=== PATIENT | male | born 1950 | race Caucasian/White ===

== ENCOUNTER 2020-05-22 01:55 | Observation (INO) ==
[2020-05-22] MEDS ORDERED: ASPIRIN 81 MG CHEW PO STA (02:07)
--- NOTE | 2020-05-22 02:11 | Emergency Department Note ---
Impression & Plan Substernal chest pain ED Provider Note Name: ZORA QUEVEDO Age: 69 Sex: M Arrives Via: Family Vehicle Informant: Patient ED Provider: Elfego Hilliard MD Chief Complaint: Chest Pain Impression: Substernal Chest Pain Medical Decision Makin yr old male with history HTN, DLP and family CAD history arrives for evaluation of substernal chest pressure. Notes started while exercising this evening and has been on and off over the last few hours but no symptoms in the last hour. EKG OK, trop negative and CXR OK. No evidence pe, dissection. He is feeling well. Was given full asa dose. Discussed with cards who advises hospitalization with cardiac rule out and then they will get stress testing done. Patient comfortable with this plan. Triage/Nursing Notes reviewed by Me Differentials:Cardiac ischemia, aortic dissection, pulmonary embolism, pneumothorax, pneumonia, pericarditis, myocarditis, esophageal rupture, GERD, cholecystitis, pancreatitis, musculoskeletal, as well as other pathologies. Vital Signs: reviewed and remarkable for no significant abnormalities Interventions: ASA 243mg PO Labs:Reviewed and remarkable for no significant abnormalities Imaging:X ray results are stated below per my interpretation: Chest: 1 view: No infiltrate, no effusion, normal cardiac border. EKG:Per My Interpretation: Indication Chest Pain: NSR 67 bpm, qtc 429. No Ectopy. No Ischemia. No previous for comparison Cardiac/Tele Monitoring: Cardiac Monitoring: An Order was placed for continuous cardiac monitoring. The monitor shows a rate of 60 with a normal sinus rhythm. Consults:Dr Prashant Jacob and Dr Laura Melendez Hospitalist Plan: Disposition:Hospitalization. Condition: Good History of Present Illness:69 yr old male arrives for evaluation of chest pain. Patient notes he was feeling well the last few days. Around 7pm he was doing some exercise walking in his basement when he noted left chest discomfort. Pressure like symptoms. No radiation. Worse with exertion, better with rest though continued when he went to bed. Took asa 81mg without relief. No radiation of pain, no nausea, no palpitations, no syncope, no vomiting. Denies recent leg swelling, abdominal pain, back pain, weakness, fevers, chills, cough, sob, nor other symptoms. No previous CAD history. Non-smoker. Patient currently without pain as symptoms resolved while driving here. ROS: See above HPI for pertinent positives & negatives. A total of 10 systems reviewed and were otherwise negative. Past Medical History:HTN, DLP, Prostate enlargement Past Surgical History:Prostate surgeries, hernia surgery x 2 Family History:Mother: CAD with CABG Social History:Lives with , non smoker Home Medications:See Below Allergies:nkda Vitals:Blood Pressure: 145/79, Pulse 71, RR 18, T 36.7C, O2 97% on RA Physical Exam: GENERAL: Patient is mildly anxious appearing and in no acute distress. EYES: No scleral icterus, unremarkable pupils. ENT: Mucous membranes moist, no nasal congestion. NECK: No masses appreciated, nomeningismus, trachea is midline. RESPIRATORY: No dyspnea. Clear to auscultation and equal bilaterally. No wheeze, no rhonchi. CARDIOVASCULAR: Regular rate and rhythm.No murmurs, rubs, gallops appreciated. GASTROINTESTINAL: Abdomen soft, non-tender, no peritonitis.Bowel sounds p ositive.No masses appreciated. BACK: No midline tenderness, no CVA tenderness EXTREMITIES: Normal motion all extremities, no cyanosis, no edema. NEUROLOGIC: Alert and oriented, no acute motor or sensory deficits, no focal weakness, cranial nerves grossly intact. SKIN: No rash, no jaundice, no diaphoresis. PSYCH: Appropriate GCS: 15 ED Course: Times/Reassessments: Stable, no further discomfort Elfego Hilliard MD Past Med/Surg History Social History Smoking Status: Never smoker Preferred Language: Australian Feels Safe at Home: Yes Allergies Allergies Allergy/AdvReac Type Severity Reaction Status Date / Time erythromycin base AdvReac Gastrointestinal Verified 05/22/20 03:21 Upset Home Meds Home Medications Medication Instructions Recorded Confirmed amlodipine 10 mg PO DAILY 05/22/20 05/22/20 lisinopril-hydrochlorothiazide 1 tab PO DAILY 05/22/20 05/22/20 pravastatin 20 mg PO HS 05/22/20 05/22/20 Results & Data (ED) Vital Signs Vital Signs - 24 hr 05/22/20 02:01 05/22/20 02:04 05/22/20 02:07 Temperature 36.7 C Temperature Source Oral Pulse Rate 71 79 Pulse Rate from SpO2 Sensor 68 Respiratory Rate 18 20 Respiratory Depth Normal Blood Pressure 145/79 H 145/79 H Blood Pressure Mean 101 101 Pulse Oximetry 97 98 98 Oxygen Delivery Method Room Air Room Air Sepsis Recent Fever Within 48 Hours No Sepsis New/Unexplained Change in Mental Status N/A Sepsis Action Taken by Nursing No Action Required 05/22/20 02:30 05/22/20 03:00 05/22/20 03:30 Temperature Temperature Source Pulse Rate 64 59 L 62 Pulse Rate from SpO2 Sensor 64 61 62 Respiratory Rate 12 14 12 Respiratory Depth Blood Pressure 125/88 131/76 141/87 H Blood Pressure Mean 100 94 105 Pulse Oximetry 97 96 96 Oxygen Delivery Method Sepsis Recent Fever Within 48 Hours Sepsis New/Unexplained Change in Mental Status Sepsis Action Taken by Nursing 05/22/20 04:00 Temperature Temperature Source Pulse Rate 54 L Pulse Rate from SpO2 Sensor 52 L Respiratory Rate Respiratory Depth Blood Pressure 126/72 Blood Pressure Mean 90 Pulse Oximetry 96 Oxygen Delivery Method Sepsis Recent Fever Within 48 Hours Sepsis New/Unexplained Change in Mental Status Sepsis Action Taken by Nursing Laboratory Data Result diagrams: 05/22/20 02:13 05/22/20 02:13 Lab Results 05/22/20 05/22/20 05/22/20 Range/Units 02:13 02:13 03:15 WBC 8.43 (4.8-10.8) K/uL RBC 5.05 (4.7-6.1) M/uL Hgb 15.6 (14.0-18.0) g/dL Hct 46.2 (42-52) % MCV 91.5 (80-100) fL MCH 30.9 (25-34) pg MCHC 33.8 (32-36) g/dL RDW Std Deviation 43.3 (36.4-46.3) fL RDW Coeff of [place] 13.0 (11.5-14.5) % Plt Count 259 (130-400) K/uL MPV 9.4 (7.4-10.4) fL Immature Gran % (Auto) 0.2 % Neut % (Auto) 73.0 % Lymph % (Auto) 15.3 % [place] % (Auto) 7.4 % Eos % (Auto) 3.7 % Baso % (Auto) 0.4 % Neut # (Auto) 6.16 (1.4-6.5) K/uL Lymph # (Auto) 1.29 (1.2-3.4) K/uL [place] # (Auto) 0.62 H (0.11-0.59) K/uL Eos # (Auto) 0.31 (0-0.5) K/uL Baso # (Auto) 0.03 (0-0.2) K/uL Immature Gran # (Auto) 0.02 (0.00-0.02) K/uL Sodium 141 (136-145) mmol/L Potassium 4.0 (3.5-5.1) mmol/L Chloride 109 H (98-107) mmol/L Carbon Dioxide 25 (21-32) mmol/L Anion Gap 7.0 (3-11) BUN 24 H (7-18) mg/dl Creatinine 1.58 H (0.6-1.4) mg/dl Est Cr Clr Drug Dosing 59.3 ml/min Est GFR ( Amer) 51.0 Est GFR (Non-Af Amer) 44.0 BUN/Creatinine Ratio 15.1 (10-20) Glucose 122 H (70-99) mg/dl Calcium 9.3 (8.5-10.1) mg/dl Total Bilirubin 0.4 (0.2-1) mg/dl Direct Bilirubin 0.1 (0-0.2) mg/dl AST 17 (15-37) U/L ALT 30 (12-78) U/L Alkaline Phosphatase 64 (45-117) U/L Troponin I < 0.015 (0-0.045) ng/ml Total Protein 8.2 (6.4-8.2) gm/dl Albumin 4.0 (3.4-5.0) gm/dl Lipase 447 H (73-393) U/L COVID-19 Eval Order Covid19 IDNow [facility] Administered Medications Discontinued Medications Aspirin (Aspirin 81 Mg Chew) 243 mg PO NOW STA Stop: 05/22/20 02:08 Last Admin: 05/22/20 02:20 Dose: 243 mg Documented by: [id number] Discharge Plan Visit Data Chief Complaint: Chest Pain Stated Complaint: CHEST PAIN, HEAVINESS IN CHEST ED Provider: Elfego Hilliard Discharge Problem: Substernal chest pain Forms Stand Alone Forms: My [employer] ([employer]) Prescriptions Prescriptions: No Action amlodipine 10 mg Tablet 10 mg PO DAILY RF: 0 pravastatin 20 mg Tablet 20 mg PO HS RF: 0 lisinopril-hydrochlorothiazide 10-12.5 mg Tablet 1 tab PO DAILY RF: 0
[2020-05-22 02:23] LABS: Basophils # (auto) 0.03 K/uL (0-0.2); Basophils % (auto) 0.4 %; Eosinophils # (auto) 0.31 K/uL (0-0.5); Eosinophils % (auto) 3.7 %; Hematocrit (blood only) 46.2 % (42-52); Hemoglobin 15.6 g/dL (14.0-18.0); Immature Granulocytes # (auto) 0.02 K/uL (0.00-0.02); Immature Granulocytes % (auto) 0.2 %; Lymphocytes # (auto) 1.29 K/uL (1.2-3.4); Lymphocytes % (auto) 15.3 %; Mean Corpuscular Hemoglobin 30.9 pg (25-34); Mean Corpuscular Hgb Conc 33.8 g/dL (32-36); Mean Corpuscular Volume 91.5 fL (80-100); Mean Platelet Volume 9.4 fL (7.4-10.4); Monocytes # (auto) 0.62 K/uL (0.11-0.59); Monocytes % (auto) 7.4 %; Neutrophils # (auto) 6.16 K/uL (1.4-6.5); Platelet Count 259 K/uL (130-400); RDW Standard Deviation 43.3 fL (36.4-46.3); Red Blood Count 5.05 M/uL (4.7-6.1); White Blood Count 8.43 K/uL (4.8-10.8)
[2020-05-22 02:41] LABS: Alanine Aminotransferase 30 U/L (12-78); Aspartate Aminotransferase 17 U/L (15-37); BUN Creatinine Ratio 15.1 (10-20); Bilirubin Direct 0.1 mg/dl (0-0.2); Blood Urea Nitrogen 24 mg/dl (7-18); Calcium 9.3 mg/dl (8.5-10.1); Carbon Dioxide 25 mmol/L (21-32); Chloride 109 mmol/L (98-107); Creatinine Clr Calc Pharmacy 59.3 ml/min; Glucose 122 mg/dl (70-99); Lipase 447 U/L (73-393); Sodium 141 mmol/L (136-145)
[2020-05-22 02:46] LABS: Alkaline Phosphatase 64 U/L (45-117); Bilirubin,Total 0.4 mg/dl (0.2-1); Total Protein 8.2 gm/dl (6.4-8.2); Troponin I < 0.015 ng/ml (0-0.045)
[2020-05-22] MEDS ORDERED: ACETAMINOPHEN 325 MG TAB PO PRN (04:52)
[2020-05-22] MEDS ORDERED: POLYETHYLENE (MIRALAX) 17 GM PACK PO PRN (04:52)
[2020-05-22] MEDS ORDERED: NITROGLYCERIN SL 0.4 MG/TAB TAB SL PRN (04:52)
[2020-05-22] MEDS ORDERED: ONDANSETRON INJ 2 MG/ML 2 ML VIAL IV PRN (04:52)
--- NOTE | 2020-05-22 05:12 | History and Physical Report ---
DATE OF ADMISSION: 05/22/2020 CHIEF COMPLAINT: Chest pain. HISTORY OF PRESENT ILLNESS: A 69-year-old male with past medical history significant for hyperlipidemia, hypertension, chronic kidney disease stage III, history of basal cell carcinoma, family history of abdominal aortic aneurysm, presents with chest pain. The patient yesterday evening at 7:00 p.m., was walking in his basement and watching football match when he noticed left sided chest discomfort, mild, pressure like feeling, it stayed on and off until 1:00 a.m. when he decided to come to the ER. Currently, since 1:00 a.m. the pain is resolved. No associating factors. No shortness of breath, no nausea, no sweating, no dizziness, no headache, no blurred vision, no earache, no runny nose, no sore throat, no cough, no loss of sense of smell or taste. No dysphagia. Appetite is okay. No abdominal pain. Normal bowel movements. Bladder stream is not great, he thinks it is from his prostate. No swelling in the legs, no rash. ALLERGIES: TO ERYTHROMYCIN. PAST MEDICAL HISTORY: As mentioned above. PAST SURGICAL HISTORY: Repair of inguinal hernia, left side, umbilical hernia repair. MEDICATIONS: The patient is on amlodipine 10 mg p.o. daily, lisinopril/hydrochlorothiazide 10/12.5 mg p.o. daily, pravastatin 20 mg p.o. at bedtime. FAMILY HISTORY: Significant for father had abdominal aortic aneurysm, heart disorder, lung disorder. Mother had heart disease, CABG in her 60s and hypertension. SOCIAL HISTORY: . No smoking. 1 or 2 beers a week. No drug use. REVIEW OF SYMPTOMS: As per HPI. Rest of review of systems negative. PHYSICAL EXAMINATION: GENERAL: The patient is of moderate build, not in acute distress. VITAL SIGNS: Temperature 36.7, pulse 59, respiratory rate 14, blood pressure 131/76, oxygen 96% on room air. HEENT: Pupils equal, round, reactive to light. Oral mucosa moist. NECK: No JVD, no neck masses. CARDIOVASCULAR: S1, S2 heard, regular rate and rhythm, no murmur, no gallop. RESPIRATORY SYSTEM: Normal AP diameter. No accessory muscle use. No wheezing, no crackles. ABDOMEN: Soft, bowel sounds present, nontender. No distention. CENTRAL NERVOUS SYSTEM: Cranial nerves II-XII grossly intact. Nonfocal. EXTREMITIES: No edema, no erythema. LABORATORY DATA: WBC 8.4, hemoglobin 15.6, hematocrit 46.2, platelets 259. Sodium 141, potassium 4, chloride 109, bicarbonate 25, BUN 24, creatinine 1.58, serum glucose 132, calcium 9.3, total bilirubin 0.4, direct bilirubin 0.1, AST 17, ALT 30, alkaline phosphatase 64. Troponin I less than 0.15. Lipase 447. SARS-CoV-2 RNA pending. IMAGING: Chest x-ray, no acute findings seen. EKG: Normal sinus rhythm with sinus arrhythmia, rate of 67, no acute ST changes seen. ASSESSMENT AND PLAN: This is a 69-year-old male who presents due to chest pain. 1. Chest pain. Rule out acute coronary syndrome. Initial EKG and troponins negative, follow serial enzymes, echocardiogram, repeat EKG, n.p.o. and consult cardiology for further recommendations, possible stress test in a.m. 2. Hypertension. Continue his lisinopril/ hydrochlorothiazide and amlodipine. Monitor the blood pressure. 3. Hyperlipidemia. Continue pravastatin. Follow fasting lipid profile. 4. Chronic kidney disease stage III, baseline creatinine 1.5-1.6, presently creatinine 1.58. We will follow the labs. 5. Deep venous thrombosis prophylaxis, sequential compression devices. 6. Disposition: Observation in [facility]. Expect to discharge home and follow with family doctor. Level 1 full code. MTDD
[2020-05-22 07:42] LABS: Basophils # (auto) 0.02 K/uL (0-0.2); Basophils % (auto) 0.3 %; Eosinophils # (auto) 0.11 K/uL (0-0.5); Eosinophils % (auto) 1.4 %; Hematocrit (blood only) 46.9 % (42-52); Hemoglobin 15.9 g/dL (14.0-18.0); Immature Granulocytes # (auto) 0.01 K/uL (0.00-0.02); Immature Granulocytes % (auto) 0.1 %; Lymphocytes # (auto) 0.81 K/uL (1.2-3.4); Lymphocytes % (auto) 10.3 %; Mean Corpuscular Hgb Conc 33.9 g/dL (32-36); Mean Corpuscular Volume 91.4 fL (80-100); Mean Platelet Volume 9.6 fL (7.4-10.4); Monocytes # (auto) 0.53 K/uL (0.11-0.59); Monocytes % (auto) 6.7 %; Neutrophils % (auto) 81.2 %; Platelet Count 288 K/uL (130-400); RDW Coefficient of Variation 13.1 % (11.5-14.5); RDW Standard Deviation 43.9 fL (36.4-46.3); Red Blood Count 5.13 M/uL (4.7-6.1); White Blood Count 7.88 K/uL (4.8-10.8)
--- NOTE | 2020-05-22 08:12 | XRay Report ---
SINGLE VIEW CHEST CLINICAL HISTORY: Atypical chest pain. FINDINGS: An AP, portable, upright chest radiograph is obtained. No prior studies are available for c omparison at the time of dictation. The heart is top normal for projection noting mild atherosclerot ic calcification of the thoracic aorta. The lungs and pleural spaces are clear. No pneumothorax is se en. The bony thorax is grossly intact. IMPRESSION: No active disease in the chest. ACT 112: Negative or not required by law. Electronically signed by: Edgar Hilton M.D. 05/22/2020 8:11 AM
[2020-05-22 08:41] LABS: BUN Creatinine Ratio 14.4 (10-20); Blood Urea Nitrogen 21 mg/dl (7-18); Calcium 10.1 mg/dl (8.5-10.1); Carbon Dioxide 25 mmol/L (21-32); Chloride 107 mmol/L (98-107); Chol HDL Ratio 4; Cholesterol 182 mg/dl (0-200); Est GFR (African American) 55.2; Est GFR (Non-African American) 47.6; Glucose 119 mg/dl (70-99); HDL Cholesterol 47 mg/dl; LDL Cholesterol Calculated 102 mg/dl; Sodium 138 mmol/L (136-145); Triglycerides 167 mg/dl (0-150); Troponin I < 0.015 ng/ml (0-0.045); VLDL Cholesterol 33 mg/dl
[2020-05-22] MEDS ORDERED: LISINOPRIL/HCTZ 10/12.5MG TAB PO SCH (09:00)
[2020-05-22] MEDS ORDERED: amLODIPine BESYLATE 5 MG TAB PO SCH (09:00)
[2020-05-22] MEDS ORDERED: ASPIRIN 81 MG ECTAB PO SCH (09:00)
[2020-05-22 09:28] LABS: Potassium 3.9 mmol/L (3.5-5.1)
[2020-05-22 09:30] LABS: Magnesium 2.5 mg/dl (1.8-2.4)
--- NOTE | 2020-05-22 09:31 | Hospitalist Progress Note ---
Date of Service May 22, 2020 Assessment & Plan (1) Substernal chest pain: This is a 69-year-old male who presents due to chest pain. 1. Chest pain. Rule out acute coronary syndrome. Initial EKG and troponins negative, follow serial enzymes, echocardiogram, repeat EKG, n.p.o. and consult cardiology for further recommendations, possible stress test in a.m. Echocardiogram - Mild concentric LVH. LV wall motion is normal. LV syst. function is normal. EF 60-65%. Mild mitral regurg. No pericardial effusion. Pt underwent stress test - Normal EKG and echocardiographic response to pharmacologic stress. After metoprolol 5 mg IV administered to reverse tachycardia, pt was observed to have an intense heart rate lowering response with associated transient heavy perspiration, no chest pain. Pt was reassessed after he had lunch and performed some walking. Pt felt well. LDL cholesterol of 102. Transition pt from pravastatin 20 mg to rosuvastatin 20 mg 2. Hypertension. Continue his lisinopril/ hydrochlorothiazide and amlodipine. Monitor the blood pressure. 3. Hyperlipidemia. LDL cholesterol of 102. Transition pt from pravastatin 20 mg to rosuvastatin 20 mg 4. Chronic kidney disease stage III, baseline creatinine 1.5-1.6, presently creatinine 1.58. We will follow the labs. DVT prophylaxis, sequential compression devices. Disposition: Observation in [facility]. Plan to dc home. Follow up with PCP scheduled for 05/30/2020. Follow up w/ cardiology as needed. Admission and Anticipated Discharge Date Admission Date: May 22, 2020 Subjective Pt seen in follow up of chest pain. Cardiology was consulted and pt underwent stress test today. Currently pt is resting in bd, reports to feel well. Denies any chest pain or shortness of breath. Reports that chest pain has resolved on the way to the hospital. Review of Systems Review of Systems: All systems reviewed & are unremarkable except as noted in HPI & below Constitutional: no fever, no chills and no fatigue Respiratory: no cough and no dyspnea Cardiovascular: no chest pain, no palpitations and no lightheadedness Gastrointestinal: no abdominal pain, no nausea and no vomiting Genitourinary: no dysuria Physical Exam Physical Exam: GENERAL: The patient is of moderate build, not in acute distress. HEENT: NC/AT, PERRL, EOMI. Oral mucosa moist. NECK: No JVD, no neck masses. CARDIOVASCULAR: S1, S2 heard, regular rate and rhythm, no murmur, no gallop. RESPIRATORY SYSTEM: Normal AP diameter. No accessory muscle use. No wheezing, no crackles. ABDOMEN: Soft, bowel sounds present, nontender. No distention. NEURO: alert and oriented x3, answering questions appropriately, speech fluent, moves extremities EXTREMITIES: No edema, no erythema. Results & Data Results & Data ([facility]) Vital Signs (Past 12 Hours) Vital Signs Temp Pulse Pulse Resp BP BP Pulse Ox 05/22/20 07:29 62 05/22/20 07:27 36.5 C 58 L 18 138/81 98 05/22/20 04:53 36.4 C L 71 16 150/85 H 99 05/22/20 04:00 54 L 126/72 96 05/22/20 03:30 62 12 141/87 H 96 05/22/20 03:00 59 L 14 131/76 96 05/22/20 02:30 64 12 125/88 97 05/22/20 02:07 98 05/22/20 02:04 79 20 145/79 H 98 05/22/20 02:01 36.7 C 71 18 145/79 H 97 Laboratory Results 05/22/20 05/22/20 05/22/20 Range/Units 08:38 06:59 06:59 WBC 7.88 (4.8-10.8) K/uL RBC 5.13 (4.7-6.1) M/uL Hgb 15.9 (14.0-18.0) g/dL Hct 46.9 (42-52) % MCV 91.4 (80-100) fL MCH 31.0 (25-34) pg MCHC 33.9 (32-36) g/dL RDW Std Deviation 43.9 (36.4-46.3) fL RDW Coeff of [place] 13.1 (11.5-14.5) % Plt Count 288 (130-400) K/uL MPV 9.6 (7.4-10.4) fL Immature Gran % (Auto) 0.1 % Neut % (Auto) 81.2 % Lymph % (Auto) 10.3 % [place] % (Auto) 6.7 % Eos % (Auto) 1.4 % Baso % (Auto) 0.3 % Neut # (Auto) 6.40 (1.4-6.5) K/uL Lymph # (Auto) 0.81 L (1.2-3.4) K/uL [place] # (Auto) 0.53 (0.11-0.59) K/uL Eos # (Auto) 0.11 (0-0.5) K/uL Baso # (Auto) 0.02 (0-0.2) K/uL Immature Gran # (Auto) 0.01 (0.00-0.02) K/uL Sodium 138 (136-145) mmol/L Potassium 3.9 (3.5-5.1) mmol/L Chloride 107 (98-107) mmol/L Carbon Dioxide 25 (21-32) mmol/L Anion Gap 6.0 (3-11) BUN 21 H (7-18) mg/dl Creatinine 1.48 H (0.6-1.4) mg/dl Est Cr Clr Drug Dosing 63.0 ml/min Est GFR ( Amer) 55.2 Est GFR (Non-Af Amer) 47.6 BUN/Creatinine Ratio 14.4 (10-20) Glucose 119 H (70-99) mg/dl Calcium 10.1 (8.5-10.1) mg/dl Magnesium 2.5 H (1.8-2.4) mg/dl Total Bilirubin (0.2-1) mg/dl Direct Bilirubin (0-0.2) mg/dl AST (15-37) U/L ALT (12-78) U/L Alkaline Phosphatase (45-117) U/L Troponin I < 0.015 (0-0.045) ng/ml Total Protein (6.4-8.2) gm/dl Albumin (3.4-5.0) gm/dl Triglycerides 167 H (0-150) mg/dl Cholesterol 182 (0-200) mg/dl LDL Cholesterol, Calc 102 mg/dl VLDL Cholesterol, Calc 33 mg/dl HDL Cholesterol 47 mg/dl Cholesterol/HDL Ratio 4 Lipase (73-393) U/L COVID-19 Eval Order SARS-CoV-2, RNA, NAAT (NEGATIVE) 05/22/20 05/22/20 05/22/20 Range/Units 03:15 03:15 02:13 WBC (4.8-10.8) K/uL RBC (4.7-6.1) M/uL Hgb (14.0-18.0) g/dL Hct (42-52) % MCV (80-100) fL MCH (25-34) pg MCHC (32-36) g/dL RDW Std Deviation (36.4-46.3) fL RDW Coeff of [place] (11.5-14.5) % Plt Count (130-400) K/uL MPV (7.4-10.4) fL Immature Gran % (Auto) % Neut % (Auto) % Lymph % (Auto) % [place] % (Auto) % Eos % (Auto) % Baso % (Auto) % Neut # (Auto) (1.4-6.5) K/uL Lymph # (Auto) (1.2-3.4) K/uL [place] # (Auto) (0.11-0.59) K/uL Eos # (Auto) (0-0.5) K/uL Baso # (Auto) (0-0.2) K/uL Immature Gran # (Auto) (0.00-0.02) K/uL Sodium 141 (136-145) mmol/L Potassium 4.0 (3.5-5.1) mmol/L Chloride 109 H (98-107) mmol/L Carbon Dioxide 25 (21-32) mmol/L Anion Gap 7.0 (3-11) BUN 24 H (7-18) mg/dl Creatinine 1.58 H (0.6-1.4) mg/dl Est Cr Clr Drug Dosing 59.3 ml/min Est GFR ( Amer) 51.0 Est GFR (Non-Af Amer) 44.0 BUN/Creatinine Ratio 15.1 (10-20) Glucose 122 H (70-99) mg/dl Calcium 9.3 (8.5-10.1) mg/dl Magnesium (1.8-2.4) mg/dl Total Bilirubin 0.4 (0.2-1) mg/dl Direct Bilirubin 0.1 (0-0.2) mg/dl AST 17 (15-37) U/L ALT 30 (12-78) U/L Alkaline Phosphatase 64 (45-117) U/L Troponin I < 0.015 (0-0.045) ng/ml Total Protein 8.2 (6.4-8.2) gm/dl Albumin 4.0 (3.4-5.0) gm/dl Triglycerides (0-150) mg/dl Cholesterol (0-200) mg/dl LDL Cholesterol, Calc mg/dl VLDL Cholesterol, Calc mg/dl HDL Cholesterol mg/dl Cholesterol/HDL Ratio Lipase 447 H (73-393) U/L COVID-19 [facility] SARS-CoV-2, RNA, NAAT NEGATIVE (NEGATIVE) 05/22/20 Range/Units 02:13 WBC 8.43 (4.8-10.8) K/uL RBC 5.05 (4.7-6.1) M/uL Hgb 15.6 (14.0-18.0) g/dL Hct 46.2 (42-52) % MCV 91.5 (80-100) fL MCH 30.9 (25-34) pg MCHC 33.8 (32-36) g/dL RDW Std Deviation 43.3 (36.4-46.3) fL RDW Coeff of [place] 13.0 (11.5-14.5) % Plt Count 259 (130-400) K/uL MPV 9.4 (7.4-10.4) fL Immature Gran % (Auto) 0.2 % Neut % (Auto) 73.0 % Lymph % (Auto) 15.3 % [place] % (Auto) 7.4 % Eos % (Auto) 3.7 % Baso % (Auto) 0.4 % Neut # (Auto) 6.16 (1.4-6.5) K/uL Lymph # (Auto) 1.29 (1.2-3.4) K/uL [place] # (Auto) 0.62 H (0.11-0.59) K/uL Eos # (Auto) 0.31 (0-0.5) K/uL Baso # (Auto) 0.03 (0-0.2) K/uL Immature Gran # (Auto) 0.02 (0.00-0.02) K/uL Sodium (136-145) mmol/L Potassium (3.5-5.1) mmol/L Chloride (98-107) mmol/L Carbon Dioxide (21-32) mmol/L Anion Gap (3-11) BUN (7-18) mg/dl Creatinine (0.6-1.4) mg/dl Est Cr Clr Drug Dosing ml/min Est GFR ( Amer) Est GFR (Non-Af Amer) BUN/Creatinine Ratio (10-20) Glucose (70-99) mg/dl Calcium (8.5-10.1) mg/dl Magnesium (1.8-2.4) mg/dl Total Bilirubin (0.2-1) mg/dl Direct Bilirubin (0-0.2) mg/dl AST (15-37) U/L ALT (12-78) U/L Alkaline Phosphatase (45-117) U/L Troponin I (0-0.045) ng/ml Total Protein (6.4-8.2) gm/dl Albumin (3.4-5.0) gm/dl Triglycerides (0-150) mg/dl Cholesterol (0-200) mg/dl LDL Cholesterol, Calc mg/dl VLDL Cholesterol, Calc mg/dl HDL Cholesterol mg/dl Cholesterol/HDL Ratio Lipase (73-393) U/L COVID-19 Eval Order SARS-CoV-2, RNA, NAAT (NEGATIVE) Medications Administered Current Inpatient Medications Acetaminophen (Acetaminophen 325 Mg Tab) 650 mg PO Q4H PRN PRN Reason: Pain or Fever Stop: 06/21/20 04:51 Amlodipine Besylate (Amlodipine Besylate 5 Mg Tab) 10 mg PO DAILY [facility] Stop: 06/21/20 08:59 Last Admin: 05/22/20 08:59 Dose: 10 mg Documented by: Aspirin (Aspirin 81 Mg Ectab) 81 mg PO QAM [facility] Stop: 06/21/20 08:59 Last Admin: 05/22/20 08:59 Dose: 81 mg Documented by: Lisinopril/HCTZ (Lisinopril/Hctz 10/12.5mg Tab) 1 tab PO DAILY [facility] Stop: 06/21/20 08:59 Last Admin: 05/22/20 08:59 Dose: 1 tab Documented by: Nitroglycerin (Nitroglycerin Sl 0.4 Mg/Tab Tab) 0.4 mg SL UD PRN PRN Reason: Chest Pain Stop: 06/21/20 04:51 Ondansetron HCl (Ondansetron Inj 2 Mg/Ml 2 Ml Vial) 4 mg IV Q6H PRN PRN Reason: Nausea Stop: 06/21/20 04:51 Polyethylene Glycol (Polyethylene (Miralax) 17 Gm Pack) 17 gm PO DAILY PRN PRN Reason: Constipation Stop: 06/21/20 04:51 Pravastatin Sodium (Pravastatin Sod 20 Mg Tab) 20 mg PO HS JAYSHREE Stop: 06/21/20 20:59
--- NOTE | 2020-05-22 10:13 | Cardiology Consultation ---
Date of Consultation May 22, 2020 Assessment & Plan (1) Substernal chest pain: EKG on arrival and again this am reveal SR without ischemic changes per my interpretation. Troponin I negative x 2. Resting echo this am reviewed independently, with normal LV wall motion and normal LVEF. Has risk factors of male sex, age, h/o HTN, dyslipidemia, and family history of CAD. Possible Stage III CKD, need to review historical labs from outpatient chart to determine his baseline creatinine. He states he has chronic R knee pain and is unable to exercise on the treadmill. Will proceed with dobutamine stress echo. Further recommendations to follow. History of Present Illness Attending Physician: William Harrison MD History of Present Illness Mr Ochoa is a 69 year old male seen in cardiology consultation per the request of Dr Sanchez for the evaluation of chest pain. Patient has a history of hypertension, and dyslipidemia. Notes left sided chest pain that felt like a pulled muscle while walking laps in his basement during half time of last night's [employer] football game. Symptoms persisted and resolved while his spouse was driving him to the ED. He has remained asymptomatic. Family History: Mother had CAG, CABG at age 68, after a fall with head trauma in her 80s. He is an only child Allergies Allergy/AdvReac Type Severity Reaction Status Date / Time erythromycin base AdvReac Gastrointestinal Verified 05/22/20 03:21 Upset Home Medications Medication Instructions Recorded Confirmed Type amlodipine 10 mg PO DAILY 05/22/20 05/22/20 History lisinopril-hydrochlorothiazide 1 tab PO DAILY 05/22/20 05/22/20 History pravastatin 20 mg PO HS 05/22/20 05/22/20 History Patient History Social History Smoking Status: Never smoker Hx Alcohol Use: Yes Alcohol type: beer and wine Hx Substance Use: No Preferred Language: Ivorian Communication Ability: Effective Bulb Weeder Required: No Beliefs That Will Affect Care: None Current Living Situation: Spouse Current Living Situation Comment: Feels Safe at Home: Yes Safety Concerns: Feels Safe At This Time Assistive Devices: Glasses Review of Systems Review of Systems: All systems reviewed & are unremarkable except as noted in HPI & below Physical Exam Physical Exam: Temp Pulse Resp BP Pulse Ox 36.5 C 62 18 138/81 98 05/22/20 07:27 05/22/20 07:29 05/22/20 07:27 05/22/20 07:27 05/22/20 07:27 Constitutional: WD/WN, vitals as above Respiratory: normal respiratory effort, lungs clear to auscultation Cardiovascular: RRR, no murmur, no edema Gastrointestinal (Abdomen): normal bowel sounds, soft, nontender, no hepatosplenomegaly Neurologic: PERRL, EOMI, accommodation nl, no face palsy, no dysarthria Results & Data ([facility]) Vital Signs (Past 12 Hours) Vital Signs Temp Pulse Pulse Resp BP BP Pulse Ox 05/22/20 07:29 62 05/22/20 07:27 36.5 C 58 L 18 138/81 98 05/22/20 04:53 36.4 C L 71 16 150/85 H 99 05/22/20 04:00 54 L 126/72 96 05/22/20 03:30 62 12 141/87 H 96 05/22/20 03:00 59 L 14 131/76 96 05/22/20 02:30 64 12 125/88 97 05/22/20 02:07 98 05/22/20 02:04 79 20 145/79 H 98 05/22/20 02:01 36.7 C 71 18 145/79 H 97 Laboratory Results Cardiac Enzymes 05/22/20 05/22/20 Range/Units 02:13 06:59 AST 17 (15-37) U/L Troponin I < 0.015 < 0.015 (0-0.045) ng/ml Lipids 05/22/20 Range/Units 06:59 Triglycerides 167 H (0-150) mg/dl Cholesterol 182 (0-200) mg/dl HDL Cholesterol 47 mg/dl Cholesterol/HDL Ratio 4 CBC 05/22/20 05/22/20 Range/Units 02:13 06:59 WBC 8.43 7.88 (4.8-10.8) K/uL RBC 5.05 5.13 (4.7-6.1) M/uL Hgb 15.6 15.9 (14.0-18.0) g/dL Hct 46.2 46.9 (42-52) % Plt Count 259 288 (130-400) K/uL Neut # (Auto) 6.16 6.40 (1.4-6.5) K/uL Lymph # (Auto) 1.29 0.81 L (1.2-3.4) K/uL Collier # (Auto) 0.62 H 0.53 (0.11-0.59) K/uL Eos # (Auto) 0.31 0.11 (0-0.5) K/uL Baso # (Auto) 0.03 0.02 (0-0.2) K/uL Comprehensive Metabolic Panel 05/22/20 05/22/20 05/22/20 Range/Units 02:13 06:59 08:38 Sodium 141 138 (136-145) mmol/L Potassium 4.0 3.9 (3.5-5.1) mmol/L Chloride 109 H 107 (98-107) mmol/L Carbon Dioxide 25 25 (21-32) mmol/L BUN 24 H 21 H (7-18) mg/dl Creatinine 1.58 H 1.48 H (0.6-1.4) mg/dl Glucose 122 H 119 H (70-99) mg/dl Calcium 9.3 10.1 (8.5-10.1) mg/dl Direct Bilirubin 0.1 (0-0.2) mg/dl AST 17 (15-37) U/L ALT 30 (12-78) U/L Alkaline Phosphatase 64 (45-117) U/L Total Protein 8.2 (6.4-8.2) gm/dl Albumin 4.0 (3.4-5.0) gm/dl Intake and Output 05/21/20 05/22/20 05/22/20 22:59 06:59 14:59 Other: Weight 113 kg Weight Measurement Method Standing Scale
[2020-05-22] MEDS ORDERED: ATROPINE SULFATE 0.1 MG/ML 10ML SYR IV ONE (11:23)
[2020-05-22] MEDS ORDERED: DOBUTamine HCL 12.5 MG/ML 20 ML VIAL IV ONE (11:23)
[2020-05-22] MEDS ORDERED: METOPROLOL TARTRATE 1 MG/ML VIAL IV ONE (11:23)
--- NOTE | 2020-05-22 11:28 | Electrocardiogram Report ---
Test Reason : Blood Pressure : / mmHG Vent. Rate : 067 BPM Atrial Rate : 067 BPM P-R Int : 180 ms QRS Dur : 090 ms QT Int : 406 ms P-R-T Axes : 078 027 035 degrees QTc Int : 429 ms Normal sinus rhythm with sinus arrhythmia Normal ECG No previous ECGs available Confirmed by Jaydon Pace ([id number]) on 05/22/2020 11:28:15 AM Referred By: REFERRED SELF Confirmed By:Lino Pace
--- NOTE | 2020-05-22 11:37 | Electrocardiogram Report ---
Test Reason : Blood Pressure : / mmHG Vent. Rate : 076 BPM Atrial Rate : 076 BPM P-R Int : 170 ms QRS Dur : 102 ms QT Int : 394 ms P-R-T Axes : 084 085 067 degrees QTc Int : 443 ms Normal sinus rhythm with sinus arrhythmia Nonspecific ST abnormality Confirmed by Jaydon Pace ([id number]) on 05/22/2020 11:37:20 AM Referred By: REFERRED SELF Confirmed By:Lino Pace
--- NOTE | 2020-05-22 12:30 | Communication Note ---
Date of Service: May 22, 2020 Normal EKG and echocardiographic response to pharmacologic stress. After metoprolol 5 mg IV administered to reverse tachycardia, pt was observed to have an intense heart rate lowering response with associated transient heavy perspiration, no chest pain. Plan: Transfer back to [facility]. Advance diet. Will reassess after he has lunch and has performed some walking. LDL cholesterol of 102. Given his risk factors would recommend more intensive lipid lowering therapy. Transition pt from pravastatin 20 mg to rosuvastatin 20 mg . Per review of his [facility] chart , he has not been on this in the past. Per review of records, pt has known stage III CKD, follows with nephrology.
--- NOTE | 2020-05-22 14:44 | Communication Note ---
Date of Service: May 22, 2020 Pt feeling well after lunch . He went for walk in [place] and feels well. Stable for discharge with plan to transition to Rosuvastatin 20 mg as outpatient. Can follow up with PCP and with cardiology should future concerns arise. I called and reviewed his cardiac assessment with his spouse, Beatriz by phone.
--- NOTE | 2020-05-22 15:26 | Discharge Summary ---
Date of Service May 22, 2020 Admission HPI Per Admitting Provider A 69-year-old male with past medical history significant for hyperlipidemia, hypertension, chronic kidney disease stage III, history of basal cell carcinoma, family history of abdominal aortic aneurysm, presents with chest pain. The patient yesterday evening at 7:00 p.m., was walking in his basement and watching football match when he noticed left sided chest discomfort, mild, pressure like feeling, it stayed on and off until 1:00 a.m. when he decided to come to the ER. Currently, since 1:00 a.m. the pain is resolved. No associating factors. No shortness of breath, no nausea, no sweating, no dizziness, no headache, no blurred vision, no earache, no runny nose, no sore throat, no cough, no loss of sense of smell or taste. No dysphagia. Appetite is okay. No abdominal pain. Normal bowel movements. Bladder stream is not great, he thinks it is from his prostate. No swelling in the legs, no rash. Admission Exam Per Admitting Provider GENERAL: The patient is of moderate build, not in acute distress. VITAL SIGNS: Temperature 36.7, pulse 59, respiratory rate 14, blood pressure 131/76, oxygen 96% on room air. HEENT: Pupils equal, round, reactive to light. Oral mucosa moist. NECK: No JVD, no neck masses. CARDIOVASCULAR: S1, S2 heard, regular rate and rhythm, no murmur, no gallop. RESPIRATORY SYSTEM: Normal AP diameter. No accessory muscle use. No wheezing, no crackles. ABDOMEN: Soft, bowel sounds present, nontender. No distention. CENTRAL NERVOUS SYSTEM: Cranial nerves II-XII grossly intact. Nonfocal. EXTREMITIES: No edema, no erythema. Principal Diagnosis Substernal chest pain Discharge Exam GENERAL: The patient is of moderate build, not in acute distress. HEENT: NC/AT, PERRL, EOMI. Oral mucosa moist. NECK: No JVD, no neck masses. CARDIOVASCULAR: S1, S2 heard, regular rate and rhythm, no murmur, no gallop. RESPIRATORY SYSTEM: Normal AP diameter. No accessory muscle use. No wheezing, no crackles. ABDOMEN: Soft, bowel sounds present, nontender. No distention. NEURO: alert and oriented x3, answering questions appropriately, speech fluent, moves extremities EXTREMITIES: No edema, no erythema. Discharge Data Allergies Allergy/AdvReac Type Severity Reaction Status Date / Time erythromycin base AdvReac Gastrointestinal Verified 05/22/20 03:21 Upset Consultations 05/22/20 03:09 ED Decision to Admit Stat 05/22/20 04:52 Consult Case Management - Discharge Planning Routine 05/22/20 08:00 Consult Cardiology Routine Hospital Course (1) Substernal chest pain: This is a 69-year-old male who presents due to chest pain. 1. Chest pain. Rule out acute coronary syndrome. Initial EKG and troponins negative, follow serial enzymes, echocardiogram, repeat EKG, n.p.o. and consult cardiology for further recommendations, possible stress test in a.m. Echocardiogram - Mild concentric LVH. LV wall motion is normal. LV syst. function is normal. EF 60-65%. Mild mitral regurg. No pericardial effusion. Pt underwent stress test - Normal EKG and echocardiographic response to pharmacologic stress. After metoprolol 5 mg IV administered to reverse tachycardia, pt was observed to have an intense heart rate lowering response with associated transient heavy perspiration, no chest pain. Pt was reassessed after he had lunch and performed some walking. Pt felt well. LDL cholesterol of 102. Transition pt from pravastatin 20 mg to rosuvastatin 20 mg 2. Hypertension. Continue his lisinopril/ hydrochlorothiazide and amlodipine. Monitor the blood pressure. 3. Hyperlipidemia. LDL cholesterol of 102. Transition pt from pravastatin 20 mg to rosuvastatin 20 mg 4. Chronic kidney disease stage III, baseline creatinine 1.5-1.6, presently creatinine 1.58. We will follow the labs. DVT prophylaxis, sequential compression devices. Disposition: Observation in med [facility]. Plan to ma home. Follow up with PCP scheduled for 05/30/2020. Follow up w/ cardiology as needed. Total Time Total Time Spent Total Time Spent (In Minutes): 37 Total Time Includes: Examination of the Patient, Discharge Planning, Medication Reconciliation and Communication With Other Providers Discharge Plan Discharge Items Patient Disposition: Home - Self-Care Reason For Visit: CHEST PAIN Discharge Diagnosis: Substernal chest pain Activity: Per Instructions section Non-emergency contact: Primary Care Provider Call non-emergency contact if: you have any medication questions and your symptoms worsen Follow-up/Referrals: Shakira Segovia MD [Primary Care Provider] - (Date & Time 05/30/2020 2:20 PM Provider Shkaira Segovia MD Department Internal Medicine [facility] ) Diet: Heart Healthy Addtl Attending Provider Instructions: Follow up with your primary care doctor, your appointment was scheduled for 05/30/2020. Start taking rosuvastatin (Crestor) 20 mg daily instead of pravastatin. The prescription was sent to your pharmacy. Pending Studies at Discharge: No Stand-Alone Forms: My [facility], Smoking Cessation Medications and DC Order Prescriptions: New rosuvastatin [Crestor] 20 mg Tablet 20 mg PO QAM 30 Days Qty: 30 RF: 0 aspirin 81 mg Tablet,Delayed Release (Dr/Ec) 81 mg PO QAM 30 Days Qty: 30 RF: 0 Continued amlodipine 10 mg Tablet 10 mg PO DAILY RF: 0 lisinopril-hydrochlorothiazide 10-12.5 mg Tablet 1 tab PO DAILY RF: 0 Discontinued pravastatin 20 mg Tablet 20 mg PO HS RF: 0 Discharge Orders: Discharge Order (Routine); Ordered 05/22/20 Ordered By: William Harrison Admission Data Admit Date/Time: 05/22/20 03:44 Attending Provider: William Harrison Admit Provider: Surinder Sanchez Primary Care Provider: Shakira Segovia Other Providers: Surinder Sanchez ; Tan Cerda
[2020-05-22] MEDS ORDERED: PRAVASTATIN SOD 20 MG TAB PO SCH (21:00)
[2020-05-23] MEDS ORDERED: ROSUVASTATIN CALCIUM 20 MG TAB PO SCH (09:00)
== END 2020-05-22 16:15 | disposition home or self-care (01) ==
LOC: 2N 01:55 → ED 01:55 → 2N 04:37

== ENCOUNTER 2021-06-13 19:29 | Inpatient (IN) ==
[2021-06-13] MEDS ORDERED: SODIUM CHLORIDE 0.9% 1000ML 1,000 ML IV STA (19:53)
[2021-06-13] MEDS ORDERED: MoRPHine SULFATE 4 MG/ML 1 ML CARP\\VIAL IV STA (19:53)
[2021-06-13] MEDS ORDERED: ONDANSETRON INJ 2 MG/ML 2 ML VIAL IV STA ×2 (19:53→22:28)
--- NOTE | 2021-06-13 20:19 | Emergency Department Note ---
Impression & Plan Pseudo-obstruction of intestine, Pancreatic mass, Liver metastases, Abdominal pain ED Provider Note NAME: ZORA QUEVEDO AGE: 70 SEX: M : 1950 ARRIVES VIA: Ambulance INFORMANT: Patient, ED PROVIDER(S): Manjit Walker MD Chief Complaint: Abdominal pain HPI: Patient does present due to concern for abdominal pain. The patient presents with approximately 4 days of left lower quadrant pain. The patient did have a recent admission at [facility] where the patient was noted to have likely C. difficile and had been on a liquid diet. The patient was also noted to have pancreatic mass with likely liver metastases. The patient states that he did have a liver biopsy completed this still pending. The patient denies any recent falls or trauma. Patient states he has not had a bowel movement in 4 days and has been obstipated not passing gas. No prior abdominal surgeries with exception of the recent liver biopsy. The patient denies any issues with urination. Patient has any chest pains or shortness of breath. Patient vaccinated for COVID-19. Patient states that the pain has been fairly constant worse with palpation and gnawing in nature 3 out of 10 in severity currently. ROS: See HPI for pertinent positives and negatives. A total of 10 systems were reviewed and otherwise negative. Past medical history: See below Surgical history: See below Social history: See below Physical Exam: GENERAL: NAD, wearing glasses, wearing a mask, non-toxic. EYE EXAM: Normal conjunctiva. PERRL, no anisocoria and EOM's grossly intact w/o pain. NECK: Supple, no nuchal rigidity, no adenopathy, non-tender. No signs of meningismus. LUNGS: Clear to auscultation. Normal chest wall mechanics. HEART: NSR, no MRG. ABDOMEN: Abdomen soft, left-sided abdominal pain, normo-active bowel sounds, no masses, no rebound or guarding. BACK: No CVA TTP. SKIN: No rashes and no bruising. UPPER EXTREMITIES: Upper extremities are grossly normal. LOWER EXTREMITIES: Grossly normal, 2+ symmetric lower extremity edema without calf pain NEURO EXAM: A&O x3, cranial nerves II-XII grossly intact, normal speech, moves all 4 extremities on command w/o issue. Differential diagnoses: Appendicitis, testicular torsion, infections, diverticulitis, UTI, obstruction, mesenteric ischemia, aortic pathology, inflammatory bowel disease, renal colic, PUD, pancreatitis, biliary pathology, hernia, volvulus, constipation, as well as other pathologies. Course: Patient was seen and evaluated the bedside. Full history physical exam was performed. EKG interpreted by me Sinus rhythm with PACs, rate of 87, normal intervals, normal axis, Q-wave in lead III no obvious changes. Imaging Studies: See Below Cardiac monitoring: An order was placed for continuous cardiac monitoring. The monitor shows a rate of 82 with sinus rhythm. MDM: Patient was seen due to concern for abdominal pain and associated nausea. The patient has had a recent C. difficile infection and states that his not had a bowel movement or passed gas in approximate 4 days. Patient blood work shows a white count of 16 with a hemoglobin of 12. The patient's platelet count is unremarkable. Patient does have mild hyponatremia. The patient's liver function enzymes are slightly elevated with AST ALT and alk phos at 73, 137 was 68 but bilirubin 0.6. Lipase is undetectable. Patient CT abdomen pelvis did show concern for the pancreatic body mass as well as concern for metastases to the liver which the patient is already characterized. The patient is a prominent gas distended loops of colon. Did review the patient's CAT scan was concerned given the gaseous distention. I did speak with the on-call general surgeon Dr. Naranjo stated that it would not be contraindicated to place an NG tube. This was ordered. I did speak the on-call hospitalist Dr. Sanchez and the patient was admitted to the medicine service. Of note while completing the patient's chart I did review the EKG that was in the system which was not the same EKG which I reviewed at the time of the patient's presentation. The patient does have some slight elevations noted adn thus I did call the [facility] hospitalist suggest adding a troponin. Patient never complained of any chest pains or shortness of breath at the time of the patient's history and physical exam. Past Med/Surg History Medical History BPH (benign prostatic hyperplasia) CKD (chronic kidney disease) Baseline creatinine 1.4-1.5 per chart review Hyperlipidemia Hypertension Nausea and vomiting after administration of anesthetic agent Osteoarthritis Umbilical hernia + present (no pain or current issues) Surgical History History of colonoscopy History of tooth extraction History of total right knee replacement (TKR) Hx of inguinal hernia repair Hx of prostate biopsy x2 (benign) Hx of umbilical hernia repair Hx of vasectomy Family History Other No family history of adverse response to anesthesia Social History Smoking Status: Never smoker Second Hand Exposure: No; Do You Dip or Chew Tobacco: No; Tobacco Cessation Education Requested by Patient: No Hx Alcohol Use: No Hx Substance Use: No Preferred Language: Indonesian Communication Ability: Effective Tubing Oiler Required: No Beliefs That Will Affect Care: None Current Living Situation: Spouse Current Living Situation Comment: Other Information That Helps Us Care for You: No Feels Safe at Home: Yes Safety Concerns: Feels Safe At This Time Assistive Devices: Glasses Allergies Allergies Allergy/AdvReac Type Severity Reaction Status Date / Time erythromycin base AdvReac Mild Gastrointestinal Verified 06/13/21 20:17 Upset Home Meds Home Medications Medication Instructions Recorded Confirmed amlodipine 10 mg tablet 10 mg PO QPM 05/22/20 06/13/21 lisinopril 10 1 tab PO QAM 05/22/20 06/13/21 mg-hydrochlorothiazide 12.5 mg tablet ascorbic acid (vitamin C) 1,000 mg 1 g PO QAM 01/10/21 06/13/21 tablet (Vitamin C) cyanocobalamin (vitamin B-12) 500 500 mcg PO QAM 01/10/21 06/13/21 mcg tablet multivitamin 1 tab PO QAM 01/10/21 06/13/21 rosuvastatin 20 mg tablet (Crestor) 20 mg PO QAM 01/10/21 06/13/21 cholecalciferol (vitamin D3) 25 25 mcg PO QAM 05/16/21 06/13/21 mcg (1,000 unit) tablet (Vitamin D3) coenzyme Q10 100 mg capsule 100 mg PO QAM 05/16/21 06/13/21 (CoQ-10) echinacea 125 mg capsule 125 mg PO QAM 05/16/21 06/13/21 flaxseed 1,000 mg capsule 1,000 mg PO QAM 05/16/21 06/13/21 turmeric 400 mg capsule 400 mg PO QAM 05/16/21 06/13/21 amoxicillin 500 mg capsule 2,000 mg PO ONCE PRN 06/13/21 06/13/21 omeprazole 40 mg capsule,delayed 40 mg PO DAILYBB 06/13/21 06/13/21 release trazodone 50 mg tablet 50 mg PO HS 06/13/21 06/13/21 vancomycin 250 mg capsule 250 mg PO Q6 06/13/21 06/13/21 Results & Data (ED) Vital Signs Vital Signs - 24 hr 06/13/21 19:32 06/13/21 19:53 06/13/21 20:06 Temperature 36.6 C Temperature Source Axillary Pulse Rate 96 H 100 H Pulse Rate from SpO2 Sensor 96 H Respiratory Rate 21 20 Blood Pressure 135/75 Blood Pressure Mean 95 Pulse Oximetry 97 96 Oxygen Delivery Method Room Air Room Air Sepsis Recent Fever Within 48 Hours No Sepsis New/Unexplained Change in Mental Status N/A Sepsis Action Taken by Nursing No Action Required 06/13/21 20:30 06/13/21 21:00 06/13/21 21:19 Temperature Temperature Source Pulse Rate 89 92 H 99 H Pulse Rate from SpO2 Sensor 94 H 89 97 H Respiratory Rate 24 16 20 Blood Pressure 132/72 131/79 Blood Pressure Mean 92 96 Pulse Oximetry 99 96 97 Oxygen Delivery Method Sepsis Recent Fever Within 48 Hours Sepsis New/Unexplained Change in Mental Status Sepsis Action Taken by Nursing 06/13/21 22:00 06/13/21 23:00 Temperature Temperature Source Pulse Rate 89 88 Pulse Rate from SpO2 Sensor 89 89 Respiratory Rate 18 18 Blood Pressure Blood Pressure Mean Pulse Oximetry 96 94 Oxygen Delivery Method Sepsis Recent Fever Within 48 Hours Sepsis New/Unexplained Change in Mental Status Sepsis Action Taken by Usp Medications Current Medication List: was personally reviewed by me Laboratory Data Attestation: I reviewed the patient's lab results. Result diagrams: 06/13/21 20:13 06/13/21 20:13 Lab Results 06/13/21 06/13/21 06/13/21 Range/Units 20:13 20:13 23:15 WBC 16.30 H (4.8-10.8) K/uL RBC 4.12 L (4.7-6.1) M/uL Hgb 12.3 L (14.0-18.0) g/dL Hct 35.9 L (42-52) % MCV 87.1 (80-100) fL MCH 29.9 (25-34) pg MCHC 34.3 (32-36) g/dL RDW Std Deviation 45.5 (36.4-46.3) fL RDW Coeff of [place] 14.3 (11.5-14.5) % Plt Count 293 (130-400) K/uL MPV 8.9 (7.4-10.4) fL Immature Gran % (Auto) 0.6 % Neut % (Auto) 89.2 % Lymph % (Auto) 9.4 % [place] % (Auto) 0.6 % Eos % (Auto) 0.1 % Baso % (Auto) 0.1 % Neut # (Auto) 14.56 H (1.4-6.5) K/uL Lymph # (Auto) 1.53 (1.2-3.4) K/uL [place] # (Auto) 0.09 L (0.11-0.59) K/uL Eos # (Auto) 0.01 (0-0.5) K/uL Baso # (Auto) 0.02 (0-0.2) K/uL Immature Gran # (Auto) 0.09 H (0.00-0.02) K/uL Sodium 130 L (136-145) mmol/L Potassium 3.7 (3.5-5.1) mmol/L Chloride 94 L (98-107) mmol/L Carbon Dioxide 26 (21-32) mmol/L Anion Gap 10 (3-11) BUN 16 (6-23) mg/dl Creatinine 1.04 (0.6-1.4) mg/dl Est Cr Clr Drug Dosing 83.8 ml/min Est GFR ( Amer) 83.9 ml/min Est GFR (Non-Af Amer) 72.4 ml/min BUN/Creatinine Ratio 15.4 (10-20) Glucose 132 H (70-99(Fasting)) mg/dl Calcium 9.2 (8.5-10.1) mg/dl Total Bilirubin 0.6 (0.2-1.0) mg/dl AST 73 H (13-39) U/L ALT 137 H (7-52) U/L Alkaline Phosphatase 168 H (34-104) U/L Total Protein 6.3 (6.0-8.3) gm/dl Albumin 3.5 (3.4-5.0) gm/dl Globulin 2.8 (2.5-4.0) gm/dl Albumin/Globulin Ratio 1.3 (0.9-2) Lipase 52 (11-82) U/L Urine Color Urine Appearance (Clear) Urine pH (4.5-7.5) Ur Specific [place] (1.000-1.030) Urine Protein (Negative) Urine Glucose (UA) (Negative) Urine Ketones (Negative) Urine Blood (Negative) Urine Nitrite (Negative) Urine Bilirubin (Negative) Urine Urobilinogen (Negative) Ur Leukocyte Esterase (Negative) Urine WBC (Auto) (0-5) /hpf Urine RBC (Auto) (0-4) /hpf U Hyaline Cast (Auto) (0-5) /lpf U Epithel Cells (Auto) (0-5) /lpf Urine Bacteria (Auto) (Negative) SARS-CoV-2, RNA, NAAT NEGATIVE (NEGATIVE) 06/13/21 Range/Units 23:40 WBC (4.8-10.8) K/uL RBC (4.7-6.1) M/uL Hgb (14.0-18.0) g/dL Hct (42-52) % MCV (80-100) fL MCH (25-34) pg MCHC (32-36) g/dL RDW Std Deviation (36.4-46.3) fL RDW Coeff of [place] (11.5-14.5) % Plt Count (130-400) K/uL MPV (7.4-10.4) fL Immature Gran % (Auto) % Neut % (Auto) % Lymph % (Auto) % [place] % (Auto) % Eos % (Auto) % Baso % (Auto) % Neut # (Auto) (1.4-6.5) K/uL Lymph # (Auto) (1.2-3.4) K/uL [place] # (Auto) (0.11-0.59) K/uL Eos # (Auto) (0-0.5) K/uL Baso # (Auto) (0-0.2) K/uL Immature Gran # (Auto) (0.00-0.02) K/uL Sodium (136-145) mmol/L Potassium (3.5-5.1) mmol/L Chloride (98-107) mmol/L Carbon Dioxide (21-32) mmol/L Anion Gap (3-11) BUN (6-23) mg/dl Creatinine (0.6-1.4) mg/dl Est Cr Clr Drug Dosing ml/min Est GFR ( Amer) ml/min Est GFR (Non-Af Amer) ml/min BUN/Creatinine Ratio (10-20) Glucose (70-99(Fasting)) mg/dl Calcium (8.5-10.1) mg/dl Total Bilirubin (0.2-1.0) mg/dl AST (13-39) U/L ALT (7-52) U/L Alkaline Phosphatase (34-104) U/L Total Protein (6.0-8.3) gm/dl Albumin (3.4-5.0) gm/dl Globulin (2.5-4.0) gm/dl Albumin/Globulin Ratio (0.9-2) Lipase (11-82) U/L Urine Color Yellow Urine Appearance Clear (Clear) Urine pH 5.0 (4.5-7.5) Ur Specific [place] > 1.045 H (1.000-1.030) Urine Protein Trace H (Negative) Urine Glucose (UA) Negative (Negative) Urine Ketones Trace H (Negative) Urine Blood Negative (Negative) Urine Nitrite Negative (Negative) Urine Bilirubin Negative (Negative) Urine Urobilinogen Negative (Negative) Ur Leukocyte Esterase Negative (Negative) Urine WBC (Auto) 1-5 (0-5) /hpf Urine RBC (Auto) 0-4 (0-4) /hpf U Hyaline Cast (Auto) 1-5 (0-5) /lpf U Epithel Cells (Auto) 10-20 H (0-5) /lpf Urine Bacteria (Auto) Negative (Negative) SARS-CoV-2, RNA, NAAT (NEGATIVE) Administered Medications Heparin Sodium (Porcine) (Heparin Sod 5,000 Unit/0.5 Ml Vial) 5,000 units SQ Q8 [facility] Stop: 07/14/21 05:59 Last Admin: 06/14/21 13:34 Dose: 5,000 units Documented by: [id number] Admin: 06/14/21 06:44 Dose: 5,000 units Documented by: [id number] Hydromorphone HCl (Hydromorphone Inj 0.5 Mg/0.5 Ml Syr) 0.5 mg IV Q3H PRN PRN Reason: Pain Stop: 06/28/21 00:44 Last Admin: 06/14/21 06:45 Dose: 0.5 mg Documented by: [id number] Admin: 06/14/21 03:38 Dose: 0.5 mg Documented by: [id number] Admin: 06/14/21 00:58 Dose: 0.5 mg Documented by: [id number] Pantoprazole Sodium 40 mg/ (Syringe) 10 mls @ 5 mls/min IV DAILY@1100 [facility] Stop: 07/14/21 10:59 Last Admin: 06/14/21 12:30 Dose: 5 mls/min Documented by: [id number] Sodium Chloride (Nss 1000ml) 1,000 mls @ 125 mls/hr IV .Q8H JAYSHREE Stop: 07/14/21 03:59 Last Admin: 06/14/21 13:49 Dose: 125 mls/hr Documented by: [id number] Infusion: 06/14/21 13:49 Dose: 125 mls/hr Documented by: [id number] Admin: 06/14/21 06:31 Dose: 125 mls/hr Documented by: [id number] Metronidazole (Flagyl) 500 mg in 100 mls @ 100 mls/hr IV Q8H JAYSHREE Stop: 06/24/21 13:59 Last Admin: 06/14/21 13:49 Dose: 100 mls/hr Documented by: [id number] Raspberry (Raspberry Syrup 5 Ml Udp) 5 ml PO Q6 JAYSHREE Stop: 06/21/21 23:59 Last Admin: 06/14/21 12:30 Dose: 5 ml Documented by: [id number] Admin: 06/14/21 06:44 Dose: 5 ml Documented by: [id number] Vancomycin HCl (Vancomycin Hcl 250 Mg/5 Ml Soln) 250 mg PO Q6 JAYSHREE Stop: 06/21/21 23:59 Last Admin: 06/14/21 12:30 Dose: 250 mg Documented by: [id number] Admin: 06/14/21 06:44 Dose: 250 mg Documented by: [id number] Vancomycin HCl (Vancomycin Hcl 500 Mg/100 Ml Enema) 500 mg MA QID JAYSHREE Stop: 06/24/21 12:59 Last Admin: 02/17/22 13:33 Dose: 500 mg Documented by: [id number] Discontinued Medications Sodium Chloride (Nss 1000ml) 1,000 mls @ 999 mls/hr IV .Q1H1M STA Stop: 06/13/21 20:53 Last Infusion: 06/14/21 00:14 Dose: 0 mls/hr Documented by: [id number] Admin: 06/13/21 20:14 Dose: 999 mls/hr Documented by: [id number] Sodium Chloride (Nss) 500 mls @ 125 mls/hr IV .Q4H JAYSHREE Stop: 07/13/21 22:29 Last Admin: 06/14/21 07:19 Dose: Not Given Documented by: [id number] Infusion: 06/14/21 07:19 Dose: 0 mls/hr Documented by: [id number] Admin: 06/13/21 23:15 Dose: 125 mls/hr Documented by: [id number] Ioversol (Optiray 320 100ml) 86 ml IV ONCE ONE Stop: 06/13/21 21:19 Last Admin: 06/13/21 21:18 Dose: 1 ml Documented by: [id number] Morphine Sulfate (Morphine Sulfate 4 Mg/Ml 1 Ml Carp\Vial) 4 mg IV NOW STA Stop: 06/13/21 19:54 Last Admin: 06/13/21 20:14 Dose: 4 mg Documented by: [id number] Ondansetron HCl (Ondansetron Inj 2 Mg/Ml 2 Ml Vial) 4 mg IV NOW STA Stop: 06/13/21 19:54 Last Admin: 06/13/21 20:05 Dose: 4 mg Documented by: [id number] Ondansetron HCl (Ondansetron Inj 2 Mg/Ml 2 Ml Vial) 4 mg IV NOW STA Stop: 06/13/21 22:29 Last Admin: 06/13/21 23:15 Dose: 4 mg Documented by: [id number] Discharge Plan Visit Data Chief Complaint: Abdominal Pain Discharge Problem: Pseudo-obstruction of intestine, Pancreatic mass, Liver metastases, Abdominal pain Patient Disposition: Admitted As Inpatient Discharge Instructions Interventions: ED Discharge Assessment Last Done: 06/14/21 03:25 Discharge Problem: Abdominal pain Qualifiers: Abdominal location: left lower quadrant Qualified Code(s): R10.32 - Left lower quadrant pain
[2021-06-13 20:22] LABS: Basophils # (auto) 0.02 K/uL (0-0.2); Basophils % (auto) 0.1 %; Eosinophils # (auto) 0.01 K/uL (0-0.5); Eosinophils % (auto) 0.1 %; Hematocrit (blood only) 35.9 % (42-52); Hemoglobin 12.3 g/dL (14.0-18.0); Immature Granulocytes # (auto) 0.09 K/uL (0.00-0.02); Immature Granulocytes % (auto) 0.6 %; Lymphocytes # (auto) 1.53 K/uL (1.2-3.4); Lymphocytes % (auto) 9.4 %; Mean Corpuscular Hemoglobin 29.9 pg (25-34); Mean Corpuscular Hgb Conc 34.3 g/dL (32-36); Mean Corpuscular Volume 87.1 fL (80-100); Mean Platelet Volume 8.9 fL (7.4-10.4); Monocytes # (auto) 0.09 K/uL (0.11-0.59); Monocytes % (auto) 0.6 %; Neutrophils # (auto) 14.56 K/uL (1.4-6.5); Neutrophils % (auto) 89.2 %; Platelet Count 293 K/uL (130-400); RDW Coefficient of Variation 14.3 % (11.5-14.5); RDW Standard Deviation 45.5 fL (36.4-46.3); Red Blood Count 4.12 M/uL (4.7-6.1)
[2021-06-13 20:59] LABS: Albumin Globulin Ratio 1.3 (0.9-2); Albumin Level 3.5 gm/dl (3.4-5.0); BUN Creatinine Ratio 15.4 (10-20); Bilirubin,Total 0.6 mg/dl (0.2-1.0); Calcium 9.2 mg/dl (8.5-10.1); Creatinine Clr Calc Pharmacy 83.8 ml/min; Est GFR (African American) 83.9 ml/min; Est GFR (Non-African American) 72.4 ml/min; Globulin 2.8 gm/dl (2.5-4.0); Potassium 3.7 mmol/L (3.5-5.1); Total Protein 6.3 gm/dl (6.0-8.3)
[2021-06-13] MEDS ORDERED: OPTIRAY 320 100ml IV ONE (21:18)
--- NOTE | 2021-06-13 21:40 | CT Scan Report ---
CT abd pelvis IV con only CLINICAL HISTORY: L sided pain; no BM; TECHNIQUE: Helical axial images of the abdomen and pelvis were obtained and displayed. Automated dose lowering techniques and/or adjustment according to patient size were utilized for this exam. This e xam was performed with intravenous contrast. COMPARISON: None available at the time of this dictation. FINDINGS: Lower chest: Bibasilar atelectasis versus scarring is seen. Liver: Numerous hypodensities are seen, most which measure greater than simple fluid density. The lar gest is 46 mm in diameter. Gallbladder and biliary tree: No calcified gallstones. Normal caliber wall. No intra- or extrahepatic biliary ductal dilation. Pancreas: There is a 36 mm ill-defined soft tissue mass in the body of the pancreas. The distal pancr eatic tail is dilated measuring 5 mm. Spleen: Unremarkable. Adrenals: Minimal thickening of the left adrenal gland is seen. Kidneys and ureters: Hypodensities are seen in the bilateral kidneys favored to represent cysts. Ther e is a hypodensity in the right kidney superior pole measuring 2 cm which measures greater than simpl e fluid. Bladder: Unremarkable. Reproductive organs: Prostatomegaly is seen. Bowel: There is mild diffuse wall thickening of the distal transverse colon. Multiple gas-distended l oops of colon are seen. The appendix is prominent in size measuring up to 9 mm at the tip. However, n o discernible wall thickening is seen. There is a small hiatal hernia. Lymph nodes Retroperitoneal: Numerous subcentimeter nodes are seen in the retroperitoneum and amrita hepatis. Mesenteric: Unremarkable. Pelvic: Subcentimeter lymph nodes are noted. Peritoneum: Normal. Vessels: Atherosclerotic calcifications are seen. Abdominal wall: Fat-containing supraumbilical hernia is seen. There is bilateral fat containing ingui nal hernias. Bones: Degenerative changes in the visualized spine. IMPRESSION: 1. There is a pancreatic body mass measuring approximately 36 mm with distal pancreatic ductal dilat ion. Findings are concerning for malignancy. Hypodense liver lesions are favored to represent metasta sis. 2. Hypodensity in the right kidney superior pole is nonspecific, nonemergent renal mass protocol can be performed if not previously characterized. 3. Prominent gas distended loops of colon. Prominence of the appendix and transverse colon is nonspe cific. ACT 112: Positive. There are findings on this exam that require communication between the performing entity and the patient following Patient Test Result Information Act ([place] Act 112) guidelines. Electronically signed by: Cornelio Salomon M.D. 06/13/2021 9:39 PM
[2021-06-13] MEDS: SODIUM CHLORIDE 0.9% 500 ML IV SCH (23:15)
[2021-06-14 00:12] LABS: Appearance Urine Clear (Clear); Bacteria Urine Automated Negative (Negative); Bilirubin Urine Negative (Negative); Blood Urine Negative (Negative); Color Urine Yellow; Glucose Urine UA Negative (Negative); Ketones Urine Trace (Negative); Leukocyte Esterase Urine Negative (Negative); Nitrite Urine Negative (Negative); Protein Urine Trace (Negative); RBC Urine Automated 0-4 /hpf (0-4); Specific Gravity Urine > 1.045 (1.000-1.030); Urobilinogen Urine Negative (Negative)
[2021-06-14] MEDS: HYDROmorphone INJ 0.5 MG/0.5 ML SYR IV PRN ×5 (00:58→22:16)
[2021-06-14] MEDS ORDERED: ONDANSETRON INJ 2 MG/ML 2 ML VIAL IV PRN (03:28)
[2021-06-14] MEDS ORDERED: hydrALAZINE HCL 20 MG/ML VIAL IV PRN (03:28)
[2021-06-14] MEDS: SODIUM CHLORIDE 0.9% 1000ML 1,000 ML IV SCH ×3 (06:31→22:20)
[2021-06-14] MEDS: HEPARIN SOD 5,000 UNIT/0.5 ML VIAL SQ SCH ×3 (06:44→23:51)
[2021-06-14] MEDS: VANCOMYCIN HCL 250 MG/5 ML SOLN PO SCH ×4 (06:44→23:52)
[2021-06-14] MEDS: RASPBERRY SYRUP 5 ML UDP PO SCH ×4 (06:44→23:51)
[2021-06-14] MEDS: SODIUM CHLORIDE 0.9% 500 ML IV SCH (07:19)
--- NOTE | 2021-06-14 07:55 | History and Physical Report ---
DATE OF ADMISSION: 06/14/2021. CHIEF COMPLAINT: Abdominal pain. HISTORY OF PRESENT ILLNESS: A 70-year-old male with past medical history significant for hyperlipidemia, hypertension, chronic kidney disease stage III, history of basal cell carcinoma, history of osteoarthritis, presents with abdominal pain. The patient was in [facility] recently. He is having abdominal pain since last Friday. He got admitted to [facility] and found to have pancreatic mass and liver mets, status post biopsy on last Friday. Results were pending at discharge. He is only eating liquid diet at home, but abdominal pain is not getting better. He is having nausea, but not vomiting. Last bowel movement was last Friday and severe abdominal pain, more in the left lower quadrant. Denies any fever or chills. No chest pain, no shortness of breath, no cough, no headache, no blurred vision, no earache, no runny nose, no sore throat. Currently, resting comfortably and hemodynamically stable. Currently requesting for pain medication. The patient is status post NG tube in the ER, draining slight yellowish fluid. ALLERGIES: ERYTHROMYCIN BASE. PAST MEDICAL HISTORY: As mentioned above. PAST SURGICAL HISTORY: Right knee arthroplasty, repair of inguinal hernia, umbilical hernia repair. MEDICATIONS: The patient is on amlodipine 10 mg p.o. p.m., amoxicillin p.r.n., ascorbic acid 1 g p.o. a.m., vitamin D 25 mcg p.o. a.m., vitamin B12 500 mcg p.o. a.m., lisinopril/hydrochlorothiazide 10/12.5 mg p.o. daily, multivitamin 1 tablet p.o. a.m., omeprazole 40 mg p.o. daily, Crestor 20 mg p.o. a.m., trazodone 50 mg p.o. at bedtime, vancomycin 250 mg p.o. q. 6 hours. FAMILY HISTORY: Significant for father has abdominal aortic aneurysm, heart disorder, black lung; mother has CABG, hypertension. SOCIAL HISTORY: , no smoking. One to two beers a week. No drug use. REVIEW OF SYSTEMS: As per HPI. Rest of review of systems is negative. PHYSICAL EXAMINATION: GENERAL: The patient is of moderate build, not in acute distress. VITAL SIGNS: Temperature 36.6, pulse 88, respiratory rate 18, blood pressure 131/79, oxygen 94% on room air. HEENT: Pupils equal, round and reactive to light. Oral mucosa moist. NECK: No JVD, no neck masses. CARDIOVASCULAR: S1 and S2 heard. Regular rate and rhythm. No murmur, no gallop. RESPIRATORY SYSTEM: Normal AP diameter. No accessory muscle use. No wheezing, no crackles. ABDOMEN: Soft. Absent bowel sounds. Mild distention. No guarding. Mild tenderness. CENTRAL NERVOUS SYSTEM: Cranial nerves II-XII grossly intact, nonfocal. EXTREMITIES: Bilateral lower extremity pedal edema present, no erythema seen. LABORATORY DATA: WBC 16.3, hemoglobin 12.3, hematocrit 35.9, platelets 293. Sodium 130, potassium 3.7, chloride 94, bicarbonate 26, BUN 16, creatinine 1, serum glucose 132, calcium 9.2, total bilirubin 0.6, AST 73, ALT 137, alkaline phosphatase 168. Lipase 52. Urinalysis, trace ketones. SARS-CoV-2 RNA negative. IMAGING DATA: CT of abdomen and pelvis shows pancreatic body mass measuring 36 mm, distal pancreatic ductal dilatation. Findings are concerning for malignancy. Hypodense liver lesions are favored to represent metastases. Hypodensity in the right kidney superior pole, nonspecific, nonemergent renal mass protocol can be performed. Prominent gas in distended loops of colon. Prominence of the appendix and transverse colon, is nonspecific. EKG: Sinus rhythm with PAC at the rate of 87, no significant change was found. ASSESSMENT AND PLAN: This 70-year-old male presents with abdominal pain. 1. Abdominal pain: Also found to have pancreatic mass and liver mets. Labs done at [facility] on Friday, results are pending. Currently questionable bowel obstruction. NG tube placed in the ER, which will be continued. Surgery consult in a.m. Keep him n.p.o., IV fluids, pain medications p.r.n. Closely monitor in the medical floor. 2. Pancreatic mass and liver metastases: Elevated LFTs. Follow up with hem/onc as outpatient with the pathology results.Also may need imaging kidneys with renal protocol. 3. Gastroesophageal reflux disease: Currently, placed on IV Protonix. 4. History of hypertension: Holding home medication. Placed on IV hydralazine p.r.n. Monitor the blood pressure. 5. History of clostridium difficile: continue p.o. vancomycin which were recently started. Contact precautions. 6. Hyperlipidemia: Hold statin for now. 7. Hypertension: Holding amlodipine and lisinopril/hydrochlorothiazide. IV hydralazine p.r.n. 8. Deep venous thrombosis prophylaxis: Heparin subcutaneous. DISPOSITION: Closely monitor in the medical floor. PT, OT prior to discharge. Social service to help with discharge planning. Job ID: [id number] [facility]
--- NOTE | 2021-06-14 09:30 | Surgery Consultation ---
Date of Consultation June 14, 2021 Assessment & Plan (1) Pancreatic mass: see below (2) Liver metastases: see below (3) Pseudo-obstruction of intestine: pt is a 70 year-old male who presents with one day history abdominal pain, CT scan-IMPRESSION: 1. There is a pancreatic body mass measuring approximately 36 mm with distal pancreatic ductal dilation. Findings are concerning for malignancy. Hypodense liver lesions are favored to represent metastasis. 2. Hypodensity in the right kidney superior pole is nonspecific, nonemergent renal mass protocol can be performed if not previously characterized. 3. Prominent gas distended loops of colon. Prominence of the appendix and transverse colon is nonspecific. IMP: possible pseudo-obstruction of intestine- no emergent surgery indication no w, continue conservative treatment,NPO, IV fluid, IV antibiotic, base WBC high, control pain, NG tube, will F/U pancreatic mass and liver metastasis- pending liver biopsy, follow up oncology and oncology surgeon out patient , pt agrees with the plan, I answered all questions, History of Present Illness Reason for Consultation: abdominal pain Requesting Physician: Lois Yancey MD Attending Physician: Lois Yancey MD History of Present Illness CHIEF COMPLAINT: Abdominal pain. HISTORY OF PRESENT ILLNESS: A 70-year-old male with past medical history s ignificant for hyperlipidemia, hypertension, chronic kidney disease stage III, history of basal cell carcinoma, history of osteoarthritis, presents with abdominal pain. The patient was in [facility] recently. He is having abdominal pain since last Friday. He got admitted to [facility] and found to have pancreatic mass and liver mets, status post biopsy on last Friday. Results were pending at discharge. He is only eating liquid diet at home, but abdominal pain is not getting better. He is having nausea, but not vomiting. Last bowel movement was last Friday and severe abdominal pain, more in the left lower quadrant. Denies any fever or chills. No chest pain, no shortness of breath, no cough, no headache, no blurred vision, no earache, no runny nose, no sore throat. Currently, resting comfortably and hemodynamically stable. Currently requesting for pain medication. The patient is status post NG tube in the ER, draining slight yellowish fluid. I ( Phill Vargas MD ) got a call for consult abdominal pain, I reviewed pt's H/P, labs, CT scan with pt, pt feels much better today after insertion NG tube, out-put about 1 L, not bloody, ALLERGIES: ERYTHROMYCIN BASE. PAST MEDICAL HISTORY: As mentioned above. PAST SURGICAL HISTORY: Right knee arthroplasty, repair of inguinal hernia, umbilical hernia repair. MEDICATIONS: The patient is on amlodipine 10 mg p.o. p.m., amoxicillin p.r.n., ascorbic acid 1 g p.o. a.m., vitamin D 25 mcg p.o. a.m., vitamin B12 500 mcg p.o. a.m., lisinopril/hydrochlorothiazide 10/12.5 mg p.o. daily, multivitamin 1 tablet p.o. a.m., omeprazole 40 mg p.o. daily, Crestor 20 mg p.o. a.m., trazodone 50 mg p.o. at bedtime, vancomycin 250 mg p.o. q. 6 hours. FAMILY HISTORY: Significant for father has abdominal aortic aneurysm, heart disorder, black lung; mother has CABG, hypertension. SOCIAL HISTORY: , no smoking. One to two beers a week. No drug use. REVIEW OF SYSTEMS: As per HPI. Rest of review of systems is negative. Allergies Allergy/AdvReac Type Severity Reaction Status Date / Time erythromycin base AdvReac Mild Gastrointestinal Verified 06/13/21 20:17 Upset Home Medications Medication Instructions Recorded Confirmed Type amlodipine 10 mg tablet 10 mg PO QPM 05/22/20 06/13/21 History lisinopril 10 1 tab PO QAM 05/22/20 06/13/21 History mg-hydrochlorothiazide 12.5 mg tablet ascorbic acid (vitamin C) 1,000 mg 1 g PO QAM 01/10/21 06/13/21 History tablet (Vitamin C) cyanocobalamin (vitamin B-12) 500 500 mcg PO QAM 01/10/21 06/13/21 History mcg tablet multivitamin 1 tab PO QAM 01/10/21 06/13/21 History rosuvastatin 20 mg tablet (Crestor) 20 mg PO QAM 01/10/21 06/13/21 History cholecalciferol (vitamin D3) 25 25 mcg PO QAM 05/16/21 06/13/21 History mcg (1,000 unit) tablet (Vitamin D3) coenzyme Q10 100 mg capsule 100 mg PO QAM 05/16/21 06/13/21 History (CoQ-10) echinacea 125 mg capsule 125 mg PO QAM 05/16/21 06/13/21 History flaxseed 1,000 mg capsule 1,000 mg PO QAM 05/16/21 06/13/21 History turmeric 400 mg capsule 400 mg PO QAM 05/16/21 06/13/21 History amoxicillin 500 mg capsule 2,000 mg PO ONCE PRN 06/13/21 06/13/21 History omeprazole 40 mg capsule,delayed 40 mg PO DAILYBB 06/13/21 06/13/21 History release trazodone 50 mg tablet 50 mg PO HS 06/13/21 06/13/21 History vancomycin 250 mg capsule 250 mg PO Q6 06/13/21 06/13/21 History Patient History Medical History BPH (benign prostatic hyperplasia) CKD (chronic kidney disease) Baseline creatinine 1.4-1.5 per chart review Hyperlipidemia Hypertension Nausea and vomiting after administration of anesthetic agent Osteoarthritis Umbilical hernia + present (no pain or current issues) Surgical History History of colonoscopy History of tooth extraction History of total right knee replacement (TKR) Hx of inguinal hernia repair Hx of prostate biopsy x2 (benign) Hx of umbilical hernia repair Hx of vasectomy Family History Other No family history of adverse response to anesthesia Social History Smoking Status: Never smoker Second Hand Exposure: No; Do You Dip or Chew Tobacco: No; Tobacco Cessation Education Requested by Patient: No Hx Alcohol Use: No Hx Substance Use: No Preferred Language: Tuval[place] Communication Ability: Effective Pet [employer] Deboner Required: No Beliefs That Will Affect Care: None Current Living Situation: Spouse Current Living Situation Comment: Other Information That Helps Us Care for You: No Feels Safe at Home: Yes Safety Concerns: Feels Safe At This Time Assistive Devices: Glasses Physical Exam Constitutional: WD/WN, vitals as above no distress Eyes: PERRL, conjunctivae normal, anicteric sclerae Neck: trachea midline, no thyromegaly Respiratory: normal respiratory effort, lungs clear to auscultation Cardiovascular: RRR, no murmur, no edema Gastrointestinal (Abdomen): soft, mild tenderness at lower abdomen, no rebound pain, no distend, BS + Musculoskeletal: no cyanosis or clubbing, extremities motor strength 5/5 Neurologic: patellar DTR's 2+ bilat, sensation intact Psychiatric: A+Ox3, euthymic affect Results & Data ([facility]) Vital Signs (Past 12 Hours) Vital Signs Temp Pulse Pulse Pulse Resp BP BP 06/14/21 07:27 36.7 C 63 16 128/70 06/14/21 04:42 36.7 C 90 90 18 130/75 06/14/21 04:39 36.7 C 90 90 18 130/75 06/14/21 03:28 36.7 C 90 18 130/75 06/14/21 02:18 87 17 121/70 06/13/21 23:00 88 18 06/13/21 22:00 89 18 Pulse Ox 06/14/21 07:27 96 06/14/21 04:42 98 06/14/21 04:39 98 06/14/21 03:28 97 06/14/21 02:18 96 06/13/21 23:00 94 06/13/21 22:00 96 Laboratory Results Abnormal lab results 06/13/21 06/13/21 06/13/21 Range/Units 20:13 20:13 23:40 WBC 16.30 H (4.8-10.8) K/uL RBC 4.12 L (4.7-6.1) M/uL Hgb 12.3 L (14.0-18.0) g/dL Hct 35.9 L (42-52) % Neut # (Auto) 14.56 H (1.4-6.5) K/uL [place] # (Auto) 0.09 L (0.11-0.59) K/uL Immature Gran # (Auto) 0.09 H (0.00-0.02) K/uL Sodium 130 L (136-145) mmol/L Chloride 94 L (98-107) mmol/L Glucose 132 H (70-99(Fasting)) mg/dl AST 73 H (13-39) U/L ALT 137 H (7-52) U/L Alkaline Phosphatase 168 H (34-104) U/L Ur Specific [place] > 1.045 H (1.000-1.030) Urine Protein Trace H (Negative) Urine Ketones Trace H (Negative) U Epithel Cells (Auto) 10-20 H (0-5) /lpf Diagnostic Findings CT abd pelvis IV con only CLINICAL HISTORY: L sided pain; no BM; TECHNIQUE: Helical axial images of the abdomen and pelvis were obtained and displayed. Automated dose lowering techniques and/or adjustment according to patient size were utilized for this exam. This exam was performed with intravenous contrast. COMPARISON: None available at the time of this dictation. FINDINGS: Lower chest: Bibasilar atelectasis versus scarring is seen. Liver: Numerous hypodensities are seen, most which measure greater than simple fluid density. The largest is 46 mm in diameter. Gallbladder and biliary tree: No calcified gallstones. Normal caliber wall. No intra- or extrahepatic biliary ductal dilation. Pancreas: There is a 36 mm ill-defined soft tissue mass in the body of the pancreas. The distal pancreatic tail is dilated measuring 5 mm. Spleen: Unremarkable. Adrenals: Minimal thickening of the left adrenal gland is seen. Kidneys and ureters: Hypodensities are seen in the bilateral kidneys favored to represent cysts. There is a hypodensity in the right kidney superior pole measuring 2 cm which measures greater than simple fluid. Bladder: Unremarkable. Reproductive organs: Prostatomegaly is seen. Bowel: There is mild diffuse wall thickening of the distal transverse colon. Multiple gas-distended loops of colon are seen. The appendix is prominent in size measuring up to 9 mm at the tip. However, no discernible wall thickening is seen. There is a small hiatal hernia. Lymph nodes Retroperitoneal: Numerous subcentimeter nodes are seen in the retroperitoneum and amrita hepatis. Mesenteric: Unremarkable. Pelvic: Subcentimeter lymph nodes are noted. Peritoneum: Normal. Vessels: Atherosclerotic calcifications are seen. Abdominal wall: Fat-containing supraumbilical hernia is seen. There is bilateral fat containing inguinal hernias. Bones: Degenerative changes in the visualized spine.
--- NOTE | 2021-06-14 10:06 | Gastrointestinal Consultation ---
Date of Consultation June 14, 2021 Assessment & Plan (1) Pancreatic mass: 70 year old male admitted w/ abdominal pain, nausea, diarrhea. He was recently evaluated at [facility] and was found to have liver lesions, pancreatic mass and c.diff on therapy with vancomycin. He already had biopsy of liver lesion. Will await results before arranging any further testing or biopsies. If definitive will need surg onc/heme onc evaluation. Continue treatment for c.diff with PO vancomycin 125 mg daily for 14 days. Recommend general surgery consultation given concern for pseudo- obstruction. Can consider IV flagyl or MO vancomycin. Thank you for allowing us to participate in the care of this patient. Please call with any acute changes, questions or concerns. Please see addendum below with additional recommendation from my supervising physician. Supervising Physician Co-Signing Physician Notes I have personally seen and examined the patient with OSBALDO Stanton. Her note reflects my exam and findings. I agree with her impression and plan. Plan for colonoscopy tomorrow after prep. Cont to treat C. diff. F/u biopsies from [place] when available. Hernan Jim M.D. History of Present Illness Reason for Consultation: SBO, c.diff, pancreatic mass Requesting Physician: Naye Attending Physician: Lois Yancey MD History of Present Illness 70 year old male who presents with c.diff, abdominal pain, nausea/dry heaving. GI asked to evaluate. PT was seen, chart reviewed. He suggests since February he has had generalized upper abdominal pain, nausea, decreased appetite and a 45 lb weight loss. He underwent EGD with Dr. Cuadra in April for evaluation. This was largely unremarkable. Pain persistent and worsened and last week he was admitted at [facility]. At this time he was diagnosed with c.diff and started on vancomycin. CT imaging showed pancreatic mass and liver mass and he underwent liver biopsy on Friday. Biopsy results are still pending. CTAP 2021: There is a pancreatic body mass measuring approximately 36 mm with distal pancreatic ductal dilation. Findings are concerning for malignancy. Hypodense liver lesions are favored to represent metastasis. Hypodensity in the right kidney superior pole is nonspecific, nonemergent renal mass protocol can be performed if not previously characterized.Prominent gas distended loops of colon. Prominence of the appendix and transverse colon is nonspecific. Allergies Allergy/AdvReac Type Severity Reaction Status Date / Time erythromycin base AdvReac Mild Gastrointestinal Verified 06/13/21 20:17 Upset Home Medications Medication Instructions Recorded Confirmed Type amlodipine 10 mg tablet 10 mg PO QPM 05/22/20 06/13/21 History lisinopril 10 1 tab PO QAM 05/22/20 06/13/21 History mg-hydrochlorothiazide 12.5 mg tablet ascorbic acid (vitamin C) 1,000 mg 1 g PO QAM 01/10/21 06/13/21 History tablet (Vitamin C) cyanocobalamin (vitamin B-12) 500 500 mcg PO QAM 01/10/21 06/13/21 History mcg tablet multivitamin 1 tab PO QAM 01/10/21 06/13/21 History rosuvastatin 20 mg tablet (Crestor) 20 mg PO QAM 01/10/21 06/13/21 History cholecalciferol (vitamin D3) 25 25 mcg PO QAM 05/16/21 06/13/21 History mcg (1,000 unit) tablet (Vitamin D3) coenzyme Q10 100 mg capsule 100 mg PO QAM 05/16/21 06/13/21 History (CoQ-10) echinacea 125 mg capsule 125 mg PO QAM 05/16/21 06/13/21 History flaxseed 1,000 mg capsule 1,000 mg PO QAM 05/16/21 06/13/21 History turmeric 400 mg capsule 400 mg PO QAM 05/16/21 06/13/21 History amoxicillin 500 mg capsule 2,000 mg PO ONCE PRN 06/13/21 06/13/21 History omeprazole 40 mg capsule,delayed 40 mg PO DAILYBB 06/13/21 06/13/21 History release trazodone 50 mg tablet 50 mg PO HS 06/13/21 06/13/21 History vancomycin 250 mg capsule 250 mg PO Q6 06/13/21 06/13/21 History Patient History Medical History BPH (benign prostatic hyperplasia) CKD (chronic kidney disease) Baseline creatinine 1.4-1.5 per chart review Hyperlipidemia Hypertension Nausea and vomiting after administration of anesthetic agent Osteoarthritis Umbilical hernia + present (no pain or current issues) Surgical History History of colonoscopy History of tooth extraction History of total right knee replacement (TKR) Hx of inguinal hernia repair Hx of prostate biopsy x2 (benign) Hx of umbilical hernia repair Hx of vasectomy Family History Other No family history of adverse response to anesthesia Social History Smoking Status: Never smoker Second Hand Exposure: No; Do You Dip or Chew Tobacco: No; Tobacco Cessation Education Requested by Patient: No Hx Alcohol Use: No Hx Substance Use: No Preferred Language: Kyrgyz Communication Ability: Effective Pipe Organ Builder Required: No Beliefs That Will Affect Care: None Current Living Situation: Spouse Current Living Situation Comment: Other Information That Helps Us Care for You: No Feels Safe at Home: Yes Safety Concerns: Feels Safe At This Time Assistive Devices: Glasses Review of Systems Review of Systems: All systems reviewed & are unremarkable except as noted in HPI & below Physical Exam Constitutional: WD/WN, vitals as above Neck: trachea midline, no thyromegaly Respiratory: normal respiratory effort, lungs clear to auscultation Cardiovascular: Rate/Rhythm: regular rate Gastrointestinal (Abdomen): normal bowel sounds, soft, nontender, no hepatospl enomegaly Skin: no rashes, warm and dry Results & Data ([facility]) Vital Signs (Past 12 Hours) Vital Signs Temp Pulse Pulse Pulse Resp BP BP 06/14/21 07:27 36.7 C 63 16 128/70 06/14/21 04:42 36.7 C 90 90 18 130/75 06/14/21 04:39 36.7 C 90 90 18 130/75 06/14/21 03:28 36.7 C 90 18 130/75 06/14/21 02:18 87 17 121/70 06/13/21 23:00 88 18 06/13/21 22:00 89 18 Pulse Ox 06/14/21 07:27 96 06/14/21 04:42 98 06/14/21 04:39 98 06/14/21 03:28 97 06/14/21 02:18 96 06/13/21 23:00 94 06/13/21 22:00 96 Laboratory Results 06/13/21 06/13/21 06/13/21 Range/Units 23:40 23:15 20:13 WBC (4.8-10.8) K/uL RBC (4.7-6.1) M/uL Hgb (14.0-18.0) g/dL Hct (42-52) % MCV (80-100) fL MCH (25-34) pg MCHC (32-36) g/dL RDW Std Deviation (36.4-46.3) fL RDW Coeff of [place] (11.5-14.5) % Plt Count (130-400) K/uL MPV (7.4-10.4) fL Immature Gran % (Auto) % Neut % (Auto) % Lymph % (Auto) % [place] % (Auto) % Eos % (Auto) % Baso % (Auto) % Neut # (Auto) (1.4-6.5) K/uL Lymph # (Auto) (1.2-3.4) K/uL [place] # (Auto) (0.11-0.59) K/uL Eos # (Auto) (0-0.5) K/uL Baso # (Auto) (0-0.2) K/uL Immature Gran # (Auto) (0.00-0.02) K/uL Sodium 130 L (136-145) mmol/L Potassium 3.7 (3.5-5.1) mmol/L Chloride 94 L (98-107) mmol/L Carbon Dioxide 26 (21-32) mmol/L Anion Gap 10 (3-11) BUN 16 (6-23) mg/dl Creatinine 1.04 (0.6-1.4) mg/dl Est Cr Clr Drug Dosing 83.8 ml/min Est GFR ( Amer) 83.9 ml/min Est GFR (Non-Af Amer) 72.4 ml/min BUN/Creatinine Ratio 15.4 (10-20) Glucose 132 H (70-99(Fasting)) mg/dl Calcium 9.2 (8.5-10.1) mg/dl Total Bilirubin 0.6 (0.2-1.0) mg/dl AST 73 H (13-39) U/L ALT 137 H (7-52) U/L Alkaline Phosphatase 168 H (34-104) U/L Total Protein 6.3 (6.0-8.3) gm/dl Albumin 3.5 (3.4-5.0) gm/dl Globulin 2.8 (2.5-4.0) gm/dl Albumin/Globulin Ratio 1.3 (0.9-2) Lipase 52 (11-82) U/L Urine Color Yellow Urine Appearance Clear (Clear) Urine pH 5.0 (4.5-7.5) Ur Specific [place] > 1.045 H (1.000-1.030) Urine Protein Trace H (Negative) Urine Glucose (UA) Negative (Negative) Urine Ketones Trace H (Negative) Urine Blood Negative (Negative) Urine Nitrite Negative (Negative) Urine Bilirubin Negative (Negative) Urine Urobilinogen Negative (Negative) Ur Leukocyte Esterase Negative (Negative) Urine WBC (Auto) 1-5 (0-5) /hpf Urine RBC (Auto) 0-4 (0-4) /hpf U Hyaline Cast (Auto) 1-5 (0-5) /lpf U Epithel Cells (Auto) 10-20 H (0-5) /lpf Urine Bacteria (Auto) Negative (Negative) SARS-CoV-2, RNA, NAAT NEGATIVE (NEGATIVE) 06/13/21 Range/Units 20:13 WBC 16.30 H (4.8-10.8) K/uL RBC 4.12 L (4.7-6.1) M/uL Hgb 12.3 L (14.0-18.0) g/dL Hct 35.9 L (42-52) % MCV 87.1 (80-100) fL MCH 29.9 (25-34) pg MCHC 34.3 (32-36) g/dL RDW Std Deviation 45.5 (36.4-46.3) fL RDW Coeff of [place] 14.3 (11.5-14.5) % Plt Count 293 (130-400) K/uL MPV 8.9 (7.4-10.4) fL Immature Gran % (Auto) 0.6 % Neut % (Auto) 89.2 % Lymph % (Auto) 9.4 % [place] % (Auto) 0.6 % Eos % (Auto) 0.1 % Baso % (Auto) 0.1 % Neut # (Auto) 14.56 H (1.4-6.5) K/uL Lymph # (Auto) 1.53 (1.2-3.4) K/uL [place] # (Auto) 0.09 L (0.11-0.59) K/uL Eos # (Auto) 0.01 (0-0.5) K/uL Baso # (Auto) 0.02 (0-0.2) K/uL Immature Gran # (Auto) 0.09 H (0.00-0.02) K/uL Sodium (136-145) mmol/L Potassium (3.5-5.1) mmol/L Chloride (98-107) mmol/L Carbon Dioxide (21-32) mmol/L Anion Gap (3-11) BUN (6-23) mg/dl Creatinine (0.6-1.4) mg/dl Est Cr Clr Drug Dosing ml/min Est GFR ( Amer) ml/min Est GFR (Non-Af Amer) ml/min BUN/Creatinine Ratio (10-20) Glucose (70-99(Fasting)) mg/dl Calcium (8.5-10.1) mg/dl Total Bilirubin (0.2-1.0) mg/dl AST (13-39) U/L ALT (7-52) U/L Alkaline Phosphatase (34-104) U/L Total Protein (6.0-8.3) gm/dl Albumin (3.4-5.0) gm/dl Globulin (2.5-4.0) gm/dl Albumin/Globulin Ratio (0.9-2) Lipase (11-82) U/L Urine Color Urine Appearance (Clear) Urine pH (4.5-7.5) Ur Specific [place] (1.000-1.030) Urine Protein (Negative) Urine Glucose (UA) (Negative) Urine Ketones (Negative) Urine Blood (Negative) Urine Nitrite (Negative) Urine Bilirubin (Negative) Urine Urobilinogen (Negative) Ur Leukocyte Esterase (Negative) Urine WBC (Auto) (0-5) /hpf Urine RBC (Auto) (0-4) /hpf U Hyaline Cast (Auto) (0-5) /lpf U Epithel Cells (Auto) (0-5) /lpf Urine Bacteria (Auto) (Negative) SARS-CoV-2, RNA, NAAT (NEGATIVE)
--- NOTE | 2021-06-14 12:28 | Hospitalist Progress Note ---
Date of Service June 14, 2021 Assessment & Plan (1) Abdominal pain: (2) Liver metastases: (3) Pancreatic mass: Plan: This is a 70-year-old male with PMH of recent pancreatic mass finding with liver metastasis, C. diff colitis, HTN, CKD III, HLD and other medical problems listed below who presents with worsening abdominal pain. Recently admitted to [facility] from 06/08- and was found to have a pancreatic mass and liver mets, s/p biopsy on FridayJune 11 Outside records reviewed- liver path results pending If pathology definitive, will need surg onc/heme onc evaluation (4) Pseudo-obstruction of intestine: Plan: Continued abdominal pain since discharge from OSH despite clear liquid diet CT abd/pelvis with pancreatic body mass measuring approximately 36 mm with distal pancreatic ductal dilation and prominent gas distended loops of colon Per gen surg - possible pseudo-obstruction of intestine. No emergent surgery indication now. Continue conservative treatment - NPO, IV fluids, monitor WBCs (downtrending), control pain, NG tube Symptoms significantly improved with NG tube in place- decreased nausea and distention (5) C. difficile colitis: Plan: C diff toxin positive 5 days ago during previous admission at [facility]. Transitioned to vancomycin CO while NG tube in place. Added IV Flagyl for severe c. diff colitis infection Appreciate GI input WBC downtrending from 23k on 06/08 to 16.3k today (6) Abnormal ECG: Plan: ECG with non-specific ST and T wave changes noted last evening that appeared new from previous - no chest discomfort or SOB Repeat ECG and troponin ordered this afternoon - troponin wnl Discussed with Dr. Cerda - resting echo ordered Transferring to tele floor for continued cardiac monitoring (7) Hypertension: Plan: Holding amlodipine and hctz while NG in place. BP normotensive. PRN IV hydralazine as needed (8) CKD (chronic kidney disease), stage III: Plan: Renal function at baseline, Cr 1.04. Continue to monitor with daily BMP (9) Hyperlipidemia: Plan: Holding statin for now DVT Ppx: SQ heparin Code status: FULL PCP: Luca Dispo: Transferring to telemetry for cardiac monitoring in setting of abnormal ECG Patient seen in collaboration with Dr. Yancey. Please see addendum. Admission and Anticipated Discharge Date Admission Date: June 14, 2021 Supervising Physician Co-Signing Physician Notes 70-year-old male with PMH of recent pancreatic mass finding with liver metastasis, C. diff colitis, HTN, CKD III, HLD and other medical problems listed below who presents with worsening abdominal pain. Recent hospitalization at [facility] to [facility] from 03-11 and found to have a pancreatic mass with liver mets status post biopsy 3 days ago and diagnosis of C. difficile colitis at the time. Patient seen and examined today. Reports abdominal pain is currently controlled. Has not moved his bowels for the past 4 days. Exam notable for NG tube draining bilious drain. Abdomen is soft, nontender hypoactive bowel sounds. Review of EKG on admission last night showed concerning ST-T changes Repeat EKG. Get troponin and monitor Get cardiology evaluation Transfer to telemetry. Reviewed records from [facility] was obtained today. GI on board. Patient does admits criteria for severe CDI considering leukocytosis of 16,000,Pseudoobstruction. P.o. Vanco changed to CO by GI. We will start Flagyl IV for now Monitor Continue IV fluids Agree with other plans as detailed by Ira Shepherd's PA-C Subjective Patient presented with abdominal pain last evening. Recently admitted to [facility] from and was found to have a pancreatic mass and liver mets, s/p biopsy on FridayJune 11 (results pending). Since discharge, patient has had persistent abdominal pain despite clear liquid diet. Also found to have positive C diff toxin 5 days ago and was started on PO vancomycin. NG tube placed in ED last evening for pseudo-obstruction of intestine and patient has felt significant relief to both nausea and abdominal distention. No bowel movement since Friday. Denies F/C, chest pain, SOB or dysuria. Review of Systems Review of Systems: At least ten systems reviewed and negative except as noted in the HPI. Physical Exam Physical Exam: Gen: WD/WN, NAD, sitting in bed, A&Ox3, + NG tube in place with light brown output HEENT: Normocephalic, atraumatic, conjunctivae moist, sclerae anicteric, mucous membranes moist Lung: Clear to Auscultation bilaterally, no wheezes/rales/rhonchi Heart: Regular rate, regular rhythm, no murmurs, rubs, or gallops Abdomen: Soft, NT, ND, hypoactive bowel sounds Extremities: no edema Skin: Warm, no rash Results & Data Results & Data ([facility]) Vital Signs (Past 12 Hours) Vital Signs Temp Pulse Pulse Resp BP BP Pulse Ox 06/14/21 07:27 36.7 C 63 16 128/70 96 06/14/21 04:42 36.7 C 90 90 18 130/75 98 06/14/21 04:39 36.7 C 90 90 18 130/75 98 06/14/21 03:28 36.7 C 90 18 130/75 97 06/14/21 02:18 87 17 121/70 96 Laboratory Results Short CBC 06/13/21 Range/Units 20:13 WBC 16.30 H (4.8-10.8) K/uL Hgb 12.3 L (14.0-18.0) g/dL Hct 35.9 L (42-52) % Plt Count 293 (130-400) K/uL BMP 06/13/21 20:13 Sodium 130 L Potassium 3.7 Chloride 94 L Carbon Dioxide 26 BUN 16 Creatinine 1.04 Glucose 132 H Calcium 9.2 Cardiac Enzymes 06/14/21 Range/Units 13:16 Troponin I < 0.03 (0-0.04) ng/ml Liver Function 06/13/21 Range/Units 20:13 Total Bilirubin 0.6 (0.2-1.0) mg/dl AST 73 H (13-39) U/L ALT 137 H (7-52) U/L Alkaline Phosphatase 168 H (34-104) U/L Albumin 3.5 (3.4-5.0) gm/dl Urine 06/13/21 Range/Units 23:40 Urine Color Yellow Urine Appearance Clear (Clear) Urine pH 5.0 (4.5-7.5) Ur Specific [place] > 1.045 H (1.000-1.030) Urine Protein Trace H (Negative) Urine Glucose (UA) Negative (Negative) Diagnostic Findings Abdomen/Pelvis CT 06/13/21 19:53 CT abd pelvis IV con only CLINICAL HISTORY: L sided pain; no BM; TECHNIQUE: Helical axial images of the abdomen and pelvis were obtained and displayed. Automated dose lowering techniques and/or adjustment according to patient size were utilized for this exam. This exam was performed with intravenous contrast. COMPARISON: None available at the time of this dictation. FINDINGS: Lower chest: Bibasilar atelectasis versus scarring is seen. Liver: Numerous hypodensities are seen, most which measure greater than simple fluid density. The largest is 46 mm in diameter. Gallbladder and biliary tree: No calcified gallstones. Normal caliber wall. No intra- or extrahepatic biliary ductal dilation. Pancreas: There is a 36 mm ill-defined soft tissue mass in the body of the pancreas. The distal pancreatic tail is dilated measuring 5 mm. Spleen: Unremarkable. Adrenals: Minimal thickening of the left adrenal gland is seen. Kidneys and ureters: Hypodensities are seen in the bilateral kidneys favored to represent cysts. There is a hypodensity in the right kidney superior pole measuring 2 cm which measures greater than simple fluid. Bladder: Unremarkable. Reproductive organs: Prostatomegaly is seen. Bowel: There is mild diffuse wall thickening of the distal transverse colon. Multiple gas-distended loops of colon are seen. The appendix is prominent in size measuring up to 9 mm at the tip. However, no discernible wall thickening is seen. There is a small hiatal hernia. Lymph nodes Retroperitoneal: Numerous subcentimeter nodes are seen in the retroperitoneum and amrita hepatis. Mesenteric: Unremarkable. Pelvic: Subcentimeter lymph nodes are noted. Peritoneum: Normal. Vessels: Atherosclerotic calcifications are seen. Abdominal wall: Fat-containing supraumbilical hernia is seen. There is bilateral fat containing inguinal hernias. Bones: Degenerative changes in the visualized spine. IMPRESSION: 1. There is a pancreatic body mass measuring approximately 36 mm with distal pancreatic ductal dilation. Findings are concerning for malignancy. Hypodense liver lesions are favored to represent metastasis. 2. Hypodensity in the right kidney superior pole is nonspecific, nonemergent renal mass protocol can be performed if not previously characterized. 3. Prominent gas distended loops of colon. Prominence of the appendix and transverse colon is nonspecific. ACT 112: Positive. There are findings on this exam that require communication between the performing entity and the patient following Patient Test Result Information Act ([place] Act 112) guidelines. Electronically signed by: Cornelio Salomon M.D. 06/13/2021 9:39 PM (1) Abdominal pain Abdominal location: left lower quadrant Qualified Code(s): R10.32 - Left lower quadrant pain
[2021-06-14] MEDS: PANTOprazole 40 MG in SYRINGE 0 ML IV SCH (12:30)
[2021-06-14] MEDS ORDERED: CONSULT PHARMACY STA (12:56)
[2021-06-14] MEDS: VANCOMYCIN HCL 500 MG/100 ML ENEMA PR SCH ×3 (13:33→22:23)
[2021-06-14] MEDS: metroNIDAZOLE 500 MG/100 ML BAG IV SCH ×2 (13:49→22:21)
--- NOTE | 2021-06-14 13:55 | Electrocardiogram Report ---
Test Reason : Blood Pressure : / mmHG Vent. 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 lead placement vs. LVH Abnormal ECG When compared with ECG of 13-JUN-2021 19:59, Premature atrial complexes are no longer Present Otherwise no significant change Confirmed by Darrell Mosley ([id number]) on 06/14/2021 1:54:54 PM Referred By: REFERRED SELF Confirmed By:Darrell Mosley
--- NOTE | 2021-06-14 14:18 | Electrocardiogram Report ---
Test Reason : Blood Pressure : / mmHG Vent. Rate : 086 BPM Atrial Rate : 086 BPM P-R Int : 166 ms QRS Dur : 092 ms QT Int : 374 ms P-R-T Axes : 040 035 056 degrees QTc Int : 447 ms Sinus rhythm with Premature atrial complexes Inferior infarct , age undetermined Anterior infarct , age undetermined Abnormal ECG When compared with ECG of 22-MAY-2020 09:54, Premature atrial complexes are now Present ST elevation now present Confirmed by Darrell Mosley ([id number]) on 06/14/2021 2:17:50 PM Referred By: REFERRED SELF Confirmed By:Darrell Mosley
--- NOTE | 2021-06-14 17:39 | Cardiology Consultation ---
Date of Consultation June 14, 2021 Assessment & Plan (1) Abnormal ECG: EKG performed 06/13/2021 and reviewed independently reveals sinus rhythm at 86 bpm with PACs. An age-indeterminate inferior infarction pattern is noted with Q waves in the inferior leads. Subtle ST elevation noted in the inferior and lateral precordial leads. Compared to the previous outpatient tracing performed at the time of the patient's admission at this institution in April,, significant changes were observed. Compared to the EKG available in the patient's outpatient medical record performed at [place] 06/08/2021, the inferior age-indeterminate infarct pattern was noted at that time, but the ST elevation in inferior lateral leads is new. A stat repeat EKG was therefore performed at 1311 today, revealing sinus rhythm at 92 bpm, the age-indeterminate inferior infarct pattern (Q waves in leads III,aVF) persist, but the ST segment elevation in the inferior lateral leads have resolved. Noted poor R wave progression. Current tracing is back to the previous baseline noted 06/08/2021. As discussed, patient does not have any symptoms suggestive angina. Troponin I is undetectable x1 is obtained this afternoon. Echocardiogram is reassuring with normal to hyperdynamic left ventricular wall m otion, no regional wall motion abnormalities, and the right ventricular chamber size and systolic function are normal. At present, patient's prior to hospital treatment with aspirin, amlodipine, elena nopril, hydrochlorothiazide and rosuvastatin are on hold pending further work-up with general surgery consultation performed earlier today describing possible pseudoobstruction of the intestine for which bowel rest and nasogastric tube placement recommended. Patient remains n.p.o. We will continue to follow, but I question if the EKG performed overnight may have just been a poor quality tracing as there does not seem to be any pathology on follow-up testing. History of Present Illness Attending Physician: Lois Yancey MD History of Present Illness Babar Ohcoa is a 70-year-old male seen in cardiology consultation per the request of Dr Yancey for evaluation of abnormal EKG. Patient seen and examined in room 376, pending transfer to the PCU. He is accompanied by his spouse, Beatriz. The patient has been seen in consultation by the undersigned in April, for chest discomfort, with noted family history of coronary heart disease, mother with history of CABG at the age of 68. He went on to have a normal resting and normal dobutamine stress echocardiogram. Recently the patient had progressive left lower quadrant abdominal discomfort. This prompted presentation to the [facility] ED and subsequent transfer to [facility]. He has been found to have a 36 mm pancreatic body mass suggestive of malignancy with hypodense hepatic lesions possibly consistent with metastatic disease. He underwent percutaneous hepatic biopsy performed by interventional radiology at [facility] 3 days ago on 06/11/2021. The results of the pathology are currently pending. He was also noted to have multiple episodes of diarrhea and was found to have C. difficile colitis. The patient was subsequently discharged on oral vancomycin, and presented overnight last night with recurrent abdominal discomfort. Due to concerns of abnormal EKG cardiology was consulted. At the time of my evaluation the patient denied any recent cardiac complaints. Denied chest discomfort, shortness of breath, denied lower extremity pain or edema. Allergies Allergy/AdvReac Type Severity Reaction Status Date / Time erythromycin base AdvReac Mild Gastrointestinal Verified 06/13/21 20:17 Upset Home Medications Medication Instructions Recorded Confirmed Type amlodipine 10 mg tablet 10 mg PO QPM 05/22/20 06/13/21 History lisinopril 10 1 tab PO QAM 05/22/20 06/13/21 History mg-hydrochlorothiazide 12.5 mg tablet ascorbic acid (vitamin C) 1,000 mg 1 g PO QAM 01/10/21 06/13/21 History tablet (Vitamin C) cyanocobalamin (vitamin B-12) 500 500 mcg PO QAM 01/10/21 06/13/21 History mcg tablet multivitamin 1 tab PO QAM 01/10/21 06/13/21 History rosuvastatin 20 mg tablet (Crestor) 20 mg PO QAM 01/10/21 06/13/21 History cholecalciferol (vitamin D3) 25 25 mcg PO QAM 05/16/21 06/13/21 History mcg (1,000 unit) tablet (Vitamin D3) coenzyme Q10 100 mg capsule 100 mg PO QAM 05/16/21 06/13/21 History (CoQ-10) echinacea 125 mg capsule 125 mg PO QAM 05/16/21 06/13/21 History flaxseed 1,000 mg capsule 1,000 mg PO QAM 05/16/21 06/13/21 History turmeric 400 mg capsule 400 mg PO QAM 05/16/21 06/13/21 History amoxicillin 500 mg capsule 2,000 mg PO ONCE PRN 06/13/21 06/13/21 History omeprazole 40 mg capsule,delayed 40 mg PO DAILYBB 06/13/21 06/13/21 History release trazodone 50 mg tablet 50 mg PO HS 06/13/21 06/13/21 History vancomycin 250 mg capsule 250 mg PO Q6 06/13/21 06/13/21 History Patient History Medical History Arthritis of right knee BPH (benign prostatic hyperplasia) CKD (chronic kidney disease), stage III Hyperlipidemia Hypertension Nausea and vomiting after administration of anesthetic agent Osteoarthritis Umbilical hernia + present (no pain or current issues) Surgical History History of colonoscopy History of tooth extraction History of total right knee replacement (TKR) Hx of inguinal hernia repair Hx of prostate biopsy x2 (benign) Hx of umbilical hernia repair Hx of vasectomy Family History Other No family history of adverse response to anesthesia Social History Smoking Status: Never smoker Second Hand Exposure: No; Do You Dip or Chew Tobacco: No; Tobacco Cessation Education Requested by Patient: No Hx Alcohol Use: No Hx Substance Use: No Preferred Language: Greenlandic Communication Ability: Effective 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: No Beliefs That Will Affect Care: None marital status: Current Living Situation: Spouse Current Living Situation Comment: How many Children do You have: 3 Other Information That Helps Us Care for You: No Feels Safe at Home: Yes Safety Concerns: Feels Safe At This Time Assistive Devices: Glasses Review of Systems Review of Systems: All systems reviewed & are unremarkable except as noted in HPI & below Physical Exam Constitutional: WD/WN, vitals as above Respiratory: normal respiratory effort, lungs clear to auscultation Cardiovascular: RRR, no murmur, no edema Gastrointestinal (Abdomen): Mild nonspecific tenderness on palpation Neurologic: PERRL, EOMI, accommodation nl, no face palsy, no dysarthria Results & Data ([facility]) Vital Signs (Past 12 Hours) Vital Signs Temp Pulse Pulse Resp BP BP Pulse Ox 06/14/21 16:26 36.9 C 91 H 20 101/64 95 06/14/21 16:00 89 06/14/21 15:07 37.0 C 89 16 120/72 96 06/14/21 07:27 36.7 C 63 16 128/70 96 Laboratory Results Cardiac Enzymes 06/13/21 06/14/21 Range/Units 20:13 13:16 AST 73 H (13-39) U/L Troponin I < 0.03 (0-0.04) ng/ml CBC 06/13/21 Range/Units 20:13 WBC 16.30 H (4.8-10.8) K/uL RBC 4.12 L (4.7-6.1) M/uL Hgb 12.3 L (14.0-18.0) g/dL Hct 35.9 L (42-52) % Plt Count 293 (130-400) K/uL Neut # (Auto) 14.56 H (1.4-6.5) K/uL Lymph # (Auto) 1.53 (1.2-3.4) K/uL [place] # (Auto) 0.09 L (0.11-0.59) K/uL Eos # (Auto) 0.01 (0-0.5) K/uL Baso # (Auto) 0.02 (0-0.2) K/uL Comprehensive Metabolic Panel 06/13/21 Range/Units 20:13 Sodium 130 L (136-145) mmol/L Potassium 3.7 (3.5-5.1) mmol/L Chloride 94 L (98-107) mmol/L Carbon Dioxide 26 (21-32) mmol/L BUN 16 (6-23) mg/dl Creatinine 1.04 (0.6-1.4) mg/dl Glucose 132 H (70-99(Fasting)) mg/dl Calcium 9.2 (8.5-10.1) mg/dl AST 73 H (13-39) U/L ALT 137 H (7-52) U/L Alkaline Phosphatase 168 H (34-104) U/L Total Protein 6.3 (6.0-8.3) gm/dl Albumin 3.5 (3.4-5.0) gm/dl Intake and Output 06/14/21 06/14/21 06/14/21 06:59 14:59 22:59 Intake Total 1000 / 1000 1512.5 / 1512.5 Output Total 400 / 400 650 / 650 Balance 600 / 600 862.5 / 862.5 Intake: IV 1000 / 1000 1512.5 / 1512.5 Sodium Chloride 0.9% 1000ML 1, 1000 / 1000 912.5 / 912.5 000 ml @ 125 mls/hr IV .Q8H JAYSHREE Rx#:[id number] Sodium Chloride 0.9% 500 ml @ 500 / 500 125 mls/hr IV .Q4H JAYSHREE Rx#: [id number] metroNIDAZOLE 500 mg In 100 ml 100 / 100 @ 100 mls/hr IV Q8H JAYSHREE Rx#: [id number] Output: Gastric Drainage 400 / 400 650 / 650 Nasogastric 400 / 400 650 / 650 Other: Weight 95 kg Weight Measurement Method Standing Scale
[2021-06-15] MEDS: SODIUM CHLORIDE 0.9% 1000ML 1,000 ML IV SCH ×3 (06:15→22:08)
[2021-06-15] MEDS: metroNIDAZOLE 500 MG/100 ML BAG IV SCH ×3 (06:15→22:08)
[2021-06-15] MEDS: VANCOMYCIN HCL 250 MG/5 ML SOLN PO SCH ×4 (06:18→23:13)
[2021-06-15] MEDS: HEPARIN SOD 5,000 UNIT/0.5 ML VIAL SQ SCH ×3 (06:19→20:27)
[2021-06-15] MEDS: RASPBERRY SYRUP 5 ML UDP PO SCH ×4 (06:19→23:12)
[2021-06-15 06:41] LABS: Basophils # (auto) 0.02 K/uL (0-0.2); Basophils % (auto) 0.2 %; Eosinophils # (auto) 0.06 K/uL (0-0.5); Eosinophils % (auto) 0.5 %; Hematocrit (blood only) 35.6 % (42-52); Hemoglobin 11.9 g/dL (14.0-18.0); Immature Granulocytes % (auto) 0.8 %; Lymphocytes # (auto) 1.31 K/uL (1.2-3.4); Lymphocytes % (auto) 10.2 %; Mean Corpuscular Hemoglobin 29.4 pg (25-34); Mean Corpuscular Hgb Conc 33.4 g/dL (32-36); Mean Corpuscular Volume 87.9 fL (80-100); Mean Platelet Volume 8.5 fL (7.4-10.4); Monocytes # (auto) 0.96 K/uL (0.11-0.59); Monocytes % (auto) 7.4 %; Neutrophils # (auto) 10.44 K/uL (1.4-6.5); Neutrophils % (auto) 80.9 %; Platelet Count 272 K/uL (130-400); RDW Coefficient of Variation 14.6 % (11.5-14.5); RDW Standard Deviation 47.1 fL (36.4-46.3); Red Blood Count 4.05 M/uL (4.7-6.1); White Blood Count 12.89 K/uL (4.8-10.8)
[2021-06-15 07:06] LABS: Alanine Aminotransferase 84 U/L (7-52); Albumin Globulin Ratio 1.2 (0.9-2); Alkaline Phosphatase 168 U/L (34-104); Anion Gap 8 (3-11); Aspartate Aminotransferase 35 U/L (13-39); BUN Creatinine Ratio 17.6 (10-20); Bilirubin,Total 0.5 mg/dl (0.2-1.0); Blood Urea Nitrogen 18 mg/dl (6-23); Calcium 8.2 mg/dl (8.5-10.1); Carbon Dioxide 26 mmol/L (21-32); Chloride 103 mmol/L (98-107); Creatinine Clr Calc Pharmacy 80.6 ml/min; Est GFR (African American) 85.9 ml/min; Est GFR (Non-African American) 74.1 ml/min; Globulin 2.5 gm/dl (2.5-4.0); Glucose 97 mg/dl (70-99(Fasting)); Potassium 3.5 mmol/L (3.5-5.1); Sodium 137 mmol/L (136-145); Total Protein 5.5 gm/dl (6.0-8.3)
[2021-06-15 07:32] LABS: Troponin I < 0.03 ng/ml (0-0.04)
--- NOTE | 2021-06-15 09:32 | Gastroenterology Progress Note ---
Date of Service June 15, 2021 Assessment & Plan (1) Pancreatic mass: Plan: 70 year old male admitted w/ abdominal pain, nausea, diarrhea. He was recently evaluated at [facility] and was found to have liver lesions, pancreatic mass and c.diff on therapy with vancomycin He already had biopsy of liver lesion. Will await results before arranging any further testing or biopsies. If definitive will need surg onc/heme onc evaluation. Continue treatment for c.diff with PO vancomycin 125 mg QID for 14 days. His WBC is improving this AM, would continue MI vancomycin QID until NG removed. If WBC rising, consider IV Flagyl. NG tube management per general surgery Will sign off. Recall as needed. No [facility] follow up is needed, can continue to follow with team that biopsied his lesions Thank you for allowing us to participate in the care of this patient. Please call with any acute changes, questions or concerns. Please see addendum below with additional recommendation from my supervising physician. Admission and Anticipated Discharge Date Admission Date: June 14, 2021 Supervising Physician Co-Signing Physician Notes I saw and evaluated the patient this morning. He notes that his bowel movements are beginning to solidify and that his abdominal pain is much better than in past. It appears that his white blood cell count has improved significantly as well. With regard to the patient's suspected metastatic pancreatic cancer I would suggest obtaining his biopsy samples from his recent procedure at [facility]. The patient wishes to be referred to one of the [facility] medical oncology physicians at [facility] (this should be arranged by the hospitalist service prior to discharge) Recomendations: Continue oral and rectal vancomycin. Once ileus has resolved the rectal vancomycin can be discontinued OP Medical oncology referral Subjective Pt was seen and evaluated, chart reviewed. Feeling better. Denies abd pain. No nausea, vomiting NG present to suction, still high output Suggests he moved his BMs x 4 since yesterday evaluation, soft/loose brown. Denies black or bloody stools No fever, chills, CP, SOB. Review of Systems Review of Systems: All systems reviewed & are unremarkable except as noted in HPI & below Physical Exam Constitutional: WD/WN, vitals as above Neck: trachea midline, no thyromegaly Respiratory: normal respiratory effort, lungs clear to auscultation Cardiovascular: Rate/Rhythm: regular rate Gastrointestinal (Abdomen): normal bowel sounds, soft, nontender, no hepatosplenomegaly Skin: no rashes, warm and dry Results & Data ([facility]) Vital Signs (Past 12 Hours) Vital Signs Temp Pulse Pulse Resp BP Pulse Ox 06/15/21 07:44 37 C 90 21 129/74 96 06/15/21 03:50 36.8 C 80 18 122/74 94 06/15/21 00:00 101 H 06/14/21 23:36 37 C 86 18 122/74 93 Laboratory Results 06/15/21 06/15/21 06/14/21 Range/Units 06:28 06:28 13:16 WBC 12.89 H (4.8-10.8) K/uL RBC 4.05 L (4.7-6.1) M/uL Hgb 11.9 L (14.0-18.0) g/dL Hct 35.6 L (42-52) % MCV 87.9 (80-100) fL MCH 29.4 (25-34) pg MCHC 33.4 (32-36) g/dL RDW Std Deviation 47.1 H (36.4-46.3) fL RDW Coeff of [place] 14.6 H (11.5-14.5) % Plt Count 272 (130-400) K/uL MPV 8.5 (7.4-10.4) fL Immature Gran % (Auto) 0.8 % Neut % (Auto) 80.9 % Lymph % (Auto) 10.2 % [place] % (Auto) 7.4 % Eos % (Auto) 0.5 % Baso % (Auto) 0.2 % Neut # (Auto) 10.44 H (1.4-6.5) K/uL Lymph # (Auto) 1.31 (1.2-3.4) K/uL [place] # (Auto) 0.96 H (0.11-0.59) K/uL Eos # (Auto) 0.06 (0-0.5) K/uL Baso # (Auto) 0.02 (0-0.2) K/uL Immature Gran # (Auto) 0.10 H (0.00-0.02) K/uL Sodium 137 (136-145) mmol/L Potassium 3.5 (3.5-5.1) mmol/L Chloride 103 (98-107) mmol/L Carbon Dioxide 26 (21-32) mmol/L Anion Gap 8 (3-11) BUN 18 (6-23) mg/dl Creatinine 1.02 (0.6-1.4) mg/dl Est Cr Clr Drug Dosing 80.6 ml/min Est GFR ( Amer) 85.9 ml/min Est GFR (Non-Af Amer) 74.1 ml/min BUN/Creatinine Ratio 17.6 (10-20) Glucose 97 (70-99(Fasting)) mg/dl Calcium 8.2 L (8.5-10.1) mg/dl Total Bilirubin 0.5 (0.2-1.0) mg/dl AST 35 (13-39) U/L ALT 84 H (7-52) U/L Alkaline Phosphatase 168 H (34-104) U/L Troponin I < 0.03 < 0.03 (0-0.04) ng/ml Total Protein 5.5 L (6.0-8.3) gm/dl Albumin 3.0 L (3.4-5.0) gm/dl Globulin 2.5 (2.5-4.0) gm/dl Albumin/Globulin Ratio 1.2 (0.9-2)
--- NOTE | 2021-06-15 10:21 | Hospitalist Progress Note ---
Date of Service June 15, 2021 Assessment & Plan (1) Abdominal pain: (2) Liver metastases: (3) Pancreatic mass: Plan: 1-year-old male with PMH of recent pancreatic mass finding with liver metastasis, C. diff colitis, HTN, CKD III, HLD and other medical problems listed below who presents with worsening abdominal pain. Recently admitted to [facility] from 06/08- and was found to have a pancreatic mass and liver mets, s/p biopsy on FridayJune 11 Outside records reviewed- liver path results pending If pathology definitive, will need surg onc/heme onc evaluation Pancreatic mass, likely malignant (4) Pseudo-obstruction of intestine: Plan: Continued abdominal pain since discharge from OSH despite clear liquid diet CT abd/pelvis with pancreatic body mass measuring approximately 36 mm with distal pancreatic ductal dilation and prominent gas distended loops of colon Possible pseudo-obstruction of intestine. No emergent surgery indication now. Patient appears to be doing well with conservative management Will follow up surgery recs. Possible clamping NGT today and consider clears Continue IVF for now (5) C. difficile colitis: Plan: C diff toxin positive 5 days ago during previous admission at [facility]. Transitioned to vancomycin OK while NG tube in place. Added IV Flagyl for severe c. diff colitis infection in the setting of ileus WBC downtrending from 23k on 06/08 (outpatient) to 16.3k on admission Leukocytosis improving, down to 12k If ileus improves, consider switching only to po vanc (6) Abnormal ECG: Plan: ECG with non-specific ST and T wave changes noted Repeat ECG show resolution of some ST elevation noted on admission EKG Troponin is negative Cards evaluation and recommendations appreciated Echo noted Continue to monitor on tele (7) Hypertension: Plan: Hold antihypertensives po for now Currently normotensive (8) CKD (chronic kidney disease), stage III: Plan: Renal function at baseline Cr 1.02. (9) Hyperlipidemia: Plan: Home po statin on hold for now while npo DVT Ppx: SQ heparin Code status: FULL PCP: Luca Dispo: Tele. Admission and Anticipated Discharge Date Admission Date: June 14, 2021 Subjective Patient seen and examined Reports feeling better Denied any nausea, vomiting or abd pain Reported about 4 BM since yesterday which he associated with [place] vanco but stated there were some stools in some Denied any chest pain, cough, shortness of breath Denied any fevers, chills Denied dysuria, freq, urgency Reported unintentional weight loss since last thanksgiving Physical Exam Constitutional: + well hydrated; no acute distress Eyes: PERRL, conjunctivae normal, anicteric sclerae ENMT: NGT in situ Respiratory: normal respiratory effort, lungs clear to auscultation Cardiovascular: RRR S1 S2 Gastrointestinal (Abdomen): normal bowel sounds, soft, nontender, no hepatosplenomegaly Musculoskeletal: no cyanosis or clubbing, extremities motor strength 5/5 Neurologic: PERRL, EOMI, accommodation nl, no face palsy, no dysarthria Psychiatric: A+Ox3, euthymic affect Results & Data Results & Data ([facility]) Vital Signs (Past 12 Hours) Vital Signs Temp Pulse Pulse Resp BP Pulse Ox 06/15/21 07:44 37 C 90 21 129/74 96 06/15/21 03:50 36.8 C 80 18 122/74 94 06/15/21 00:00 101 H 06/14/21 23:36 37 C 86 18 122/74 93 Laboratory Results Abnormal lab results 06/15/21 06/15/21 Range/Units 06:28 06:28 WBC 12.89 H (4.8-10.8) K/uL RBC 4.05 L (4.7-6.1) M/uL Hgb 11.9 L (14.0-18.0) g/dL Hct 35.6 L (42-52) % RDW Std Deviation 47.1 H (36.4-46.3) fL RDW Coeff of [place] 14.6 H (11.5-14.5) % Neut # (Auto) 10.44 H (1.4-6.5) K/uL [place] # (Auto) 0.96 H (0.11-0.59) K/uL Immature Gran # (Auto) 0.10 H (0.00-0.02) K/uL Calcium 8.2 L (8.5-10.1) mg/dl ALT 84 H (7-52) U/L Alkaline Phosphatase 168 H (34-104) U/L Total Protein 5.5 L (6.0-8.3) gm/dl Albumin 3.0 L (3.4-5.0) gm/dl (1) Abdominal pain Abdominal location: left lower quadrant Qualified Code(s): R10.32 - Left lower quadrant pain
[2021-06-15] MEDS: PANTOprazole 40 MG in SYRINGE 0 ML IV SCH (12:24)
--- NOTE | 2021-06-15 14:29 | Surgery Progress Note ---
Date of Service June 15, 2021 Assessment & Plan (1) Pancreatic mass: Plan: see below (2) Liver metastases: Plan: see below (3) Pseudo-obstruction of intestine: (4) C. difficile colitis: Plan: Afebrile, leukocytosis improved to 12.89K (16.30K) abdomen is no longer distended, no abdominal pain + bowel movements with gas NGT with 300 cc output in last shift, more bilious in nature today Plan: Okay to clamp NGT and trial clear liquids if does okay can remove NGT this afternoon Continue Vancomycin for C. diff per GI recommendations Outpatient follow-up with medical oncology pending his liver biopsy results Dr. Cheng covering this weekend Dr. Vargas was present during rounds and my examination and agrees with above. Admission and Anticipated Discharge Date Admission Date: June 14, 2021 Subjective feeling much better today having multiple bowel movements with some loose and semi formed stool no nausea or vomiting no abdominal pain, does not feel bloated Physical Exam Constitutional: well developed; + not well nourished and no acute distress Neck: normal visual inspection and trachea midline Respiratory: normal respiratory effort; no respiratory distress Gastrointestinal (Abdomen): Inspection/Auscultation: abdomen normal to inspection; abdomen not distended Percussion/Palpation: abdomen soft; abdomen nontender, no guarding and abdomen not rigid NGT with more bilious output (yesterday dark green/brown) Skin: no rashes, warm and dry Psychiatric: Orientation: alert and oriented x 3 Results & Data ([facility]) Vital Signs (Past 12 Hours) Vital Signs Temp Pulse Resp BP Pulse Ox 06/15/21 11:23 36.8 C 90 20 126/72 95 06/15/21 07:44 37 C 90 21 129/74 96 06/15/21 03:50 36.8 C 80 18 122/74 94 Laboratory Results 06/15/21 06/15/21 Range/Units 06:28 06:28 WBC 12.89 H (4.8-10.8) K/uL RBC 4.05 L (4.7-6.1) M/uL Hgb 11.9 L (14.0-18.0) g/dL Hct 35.6 L (42-52) % MCV 87.9 (80-100) fL MCH 29.4 (25-34) pg MCHC 33.4 (32-36) g/dL RDW Std Deviation 47.1 H (36.4-46.3) fL RDW Coeff of [place] 14.6 H (11.5-14.5) % Plt Count 272 (130-400) K/uL MPV 8.5 (7.4-10.4) fL Immature Gran % (Auto) 0.8 % Neut % (Auto) 80.9 % Lymph % (Auto) 10.2 % [place] % (Auto) 7.4 % Eos % (Auto) 0.5 % Baso % (Auto) 0.2 % Neut # (Auto) 10.44 H (1.4-6.5) K/uL Lymph # (Auto) 1.31 (1.2-3.4) K/uL [place] # (Auto) 0.96 H (0.11-0.59) K/uL Eos # (Auto) 0.06 (0-0.5) K/uL Baso # (Auto) 0.02 (0-0.2) K/uL Immature Gran # (Auto) 0.10 H (0.00-0.02) K/uL Sodium 137 (136-145) mmol/L Potassium 3.5 (3.5-5.1) mmol/L Chloride 103 (98-107) mmol/L Carbon Dioxide 26 (21-32) mmol/L Anion Gap 8 (3-11) BUN 18 (6-23) mg/dl Creatinine 1.02 (0.6-1.4) mg/dl Est Cr Clr Drug Dosing 80.6 ml/min Est GFR ( Amer) 85.9 ml/min Est GFR (Non-Af Amer) 74.1 ml/min BUN/Creatinine Ratio 17.6 (10-20) Glucose 97 (70-99(Fasting)) mg/dl Calcium 8.2 L (8.5-10.1) mg/dl Total Bilirubin 0.5 (0.2-1.0) mg/dl AST 35 (13-39) U/L ALT 84 H (7-52) U/L Alkaline Phosphatase 168 H (34-104) U/L Troponin I < 0.03 (0-0.04) ng/ml Total Protein 5.5 L (6.0-8.3) gm/dl Albumin 3.0 L (3.4-5.0) gm/dl Globulin 2.5 (2.5-4.0) gm/dl Albumin/Globulin Ratio 1.2 (0.9-2)
[2021-06-15] MEDS: VANCOMYCIN HCL 500 MG/100 ML ENEMA PR SCH (17:07)
--- NOTE | 2021-06-15 17:23 | Communication Note ---
Date of Service: June 15, 2021 Patient reassessed. No symptoms suggestive angina. Troponin undetectable x2. Refer to initial consultation. No additional cardiac testing felt to be indicated at this time.
[2021-06-15] MEDS: HYDROmorphone INJ 0.5 MG/0.5 ML SYR IV PRN (22:12)
[2021-06-16] MEDS ORDERED: MELATONIN 3 MG TAB PO PRN (01:52)
[2021-06-16] MEDS: RASPBERRY SYRUP 5 ML UDP PO SCH ×4 (05:36→21:43)
[2021-06-16] MEDS: VANCOMYCIN HCL 250 MG/5 ML SOLN PO SCH ×4 (05:36→21:42)
[2021-06-16] MEDS: HEPARIN SOD 5,000 UNIT/0.5 ML VIAL SQ SCH ×3 (05:36→21:44)
[2021-06-16] MEDS: metroNIDAZOLE 500 MG/100 ML BAG IV SCH (05:38)
[2021-06-16 06:13] LABS: Basophils # (auto) 0.01 K/uL (0-0.2); Basophils % (auto) 0.1 %; Eosinophils # (auto) 0.11 K/uL (0-0.5); Hematocrit (blood only) 32.7 % (42-52); Hemoglobin 10.7 g/dL (14.0-18.0); Immature Granulocytes # (auto) 0.05 K/uL (0.00-0.02); Immature Granulocytes % (auto) 0.4 %; Lymphocytes # (auto) 1.47 K/uL (1.2-3.4); Lymphocytes % (auto) 12.7 %; Mean Corpuscular Hemoglobin 29.1 pg (25-34); Mean Corpuscular Hgb Conc 32.7 g/dL (32-36); Mean Corpuscular Volume 88.9 fL (80-100); Mean Platelet Volume 8.7 fL (7.4-10.4); Monocytes # (auto) 0.22 K/uL (0.11-0.59); Monocytes % (auto) 1.9 %; Neutrophils % (auto) 83.9 %; Platelet Count 290 K/uL (130-400); RDW Coefficient of Variation 14.9 % (11.5-14.5); RDW Standard Deviation 48.8 fL (36.4-46.3); Red Blood Count 3.68 M/uL (4.7-6.1); White Blood Count 11.56 K/uL (4.8-10.8)
[2021-06-16 06:43] LABS: Albumin Globulin Ratio 1.2 (0.9-2); Albumin Level 2.8 gm/dl (3.4-5.0); BUN Creatinine Ratio 17.8 (10-20); Bilirubin,Total 0.5 mg/dl (0.2-1.0); Calcium 7.9 mg/dl (8.5-10.1); Creatinine Clr Calc Pharmacy 93.2 ml/min; Est GFR (African American) 99.9 ml/min; Est GFR (Non-African American) 86.2 ml/min; Globulin 2.3 gm/dl (2.5-4.0); Potassium 3.1 mmol/L (3.5-5.1); Total Protein 5.1 gm/dl (6.0-8.3)
[2021-06-16] MEDS: SODIUM CHLORIDE 0.9% 1000ML 1,000 ML IV SCH (08:28)
[2021-06-16] MEDS ORDERED: HYDROmorphone INJ 0.5 MG/0.5 ML SYR IV PRN (09:20)
[2021-06-16] MEDS: HYDROmorphone INJ 0.5 MG/0.5 ML SYR IV PRN (09:37)
--- NOTE | 2021-06-16 09:38 | Hospitalist Progress Note ---
Date of Service June 16, 2021 Assessment & Plan (1) Abdominal pain: (2) Liver metastases: (3) Pancreatic mass: Plan: 70-year-old male with PMH of recent pancreatic mass finding with liver metastasis, C. diff colitis, HTN, CKD III, HLD and other medical problems listed below who presents with worsening abdominal pain. Recently admitted to [facility] from 06/08- and was found to have a pancreatic mass and liver mets, s/p biopsy on FridayJune 11 Outside records reviewed- liver path results pending If pathology definitive, will need surg onc/heme onc evaluation Pancreatic mass, likely malignant (4) Pseudo-obstruction of intestine: Plan: Continued abdominal pain since discharge from OSH despite clear liquid diet CT abd/pelvis with pancreatic body mass measuring approximately 36 mm with distal pancreatic ductal dilation and prominent gas distended loops of colon Possible pseudo-obstruction of intestine. No emergent surgery indication now. Patient appears to be doing well with conservative management NGT has been removed Tolerating clears well Advance to full liquid and monitor (5) C. difficile colitis: Plan: C diff toxin positive 5 days ago during previous admission at [facility]. WBC downtrending from 23k on 06/08 (outpatient) to 16.3k on admission Was initially started on [place] vanc and flagyl on admission due to ileus. Now changed to po vancomycin Leukocytosis improving, down to 11k Continue po vancomycin (6) Abnormal ECG: Plan: ECG with non-specific ST and T wave changes noted Repeat ECG show resolution of some ST elevation noted on admission EKG Troponin is negative Cards evaluation and recommendations appreciated Echo noted Continue to monitor on tele (7) Hypertension: Plan: Hold antihypertensives po for now Currently normotensive (8) CKD (chronic kidney disease), stage III: Plan: Renal function at baseline Cr 0.9 (9) Hyperlipidemia: Plan: Continue to hold statin for today LFT mildly elevated likely due to liver mets. Monitor DVT Ppx: SQ heparin Code status: FULL PCP: Luca Dispo: Tele. Admission and Anticipated Discharge Date Admission Date: June 14, 2021 Subjective Patient seen and examined Reports feeling better NGT removed yesterday. Reported some mild abd pain after initial diet yesterday but none since. Tolerating clear liquid well Currently has no abd pain, nausea, vomiting Reports about 7 loose stool in past 24h with some semiformed Denied any chest pain, cough, shortness of breath Denied any fevers, chills Denied dysuria, freq, urgency Physical Exam Constitutional: + well hydrated; no acute distress Eyes: PERRL, conjunctivae normal, anicteric sclerae ENMT: external ear and nose normal, oropharynx normal Respiratory: normal respiratory effort, lungs clear to auscultation Cardiovascular: Rate/Rhythm: regular rate and regular rhythm S1 S2 Gastrointestinal (Abdomen): normal bowel sounds, soft, nontender, no hepatosplenomegaly Musculoskeletal: no cyanosis or clubbing, extremities motor strength 5/5 Neurologic: PERRL, EOMI, accommodation nl, no face palsy, no dysarthria Psychiatric: A+Ox3, euthymic affect Results & Data Results & Data ([facility]) Vital Signs (Past 12 Hours) Vital Signs Temp Pulse Pulse Pulse Resp BP BP 06/16/21 07:28 37 C 87 18 116/70 06/15/21 22:56 93 H 06/15/21 22:01 37.2 C 94 H 18 134/78 Pulse Ox 06/16/21 07:28 96 06/15/21 22:56 06/15/21 22:01 96 Laboratory Results Abnormal lab results 06/16/21 06/16/21 06/16/21 Range/Units 05:38 05:38 05:38 WBC 11.56 H (4.8-10.8) K/uL RBC 3.68 L (4.7-6.1) M/uL Hgb 10.7 L (14.0-18.0) g/dL Hct 32.7 L (42-52) % RDW Std Deviation 48.8 H (36.4-46.3) fL RDW Coeff of [place] 14.9 H (11.5-14.5) % Neut # (Auto) 9.70 H (1.4-6.5) K/uL Immature Gran # (Auto) 0.05 H (0.00-0.02) K/uL Potassium 3.1 L (3.5-5.1) mmol/L Glucose 127 H (70-99(Fasting)) mg/dl Calcium 7.9 L (8.5-10.1) mg/dl Phosphorus 2.3 L (2.5-4.9) mg/dl ALT 60 H (7-52) U/L Alkaline Phosphatase 159 H (34-104) U/L Total Protein 5.1 L (6.0-8.3) gm/dl Albumin 2.8 L (3.4-5.0) gm/dl Globulin 2.3 L (2.5-4.0) gm/dl (1) Abdominal pain Abdominal location: left lower quadrant Qualified Code(s): R10.32 - Left lower quadrant pain
[2021-06-16 09:57] LABS: Magnesium 1.9 mg/dl (1.7-2.4); Phosphorus 2.3 mg/dl (2.5-4.9)
[2021-06-16] MEDS ORDERED: POTASSIUM PHOS 3 MMOL/1 ML INFUSION IV STA (10:32)
[2021-06-16] MEDS ORDERED: DEXTROSE 5% IV ONE (10:45)
[2021-06-16] MEDS ORDERED: POTASSIUM PHOSPHATE IV ONE (10:45)
[2021-06-16] MEDS: PANTOprazole 40 MG in SYRINGE 0 ML IV SCH (11:04)
[2021-06-16] MEDS ORDERED: Nursing to Pharmacy Communication SCH (21:00)
[2021-06-17] MEDS: VANCOMYCIN HCL 250 MG/5 ML SOLN PO SCH ×4 (05:37→23:00)
[2021-06-17] MEDS: HEPARIN SOD 5,000 UNIT/0.5 ML VIAL SQ SCH ×3 (05:37→23:00)
[2021-06-17] MEDS: RASPBERRY SYRUP 5 ML UDP PO SCH ×4 (05:37→23:00)
[2021-06-17 07:35] LABS: Hematocrit (blood only) 34.4 % (42-52); Hemoglobin 11.3 g/dL (14.0-18.0); Mean Corpuscular Hemoglobin 29.6 pg (25-34); Mean Corpuscular Hgb Conc 32.8 g/dL (32-36); Mean Corpuscular Volume 90.1 fL (80-100); Mean Platelet Volume 8.7 fL (7.4-10.4); Platelet Count 297 K/uL (130-400); RDW Standard Deviation 49.7 fL (36.4-46.3); Red Blood Count 3.82 M/uL (4.7-6.1); White Blood Count 13.62 K/uL (4.8-10.8)
[2021-06-17 08:16] LABS: Albumin Globulin Ratio 1.1 (0.9-2); Albumin Level 2.7 gm/dl (3.4-5.0); BUN Creatinine Ratio 10.2 (10-20); Bilirubin,Total 0.5 mg/dl (0.2-1.0); Calcium 7.9 mg/dl (8.5-10.1); Creatinine Clr Calc Pharmacy 95.5 ml/min; Est GFR (African American) 100.9 ml/min; Globulin 2.4 gm/dl (2.5-4.0); Magnesium 1.8 mg/dl (1.7-2.4); Phosphorus 2.6 mg/dl (2.5-4.9); Potassium 3.1 mmol/L (3.5-5.1); Total Protein 5.1 gm/dl (6.0-8.3)
[2021-06-17] MEDS ORDERED: POTASSIUM CHLORIDE CRTAB 20 MEQ TABCR PO STA (09:47)
--- NOTE | 2021-06-17 09:47 | Hospitalist Progress Note ---
Date of Service June 17, 2021 Assessment & Plan (1) Abdominal pain: (2) Liver metastases: (3) Pancreatic mass: Plan: 70-year-old male with PMH of recent pancreatic mass finding with liver metastasis, C. diff colitis, HTN, CKD III, HLD and other medical problems listed below who presents with worsening abdominal pain. Recently admitted to [facility] from 06/08- and was found to have a pancreatic mass and liver mets, s/p biopsy on FridayJune 11 Outside records reviewed- liver path results pending If pathology definitive, will need surg onc/heme onc evaluation Pancreatic mass, likely malignant (4) Pseudo-obstruction of intestine: Plan: Continued abdominal pain since discharge from OSH despite clear liquid diet CT abd/pelvis with pancreatic body mass measuring approximately 36 mm with distal pancreatic ductal dilation and prominent gas distended loops of colon Possible pseudo-obstruction of intestine. No emergent surgery indication now. Patient appears to be doing well with conservative management NGT has been removed Tolerating full liquid diet Advance to regular health healthy diet and monitor (5) C. difficile colitis: Plan: C diff toxin positive 5 days ago during previous admission at [facility]. WBC downtrending from 23k on 06/08 (outpatient) to 16.3k on admission Was initially started on [place] vanc and flagyl on admission due to ileus. Now changed to po vancomycin WBC is 13k today Continue po vancomycin Hypokalemic today Replete and monitor (6) Abnormal ECG: Plan: ECG with non-specific ST and T wave changes noted Repeat ECG show resolution of some ST elevation noted on admission EKG Troponin is negative Cards evaluation and recommendations appreciated Echo noted Tele has been unremarkable, NSR Will dc tele (7) Hypertension: Plan: Hold antihypertensives po for now Currently normotensive (8) CKD (chronic kidney disease), stage III: Plan: Renal function at baseline Cr 0.88 (9) Hyperlipidemia: Plan: LFT mildly elevated likely due to liver mets. AST/ALT normalized today Resume statin tomorrow DVT Ppx: SQ heparin Code status: FULL PCP: Luca Dispo: Tele. Admission and Anticipated Discharge Date Admission Date: June 14, 2021 Subjective Patient seen and examined Tolerating full liquid diet Reports about 6 BM in the past 24h No abd pain today Denied nausea, vomiting Denied any chest pain, cough, shortness of breath Denied any fevers, chills Denied dysuria, freq, urgency Physical Exam Constitutional: + well hydrated; no acute distress Eyes: PERRL, conjunctivae normal, anicteric sclerae ENMT: external ear and nose normal, oropharynx normal Respiratory: normal respiratory effort, lungs clear to auscultation Cardiovascular: Rate/Rhythm: regular rate and regular rhythm S1 S2 Gastrointestinal (Abdomen): normal bowel sounds, soft, nontender, no hepatosplenomegaly Musculoskeletal: no cyanosis or clubbing, extremities motor strength 5/5 Neurologic: PERRL, EOMI, accommodation nl, no face palsy, no dysarthria Psychiatric: A+Ox3, euthymic affect Results & Data Results & Data ([facility]) Vital Signs (Past 12 Hours) Vital Signs Temp Pulse Pulse Pulse Resp BP BP 06/17/21 07:31 36.9 C 90 20 133/78 06/17/21 07:22 81 06/17/21 02:46 76 06/17/21 02:14 37.1 C 89 18 147/77 H 06/16/21 21:53 36.9 C 84 18 130/68 Pulse Ox 06/17/21 07:31 94 06/17/21 07:22 06/17/21 02:46 06/17/21 02:14 97 06/16/21 21:53 95 Laboratory Results Abnormal lab results 06/17/21 06/17/21 Range/Units 06:55 06:55 WBC 13.62 H (4.8-10.8) K/uL RBC 3.82 L (4.7-6.1) M/uL Hgb 11.3 L (14.0-18.0) g/dL Hct 34.4 L (42-52) % RDW Std Deviation 49.7 H (36.4-46.3) fL RDW Coeff of [place] 15.0 H (11.5-14.5) % Potassium 3.1 L (3.5-5.1) mmol/L Glucose 123 H (70-99(Fasting)) mg/dl Calcium 7.9 L (8.5-10.1) mg/dl Alkaline Phosphatase 162 H (34-104) U/L Total Protein 5.1 L (6.0-8.3) gm/dl Albumin 2.7 L (3.4-5.0) gm/dl Globulin 2.4 L (2.5-4.0) gm/dl (1) Abdominal pain Abdominal location: left lower quadrant Qualified Code(s): R10.32 - Left lower quadrant pain
[2021-06-17] MEDS: POTASSIUM CHLORIDE / WTR 10 MEQ/100 ML PLCT IV SCH ×2 (10:17→11:24)
[2021-06-17] MEDS: PANTOprazole 40 MG in SYRINGE 0 ML IV SCH (11:24)
[2021-06-17] MEDS: SODIUM CHLORIDE 0.9% 1000ML 1,000 ML IV SCH (14:44)
[2021-06-17] MEDS ORDERED: ZOLPIDEM TARTRATE 5 MG TAB PO PRN (20:00)
[2021-06-18] MEDS: RASPBERRY SYRUP 5 ML UDP PO SCH ×2 (05:14→10:59)
[2021-06-18] MEDS: HEPARIN SOD 5,000 UNIT/0.5 ML VIAL SQ SCH (05:14)
[2021-06-18] MEDS: VANCOMYCIN HCL 250 MG/5 ML SOLN PO SCH ×2 (05:14→10:59)
[2021-06-18 08:16] LABS: Hematocrit (blood only) 35.3 % (42-52); Hemoglobin 11.6 g/dL (14.0-18.0); Mean Corpuscular Hemoglobin 29.2 pg (25-34); Mean Corpuscular Hgb Conc 32.9 g/dL (32-36); Mean Corpuscular Volume 88.9 fL (80-100); Mean Platelet Volume 8.5 fL (7.4-10.4); Platelet Count 315 K/uL (130-400); RDW Coefficient of Variation 14.8 % (11.5-14.5); RDW Standard Deviation 48.4 fL (36.4-46.3); Red Blood Count 3.97 M/uL (4.7-6.1); White Blood Count 12.56 K/uL (4.8-10.8)
[2021-06-18 08:50] LABS: Alanine Aminotransferase 47 U/L (7-52); Albumin Level 2.9 gm/dl (3.4-5.0); Alkaline Phosphatase 174 U/L (34-104); Anion Gap 5 (3-11); BUN Creatinine Ratio 8.8 (10-20); Bilirubin,Total 0.5 mg/dl (0.2-1.0); Blood Urea Nitrogen 8 mg/dl (6-23); Calcium 8.3 mg/dl (8.5-10.1); Carbon Dioxide 27 mmol/L (21-32); Chloride 104 mmol/L (98-107); Creatinine Clr Calc Pharmacy 92.4 ml/min; Est GFR (African American) 98.6 ml/min; Est GFR (Non-African American) 85.1 ml/min; Globulin 2.8 gm/dl (2.5-4.0); Glucose 117 mg/dl (70-99(Fasting)); Magnesium 1.9 mg/dl (1.7-2.4); Phosphorus 2.5 mg/dl (2.5-4.9); Sodium 136 mmol/L (136-145); Total Protein 5.7 gm/dl (6.0-8.3)
[2021-06-18] MEDS ORDERED: ROSUVASTATIN CALCIUM 20 MG TAB PO SCH (09:30)
[2021-06-18 09:45] LABS: Potassium 3.5 mmol/L (3.5-5.1)
[2021-06-18] MEDS: PANTOprazole 40 MG in SYRINGE 0 ML IV SCH (10:05)
--- NOTE | 2021-06-18 11:38 | Discharge Summary ---
Date of Service June 18, 2021 Admission HPI Per Admitting Provider A 70-year-old male with past medical history significant for hyperlipidemia, hypertension, chronic kidney disease stage III, history of basal cell carcinoma, history of osteoarthritis, presents with abdominal pain. The patient was in [facility] recently. He is having abdominal pain since last Friday. He got admitted to [facility] and found to have pancreatic mass and liver mets, status post biopsy on last Friday. Results were pending at discharge. He is only eating liquid diet at home, but abdominal pain is not getting better. He is having nausea, but not vomiting. Last bowel movement was last Friday and severe abdominal pain, more in the left lower quadrant. Denies any fever or chills. No chest pain, no shortness of breath, no cough, no headache, no blurred vision, no earache, no runny nose, no sore throat. Currently, resting comfortably and hemodynamically stable. Currently requesting for pain medication. The patient is status post NG tube in the ER, draining slight yellowish fluid. Admission Exam Per Admitting Provider GENERAL: The patient is of moderate build, not in acute distress. VITAL SIGNS: Temperature 36.6, pulse 88, respiratory rate 18, blood pressure 131/79, oxygen 94% on room air. HEENT: Pupils equal, round and reactive to light. Oral mucosa moist. NECK: No JVD, no neck masses. CARDIOVASCULAR: S1 and S2 heard. Regular rate and rhythm. No murmur, no gallop. RESPIRATORY SYSTEM: Normal AP diameter. No accessory muscle use. No wheezing, no crackles. ABDOMEN: Soft. Absent bowel sounds. Mild distention. No guarding. Mild tenderness. CENTRAL NERVOUS SYSTEM: Cranial nerves II-XII grossly intact, nonfocal. EXTREMITIES: Bilateral lower extremity pedal edema present, no erythema seen. Principal Diagnosis Pancreatic carcinoma with liver metastasis C difficile colitis Pseudo obstruction of intestine Discharge Exam Constitutional + well hydrated; no acute distress Eyes PERRL, conjunctivae normal, anicteric sclerae ENMT external ear and nose normal, oropharynx normal Respiratory normal respiratory effort, lungs clear to auscultation Cardiovascular Rate/Rhythm: regular rate and regular rhythm S1 S2 Gastrointestinal (Abdomen) normal bowel sounds, soft, nontender, no hepatosplenomegaly Musculoskeletal no cyanosis or clubbing, extremities motor strength 5/5 Neurologic PERRL, EOMI, accommodation nl, no face palsy, no dysarthria Psychiatric A+Ox3, euthymic affect Discharge Data Allergies Allergy/AdvReac Type Severity Reaction Status Date / Time erythromycin base AdvReac Mild Gastrointestinal Verified 06/13/21 20:17 Upset Consultations 06/13/21 22:33 ED Decision to Admit Stat 06/14/21 08:00 Consult Gastroenterology Routine 06/14/21 13:11 Consult Cardiology Routine Ordered Studies 06/13/21 19:53 CT abd pelvis IV con only Urgent Lower chest: Bibasilar atelectasis versus scarring is seen. Liver: Numerous hypodensities are seen, most which measure greater than simple fluid density. The largest is 46 mm in diameter. Gallbladder and biliary tree: No calcified gallstones. Normal caliber wall. No intra- or extrahepatic biliary ductal dilation. Pancreas: There is a 36 mm ill-defined soft tissue mass in the body of the pancreas. The distal pancreatic tail is dilated measuring 5 mm. Spleen: Unremarkable. Adrenals: Minimal thickening of the left adrenal gland is seen. Kidneys and ureters: Hypodensities are seen in the bilateral kidneys favored to represent cysts. There is a hypodensity in the right kidney superior pole measuring 2 cm which measures greater than simple fluid. Bladder: Unremarkable. Reproductive organs: Prostatomegaly is seen. Bowel: There is mild diffuse wall thickening of the distal transverse colon. Multiple gas-distended loops of colon are seen. The appendix is prominent in size measuring up to 9 mm at the tip. However, no discernible wall thickening is seen. There is a small hiatal hernia. Lymph nodes Retroperitoneal: Numerous subcentimeter nodes are seen in the retroperitoneum and amrita hepatis. Mesenteric: Unremarkable. Pelvic: Subcentimeter lymph nodes are noted. Peritoneum: Normal. Vessels: Atherosclerotic calcifications are seen. Abdominal wall: Fat-containing supraumbilical hernia is seen. There is bilateral fat containing inguinal hernias. Bones: Degenerative changes in the visualized spine. IMPRESSION: 1. There is a pancreatic body mass measuring approximately 36 mm with distal pancreatic ductal dilation. Findings are concerning for malignancy. Hypodense liver lesions are favored to represent metastasis. 2. Hypodensity in the right kidney superior pole is nonspecific, nonemergent renal mass protocol can be performed if not previously characterized. 3. Prominent gas distended loops of colon. Prominence of the appendix and transverse colon is nonspecific. Hospital Course (1) Abdominal pain: (2) Liver metastases: (3) Pancreatic mass: 70-year-old male with PMH of recent pancreatic mass finding with liver metastasis, C. diff colitis, HTN, CKD III, HLD and other medical problems listed below who presents with worsening abdominal pain. Recently admitted to [facility] from 06/08- and was found to have a pancreatic mass and liver mets, s/p liver biopsy on FridayJune 11 Preliminary pathology report obtained today showed moderately differentiated adenocarcinoma Patient already has follow up with Oncology (4) Pseudo-obstruction of intestine: Continued abdominal pain since discharge from OSH despite clear liquid diet CT abd/pelvis with pancreatic body mass measuring approximately 36 mm with distal pancreatic ductal dilation and prominent gas distended loops of colon Had pseudo-obstruction of intestine. This was managed conservatively NGT was initially put in With improvement of symptoms, NGT was removed Patient was started on clears and diet gradually advanced Tolerating regular diet without pain (5) C. difficile colitis: C diff toxin positive during previous admission at [facility]. WBC downtrending from 23k on 06/08 (outpatient) to 16.3k on admission at [facility] Was initially started on [place] vanc and flagyl on admission due to ileus. Now changed to po vancomycin WBC is 12k today Continue po vancomycin to complete 2 weeks of treatment (6) Abnormal ECG: ECG with non-specific ST and T wave changes noted on admission Repeat ECG show resolution of some ST elevation noted on admission EKG Troponin is negative Was evaluated by Cardiology Echo noted EF 65-70%, no regional wall motion abnormalities, Grade 1 DD Was monitored on tele and telemetry was unremarkable (7) Hypertension: Continue home meds (8) CKD (chronic kidney disease), stage III: Renal function at baseline Cr 0.91 (9) Hyperlipidemia: LFT mildly elevated likely due to liver mets. AST/ALT normalized Total Time Total Time Spent Total Time Spent (In Minutes): 50 Total Time Includes: Examination of the Patient, Discharge Planning, Medication Reconciliation and Communication With Other Providers Discharge Plan Discharge Items Patient Disposition: Home - Self-Care Reason For Visit: ABDOMINAL PAIN Discharge Diagnosis: Pancreatic carcinoma with liver metastasis C difficile colitis Pseudo obstruction of intestine Activity: Resume your previous activity Non-emergency contact: Primary Care Provider, Spa Host and Oncologist Call non-emergency contact if: you have any medication questions and your symptoms worsen Follow-up/Referrals: Shakira Segovia MD [Primary Care Provider] - (Date & Time 06/22/2021 11:00 AM Provider Shakira Segovia MD Department Family Medicine [facility] ) Ramez Vega MD [Surgeon] - (Date & Time 06/27/2021 9:45 AM Provider Ramez Vega MD Department Hematology/Oncology [facility] ) Diet: Heart Healthy Addtl Attending Provider Instructions: Mr Don Snell came to the hospital with worsening abdominal pain. You had been evaluated a week ago at [facility] and was found to have a pancreatic mass with liver metastasis and C diff colitis. Biopsy report from [facility] showed moderately differentiated adenocarcinoma. You need to continue oral vancomycin to complete 2 weeks treatment. It is very important that you follow up with Gastroenterology outpatient. Please ensure follow up with Oncologist for further evaluation and management of your Pancreatic carcinoma. It was a pleasure taking care of you. Pending Studies at Discharge: No Stand-Alone Forms: My [facility] [address], Smoking Cessation Medications and DC Order Prescriptions: Continued amlodipine 10 mg Tablet 10 mg PO QPM RF: 0 lisinopril-hydrochlorothiazide 10-12.5 mg Tablet 1 tab PO QAM RF: 0 coenzyme Q10 [CoQ-10] 100 mg Capsule 100 mg PO QAM RF: 0 echinacea 125 mg Capsule 125 mg PO QAM RF: 0 cholecalciferol (vitamin D3) [Vitamin D3] 25 mcg (1,000 unit) Tablet 25 mcg PO QAM RF: 0 flaxseed 1,000 mg Capsule 1,000 mg PO QAM RF: 0 turmeric 400 mg Capsule 400 mg PO QAM RF: 0 trazodone 50 mg tablet 50 mg PO HS RF: 0 vancomycin 250 mg capsule 250 mg PO Q6 RF: 0 omeprazole 40 mg capsule,delayed release(DR/EC) 40 mg PO DAILYBB RF: 0 amoxicillin 500 mg capsule 2,000 mg PO ONCE PRN (Reason: 1 hour prior to dental appt) RF: 0 multivitamin Tablet 1 tab PO QAM RF: 0 ascorbic acid (vitamin C) [Vitamin C] 1,000 mg Tablet 1 g PO QAM RF: 0 cyanocobalamin (vitamin B-12) 500 mcg Tablet 500 mcg PO QAM RF: 0 rosuvastatin [Crestor] 20 mg Tablet 20 mg PO QAM RF: 0 Discharge Orders: Discharge Order (Routine); Ordered 06/18/21 Ordered By: Lois Yancey Admission Data Admit Date/Time: 06/14/21 00:45 Attending Provider: Lois Yancey I. Admit Provider: Surinder Sanchez Primary Care Provider: Shakira Segovia Other Providers: Ira Shepherd ; Surinder Sanchez ; Hernan Jim ; Tan Cerda Other Interventions: Discharge Summary Assessment (RN) Last Done: 06/18/21 11:45
== END 2021-06-18 13:41 | disposition home or self-care (01) | DRG 436 ==
LOC: ED 19:29 → 3N 06-14 00:45 → 2W 06-14 16:05

== ENCOUNTER 2021-07-20 00:36 | Inpatient (IN) ==
[2021-07-20] MEDS ORDERED: SODIUM CHLORIDE 0.9% 1000ML 500 ML IV ONE (00:40)
--- NOTE | 2021-07-20 00:41 | Emergency Department Note ---
Impression & Plan GI bleed ADMIT ED Provider Note HPI: The patient is a 70-year-old gentleman with history of chronic kidney disease, hypertension, pancreatic cancer, currently under chemotherapy, presents emergency department chief complaint of diarrhea this been ongoing since earlier this morning.Patient states that the diarrhea was somewhat red in coloration he was concerned that this might represent blood, states that this did clear later in the evening however he continued to have diarrhea and therefore he presented to the ED for further evaluation. Patient admits to some very mild abdominal pain. Denies any chest pain or shortness of breath. Patient did complete a course of oral vancomycin last month for a bout with C. difficile.On arrival to the ED the patient is hemodynamically stable, he is otherwise in no acute distress on my initial evaluation. ROS: - GI: Diarrhea *10 point review systems was conducted and is otherwise negative unless stated above *Outpatient medications and allergy history reviewed PE: General: Alert, NAD HEENT: Normocephalic, atraumatic Eyes: Extraocular eye movement is intact, no scleral erythema Pulmonary: Clear to auscultation bilaterally, no wheezing Cardio: Regular rate and rhythm GI: Abdomen is soft, nontender, Rectal examination performed with female RN at the bedside shows evidence of external hemorrhoids without gross bleeding : No suprapubic tenderness MSK: No evidence of trauma or malformation of the extremities, no edema Skin: No evidence of rash Neuro: Alert, no focal deficits Psychiatric: Cooperative shelter monitor: - An order was placed for continuous cardiac monitoring - Patient was noted to be in sinus rhythm with rate of 90 CT ABDOMEN & PELVIS With Contrast: There is a mass in the body of the pancreas measuring approximately 5.2 cm in diameter which is increased since previous. Measures approximately 3.7 cm. There are numerous hepatic metastases measuring up to 6 cm in diameter, slightly larger than previous. There is wall thickening involving the left side of the transverse colon, left colon, and to a lesser degree the sigmoid colon. There is surrounding inflamma tion involving the left colon indicating colitis. No obstruction, perforation, or abscess is seen. There is a new 4 mm pulmonary nodule in the medial left lower lobe consistent with metastasis. The prostate gland is enlarged measuring 7.4 cm. Mild to moderate degenerative changes in the lower lumbar spine. No acute fracture or destructive bone lesion is seen. Radiologist: Seymour Shepherd MD Medical Decision Making: Shortly after patient arrived to the ED, IV was established, lab work obtained, patient was placed on the shelter monitor. Lab work shows evidence of a hemoglobin of 8.5, this does appear to be an acute change from previous labs where his hemoglobin was noted to be 11.6 Just 1 month ago.Kidney function appears stable. Patient was given IV fluids, he was given morphine and Zofran, CT imaging of the abdomen pelvis was obtained that does not show any evidence of any acute surgical process, does show some increase in the size of the known pancreatic massAs well as evidence of hepatic metastasis. There is some wall thickening involving the left side of the transverse colon and left colon with surrounding inflammation indicative of colitis.Patient's occult stool test is positive. Patient was given IV fluids here in the ED and his blood pressure remained stable, will send for stool PCR. I discussed the above findings with the on- call hospitalist for [facility], Dr. Carias, and the patient was admitted in stable condition. Diagnosis: 1. Colitis, acute 2. Diarrhea 3. Lower GI bleed 4. Anemia secondary to lower GI bleed Disposition: Admission Mike Mitchell DO Emergency Medicine Past Med/Surg History Medical History Arthritis of right knee BPH (benign prostatic hyperplasia) CKD (chronic kidney disease), stage III Hyperlipidemia Hypertension Nausea and vomiting after administration of anesthetic agent Osteoarthritis Umbilical hernia + present (no pain or current issues) Surgical History History of colonoscopy History of tooth extraction History of total right knee replacement (TKR) Hx of inguinal hernia repair Hx of prostate biopsy x2 (benign) Hx of umbilical hernia repair Hx of vasectomy Family History Other No family history of adverse response to anesthesia Social History Smoking Status: Never smoker Second Hand Exposure: No; Hx Alcohol Use: No Hx Substance Use: No Preferred Language: Honduran Communication Ability: Effective National Account Manager Required: No Beliefs That Will Affect Care: None marital status: Current Living Situation: Spouse Current Living Situation Comment: How many Children do You have: 3 Feels Safe at Home: Yes Assistive Devices: None Allergies Allergies Allergy/AdvReac Type Severity Reaction Status Date / Time erythromycin base AdvReac Mild Gastrointestinal Verified 07/20/21 01:29 Upset Home Meds Home Medications Medication Instructions Recorded Confirmed amlodipine 10 mg tablet 10 mg PO QPM 05/22/20 07/20/21 lisinopril 10 1 tab PO QAM 05/22/20 07/20/21 mg-hydrochlorothiazide 12.5 mg tablet ascorbic acid (vitamin C) 1,000 mg 1 g PO QAM 01/10/21 07/20/21 tablet (Vitamin C) cyanocobalamin (vitamin B-12) 500 500 mcg PO QAM 01/10/21 07/20/21 mcg tablet multivitamin 1 tab PO QAM 01/10/21 07/20/21 rosuvastatin 20 mg tablet (Crestor) 20 mg PO QAM 01/10/21 07/20/21 cholecalciferol (vitamin D3) 25 25 mcg PO QAM 05/16/21 07/20/21 mcg (1,000 unit) tablet (Vitamin D3) coenzyme Q10 100 mg capsule 100 mg PO QAM 05/16/21 07/20/21 (CoQ-10) amoxicillin 500 mg capsule 2,000 mg PO ONCE PRN 06/13/21 07/20/21 omeprazole 40 mg capsule,delayed 40 mg PO DAILYBB 06/13/21 07/20/21 release Lactobacillus acidophilus 10 10,000 mmu cells PO DAILY 07/20/21 07/20/21 billion cell capsule (Probiotic) docusate sodium 100 mg capsule 100 mg PO BID PRN 07/20/21 07/20/21 (Colace) flaxseed oil 1,000 mg capsule 1,000 mg PO DAILY 07/20/21 07/20/21 morphine 15 mg tablet,extended 15 mg PO AMHS 07/20/21 07/20/21 release ondansetron HCl 8 mg tablet 8 mg PO Q8 PRN 07/20/21 07/20/21 oxycodone 5 mg tablet 5 mg PO Q4 PRN 07/20/21 07/20/21 prochlorperazine maleate 10 mg 10 mg PO Q6 PRN 07/20/21 07/20/21 tablet tamsulosin 0.4 mg capsule 0.4 mg PO DAILY 07/20/21 07/20/21 trazodone 50 mg tablet 50 mg PO HS 07/20/21 07/20/21 Results & Data (ED) Vital Signs Vital Signs - 24 hr 07/20/21 01:02 Temperature 36.8 C Temperature Source Oral Pulse Rate 96 H Pulse Rate [Left] 96 H Pulse Rhythm Regular Pulse Rhythm [Left] Regular Pulse Strength [Left] Normal Respiratory Rate 18 Respiratory Effort / Characteristics Non-Labored Spontaneous Respiratory Depth Normal Blood Pressure [Right Arm] 125/66 Blood Pressure Mean [Right Arm] 85 Blood Pressure Position [Right Arm] Lying Pulse Oximetry 99 Oxygen Delivery Method Room Air Laboratory Data Result diagrams: 07/20/21 00:54 07/20/21 00:54 Lab Results 07/20/21 07/20/21 07/20/21 Range/Units 00:54 00:54 00:54 WBC 10.37 (4.8-10.8) K/uL RBC 2.90 L (4.7-6.1) M/uL Hgb 8.5 L (14.0-18.0) g/dL Hct 25.9 L (42-52) % MCV 89.3 (80-100) fL MCH 29.3 (25-34) pg MCHC 32.8 (32-36) g/dL RDW Std Deviation 46.8 H (36.4-46.3) fL RDW Coeff of Franklin 14.5 (11.5-14.5) % Plt Count 197 (130-400) K/uL MPV 8.5 (7.4-10.4) fL Neutrophils % (Manual) 82.6 % Lymphocytes % (Manual) 9.6 % Monocytes % (Manual) 7.8 % Neutrophils # (Manual) 8.57 H (1.4-6.5) K/uL Total Absolute Neuts 8.57 H (1.4-6.5) K/uL Lymphocytes # (Manual) 1.00 L (1.2-3.4) K/uL Total Abs Lymphocytes 1.00 L (1.2-3.4) K/uL Monocytes # (Manual) 0.81 H (0.11-0.59) K/uL Polychromasia 1+ PT 12.2 H (9.0-12.0) Seconds INR 1.2 H (0.9-1.1) Sodium 133 L (136-145) mmol/L Potassium 3.8 (3.5-5.1) mmol/L Chloride 97 L (98-107) mmol/L Carbon Dioxide 27 (21-32) mmol/L Anion Gap 9 (3-11) BUN 14 (6-23) mg/dl Creatinine 0.84 (0.6-1.4) mg/dl Est Cr Clr Drug Dosing Not Reportable Est GFR ( Amer) 102.8 ml/min Est GFR (Non-Af Amer) 88.7 ml/min BUN/Creatinine Ratio 16.7 (10-20) Glucose 109 H (70-99(Fasting)) mg/dl Calcium 8.9 (8.5-10.1) mg/dl Total Bilirubin 0.5 (0.2-1.0) mg/dl AST 29 (13-39) U/L ALT 77 H (7-52) U/L Alkaline Phosphatase 485 H (34-104) U/L Total Protein 6.1 (6.0-8.3) gm/dl Albumin 3.2 L (3.4-5.0) gm/dl Globulin 2.9 (2.5-4.0) gm/dl Albumin/Globulin Ratio 1.1 (0.9-2) Lipase 16 (11-82) U/L SARS-CoV-2, RNA, NAAT (NEGATIVE) 07/20/21 Range/Units 01:17 WBC (4.8-10.8) K/uL RBC (4.7-6.1) M/uL Hgb (14.0-18.0) g/dL Hct (42-52) % MCV (80-100) fL MCH (25-34) pg MCHC (32-36) g/dL RDW Std Deviation (36.4-46.3) fL RDW Coeff of Franklin (11.5-14.5) % Plt Count (130-400) K/uL MPV (7.4-10.4) fL Neutrophils % (Manual) % Lymphocytes % (Manual) % Monocytes % (Manual) % Neutrophils # (Manual) (1.4-6.5) K/uL Total Absolute Neuts (1.4-6.5) K/uL Lymphocytes # (Manual) (1.2-3.4) K/uL Total Abs Lymphocytes (1.2-3.4) K/uL Monocytes # (Manual) (0.11-0.59) K/uL Polychromasia PT (9.0-12.0) Seconds INR (0.9-1.1) Sodium (136-145) mmol/L Potassium (3.5-5.1) mmol/L Chloride (98-107) mmol/L Carbon Dioxide (21-32) mmol/L Anion Gap (3-11) BUN (6-23) mg/dl Creatinine (0.6-1.4) mg/dl Est Cr Clr Drug Dosing Est GFR ( Amer) ml/min Est GFR (Non-Af Amer) ml/min BUN/Creatinine Ratio (10-20) Glucose (70-99(Fasting)) mg/dl Calcium (8.5-10.1) mg/dl Total Bilirubin (0.2-1.0) mg/dl AST (13-39) U/L ALT (7-52) U/L Alkaline Phosphatase (34-104) U/L Total Protein (6.0-8.3) gm/dl Albumin (3.4-5.0) gm/dl Globulin (2.5-4.0) gm/dl Albumin/Globulin Ratio (0.9-2) Lipase (11-82) U/L SARS-CoV-2, RNA, NAAT NEGATIVE (NEGATIVE) Administered Medications Discontinued Medications Sodium Chloride (Nss 1000ml) 500 mls @ 999 mls/hr IV .Q31M ONE Stop: 07/20/21 01:10 Last Admin: 07/20/21 01:28 Dose: 999 mls/hr Documented by: [id number] Ioversol (Optiray 320 100ml) 95 ml IV ONCE ONE Stop: 07/20/21 01:39 Last Admin: 07/20/21 01:38 Dose: 1 ml Documented by: [id number] Morphine Sulfate (Morphine Sulfate 4 Mg/Ml 1 Ml Carp\Vial) 4 mg IV NOW STA Stop: 07/20/21 01:17 Last Admin: 07/20/21 01:27 Dose: 4 mg Documented by: [id number] Ondansetron HCl (Ondansetron Inj 2 Mg/Ml 2 Ml Vial) 4 mg IV NOW STA Stop: 07/20/21 01:17 Last Admin: 07/20/21 01:28 Dose: 4 mg Documented by: [id number] Discharge Plan Visit Data Chief Complaint: GI Assessment Stated Complaint: RECTAL BLEED ED Provider: Mike Mitchell Discharge Problem: GI bleed Forms Stand Alone Forms: [facility] Prescriptions Prescriptions: No Action amlodipine 10 mg Tablet 10 mg PO QPM RF: 0 lisinopril-hydrochlorothiazide 10-12.5 mg Tablet 1 tab PO QAM RF: 0 coenzyme Q10 [CoQ-10] 100 mg Capsule 100 mg PO QAM RF: 0 cholecalciferol (vitamin D3) [Vitamin D3] 25 mcg (1,000 unit) Tablet 25 mcg PO QAM RF: 0 omeprazole 40 mg capsule,delayed release(DR/EC) 40 mg PO DAILYBB RF: 0 amoxicillin 500 mg capsule 2,000 mg PO ONCE PRN (Reason: 1 hour prior to dental appt) RF: 0 morphine 15 mg tablet extended release 15 mg PO AMHS RF: 0 oxycodone 5 mg tablet 5 mg PO Q4 PRN (Reason: Pain) RF: 0 trazodone 50 mg tablet 50 mg PO HS RF: 0 ondansetron HCl 8 mg tablet 8 mg PO Q8 PRN (Reason: Nausea) RF: 0 prochlorperazine maleate 10 mg tablet 10 mg PO Q6 PRN (Reason: nausea) RF: 0 tamsulosin 0.4 mg capsule 0.4 mg PO DAILY RF: 0 flaxseed oil 1,000 mg Capsule 1,000 mg PO DAILY RF: 0 docusate sodium [Colace] 100 mg Capsule 100 mg PO BID PRN (Reason: Constipation) RF: 0 Probiotic 10 billion cell Capsule 10,000 mmu cells PO DAILY RF: 0 multivitamin Tablet 1 tab PO QAM RF: 0 ascorbic acid (vitamin C) [Vitamin C] 1,000 mg Tablet 1 g PO QAM RF: 0 cyanocobalamin (vitamin B-12) 500 mcg Tablet 500 mcg PO QAM RF: 0 rosuvastatin [Crestor] 20 mg Tablet 20 mg PO QAM RF: 0 Referrals Referrals: Shakira Segovia MD [Primary Care Provider] - Discharge Problem: GI bleed Qualifiers: GI bleed type/associated pathology: unspecified gastrointestinal hemorrhage type Qualified Code(s): K92.2 - Gastrointestinal hemorrhage, unspecified
[2021-07-20 01:01] LABS: Hematocrit (blood only) 25.9 % (42-52); Hemoglobin 8.5 g/dL (14.0-18.0); Mean Corpuscular Hemoglobin 29.3 pg (25-34); Mean Corpuscular Hgb Conc 32.8 g/dL (32-36); Mean Corpuscular Volume 89.3 fL (80-100); Mean Platelet Volume 8.5 fL (7.4-10.4); Platelet Count 197 K/uL (130-400); RDW Coefficient of Variation 14.5 % (11.5-14.5); RDW Standard Deviation 46.8 fL (36.4-46.3); White Blood Count 10.37 K/uL (4.8-10.8)
[2021-07-20 01:14] LABS: INR 1.2 (0.9-1.1); Prothrombin Time 12.2 Seconds (9.0-12.0)
[2021-07-20] MEDS ORDERED: ONDANSETRON INJ 2 MG/ML 2 ML VIAL IV STA (01:16)
[2021-07-20] MEDS ORDERED: MoRPHine SULFATE 4 MG/ML 1 ML CARP\\VIAL IV STA (01:16)
[2021-07-20 01:24] LABS: Alanine Aminotransferase 77 U/L (7-52); Albumin Globulin Ratio 1.1 (0.9-2); Albumin Level 3.2 gm/dl (3.4-5.0); Alkaline Phosphatase 485 U/L (34-104); Anion Gap 9 (3-11); Aspartate Aminotransferase 29 U/L (13-39); BUN Creatinine Ratio 16.7 (10-20); Bilirubin,Total 0.5 mg/dl (0.2-1.0); Blood Urea Nitrogen 14 mg/dl (6-23); Calcium 8.9 mg/dl (8.5-10.1); Carbon Dioxide 27 mmol/L (21-32); Chloride 97 mmol/L (98-107); Est GFR (African American) 102.8 ml/min; Est GFR (Non-African American) 88.7 ml/min; Globulin 2.9 gm/dl (2.5-4.0); Glucose 109 mg/dl (70-99(Fasting)); Lipase 16 U/L (11-82); Potassium 3.8 mmol/L (3.5-5.1); Sodium 133 mmol/L (136-145); Total Protein 6.1 gm/dl (6.0-8.3)
[2021-07-20 01:29] LABS: ANC (manual) 8.57 K/uL (1.4-6.5); Lymphocytes % (manual) 9.6 %; Monocytes # (manual) 0.81 K/uL (0.11-0.59); Monocytes % (manual) 7.8 %; Neutrophils # (manual) 8.57 K/uL (1.4-6.5); Neutrophils % (manual) 82.6 %; Polychromasia 1+
[2021-07-20] MEDS ORDERED: OPTIRAY 320 100ml IV ONE (01:38)
--- NOTE | 2021-07-20 02:31 | History & Physical Report ---
Date of Service July 20, 2021 Assessment & Plan (1) GI bleed: Plan: L GIB Rule out recurrent C. difficile Recent preop antibiotic Rx Patient currently not toxic. Acute on chronic anemia secondary to above Chemotherapy possibly contributory Outpatient hemoglobin from 07/17/21 was noted to be 9. hx metastatic pancreatic cancer ongoing chemotherapy Chronic pain on narcotics Documented history of liver mets. Possible new pulmonary mets on initial CT read hypertension, BP on the lower side Mild hyponatremia secondary to home diuretic Rx hyperlipidemia on statin Rx Hyperglycemia likely prediabetes, hemoglobin A1c of 5.02 January 2021 Medical telemetry Clear liquids for now Stool C. difficile GI consult if with persistent L GIB and stool C. difficile negative Follow H&H, transfuse PRBC if hemoglobin less than 7 and or from symptomatic anemia Hold HCTZ for now DVT prophylaxis. SCDs Re: GI bleed Full code Text document was generated using [employer] voice recognition software. It may contain grammatical or spelling errors. Kindly contact undersigned for clarification of any documentation item in question. History of Present Illness Chief Complaint: Abdominal pain, bloody diarrhea Primary Care Provider: Shakira Segovia MD History obtained from patient and records. Medical history significant for metastatic pancreatic cancer ongoing chemotherapy, chronic pain on narcotics, hypertension, hyperlipidemia, history of C. difficile status post vancomycin Rx, BPH, chronic anemia (baseline hemoglobin of 11). Recent confinement last month for intestinal pseudoobstruction improved with conservative management. Outpatient chemotherapy initiation 2 weeks ago. Last week patient underwent outpatient A port placement at [facility]. Perioperative Cefazolin administered. Yesterday, patient noted bloody diarrhea symptoms with achy upper abdominal pain. No emesis, no fever, no chills. Patient denies chest pain, S OB. 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 Allergies Allergy/AdvReac Type Severity Reaction Status Date / Time erythromycin base AdvReac Mild Gastrointestinal Verified 07/20/21 01:29 Upset Home Medications Medication Instructions Recorded Confirmed Type amlodipine 10 mg tablet 10 mg PO QPM 05/22/20 07/20/21 History lisinopril 10 1 tab PO QAM 05/22/20 07/20/21 History mg-hydrochlorothiazide 12.5 mg tablet ascorbic acid (vitamin C) 1,000 mg 1 g PO QAM 01/10/21 07/20/21 History tablet (Vitamin C) cyanocobalamin (vitamin B-12) 500 500 mcg PO QAM 01/10/21 07/20/21 History mcg tablet multivitamin 1 tab PO QAM 01/10/21 07/20/21 History rosuvastatin 20 mg tablet (Crestor) 20 mg PO QAM 01/10/21 07/20/21 History cholecalciferol (vitamin D3) 25 25 mcg PO QAM 05/16/21 07/20/21 History mcg (1,000 unit) tablet (Vitamin D3) coenzyme Q10 100 mg capsule 100 mg PO QAM 05/16/21 07/20/21 History (CoQ-10) amoxicillin 500 mg capsule 2,000 mg PO ONCE PRN 06/13/21 07/20/21 History omeprazole 40 mg capsule,delayed 40 mg PO DAILYBB 06/13/21 07/20/21 History release Lactobacillus acidophilus 10 10,000 mmu cells PO DAILY 07/20/21 07/20/21 History billion cell capsule (Probiotic) docusate sodium 100 mg capsule 100 mg PO BID PRN 07/20/21 07/20/21 History (Colace) flaxseed oil 1,000 mg capsule 1,000 mg PO DAILY 07/20/21 07/20/21 History morphine 15 mg tablet,extended 15 mg PO AMHS 07/20/21 07/20/21 History release ondansetron HCl 8 mg tablet 8 mg PO Q8 PRN 07/20/21 07/20/21 History oxycodone 5 mg tablet 5 mg PO Q4 PRN 07/20/21 07/20/21 History prochlorperazine maleate 10 mg 10 mg PO Q6 PRN 07/20/21 07/20/21 History tablet tamsulosin 0.4 mg capsule 0.4 mg PO DAILY 07/20/21 07/20/21 History trazodone 50 mg tablet 50 mg PO HS 07/20/21 07/20/21 History Past Med/Surg History Medical History Arthritis of right knee BPH (benign prostatic hyperplasia) CKD (chronic kidney disease), stage III Hyperlipidemia Hypertension Nausea and vomiting after administration of anesthetic agent Osteoarthritis Umbilical hernia + present (no pain or current issues) Surgical History History of colonoscopy History of tooth extraction History of total right knee replacement (TKR) Hx of inguinal hernia repair Hx of prostate biopsy x2 (benign) Hx of umbilical hernia repair Hx of vasectomy Family History Other No family history of adverse response to anesthesia Social History Smoking Status: Never smoker Second Hand Exposure: No; Hx Alcohol Use: No Hx Substance Use: No Preferred Language: Cymraes Communication Ability: Effective Twine Winder Required: No Beliefs That Will Affect Care: None marital status: Current Living Situation: Spouse Current Living Situation Comment: How many Children do You have: 3 Feels Safe at Home: Yes Assistive Devices: None Review of Systems Review of Systems: As per HPI, all 10 systems reviewed, all other ROS negative Physical Exam Physical Exam: GENERAL: Comfortable, pleasant, no respiratory distress SKIN: Pallor, warm HEENT: Partial alopecia, bespectacled, pale palpebral conjunctivae, no ptosis, dry buccal mucosa NECK : Supple, no tenderness CHEST : CTA, no tenderness HEART : RRR, no obvious murmurs ABDOMEN: Some distention, minimal epigastric tenderness EXTREMITIES : Minimal LE swelling, no LE tenderness, no other conspicuous deformities noted NEUROLOGIC : Coherent, no facial asymmetry, no other gross focality Results & Data Results & Data ([facility]) Vital Signs (Past 12 Hours) Vital Signs Temp Pulse Pulse Resp BP Pulse Ox 07/20/21 01:02 36.8 C 96 H 96 H 18 125/66 99 Laboratory Results Laboratory Results WBC 10.37 K/uL (4.8-10.8) 07/20/21 00:54 RBC 2.90 M/uL (4.7-6.1) L 07/20/21 00:54 Hgb 8.5 g/dL (14.0-18.0) L 07/20/21 00:54 Hct 25.9 % (42-52) L 07/20/21 00:54 MCV 89.3 fL (80-100) 07/20/21 00:54 MCH 29.3 pg (25-34) 07/20/21 00:54 MCHC 32.8 g/dL (32-36) 07/20/21 00:54 RDW Std Deviation 46.8 fL (36.4-46.3) H 07/20/21 00:54 RDW Coeff of [place] 14.5 % (11.5-14.5) 07/20/21 00:54 Plt Count 197 K/uL (130-400) 07/20/21 00:54 MPV 8.5 fL (7.4-10.4) 07/20/21 00:54 Neutrophils % (Manual) 82.6 % 07/20/21 00:54 Lymphocytes % (Manual) 9.6 % 07/20/21 00:54 Monocytes % (Manual) 7.8 % 07/20/21 00:54 Neutrophils # (Manual) 8.57 K/uL (1.4-6.5) H 07/20/21 00:54 Total Absolute Neuts 8.57 K/uL (1.4-6.5) H 07/20/21 00:54 Lymphocytes # (Manual) 1.00 K/uL (1.2-3.4) L 07/20/21 00:54 Total Abs Lymphocytes 1.00 K/uL (1.2-3.4) L 07/20/21 00:54 Monocytes # (Manual) 0.81 K/uL (0.11-0.59) H 07/20/21 00:54 Polychromasia 1+ 07/20/21 00:54 PT 12.2 Seconds (9.0-12.0) H 07/20/21 00:54 INR 1.2 (0.9-1.1) H 07/20/21 00:54 Sodium 133 mmol/L (136-145) L 07/20/21 00:54 Potassium 3.8 mmol/L (3.5-5.1) 07/20/21 00:54 Chloride 97 mmol/L (98-107) L 07/20/21 00:54 Carbon Dioxide 27 mmol/L (21-32) 07/20/21 00:54 Anion Gap 9 (3-11) 07/20/21 00:54 BUN 14 mg/dl (6-23) 07/20/21 00:54 Creatinine 0.84 mg/dl (0.6-1.4) 07/20/21 00:54 Est Cr Clr Drug Dosing Not Reportable 07/20/21 00:54 Est GFR ( Amer) 102.8 ml/min 07/20/21 00:54 Est GFR (Non-Af Amer) 88.7 ml/min 07/20/21 00:54 BUN/Creatinine Ratio 16.7 (10-20) 07/20/21 00:54 Glucose 109 mg/dl (70-99(Fasting)) H 07/20/21 00:54 Calcium 8.9 mg/dl (8.5-10.1) 07/20/21 00:54 Total Bilirubin 0.5 mg/dl (0.2-1.0) 07/20/21 00:54 AST 29 U/L (13-39) 07/20/21 00:54 ALT 77 U/L (7-52) H 07/20/21 00:54 Alkaline Phosphatase 485 U/L (34-104) H 07/20/21 00:54 Total Protein 6.1 gm/dl (6.0-8.3) 07/20/21 00:54 Albumin 3.2 gm/dl (3.4-5.0) L 07/20/21 00:54 Globulin 2.9 gm/dl (2.5-4.0) 07/20/21 00:54 Albumin/Globulin Ratio 1.1 (0.9-2) 07/20/21 00:54 Lipase 16 U/L (11-82) 07/20/21 00:54 SARS-CoV-2, RNA, NAAT NEGATIVE (NEGATIVE) 07/20/21 01:[address] abdomen pelvis initial read: There is a mass in the bodyof the pancreas measuring approximately5.2 cmin diameter which is increased since previous. Measures approximately3.7 cm. There are numerous hepatic metastases measuring up to 6 cmin diameter, slightlylarger than previous. There iswall thickening involving the left side of the transverse colon, left colon, and to a lesser degree the sigmoid colon. There is surrounding inflammation involving the left colon indicating colitis. No obstruction, perforation, or abscess is seen. There is a new4 mmpulmonarynodule in the medial left lower lobe consistent with metastasis. The prostate gland is enlarged measuring 7.4 cm. Mild to moderate degenerative changes in the lower lumbar spine. No acute fracture or destructive bone lesion is seen (1) GI bleed GI bleed type/associated pathology: unspecified gastrointestinal hemorrhage type Qualified Code(s): K92.2 - Gastrointestinal hemorrhage, unspecified
[2021-07-20 02:57] LABS: Appearance Urine Clear (Clear); Bilirubin Urine Negative (Negative); Blood Urine Negative (Negative); Color Urine Yellow; Glucose Urine UA Negative (Negative); Ketones Urine Negative (Negative); Leukocyte Esterase Urine Negative (Negative); Nitrite Urine Negative (Negative); Protein Urine Negative (Negative); Specific Gravity Urine 1.017 (1.000-1.030); Urobilinogen Urine Negative (Negative); pH Urine 6.5 (4.5-7.5)
[2021-07-20] MEDS ORDERED: SODIUM CHLORIDE 0.9% 1000ML 1,000 ML IV ONE (03:12)
[2021-07-20] MEDS ORDERED: MoRPHine SULFATE 4 MG/ML 1 ML CARP\\VIAL ONE (04:04)
[2021-07-20] MEDS ORDERED: PROMETHAZINE HCL 12.5 MG in SODIUM CHLORIDE 0.9% 50 ML IV PRN (05:37)
[2021-07-20] MEDS ORDERED: ACETAMINOPHEN 325 MG TAB PO PRN (05:37)
[2021-07-20] MEDS: CYANOCOBALAMIN (B-12) 500 MCG TABLET PO SCH (08:14)
[2021-07-20] MEDS: MoRPHine SULFATE CR 15 MG TABCR PO SCH ×2 (08:14→21:20)
[2021-07-20] MEDS: MULTIVITAMIN TAB PO SCH (08:14)
[2021-07-20] MEDS: ADVANCED PROBIOTIC 1250 MG CAPSULE PO SCH (08:14)
[2021-07-20] MEDS: PANTOprazole 40 MG TAB PO SCH (08:14)
[2021-07-20] MEDS: ROSUVASTATIN CALCIUM 20 MG TAB PO SCH (08:15)
--- NOTE | 2021-07-20 08:26 | CT Scan Report ---
ABDOMEN AND PELVIS CT WITH IV CONTRAST CT DOSE: 547.46 mGy.cm HISTORY: Diarrhea TECHNIQUE: Multiaxial CT images of the abdomen and pelvis were performed following the use of intrave nous contrast. A dose lowering technique was utilized adhering to the principles of ALARA. COMPARISON STUDY: Abdomen and pelvis CT 06/13/2021. FINDINGS: Stable 8 mm subpleural nodule along the right major fissure on image 15. There are few subt le groundglass densities at the lung bases which may represent a mild pneumonitis. There is an irregu lar indeterminate 4 mm nodule within the left lower lobe on image 57. No pneumoperitoneum. No pneumat osis. No suspicious lytic or blastic osseous lesions. There is a catheter tip noted within the right atrium. Multiple hypodense lesions seen scattered throughout the liver have increased in size compare d to the prior study. This is consistent with metastatic disease. Dominant lesion within the right he patic lobe measures 6.7 cm, previously measuring 4.6 cm. The gallbladder, spleen, and adrenal glands are unremarkable. No hydronephrosis. There are are a few small bilateral renal hypodense lesions like ly representing cysts. There is also intermediate density lesion within the upper pole the right kidn ey measuring 1.9 cm. This does not clearly represent a simple cyst. Small fat-containing periumbilica l hernia is again noted. A large necrotic mass within the pancreatic body has also increased in size. This currently measures 6.2 x 5.7 cm. This results in vascular encasement of the celiac artery and i ts proximal branches. This also abuts and partially encases the proximal superior mesenteric artery. This results in moderate narrowing at the portosplenic confluence and occlusion of the splenic vein. Peripancreatic, retrocrural, and retroperitoneal lymphadenopathy has progressed in the interval. The bladder is unremarkable. The prostate gland remains enlarged. There is [id number] bowel wall th ickening involving the distal transverse colon, descending colon, sigmoid colon, and rectum with glo colonic fat stranding. This consistent with a nonspecific colitis. The superior mesenteric and inferi or mesenteric arteries appear patent. No evidence for bowel obstruction. Stable prominence of the tip the appendix measuring up to 9 mm. However, no periappendiceal fat stranding to suggest acute append icitis at this time. IMPRESSION: 1. Interval increase in size in the pancreatic mass with progressive hepatic metastatic disease and p rogressive surrounding lymphadenopathy. There is progressive vascular encasement with occlusion of th e splenic vein as described above. 2. Progressive [id number] bowel wall thickening involving the distal transverse colon, descendi ng colon, sigmoid colon, and rectum with pericolonic fat stranding. This is consistent with a nonspec ific colitis and could be due to an infectious, inflammatory, or ischemic process. 3. Indeterminate 1.9 cm lesion within the upper pole the right kidney. 4. Additional findings as described above. ACT 112: Negative or not required by law. Electronically signed by: Edilson Farnsworth M.D. 07/20/2021 8:24 AM
[2021-07-20 08:40] LABS: Hematocrit (blood only) 24.5 % (42-52); Hemoglobin 7.9 g/dL (14.0-18.0)
[2021-07-20 11:49] LABS: Hematocrit (blood only) 24.9 % (42-52); Hemoglobin 8.1 g/dL (14.0-18.0)
[2021-07-20] MEDS: oxyCODONE HCL IR 5 MG TAB (IMMEDIATE RELEASE) PO PRN ×3 (12:41→21:21)
--- NOTE | 2021-07-20 13:32 | Gastrointestinal Consultation ---
Date of Consultation July 20, 2021 Assessment & Plan (1) Rectal bleeding: (2) C. difficile colitis: Rectal bleeding is likely secondary to unresolved c-diff colitis vs recurrence of C-diff. Also considered is ischemic colitis and diverticular bleed. He also has diarrhea, though this seems to be decreasing in frequency - only one BM thus far today. - will check stools for C-diff and GI pathogens - Clear liquids PO. - Appreciate primary hospitalist's management of fluid. Transfuse if necessary. If C-diff or other pathogen (+) will tx. If stool studies w/o a specific pathogen then recommend Cipro/flagyl to prevent translocation of bacteria. If bleeding persists w/o obvious cause, then will consider colonoscopy next week. Supervising Physician Co-Signing Physician Notes I performed a history and physical examination of the patient today, including specifically on physical exam - soft abdomen. I have discussed the patient's management with the advanced practitioner. Please refer to the nurse pr actitioner's note for the documented findings and plan of care. Stool work up for infectious etiology. If bleeding persisits then colonoscopy next week. History of Present Illness Reason for Consultation: GI Bleed Requesting Physician: Dr. Quintanilla Attending Physician: Dmitri Quintanilla MD History of Present Illness Mr. Babar Ochoa is a 70 yr old male pt with CKD3 who was admitted yesterday for bright red rectal bleeding with began yesterday morning. In May, he was dx'ed with a 4.5 cm pancreatic adenocarcinoma with liver mets by CT and liver bx at [facility]. At that time, he was also, dx'ed wih C-diff colitis and completed 12 days of po vancomycin. since treatment he has had about 3 loose BMs/day and minimal discomfort. He established with Dr. Vega and underwent one IV chemo treatment on 07/11/21 (IV gemcitabine, paclitaxel and dexamethasone). Yesterday, he passed about 6-7 liquid BMs consisting of mostly bright red blood. He has been generally weak since March but no sudden increase in weakness. He has had ongoing back pain and had mild abd discomfort but denies any significant abdominal pain and has not had any recent episodes of lightheadedness/dizziness. No N/V. Since arrival here late yesterday, passed one blood tinged liquid/water BM this morning. He is awake, alert, oriented and is drinking clear liquids. His appetite is poor which is unchanged since March. Most recent EGD in Apr for abd pain by Dr. Cuadra: normal. Normal duodenal bx. Most recent colonoscopy in November [address] Hua in [place]: no abnormalities, no polyps. Allergies Allergy/AdvReac Type Severity Reaction Status Date / Time erythromycin base AdvReac Mild Gastrointestinal Verified 07/20/21 01:29 Upset Home Medications Medication Instructions Recorded Confirmed Type amlodipine 10 mg tablet 10 mg PO QPM 05/22/20 07/20/21 History lisinopril 10 1 tab PO QAM 05/22/20 07/20/21 History mg-hydrochlorothiazide 12.5 mg tablet ascorbic acid (vitamin C) 1,000 mg 1 g PO QAM 01/10/21 07/20/21 History tablet (Vitamin C) cyanocobalamin (vitamin B-12) 500 500 mcg PO QAM 01/10/21 07/20/21 History mcg tablet multivitamin 1 tab PO QAM 01/10/21 07/20/21 History rosuvastatin 20 mg tablet (Crestor) 20 mg PO QAM 01/10/21 07/20/21 History cholecalciferol (vitamin D3) 25 25 mcg PO QAM 05/16/21 07/20/21 History mcg (1,000 unit) tablet (Vitamin D3) coenzyme Q10 100 mg capsule 100 mg PO QAM 05/16/21 07/20/21 History (CoQ-10) amoxicillin 500 mg capsule 2,000 mg PO ONCE PRN 06/13/21 07/20/21 History omeprazole 40 mg capsule,delayed 40 mg PO DAILYBB 06/13/21 07/20/21 History release Lactobacillus acidophilus 10 10,000 mmu cells PO DAILY 07/20/21 07/20/21 History billion cell capsule (Probiotic) docusate sodium 100 mg capsule 100 mg PO BID PRN 07/20/21 07/20/21 History (Colace) flaxseed oil 1,000 mg capsule 1,000 mg PO DAILY 07/20/21 07/20/21 History morphine 15 mg tablet,extended 15 mg PO AMHS 07/20/21 07/20/21 History release ondansetron HCl 8 mg tablet 8 mg PO Q8 PRN 07/20/21 07/20/21 History oxycodone 5 mg tablet 5 mg PO Q4 PRN 07/20/21 07/20/21 History prochlorperazine maleate 10 mg 10 mg PO Q6 PRN 07/20/21 07/20/21 History tablet tamsulosin 0.4 mg capsule 0.4 mg PO DAILY 07/20/21 07/20/21 History trazodone 50 mg tablet 50 mg PO HS 07/20/21 07/20/21 History Patient History Medical History Arthritis of right knee BPH (benign prostatic hyperplasia) CKD (chronic kidney disease), stage III Hyperlipidemia Hypertension Nausea and vomiting after administration of anesthetic agent Osteoarthritis Umbilical hernia + present (no pain or current issues) Surgical History History of colonoscopy History of tooth extraction History of total right knee replacement (TKR) Hx of inguinal hernia repair Hx of prostate biopsy x2 (benign) Hx of umbilical hernia repair Hx of vasectomy Family History Other No family history of adverse response to anesthesia Social History Smoking Status: Never smoker Second Hand Exposure: No; Hx Alcohol Use: No Hx Substance Use: No Preferred Language: Montenegrin Communication Ability: Effective Buckle Gluer Required: No Beliefs That Will Affect Care: None marital status: Current Living Situation: Spouse Current Living Situation Comment: How many Children do You have: 3 Feels Safe at Home: Yes Assistive Devices: Cane and Glasses Review of Systems Review of Systems: ROS: Gen: + weakness, + 50 lbs weight loss since March; No fevers Eyes: No eye redness, or pain, no recent vision changes Resp: No SOB, no cough Cardio: No palpitations/irregular beats, no chest pain GI: Mild diffuse abd discomfort; No recent nausea/vomiting : Denies pain on urination Skin: excoriated anal/buttocks and a painful "sore on the right side of the anus. No jaundice, itching. Physical Exam Constitutional: well developed, + ill appearing, + thin and cooperative Eyes: PERRL, conjunctivae normal, anicteric sclerae ENMT: external ear and nose normal, oropharynx normal Neck: trachea midline, no thyromegaly Respiratory: normal respiratory effort, lungs clear to auscultation no respiratory distress and does not use accessory muscles Cardiovascular: Rate/Rhythm: regular rate and regular rhythm Heart Sounds: no murmur 1+ left lower leg edema Gastrointestinal (Abdomen): Inspection/Auscultation: abdomen normal to inspection and normal bowel sounds; abdomen not distended and no abdominal edema There is a moderate sized, non bleeding hemorrhoids. Digital anal exam w/o pain or palpable masses, with small specs of blood and brown fecal material on the glove on return. Skin: large area of redness at the gluteal cleft and within that area, an area of approximately 1 x 2 cm superficial skin irritation with sloughing of the skin - appears as a shallow pressure sore, right buttocks/sacral area. Neurologic: PERRL, EOMI, accommodation nl, no face palsy, no dysarthria awake; not confused Psychiatric: A+Ox3, euthymic affect Orientation: alert, oriented x 3 and cooperative Lymphatic: no cervical or axillary lymphadenopathy Results & Data ([facility]) Vital Signs (Past 12 Hours) Vital Signs Temp Pulse Pulse Resp BP Pulse Ox 07/20/21 09:56 66 07/20/21 05:38 36.9 C 87 14 123/76 97 07/20/21 03:00 36.7 C 81 18 105/65 96 Laboratory Results WBC 10, Hb 8.5, Hct 25.9, Plts 197, ptls 197 Na 133, K 3.8, Cl 97, CO2 27, BUN 14, Cr 0.84, glucose 109 Stool studies ordered, pending Diagnostic Findings CTAP w IV contrast on 07/20/21: 1. Interval increase in size in the pancreatic mass with progressive hepatic metastatic disease and progressive surrounding lymphadenopathy. There is progressive vascular encasement with occlusion of the splenic vein as described above. 2. Progressive [id number] bowel wall thickening involving the distal transverse colon, descending colon, sigmoid colon, and rectum with pericolonic fat stranding. This is consistent with a nonspecific colitis and could be due to an infectious, inflammatory, or ischemic process. 3. Indeterminate 1.9 cm lesion within the upper pole the right kidney. 4. Additional findings as described above.
--- NOTE | 2021-07-20 15:44 | Hospitalist Progress Note ---
Date of Service July 20, 2021 Assessment & Plan (1) GI bleed: Plan: 70-year-old gentleman with PMH of metastatic pancreatic cancer [diagnosed May 2021] under chemo, chronic pain on narcotics, HTN, HLD, C. difficile x1 [May 2021] s/p PO Vanc Rx, BPH, chronic anemia [baseline 11], umbilical hernia status post repair, inguinal hernia status post repair and non- smoker/very occasional EtOH intake/no illegal drugs use presented to our ED 07/20 with multiple diarrhea and few of them were mixed with blood associated with achy after abdominal pain. 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 Outpatient chemo initiated 2 weeks ago SOCIAL MEDIA SPECIALIST, so far received 1 dose per patient. Is being managed for the following: #. GI bleed, likely lower #. Acute on chronic anemia: 2/ above. #. History of C. difficile, rule out C. difficile Patient presented with belly pain with multiple loose bowel movements mixed with blood x 1 day Patient had 1 more episode of bloody diarrhea today 07/20 Recent diagnosis of C. difficile, status post vancomycin. Outpatient hemoglobin from 07/17/21 was noted to be 9. Admitting CTAP: Progressive mild to moderate bowel wall thickening involving the distal transverse/descending/sigmoid colon and rectum with pericolonic fat stranding suggestive of nonspecific colitis. Hemoglobin stable around 8, transfuse for symptomatic anemia or hemoglobin less than 7. Follow-up with C. difficile test and GI pathogens, treatment per result. Clear liquids. GI evaluated, if stool studies are negative for specific pathogen, treat with Cipro plus Flagyl to prevent translocation of bacteria. Follow-up with hemoglobin every 12 hours or as needed. Monitor and replete electrolytes as appropriate. #. Recent diagnosis of metastatic pancreatic cancer Patient following with oncology as an outpatient, received 1 dose of chemotherapy Admitting CTAP: Interval increase in size in the pancreatic mass with progressive hepatic metastatic disease and progressive surrounding lymphadenopathy. Indeterminate 1.9 cm lesion within the upper pole of the right kidney. Follow-up with oncology as an outpatient. Patient on narcotics for chronic pain. Given advancing cancer, patient would likely benefit from palliative care discussion. Will discuss with patient. #. Other chronic medical conditions: HTN, mild hyponatremia, prediabetes, HLD Continue with/resume home meds as and when appropriate. Caution with blood pressure medication for concerns of hypotension given GI bleed. DVT prophylaxis. SCDs Re: GI bleed Full code Text document was generated using voice recognition software. It may contain grammatical or spelling errors. Kindly contact undersigned for clarification of any documentation item in question. Admission and Anticipated Discharge Date Admission Date: July 20, 2021 Subjective Patient seen and examined at bedside as a follow-up of likely lower GI bleed and acute on chronic anemia. Patient sitting up in bed, on room air, NAD, no new acute events overnight. Patient reports one bloody bowel movement in the morning. Patient reports some lower belly pain. Patient denies headache/dizziness/chest pain/palpitations/shortness of breath/other review of symptoms. Physical Exam Physical Exam: GENERAL: Alert and oriented x3. NAD, on RA. HEENT: No pallor, no icterus. Pupils equal, round and reactive to light. Oral mucosa moist. NECK: No JVD, no neck masses. HEART: S1 and S2 heard. Regular rate and rhythm. No murmur, no gallop. RESPIRATORY SYSTEM: Normal AP diameter. No accessory muscle use. No wheezing, no crackles. ABDOMEN: Soft, bowel sounds present, Lower abd tender, no distention. CENTRAL NERVOUS SYSTEM: No facial droop. Speech is clear. Obeys simple commands. Moves extremities. EXTREMITIES: No edema, no erythema seen. Results & Data Results & Data ([facility]) Vital Signs (Past 12 Hours) Vital Signs Temp Pulse Pulse Resp BP Pulse Ox 07/20/21 15:18 87 07/20/21 14:58 36.7 C 89 20 112/70 96 07/20/21 09:56 66 07/20/21 05:38 36.9 C 87 14 123/76 97 (1) GI bleed GI bleed type/associated pathology: unspecified gastrointestinal hemorrhage type Qualified Code(s): K92.2 - Gastrointestinal hemorrhage, unspecified
[2021-07-20] MEDS: TAMSULOSIN HCL 0.4 MG CAP PO SCH (17:13)
[2021-07-20] MEDS: amLODIPine BESYLATE 5 MG TAB PO SCH (21:19)
[2021-07-20] MEDS: traZODone HCL 50 MG TAB PO SCH (21:20)
[2021-07-20 23:04] LABS: Hematocrit (blood only) 24.4 % (42-52); Hemoglobin 7.8 g/dL (14.0-18.0)
[2021-07-21 02:00] LABS: Adenovirus F 40/41 PCR Not Detected (NotDetected); Astrovirus PCR Not Detected (NotDetected); Campylobacter PCR Not Detected (NotDetected); Cryptosporidium PCR Not Detected (NotDetected); Cyclospora cayetanensis PCR Not Detected (NotDetected); Entamoeba histolytica PCR Not Detected (NotDetected); Enteroaggregative E.coli(EAEC) Not Detected (NotDetected); Enteropathogenic E.coli (EPEC) Not Detected (NotDetected); Enterotoxigenic E.coli (ETEC) Not Detected (NotDetected); Giardia lamblia PCR Not Detected (NotDetected); Norovirus GI/GII PCR Not Detected (NotDetected); Plesiomonas shigelloides PCR Not Detected (NotDetected); Rotavirus A PCR Not Detected (NotDetected); Salmonella PCR Not Detected (NotDetected); Sapovirus PCR Not Detected (NotDetected); Shiga-like Toxin E.coli (STEC) Not Detected (NotDetected); Shigella/Enteroinvasive E.coli Not Detected (NotDetected); Vibrio cholerae PCR Not Detected (NotDetected); Vibrio species PCR Not Detected (NotDetected); Yersinia enterocolitica PCR Not Detected (NotDetected)
[2021-07-21] MEDS: oxyCODONE HCL IR 5 MG TAB (IMMEDIATE RELEASE) PO PRN ×2 (02:06→14:53)
[2021-07-21 02:40] LABS: Cdiff Antigen Positive
[2021-07-21 02:41] LABS: Cdiff Toxin A+B Positive Cdiff Toxin (Negative)
[2021-07-21] MEDS: PANTOprazole 40 MG TAB PO SCH (05:09)
[2021-07-21 07:32] LABS: Hematocrit (blood only) 27.6 % (42-52); Hemoglobin 8.7 g/dL (14.0-18.0); Mean Corpuscular Hemoglobin 28.8 pg (25-34); Mean Corpuscular Hgb Conc 31.5 g/dL (32-36); Mean Corpuscular Volume 91.4 fL (80-100); Mean Platelet Volume 8.9 fL (7.4-10.4); Platelet Count 253 K/uL (130-400); RDW Coefficient of Variation 15.1 % (11.5-14.5); RDW Standard Deviation 49.3 fL (36.4-46.3); Red Blood Count 3.02 M/uL (4.7-6.1); White Blood Count 10.34 K/uL (4.8-10.8)
[2021-07-21 07:50] LABS: BUN Creatinine Ratio 11.4 (10-20); Calcium 8.6 mg/dl (8.5-10.1); Creatinine Clr Calc Pharmacy 90.8 ml/min; Est GFR (African American) 100.9 ml/min; Magnesium 1.9 mg/dl (1.7-2.4); Phosphorus 3.2 mg/dl (2.5-4.9); Potassium 3.7 mmol/L (3.5-5.1)
[2021-07-21 08:18] LABS: Basophils # (auto) 0.01 K/uL (0-0.2); Basophils % (auto) 0.1 %; Eosinophils # (auto) 0.12 K/uL (0-0.5); Eosinophils % (auto) 1.2 %; Immature Granulocytes # (auto) 0.05 K/uL (0.00-0.02); Immature Granulocytes % (auto) 0.5 %; Lymphocytes # (auto) 1.45 K/uL (1.2-3.4); Monocytes # (auto) 0.53 K/uL (0.11-0.59); Monocytes % (auto) 5.1 %; Neutrophils # (auto) 8.18 K/uL (1.4-6.5); Neutrophils % (auto) 79.1 %; Polychromasia 1+
[2021-07-21] MEDS: ROSUVASTATIN CALCIUM 20 MG TAB PO SCH (08:29)
[2021-07-21] MEDS: MULTIVITAMIN TAB PO SCH (08:29)
[2021-07-21] MEDS: ADVANCED PROBIOTIC 1250 MG CAPSULE PO SCH (08:29)
[2021-07-21] MEDS: CYANOCOBALAMIN (B-12) 500 MCG TABLET PO SCH (08:29)
[2021-07-21] MEDS: MoRPHine SULFATE CR 15 MG TABCR PO SCH ×2 (08:30→20:14)
[2021-07-21] MEDS ORDERED: lisinopril 5 MG TAB PO SCH (09:00)
[2021-07-21] MEDS: FIDAXOMICIN 200 MG TAB PO SCH ×2 (10:57→21:08)
[2021-07-21] MEDS: SACCHAROMYCES BOULARDII 250 MG CAP PO SCH ×2 (10:57→20:14)
--- NOTE | 2021-07-21 16:51 | Hospitalist Progress Note ---
Date of Service July 21, 2021 Assessment & Plan (1) GI bleed: Plan: 70-year-old gentleman with PMH of metastatic pancreatic cancer [diagnosed May 2021] under chemo, chronic pain on narcotics, HTN, HLD, C. difficile x1 [May 2021] s/p PO Vanc Rx, BPH, chronic anemia [baseline 11], umbilical hernia status post repair, inguinal hernia status post repair and non- smoker/very occasional EtOH intake/no illegal drugs use presented to our ED 07/20 with multiple diarrhea and few of them were mixed with blood associated with achy after abdominal pain. 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 Outpatient chemo initiated 2 weeks ago COMMERCIAL LOAN PROCESSOR, so far received 1 dose per patient. Is being managed for the following: #. GI bleed, likely lower #. Acute on chronic anemia: / above. #. C. Diff colitis Patient presented with belly pain with multiple loose bowel movements mixed with blood x 1 day Patient had 1 more episode of bloody diarrhea on 07/20, 3 more but non bloody & more formed but still loose BM by 07/21 noon. Recent diagnosis of C. difficile, status post vancomycin. Outpatient hemoglobin from 07/17/21 was noted to be 9. Admitting CTAP: Progressive mild to moderate bowel wall thickening involving the distal transverse/descending/sigmoid colon and rectum with pericolonic fat stranding suggestive of nonspecific colitis. Hemoglobin stable around 8, transfuse for symptomatic anemia or hemoglobin less than 7. 07/21 C.diff Positive, other stool studies either negative or pending. Clear liquids. Advance TOBIAS. GI evaluated 07/20, appreciate recs Follow-up with hemoglobin every 12 hours or as needed. Monitor and replete electrolytes as appropriate. 07/21 fidaxomicin and florastor started. CM made aware pt will need fidaxomicin upon DC. #. Recent diagnosis of metastatic pancreatic cancer Patient following with oncology as an outpatient, received 1 dose of chemotherapy Admitting CTAP: Interval increase in size in the pancreatic mass with progressive hepatic metastatic disease and progressive surrounding lymphadenopathy. Indeterminate 1.9 cm lesion within the upper pole of the right kidney. Follow-up with oncology as an outpatient. Patient on narcotics for chronic pain. Given advancing cancer, patient would likely benefit from palliative care discussion. Will discuss with patient. #. Other chronic medical conditions: HTN, mild hyponatremia, prediabetes, HLD Continue with/resume home meds as and when appropriate. Caution with blood pressure medication for concerns of hypotension given GI bleed. DVT prophylaxis. GI bleed seems to be stable, start him on heparin subcu. Continue to monitor hemoglobin. Full code Disposition: PT/OT, CM to assist with DC planning. CM made aware that patient will need Fidoxamicin upon discharge. Text document was generated using voice recognition software. It may contain grammatical or spelling errors. Kindly contact undersigned for clarification of any documentation item in question. Admission and Anticipated Discharge Date Admission Date: July 20, 2021 Subjective Patient seen and examined at bedside as a follow-up of C.diff colitis. Patient sitting up in bed, on room air, NAD, no new acute events overnight. Patient reports 3 further bowel movement since yesterday with no blood in it. Patient reports improving lower belly pain. Patient denies headache/dizziness/chest pain/palpitations/shortness of breath/other review of symptoms. Physical Exam Physical Exam: GENERAL: Alert and oriented x3. NAD, on RA. HEENT: No pallor, no icterus. Pupils equal, round and reactive to light. Oral mucosa moist. NECK: No JVD, no neck masses. HEART: S1 and S2 heard. Regular rate and rhythm. No murmur, no gallop. RESPIRATORY SYSTEM: Normal AP diameter. No accessory muscle use. No wheezing, no crackles. ABDOMEN: Soft, bowel sounds present, nontender, no distention. CENTRAL NERVOUS SYSTEM: No facial droop. Speech is clear. Obeys simple commands. Moves extremities. EXTREMITIES: No edema, no erythema seen. Results & Data Results & Data ([facility]) Vital Signs (Past 12 Hours) Vital Signs Temp Pulse Pulse Resp BP Pulse Ox 07/21/21 15:04 36.7 C 93 H 20 102/66 96 07/21/21 14:59 106 H 07/21/21 11:31 37.0 C 95 H 18 104/65 95 07/21/21 07:28 36.7 C 93 H 20 100/59 L 97 07/21/21 07:17 84 (1) GI bleed GI bleed type/associated pathology: unspecified gastrointestinal hemorrhage type Qualified Code(s): K92.2 - Gastrointestinal hemorrhage, unspecified
[2021-07-21] MEDS: TAMSULOSIN HCL 0.4 MG CAP PO SCH (17:50)
[2021-07-21] MEDS: amLODIPine BESYLATE 5 MG TAB PO SCH (20:12)
[2021-07-21] MEDS: HEPARIN SOD 5,000 UNIT/0.5 ML VIAL SQ SCH (20:13)
[2021-07-21] MEDS: traZODone HCL 50 MG TAB PO SCH (20:15)
[2021-07-21 22:16] LABS: Hematocrit (blood only) 25.4 % (42-52); Hemoglobin 8.1 g/dL (14.0-18.0)
[2021-07-21] MEDS ORDERED: LACTATED RINGER'S 1,000 ML IV ONE (23:35)
--- NOTE | 2021-07-21 23:38 | Communication Note ---
Date of Service: July 21, 2021 SBP noted to be 80s by RN Patient complaining of dizziness with rest. AP Hypotension IVF bolus Decrease maintenance amlodipine dose from 10 to 5 mg at bedtime Hold lisinopril for now
[2021-07-22] MEDS ORDERED: MAGNESIUM SULFATE / D5W 1 GM/100 ML BAG IV ONE (02:45)
[2021-07-22] MEDS: PANTOprazole 40 MG TAB PO SCH (05:40)
[2021-07-22 07:08] LABS: Hemoglobin 7.4 g/dL (14.0-18.0); Mean Corpuscular Hemoglobin 27.9 pg (25-34); Mean Corpuscular Hgb Conc 30.8 g/dL (32-36); Mean Corpuscular Volume 90.6 fL (80-100); Mean Platelet Volume 8.8 fL (7.4-10.4); Platelet Count 270 K/uL (130-400); RDW Coefficient of Variation 15.2 % (11.5-14.5); RDW Standard Deviation 49.6 fL (36.4-46.3); Red Blood Count 2.65 M/uL (4.7-6.1)
[2021-07-22] MEDS: MULTIVITAMIN TAB PO SCH (08:55)
[2021-07-22] MEDS: ROSUVASTATIN CALCIUM 20 MG TAB PO SCH (08:56)
[2021-07-22] MEDS: MoRPHine SULFATE CR 15 MG TABCR PO SCH (08:56)
[2021-07-22] MEDS: CYANOCOBALAMIN (B-12) 500 MCG TABLET PO SCH (08:56)
[2021-07-22] MEDS: FIDAXOMICIN 200 MG TAB PO SCH ×2 (09:05→17:58)
[2021-07-22] MEDS: SACCHAROMYCES BOULARDII 250 MG CAP PO SCH ×3 (10:27→23:53)
--- NOTE | 2021-07-22 13:41 | Hospitalist Progress Note ---
Date of Service July 22, 2021 Assessment & Plan (1) GI bleed: Plan: 70-year-old gentleman with PMH of metastatic pancreatic cancer [diagnosed May 2021] under chemo, chronic pain on narcotics, HTN, HLD, C. difficile x1 [May 2021] s/p PO Vanc Rx, BPH, chronic anemia [baseline 11], umbilical hernia status post repair, inguinal hernia status post repair and non- smoker/very occasional EtOH intake/no illegal drugs use presented to our ED 07/20 with multiple diarrhea and few of them were mixed with blood associated with achy after abdominal pain. 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 Is being managed for the following: #. GI bleed, likely lower #. Acute on chronic anemia: 2/2 above. #. C. Diff colitis Patient presented with belly pain with multiple loose bowel movements mixed with blood x 1 day Patient had 1 more episode of bloody diarrhea on 07/20, 3 more but non bloody & more formed but still loose BM by 07/21 noon. Recent diagnosis of C. difficile, status post vancomycin. Outpatient hemoglobin from 07/17/21 was noted to be 9. Admitting CTAP: Progressive mild to moderate bowel wall thickening involving the distal transverse/descending/sigmoid colon and rectum with pericolonic fat stranding suggestive of nonspecific colitis. Hemoglobin dropping, repeat at 2PM, transfuse for symptomatic anemia or hemoglobin less than 7. 07/21 C.diff Positive, other stool studies either negative or pending. Full liquids. Advance TOBIAS. GI evaluated 07/20, appreciate recs Follow-up with hemoglobin every 12 hours or as needed. Monitor and replete electrolytes as appropriate. 07/21 fidaxomicin and florastor started. CM made aware pt will need fidaxomicin upon DC. Pt running low BP likely 2/2 multiple loose stools, will use IVF, transfuse blood if Hb dropping. Hold antihypertensives. #. Recent diagnosis of metastatic pancreatic cancer Patient following with oncology as an outpatient, received 1 dose of chemotherapy Admitting CTAP: Interval increase in size in the pancreatic mass with progressive hepatic metastatic disease and progressive surrounding lymphadenopathy. Indeterminate 1.9 cm lesion within the upper pole of the right kidney. Follow-up with oncology as an outpatient. Patient on narcotics for chronic pain. Given advancing cancer, palliative care consult. #. Other chronic medical conditions: HTN, mild hyponatremia, prediabetes, HLD Continue with/resume home meds as and when appropriate. Caution with blood pressure medication for concerns of hypotension given GI bleed. DVT prophylaxis. GI bleed seems to be stable, start him on heparin subcu. Continue to monitor hemoglobin. Full code Disposition: PT/OT, CM to assist with DC planning. CM made aware that patient will need Fidoxamicin upon discharge. Text document was generated using voice recognition software. It may contain grammatical or spelling errors. Kindly contact undersigned for clarification of any documentation item in question. Admission and Anticipated Discharge Date Admission Date: July 21, 2021 Subjective Patient seen and examined at bedside as a follow-up of C.diff colitis. Patient sitting up in bed, on room air, NAD, overnight patient was hypotensive and received bolus of IV fluid. Patient reports 4 further bowel movement since yesterday with no blood in it. Patient's hemoglobin has dropped today. Patient reports feeling tired. Patient reports tolerating diet but has minimal belly pain after eating full liquid diet. Maintain full liquid diet for now. Patient reports improving lower belly pain. Patient denies headache/dizziness/chest pain/palpitations/shortness of breath/other review of symptoms. Physical Exam Physical Exam: GENERAL: Alert and oriented x3. NAD, on RA. HEENT: No pallor, no icterus. Pupils equal, round and reactive to light. Oral mucosa moist. NECK: No JVD, no neck masses. HEART: S1 and S2 heard. Regular rate and rhythm. No murmur, no gallop. RESPIRATORY SYSTEM: Normal AP diameter. No accessory muscle use. No wheezing, no crackles. ABDOMEN: Soft, bowel sounds present, decreased lower abd tenderness, no distention. CENTRAL NERVOUS SYSTEM: No facial droop. Speech is clear. Obeys simple commands. Moves extremities. EXTREMITIES: No edema, no erythema seen. Results & Data Results & Data ([facility]) Vital Signs (Past 12 Hours) Vital Signs Temp Pulse Pulse Resp BP BP Pulse Ox 07/22/21 11:37 36.3 C L 91 H 20 90/54 L 91/57 L 99 07/22/21 08:37 36.8 C 86 20 96/59 L 90/54 L 96 07/22/21 07:03 86 07/22/21 02:06 36.8 C 108 H 20 128/68 98 (1) GI bleed GI bleed type/associated pathology: unspecified gastrointestinal hemorrhage type Qualified Code(s): K92.2 - Gastrointestinal hemorrhage, unspecified
[2021-07-22 14:03] LABS: Hematocrit (blood only) 26.3 % (42-52); Hemoglobin 8.3 g/dL (14.0-18.0)
[2021-07-22] MEDS: SODIUM CHLORIDE 0.9% 1000ML 1,000 ML IV SCH ×2 (15:01→23:13)
[2021-07-22] MEDS: TAMSULOSIN HCL 0.4 MG CAP PO SCH (17:01)
[2021-07-22] MEDS: oxyCODONE HCL IR 5 MG TAB (IMMEDIATE RELEASE) PO PRN ×2 (17:01→23:13)
[2021-07-22] MEDS ORDERED: CALCIUM CARBONATE 500 MG CHEWABLE TAB PO PRN (17:35)
[2021-07-22] MEDS: traZODone HCL 50 MG TAB PO SCH (20:52)
[2021-07-22] MEDS ORDERED: amLODIPine BESYLATE 5 MG TAB PO SCH (21:00)
[2021-07-22] MEDS: MoRPHine SULFATE 4 MG/ML 1 ML CARP\\VIAL IV PRN (21:08)
[2021-07-22 23:35] LABS: Hematocrit (blood only) 24.9 % (42-52); Hemoglobin 8.1 g/dL (14.0-18.0)
[2021-07-23] MEDS: PANTOprazole 40 MG TAB PO SCH (06:01)
[2021-07-23] MEDS: FIDAXOMICIN 200 MG TAB PO SCH ×2 (06:01→17:10)
[2021-07-23 07:05] LABS: Hematocrit (blood only) 25.6 % (42-52); Hemoglobin 8.2 g/dL (14.0-18.0); Mean Corpuscular Hemoglobin 28.8 pg (25-34); Mean Corpuscular Volume 89.8 fL (80-100); Mean Platelet Volume 9.1 fL (7.4-10.4); Platelet Count 336 K/uL (130-400); RDW Coefficient of Variation 15.3 % (11.5-14.5); RDW Standard Deviation 49.7 fL (36.4-46.3); Red Blood Count 2.85 M/uL (4.7-6.1); White Blood Count 11.64 K/uL (4.8-10.8)
[2021-07-23 07:28] LABS: BUN Creatinine Ratio 12.5 (10-20); Creatinine Clr Calc Pharmacy 90.8 ml/min; Est GFR (African American) 100.9 ml/min; Phosphorus 2.6 mg/dl (2.5-4.9); Potassium 3.1 mmol/L (3.5-5.1)
[2021-07-23] MEDS: MULTIVITAMIN TAB PO SCH (08:23)
[2021-07-23] MEDS: CYANOCOBALAMIN (B-12) 500 MCG TABLET PO SCH (08:23)
[2021-07-23] MEDS: ROSUVASTATIN CALCIUM 20 MG TAB PO SCH (08:23)
[2021-07-23] MEDS: POTASSIUM CHLORIDE CRTAB 20 MEQ TABCR PO SCH ×3 (08:32→10:08)
[2021-07-23] MEDS: oxyCODONE HCL IR 5 MG TAB (IMMEDIATE RELEASE) PO PRN ×3 (09:27→20:03)
[2021-07-23] MEDS: SACCHAROMYCES BOULARDII 250 MG CAP PO SCH (11:40)
--- NOTE | 2021-07-23 12:24 | Hospitalist Progress Note ---
Date of Service July 23, 2021 Assessment & Plan (1) GI bleed: Plan: 70-year-old gentleman with PMH of metastatic pancreatic cancer [diagnosed May 2021] under chemo, chronic pain on narcotics, HTN, HLD, C. difficile x1 [May 2021] s/p PO Vanc Rx, BPH, chronic anemia [baseline 11], umbilical hernia status post repair, inguinal hernia status post repair and non- smoker/very occasional EtOH intake/no illegal drugs use presented to our ED 07/20 with multiple diarrhea and few of them were mixed with blood associated with achy after abdominal pain. 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 Is being managed for the following: #. GI bleed, likely lower #. Acute on chronic anemia: 2/ above. #. C. Diff colitis Patient presented with belly pain with multiple loose bowel movements mixed with blood x 1 day Patient had 1 more episode of bloody diarrhea on 07/20, 3 more but non bloody & more formed but still loose BM by 07/21 noon. Recent diagnosis of C. difficile, status post vancomycin. Outpatient hemoglobin from 07/17/21 was noted to be 9. Admitting CTAP: Progressive mild to moderate bowel wall thickening involving the distal transverse/descending/sigmoid colon and rectum with pericolonic fat stranding suggestive of nonspecific colitis. Hemoglobin stable around 8, repeat at 10 PM, transfuse for symptomatic anemia or hemoglobin less than 7. 07/21 C.diff Positive, other stool studies either negative or pending. Low fiber. Advance TOBIAS. GI evaluated 07/20, appreciate recs Follow-up with hemoglobin every 12 hours or as needed. Monitor and replete electrolytes as appropriate. 07/21 fidaxomicin and florastor started. [facility] cost is $ 1087.33 (on 07/23) for patient upon DC, family updated, can consider it when the time comes for DC and with updated cost at that time. Alternative of starting patient on Vancomycin taper given if cost not acceptable to family. Pt still with 4-5 liquid diarrhea in 24 h period, continue to monitor. 07/23 d/w GI, creon started, can consider vanco pulse/taper regimen if cost is issue. #. Recent diagnosis of metastatic pancreatic cancer Patient following with oncology as an outpatient, received 1 dose of chemotherapy Admitting CTAP: Interval increase in size in the pancreatic mass with progressive hepatic metastatic disease and progressive surrounding lymphadenopathy. Indeterminate 1.9 cm lesion within the upper pole of the right kidney. Follow-up with oncology as an outpatient. 07/22 d/w oncology Dr. Vega, hold chemo during this acute phase, will need re- eval once discharged. Patient on narcotics for chronic pain. Given advancing cancer, palliative care consult was agreed upon earlier but later after family discussion, they postponed it for now. Creon started 07/23. #. Other chronic medical conditions: HTN, mild hyponatremia, prediabetes, HLD Continue with/resume home meds as and when appropriate. Caution with blood pressure medication for concerns of hypotension given GI bleed. Continue to hold antihypertensives. Pt's lisinopril-HCTZ was dc'd as OP. May be cut down on amlod dose upon DC if BP stays low normal. DVT prophylaxis. GI bleed seems to be stable, start him on heparin subcu. Continue to monitor hemoglobin. Full code Disposition: PT/OT, CM to assist with DC planning. CM made aware that patient will need Fidoxamicin upon discharge. ~ Discussion with the family 07/22, lisinopril-HCTZ was discontinued by pt's PCP per family. Pt only on amlodipine as OP. Pt doesn't like morphine extended release. Updated them about patient's current status, answered all their questions and they voiced understanding/were agreeable to plan of care. Family talking about taking patient to [facility] to enroll him on Trial for panc reatic cancer treatment. ~ 07/23 called pt's and updated his current status, answered all her questions. Text document was generated using voice recognition software. It may contain grammatical or spelling errors. Kindly contact undersigned for clarification of any documentation item in question. Admission and Anticipated Discharge Date Admission Date: July 21, 2021 Subjective Patient seen and examined at bedside as a follow-up of C.diff colitis. Patient sitting up in chair, on room air, NAD, no new acute events overnight. Pt reports feeling better, his BP has become better. Patient reports 4-5 further BM since yesterday, liquidy, no blood. Hb has stayed stable, will resume Heparin SQ. Patient reports tolerating diet, will advance his diet. Patient reports improving lower belly pain. Patient denies headache/dizziness/chest pain/palpitations/shortness of breath/other review of symptoms. Physical Exam Physical Exam: GENERAL: Alert and oriented x3. NAD, on RA. HEENT: No pallor, no icterus. Pupils equal, round and reactive to light. Oral mucosa moist. NECK: No JVD, no neck masses. HEART: S1 and S2 heard. Regular rate and rhythm. No murmur, no gallop. RESPIRATORY SYSTEM: Normal AP diameter. No accessory muscle use. No wheezing, no crackles. ABDOMEN: Soft, bowel sounds present, non tender, no distention. CENTRAL NERVOUS SYSTEM: No facial droop. Speech is clear. Obeys simple commands. Moves extremities. EXTREMITIES: No edema, no erythema seen. Results & Data Results & Data ([facility]) Vital Signs (Past 12 Hours) Vital Signs Temp Pulse Pulse Pulse Resp BP Pulse Ox 07/23/21 10:53 36.8 C 88 18 102/62 97 07/23/21 07:33 79 07/23/21 07:10 36.8 C 84 17 101/62 95 07/23/21 03:12 36.7 C 85 20 123/70 97 (1) GI bleed GI bleed type/associated pathology: unspecified gastrointestinal hemorrhage type Qualified Code(s): K92.2 - Gastrointestinal hemorrhage, unspecified
[2021-07-23] MEDS: PANCREAZE (LIPASE 10,500U) CAP PO SCH ×2 (12:28→17:09)
[2021-07-23] MEDS: TAMSULOSIN HCL 0.4 MG CAP PO SCH (17:10)
[2021-07-23] MEDS: traZODone HCL 50 MG TAB PO SCH (20:04)
[2021-07-23] MEDS: HEPARIN SOD 5,000 UNIT/0.5 ML VIAL SQ SCH (20:04)
[2021-07-23 22:31] LABS: Hematocrit (blood only) 25.1 % (42-52); Hemoglobin 8.2 g/dL (14.0-18.0)
[2021-07-24] MEDS: SACCHAROMYCES BOULARDII 250 MG CAP PO SCH ×2 (00:05→12:18)
[2021-07-24] MEDS: oxyCODONE HCL IR 5 MG TAB (IMMEDIATE RELEASE) PO PRN ×4 (00:06→15:25)
[2021-07-24] MEDS: MoRPHine SULFATE 4 MG/ML 1 ML CARP\\VIAL IV PRN (03:40)
[2021-07-24] MEDS: PANTOprazole 40 MG TAB PO SCH (05:36)
[2021-07-24] MEDS: FIDAXOMICIN 200 MG TAB PO SCH (05:36)
[2021-07-24 08:28] LABS: Hemoglobin 8.3 g/dL (14.0-18.0); Mean Corpuscular Hemoglobin 28.8 pg (25-34); Mean Corpuscular Hgb Conc 31.9 g/dL (32-36); Mean Corpuscular Volume 90.3 fL (80-100); Mean Platelet Volume 8.7 fL (7.4-10.4); Platelet Count 373 K/uL (130-400); RDW Coefficient of Variation 15.3 % (11.5-14.5); RDW Standard Deviation 49.8 fL (36.4-46.3); Red Blood Count 2.88 M/uL (4.7-6.1); White Blood Count 8.91 K/uL (4.8-10.8)
[2021-07-24] MEDS: HEPARIN SOD 5,000 UNIT/0.5 ML VIAL SQ SCH (08:29)
[2021-07-24] MEDS: PANCREAZE (LIPASE 10,500U) CAP PO SCH ×2 (08:30→12:18)
[2021-07-24] MEDS: MULTIVITAMIN TAB PO SCH (08:30)
[2021-07-24] MEDS: CYANOCOBALAMIN (B-12) 500 MCG TABLET PO SCH (08:30)
[2021-07-24] MEDS ORDERED: ROSUVASTATIN CALCIUM 10 MG TAB PO SCH (09:00)
[2021-07-24 09:11] LABS: BUN Creatinine Ratio 8.2 (10-20); Calcium 8.3 mg/dl (8.5-10.1); Creatinine Clr Calc Pharmacy 82.4 ml/min; Est GFR (African American) 91.3 ml/min; Est GFR (Non-African American) 78.8 ml/min; Magnesium 1.9 mg/dl (1.7-2.4); Potassium 3.5 mmol/L (3.5-5.1)
--- NOTE | 2021-07-24 15:42 | Discharge Summary ---
Date of Service July 24, 2021 Admission HPI Per Admitting Provider History obtained from patient and records. Medical history significant for metastatic pancreatic cancer ongoing chemotherapy, chronic pain on narcotics, hypertension, hyperlipidemia, history of C. difficile status post vancomycin Rx, BPH, chronic anemia (baseline hemoglobin of 11). Recent confinement last month for intestinal pseudoobstruction improved with conservative management. Outpatient chemotherapy initiation 2 weeks ago. Last week patient underwent outpatient A port placement at [facility]. Perioperative Cefazolin administered. Yesterday, patient noted bloody diarrhea symptoms with achy upper abdominal pain. No emesis, no fever, no chills. Patient denies chest pain, S OB. 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 difficile colitis Acute on chronic anemia Recent diagnosis of metastatic pancreatic cancer Discharge Exam GENERAL: Alert and oriented x3. NAD, on RA. HEENT: No pallor, no icterus. Pupils equal, round and reactive to light. Oral mucosa moist. NECK: No JVD, no neck masses. HEART: S1 and S2 heard. Regular rate and rhythm. No murmur, no gallop. RESPIRATORY SYSTEM: Normal AP diameter. No accessory muscle use. No wheezing, no crackles. ABDOMEN: Soft, bowel sounds present, non tender, no distention. CENTRAL NERVOUS SYSTEM: No facial droop. Speech is clear. Obeys simple commands. Moves extremities. EXTREMITIES: No edema, no erythema seen. Discharge Data Allergies Allergy/AdvReac Type Severity Reaction Status Date / Time erythromycin base AdvReac Mild Gastrointestinal Verified 07/20/21 01:29 Upset Consultations 07/20/21 02:14 ED Decision to Admit Stat 07/20/21 12:35 Consult Gastroenterology Routine Ordered Studies 07/20/21 00:39 CT abd pelvis IV con only Urgent Hospital Course (1) GI bleed: 70-year-old gentleman with PMH of metastatic pancreatic cancer [diagnosed May 2021] under chemo, chronic pain on narcotics, HTN, HLD, C. difficile x1 [May 2021] s/p PO Vanc Rx, BPH, chronic anemia [baseline 11], umbilical hernia status post repair, inguinal hernia status post repair and non- smoker/very occasional EtOH intake/no illegal drugs use presented to our ED 07/20 with multiple diarrhea and few of them were mixed with blood associated with achy after abdominal pain. 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 Outpatient chemo initiated 2 weeks ago [employer]ESSING [employer], so far received 1 dose per patient. He was managed for the following: #. GI bleed, likely lower #. Acute on chronic anemia: 2/2 above. #. C. Diff colitis Patient presented with belly pain with multiple loose bowel movements mixed with blood x 1 day Patient had 1 more episode of bloody diarrhea on 07/20, 3 more but non bloody & more formed but still loose BM by 07/21 noon. Recent diagnosis of C. difficile, status post vancomycin. Outpatient hemoglobin from 07/17/21 was noted to be 9. Admitting CTAP: Progressive mild to moderate bowel wall thickening involving the distal transverse/descending/sigmoid colon and rectum with pericolonic fat stranding suggestive of nonspecific colitis. Hemoglobin stable around 8, repeat at 10 PM, transfuse for symptomatic anemia or hemoglobin less than 7. 07/21 C.diff Positive, other stool studies either negative or pending. Low fiber. Advance TOBIAS. GI evaluated 07/20, appreciate recs Get your blood work CBC and CMP done in a week time upon discharge. 07/21 fidaxomicin and florastor started. Complete the course and continue with probiotics. Dificid cost is $ 1087.33 (on 07/23) for patient upon DC, family updated, can consider it when the time comes for DC and with updated cost at that time. Alternative of starting patient on Vancomycin taper given if cost not acceptable to family. --> Patient agreeable to the cost. Reports one semisolid stool yesterday, no further bowel movement, has improved. No belly pain/minimal belly pain, no tenderness on examination. 07/23 d/w GI, creon started---> family agreeable to the cost of Creon which is dollar 150/month per nursing navigator. #. Recent diagnosis of metastatic pancreatic cancer Patient following with oncology as an outpatient, received 1 dose of chemotherapy Admitting CTAP: Interval increase in size in the pancreatic mass with progressive hepatic metastatic disease and progressive surrounding lymphadenopathy. Indeterminate 1.9 cm lesion within the upper pole of the right kidney. Follow-up with oncology as an outpatient. 07/22 d/w oncology Dr. Vega, hold chemo during this acute phase, will need re- eval once discharged. Patient on narcotics for chronic pain. Given advancing cancer, palliative care consult was agreed upon earlier but later after family discussion, they postponed it for now. Creon started 07/23. c/w it. #. Other chronic medical conditions: HTN, mild hyponatremia, prediabetes, HLD Continue with/resume home meds as and when appropriate. Caution with blood pressure medication for concerns of hypotension given GI bleed. Continue to hold antihypertensives. Pt's lisinopril-HCTZ was dc'd as OP. Cut down on amlod dose upon DC if BP stays low normal. DVT prophylaxis. GI bleed seems to be stable, start him on heparin subcu. Continue to monitor hemoglobin. Full code ~ Discussion with the family 07/22, lisinopril-HCTZ was discontinued by pt's PCP per family. Pt only on amlodipine as OP. Pt doesn't like morphine extended release. Updated them about patient's current status, answered all their questions and they voiced understanding/were agreeable to plan of care. Family talking about taking patient to [facility] to enroll him on Trial for pancreatic cancer treatment. ~ 07/23 called pt's and updated his current status, answered all her questions. Patient being discharged home with following instruction at the point of discharge: Follow-up with your primary care physician within a week time. Follow-up with your oncology doctor within a week time upon discharge. Continue with low fiber/soft diet for few days until you are able to tolerate the diet very well and then advance to your regular consistency. You have been started on Creon which is a pancreatic enzyme substitute, take it with meals as prescribed. Continue with your remaining doses of Dificid for your C. difficile colitis treatment. Your hemoglobin has been stable while in hospital, if you have any lightheadedness/increased heart rate/dizziness/weakness/tired/easy fatigability, contact with your PCP or emergency immediately. Advise to follow-up with your GI doctor as an outpatient after your acute event is over (in 2 to 3 months) for evaluation of your GI bleed. If not able to be enrolled in trial of treatment for pancreatic cancer at [facility] [per family wishes], advised to establish palliative care as an outpatient to discuss about goals of care as discussed at the bedside. Get your blood work CBC and CMP done in a week time and have the results forwarded to your PCP. You will be discharged on a few days worth of pain medication, you will have to get in touch with your primary care physician or oncology for further prescription on these medications. Your blood pressure medication lisinopril HCTZ was DC'd prior to this hospitalization, your amlodipine dose has been decreased to 5 mg daily due to your ongoing low blood pressure. As discussed at the bedside, measure your blood pressure 2 times a day and if blood pressure is low you can skip the amlodipine dose for that day. Take your blood pressure measurement log to your primary care physician to have further discussion on your blood pressure medicine adjustment/reevaluation. Take your medications as prescribed. Text document was generated using voice recognition software. It may contain grammatical or spelling errors. Kindly contact undersigned for clarification of any documentation item in question. Total Time Total Time Spent Total Time Spent (In Minutes): 40 Discharge Plan Discharge Items Patient Disposition: Home - Self-Care Reason For Visit: LGIB Discharge Diagnosis: C. difficile colitis Acute on chronic anemia Recent diagnosis of metastatic pancreatic cancer Activity: Resume your previous activity Non-emergency contact: Primary Care Provider Call non-emergency contact if: you have any medication questions, your symptoms worsen, your pain is not controlled and your temperature is above 101 Follow-up/Referrals: Shakira Segovia MD [Primary Care Provider] - (Date & Time 07/30/2021 12:20 PM Provider Shakira Segovia MD Department Family Medicine [facility] ) Diet: Heart Healthy and Low Fiber Addtl Attending Provider Instructions: Follow-up with your primary care physician within a week time. Follow-up with your oncology doctor within a week time upon discharge. Continue with low fiber/soft diet for few days until you are able to tolerate the diet very well and then advance to your regular consistency. You have been started on Creon which is a pancreatic enzyme substitute, take it with meals as prescribed. Continue with your remaining doses of Dificid for your C. difficile colitis treatment. Your hemoglobin has been stable while in hospital, if you have any lightheadedness/increased heart rate/dizziness/weakness/tired/easy fatigability, contact with your PCP or emergency immediately. Advise to follow-up with your GI doctor as an outpatient after your acute event is over (in 2 to 3 months) for evaluation of your GI bleed. If not able to be enrolled in trial of treatment for pancreatic cancer at [facility] [per family wishes], advised to establish palliative care as an outpatient to discuss about goals of care as discussed at the bedside. Get your blood work CBC and CMP done in a week time and have the results forwarded to your PCP. You will be discharged on a few days worth of pain medication, you will have to get in touch with your primary care physician or oncology for further prescription on these medications. Your blood pressure medication lisinopril HCTZ was DC'd prior to this hospitalization, your amlodipine dose has been decreased to 5 mg daily due to your ongoing low blood pressure. As discussed at the bedside, measure your blood pressure 2 times a day and if blood pressure is low you can skip the amlodipine dose for that day. Take your blood pressure measurement log to your primary care physician to have further discussion on your blood pressure medicine adjustment/reevaluation. Take your medications as prescribed. Pending Studies at Discharge: Yes (Stool elastase study.) Stand-Alone Forms: My [employer], Smoking Cessation Medications and DC Order Prescriptions: New Creon 36,000-114,000- 180,000 unit Capsule,Delayed Release(Dr/Ec) 1 cap PO TIDM Qty: 90 RF: 0 Dificid 200 mg Tablet 200 mg PO BID@0600,1800 Qty: 13 RF: 0 Continued coenzyme Q10 [CoQ-10] 100 mg Capsule 100 mg PO QAM RF: 0 cholecalciferol (vitamin D3) [Vitamin D3] 25 mcg (1,000 unit) Tablet 25 mcg PO QAM RF: 0 omeprazole 40 mg capsule,delayed release(DR/EC) 40 mg PO DAILYBB RF: 0 amoxicillin 500 mg capsule 2,000 mg PO ONCE PRN (Reason: 1 hour prior to dental appt) RF: 0 morphine 15 mg tablet extended release 15 mg PO AMHS RF: 0 trazodone 50 mg tablet 50 mg PO HS RF: 0 ondansetron HCl 8 mg tablet 8 mg PO Q8 PRN (Reason: Nausea) RF: 0 prochlorperazine maleate 10 mg tablet 10 mg PO Q6 PRN (Reason: nausea) RF: 0 tamsulosin 0.4 mg capsule 0.4 mg PO DAILY RF: 0 flaxseed oil 1,000 mg Capsule 1,000 mg PO DAILY RF: 0 docusate sodium [Colace] 100 mg Capsule 100 mg PO BID PRN (Reason: Constipation) RF: 0 oxycodone 5 mg tablet 5 mg PO Q4 PRN (Reason: pain (scale score 7-10)) 5 Days Qty: 30 RF: 0 Probiotic 10 billion cell Capsule 10,000 mmu cells PO DAILY Qty: 30 RF: 0 multivitamin Tablet 1 tab PO QAM RF: 0 ascorbic acid (vitamin C) [Vitamin C] 1,000 mg Tablet 1 g PO QAM RF: 0 cyanocobalamin (vitamin B-12) 500 mcg Tablet 500 mcg PO QAM RF: 0 rosuvastatin [Crestor] 20 mg Tablet 20 mg PO QAM RF: 0 Changed amlodipine 10 mg Tablet 5 mg PO QPM Qty: 0 RF: 0 Discontinued lisinopril-hydrochlorothiazide 10-12.5 mg Tablet 1 tab PO QAM RF: 0 Discharge Orders: Discharge Order (Routine); Ordered 07/24/21 Ordered By: Dmitri Quintanilla Admission Data Admit Date/Time: 07/21/21 18:02 Attending Provider: Dmitri Quintanilla Admit Provider: Hermes Webb Primary Care Provider: Shakira Segovia Other Providers: Hermes Webb ; Yancy Merlos
== END 2021-07-24 16:20 | disposition home or self-care (01) | DRG 372 ==
LOC: ED 00:36 → 2W 00:36
DX: E87.1 Hypo-osmolality and hyponatremia; N40.0 Benign prostatic hyperplasia without lower urinary tract symptoms; Z96.651 Presence of right artificial knee joint; N18.30 Chronic kidney disease, stage 3 unspecified; A04.71 Enterocolitis due to Clostridium difficile, recurrent; C78.00 Secondary malignant neoplasm of unspecified lung; G89.29 Other chronic pain; I12.9 Hypertensive chronic kidney disease with stage 1 through stage 4 chronic kidney disease, or unspecified chronic kidney disease; K55.9 Vascular disorder of intestine, unspecified; D62 Acute posthemorrhagic anemia; C78.7 Secondary malignant neoplasm of liver and intrahepatic bile duct; Z98.52 Vasectomy status; M17.11 Unilateral primary osteoarthritis, right knee; E78.5 Hyperlipidemia, unspecified; C25.9 Malignant neoplasm of pancreas, unspecified; Z88.1 Allergy status to other antibiotic agents

== ENCOUNTER 2021-09-25 13:44 | Inpatient (IN) ==
[2021-09-25] MEDS ORDERED: MoRPHine SULFATE 10 MG/ML CARP/VIAL IV STA (15:43)
[2021-09-25] MEDS ORDERED: ONDANSETRON INJ 2 MG/ML 2 ML VIAL IV STA (15:43)
[2021-09-25] MEDS ORDERED: SODIUM CHLORIDE 0.9% 1000ML 1,000 ML IV ONE (15:43)
--- NOTE | 2021-09-25 15:52 | Emergency Department Note ---
Impression & Plan Proctocolitis, Pancreatic mass, Hypertension, Abdominal pain ED Provider Note NAME: ZORA QUEVEDO AGE: 70 SEX: M : 1950 ARRIVES VIA: Ambulance INFORMANT: Patient ED PROVIDER(S): Mundo Gloria DO CHIEF COMPLAINT: abdominal pain HPI: Patient is an 83-year-old male with a past medical history of weakness, gastric bypass, pancreatic cancer who presents the ER for left lower quadrant abdominal pain which started 1 week ago. He notes he had to pop up out of his chair to grab something that was falling. At that point he started having severe pain in left lower quadrant. He denies any headache or change in vision. No chest pain or shortness of breath. He notes his back started bothering him while sitting out in the waiting room as he had to wait for close to 3 hours. This is typical for him. He denies any dysuria, urgency, or frequency. He does believe that he has hemorrhoids as he notes it slightly painful to sit down his had this before. Pain in the left lower quadrant is worse with twisting turning bending and movement. Last chemo was this past Friday. No swelling or tenderness in the groin. ROS: See above HPI for pertinent positives & negatives. A total of 10 systems reviewed and were otherwise negative. PAST MEDICAL HISTORY:See Below PAST SURGICAL HISTORY:See Below FAMILY HISTORY:See Below SOCIAL HISTORY:See Below HOME MEDICATIONS:See Below ALLERGIES:See Below VITALS:See Below PHYSICAL EXAMINATION: GENERAL: Sitting up in bed, alert, chronically ill-appearing, disheveled EYE EXAM: normal conjunctiva. PERRL and EOM's grossly intact. OROPHARYNX: no exudate, no erythema, lips, buccal mucosa, and tongue normal and mucous membranes are moist NECK: supple, no nuchal rigidity, no adenopathy, non-tender LUNGS: Clear to auscultation. Normal chest wall mechanics HEART: no murmurs, S1 normal and S2 normal ABDOMEN: abdomen soft, TTP in LLQ, normo-active bowel sounds, no masses, no rebound or guarding. UPPER EXTREMITIES: upper extremities are grossly normal. LOWER EXTREMITIES: No pitting edema. NEURO EXAM: Normal sensorium, cranial nerves II-XII grossly intact, normal speech, no gross weakness of arms, no gross weakness of legs. MEDICAL DECISION MAKING: Patient is a 70-year-old male that presents the ER for the above-stated complaint. IV was established blood work is obtained. Labs show leukocytosis of 16,000. Mild anemia 10. BMP along with LFTs bilirubin was unremarkable. Lactate was normal. Lipase was normal. UA was clean. COVID was negative. CT abdomen pelvis was unremarkable shows proctocolitis inflammation concern for infection. Patient was given IV fluids IV morphine and IV Zosyn. He was updated bedside. He was admitted due to immunocompromise state with recent c hemo, leukocytosis 16,[address] findings. Triage Nursing notes reviewed. Limited review of prior medical records performed Vital Signs: reviewed and remarkable for no significant abnormalities Differential diagnosis: Differential diagnoses includes but is not limited to gastritis, peptic ulcer disease, GERD, gallbladder disease, pancreatitis, small bowel obstruction, acute coronary syndrome, pericarditis, ischemic bowel, irritable bowel disease, irritable bowel syndrome, appendicitis, diverticulitis, malignancy, hernia, urinary tract infection, torsion, [/ectopic (if female)], perforation, trauma, infectious. ER treatment provided: See below Diagnostics interpreted by me: ECG: none Cardiac Monitoring: An order was placed for continuous cardiac monitoring. The monitor shows a rate of 90 with sinus rhythm. Laboratory studies: As stated above and show below. Imaging studies: CT abdomen pelvis as described above Consultation(s): Discussed with hospitalist for further evaluation Procedures: none Critical Care: None Past Med/Surg History Medical History (Updated 09/25/21 @ 21:26 by Mundo Gloria DO) Arthritis of right knee BPH (benign prostatic hyperplasia) C. difficile colitis CKD (chronic kidney disease), stage III Hyperlipidemia Hypertension Left leg DVT Liver metastases Nausea and vomiting after administration of anesthetic agent Osteoarthritis Pancreatic cancer Umbilical hernia + present (no pain or current issues) Surgical History History of colonoscopy History of tooth extraction History of total right knee replacement (TKR) Hx of inguinal hernia repair Hx of prostate biopsy x2 (benign) Hx of umbilical hernia repair Hx of vasectomy Family History Other No family history of adverse response to anesthesia Social History Smoking Status: Never smoker Second Hand Exposure: No; Hx Alcohol Use: No Hx Substance Use: No Preferred Language: Taiwanese Communication Ability: Effective 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 Required: No Beliefs That Will Affect Care: None marital status: Current Living Situation: Spouse Current Living Situation Comment: How many Children do You have: 3 Feels Safe at Home: Yes Assistive Devices: None Allergies Allergies Allergy/AdvReac Type Severity Reaction Status Date / Time erythromycin base AdvReac Mild Gastrointestinal Verified 09/25/21 16:17 Upset Home Meds Home Medications Medication Instructions Recorded Confirmed ascorbic acid (vitamin C) 1,000 mg 1 g PO QAM 01/10/21 09/25/21 tablet (Vitamin C) cyanocobalamin (vitamin B-12) 500 500 mcg PO QAM 01/10/21 09/25/21 mcg tablet multivitamin 1 tab PO QAM 01/10/21 09/25/21 rosuvastatin 20 mg tablet (Crestor) 20 mg PO QAM 01/10/21 09/25/21 cholecalciferol (vitamin D3) 25 25 mcg PO QAM 05/16/21 09/25/21 mcg (1,000 unit) tablet (Vitamin D3) coenzyme Q10 100 mg capsule 100 mg PO QAM 05/16/21 09/25/21 (CoQ-10) amoxicillin 500 mg capsule 2,000 mg PO ONCE PRN 06/13/21 09/25/21 omeprazole 40 mg capsule,delayed 40 mg PO DAILYBB 06/13/21 09/25/21 release docusate sodium 100 mg capsule 100 mg PO BID PRN 07/20/21 09/25/21 (Colace) flaxseed oil 1,000 mg capsule 1,000 mg PO DAILY 07/20/21 09/25/21 ondansetron HCl 8 mg tablet 8 mg PO Q8 PRN 07/20/21 09/25/21 prochlorperazine maleate 10 mg 10 mg PO Q6 PRN 07/20/21 09/25/21 tablet tamsulosin 0.4 mg capsule 0.4 mg PO DAILY 07/20/21 09/25/21 apixaban 5 mg tablet (Eliquis) 5 mg PO BID 09/25/21 09/25/21 aspirin 81 mg tablet,delayed 81 mg PO DAILY 09/25/21 09/25/21 release xxsdtvg-ojoodahoj-xcni tablet 1 tab PO DAILY 09/25/21 09/25/21 omega-3 fatty acids 1,000 mg 1,000 mg PO DAILY 09/25/21 09/25/21 capsule oxycodone 5 mg tablet 5 - 10 mg PO Q4 PRN 09/25/21 09/25/21 Previous Rx's Medication Instructions Recorded Lactobacillus acidophilus 10 10,000 mmu cells PO DAILY #30 cap 07/24/21 billion cell capsule (Probiotic) kkzagb-hcuezaof-rlkxvri 1 cap PO TIDM #90 cap 07/24/21 36,000-114,000-180,000 unit capsule,delay rel (Creon) Results & Data (ED) Vital Signs Vital Signs - 24 hr 09/25/21 14:04 09/25/21 16:30 09/25/21 17:00 Temperature 36.0 C L Temperature Source Temporal Artery Scan Pulse Rate 103 H 154 H 91 H Pulse Rate [Bilateral Apical] Pulse Rate from SpO2 Sensor 96 H 89 Respiratory Rate 20 17 Blood Pressure 120/73 130/69 125/68 Blood Pressure [Left Arm] Blood Pressure Mean 88 89 87 Blood Pressure Mean [Left Arm] Pulse Oximetry 100 100 99 Oxygen Delivery Method Room Air Room Air Sepsis Recent Fever Within 48 Hours No Sepsis New/Unexplained Change in Mental Status N/A Sepsis Action Taken by Nursing No Action Required 09/25/21 17:30 09/25/21 18:11 09/25/21 20:08 Temperature Temperature Source Pulse Rate 91 H Pulse Rate [Bilateral Apical] 89 Pulse Rate from SpO2 Sensor 90 92 H Respiratory Rate 19 20 Blood Pressure 125/69 139/80 Blood Pressure [Left Arm] 116/79 Blood Pressure Mean 87 99 Blood Pressure Mean [Left Arm] 91 Pulse Oximetry 99 100 100 Oxygen Delivery Method Room Air Room Air Sepsis Recent Fever Within 48 Hours Sepsis New/Unexplained Change in Mental Status Sepsis Action Taken by Nursing Laboratory Data Result diagrams: 09/25/21 15:48 09/25/21 15:48 Lab Results 09/25/21 09/25/21 09/25/21 Range/Units 15:48 15:48 15:48 WBC 16.21 H (4.8-10.8) K/uL RBC 3.72 L (4.7-6.1) M/uL Hgb 10.3 L (14.0-18.0) g/dL Hct 32.8 L (42-52) % MCV 88.2 (80-100) fL MCH 27.7 (25-34) pg MCHC 31.4 L (32-36) g/dL RDW Std Deviation 53.7 H (36.4-46.3) fL RDW Coeff of [place] 16.9 H (11.5-14.5) % Plt Count 319 (130-400) K/uL MPV 9.3 (7.4-10.4) fL Neutrophils % (Manual) 83.5 % Lymphocytes % (Manual) 4.3 % Monocytes % (Manual) 12.2 % Neutrophils # (Manual) 13.54 H (1.4-6.5) K/uL Total Absolute Neuts 13.54 H (1.4-6.5) K/uL Lymphocytes # (Manual) 0.70 L (1.2-3.4) K/uL Total Abs Lymphocytes 0.70 L (1.2-3.4) K/uL Monocytes # (Manual) 1.98 H (0.11-0.59) K/uL Polychromasia 1+ Sodium 138 (136-145) mmol/L Potassium 3.5 (3.5-5.1) mmol/L Chloride 102 (98-107) mmol/L Carbon Dioxide 28 (21-32) mmol/L Anion Gap 8 (3-11) BUN 11 (6-23) mg/dl Creatinine 0.98 (0.6-1.4) mg/dl Est Cr Clr Drug Dosing Not Reportable Est GFR ( Amer) 90.2 ml/min Est GFR (Non-Af Amer) 77.8 ml/min BUN/Creatinine Ratio 11.2 (10-20) Glucose 95 (70-99(Fasting)) mg/dl Lactate (0.4-2.0) mmol/L Calcium 9.8 (8.5-10.1) mg/dl Total Bilirubin 0.7 (0.2-1.0) mg/dl AST 24 (13-39) U/L ALT 20 (7-52) U/L Alkaline Phosphatase 397 H (34-104) U/L Total Protein 7.2 (6.0-8.3) gm/dl Albumin 3.7 (3.4-5.0) gm/dl Globulin 3.5 (2.5-4.0) gm/dl Albumin/Globulin Ratio 1.1 (0.9-2) Lipase 16 (11-82) U/L Urine Color Dark Yellow Urine Appearance Clear (Clear) Urine pH 6.0 (4.5-7.5) Ur Specific [place] 1.017 (1.000-1.030) Urine Protein Negative (Negative) Urine Glucose (UA) Negative (Negative) Urine Ketones Negative (Negative) Urine Blood Negative (Negative) Urine Nitrite Negative (Negative) Urine Bilirubin Negative (Negative) Urine Urobilinogen Negative (Negative) Ur Leukocyte Esterase Negative (Negative) SARS-CoV-2, RNA, NAAT (NEGATIVE) 09/25/21 09/25/21 Range/Units 18:57 20:20 WBC (4.8-10.8) K/uL RBC (4.7-6.1) M/uL Hgb (14.0-18.0) g/dL Hct (42-52) % MCV (80-100) fL MCH (25-34) pg MCHC (32-36) g/dL RDW Std Deviation (36.4-46.3) fL RDW Coeff of [place] (11.5-14.5) % Plt Count (130-400) K/uL MPV (7.4-10.4) fL Neutrophils % (Manual) % Lymphocytes % (Manual) % Monocytes % (Manual) % Neutrophils # (Manual) (1.4-6.5) K/uL Total Absolute Neuts (1.4-6.5) K/uL Lymphocytes # (Manual) (1.2-3.4) K/uL Total Abs Lymphocytes (1.2-3.4) K/uL Monocytes # (Manual) (0.11-0.59) K/uL Polychromasia Sodium (136-145) mmol/L Potassium (3.5-5.1) mmol/L Chloride (98-107) mmol/L Carbon Dioxide (21-32) mmol/L Anion Gap (3-11) BUN (6-23) mg/dl Creatinine (0.6-1.4) mg/dl Est Cr Clr Drug Dosing Est GFR ( Amer) ml/min Est GFR (Non-Af Amer) ml/min BUN/Creatinine Ratio (10-20) Glucose (70-99(Fasting)) mg/dl Lactate 0.8 (0.4-2.0) mmol/L Calcium (8.5-10.1) mg/dl Total Bilirubin (0.2-1.0) mg/dl AST (13-39) U/L ALT (7-52) U/L Alkaline Phosphatase (34-104) U/L Total Protein (6.0-8.3) gm/dl Albumin (3.4-5.0) gm/dl Globulin (2.5-4.0) gm/dl Albumin/Globulin Ratio (0.9-2) Lipase (11-82) U/L Urine Color Urine Appearance (Clear) Urine pH (4.5-7.5) Ur Specific [place] (1.000-1.030) Urine Protein (Negative) Urine Glucose (UA) (Negative) Urine Ketones (Negative) Urine Blood (Negative) Urine Nitrite (Negative) Urine Bilirubin (Negative) Urine Urobilinogen (Negative) Ur Leukocyte Esterase (Negative) SARS-CoV-2, RNA, NAAT NEGATIVE (NEGATIVE) Administered Medications Discontinued Medications Sodium Chloride (Nss 1000ml) 1,000 mls @ 999 mls/hr IV .Q1H1M ONE Stop: 09/25/21 16:43 Last Infusion: 09/25/21 17:08 Dose: 0 mls/hr Documented by: [id number] Admin: 09/25/21 16:07 Dose: 999 mls/hr Documented by: [id number] Piperacillin Sod/Tazobactam Sod (Zosyn) 4.5 gm in 120 mls @ 240 mls/hr IV NOW ONE Stop: 09/25/21 19:15 Last Infusion: 09/25/21 20:36 Dose: 0 mls/hr Documented by: [id number] Admin: 09/25/21 19:49 Dose: 240 mls/hr Documented by: [id number] Ioversol (Optiray 320 100ml) 92 ml IV ONCE ONE Stop: 09/25/21 17:47 Last Admin: 09/25/21 17:48 Dose: 92 ml Documented by: [id number] Morphine Sulfate (Morphine Sulfate 10 Mg/Ml Carp/Vial) 6 mg IV NOW STA Stop: 09/25/21 15:44 Last Admin: 09/25/21 16:09 Dose: 6 mg Documented by: [id number] Ondansetron HCl (Ondansetron Inj 2 Mg/Ml 2 Ml Vial) 4 mg IV NOW STA Stop: 09/25/21 15:44 Last Admin: 09/25/21 16:09 Dose: 4 mg Documented by: [id number] Oxycodone HCl (Oxycodone Hcl Ir 5 Mg Tab (Immediate Release)) 5 mg PO ONE ONE Stop: 09/25/21 19:37 Last Admin: 09/25/21 20:06 Dose: 5 mg Documented by: [id number] Imaging Data Radiologist's Impression: Abdomen/Pelvis CT 09/25/21 15:43 CT OF THE ABDOMEN AND PELVIS WITH CONTRAST CLINICAL HISTORY: Left lower quadrant abdominal pain. COMPARISON STUDY: CT of the abdomen and pelvis July 20, 2021. TECHNIQUE: Following IV administration of 92 mL of Optiray, axial images of the abdomen and pelvis were obtained from the lung bases to the proximal femurs. Images were reviewed in the axial, sagittal, and coronal planes. IV contrast was administered without complication. Automated exposure control was utilized for the study. A dose lowering technique was utilized adhering to the principles of ALARA. CT DOSE: 333.78 mGy.cm FINDINGS: Multiple ill-defined nodules within the lower lungs are again noted. These could reflect metastases. Comparison with prior exam is difficult. Trace left pleural effusion is noted. No pneumatosis, free air or portal venous gas is present. There has been mild progression of extensive hepatic metastatic disease since CT of July 20, 2021. Index right lobe lesion measures 7.6 cm. It previously measured 6.9 cm. There is no biliary ductal dilatation. Pancreatic ductal dilatation is again noted due to the pancreatic body/neck mass which measures 5.8 x 5.1 cm. This mass is similar in size to prior exam. This mass results in occlusion versus severe stenosis at the portosplenic confluence. Associated collaterals are noted. Mild retroperitoneal lymphadenopathy is similar to prior exam. Retrocrural lymphadenopathy is similar to prior exam. A 2.3 cm left adrenal lesion has developed. This represents a metastasis. No evidence for a bowel obstruction. There is wall thickening with infiltration involving the majority of the colon. This has increased in degree since exam of July 20, 2021. There is no abscess. The prostate is enlarged. No hydronephrosis. No suspicious osseous lesions are present. Indeterminate 1.9 cm lesion within the upper pole the right kidney is again noted. This is unchanged. A few splenic hypodensities measure up to 2.2 cm. IMPRESSION: 1. Findings consistent with proctocolitis which has increased in degree and extent since CT of July 20, 2021. This is likely infectious. 2. No significant change in the pancreatic body/neck mass with vascular encasement, as above. This suggests adenocarcinoma. 3. Slight increase in extensive hepatic metastatic disease. 4. 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 5. Interval development of several small suspected splenic infarcts. ACT 112: Negative or not required by law. Electronically signed by: Naif Pablo M.D. 09/25/2021 6:24 PM Discharge Plan Visit Data Chief Complaint: Abdominal Pain Stated Complaint: AB PAIN ED Provider: Mundo Gloria Discharge Problem: Proctocolitis, Pancreatic mass, Hypertension, Abdominal pain Forms Stand Alone Forms: [facility] [employer] Prescriptions Prescriptions: No Action coenzyme Q10 [CoQ-10] 100 mg Capsule 100 mg PO QAM RF: 0 cholecalciferol (vitamin D3) [Vitamin D3] 25 mcg (1,000 unit) Tablet 25 mcg PO QAM RF: 0 omeprazole 40 mg capsule,delayed release(DR/EC) 40 mg PO DAILYBB RF: 0 amoxicillin 500 mg capsule 2,000 mg PO ONCE PRN (Reason: 1 hour prior to dental appt) RF: 0 ondansetron HCl 8 mg tablet 8 mg PO Q8 PRN (Reason: Nausea) RF: 0 prochlorperazine maleate 10 mg tablet 10 mg PO Q6 PRN (Reason: nausea) RF: 0 tamsulosin 0.4 mg capsule 0.4 mg PO DAILY RF: 0 flaxseed oil 1,000 mg Capsule 1,000 mg PO DAILY RF: 0 docusate sodium [Colace] 100 mg Capsule 100 mg PO BID PRN (Reason: Constipation) RF: 0 Creon 36,000-114,000- 180,000 unit Capsule,Delayed Release(Dr/Ec) 1 cap PO TIDM Qty: 90 RF: 0 Probiotic 10 billion cell Capsule 10,000 mmu cells PO DAILY Qty: 30 RF: 0 multivitamin Tablet 1 tab PO QAM RF: 0 ascorbic acid (vitamin C) [Vitamin C] 1,000 mg Tablet 1 g PO QAM RF: 0 cyanocobalamin (vitamin B-12) 500 mcg Tablet 500 mcg PO QAM RF: 0 rosuvastatin [Crestor] 20 mg Tablet 20 mg PO QAM RF: 0 aspirin 81 mg Tablet,Delayed Release (Dr/Ec) 81 mg PO DAILY RF: 0 Eliquis 5 mg tablet 5 mg PO BID RF: 0 omega-3 fatty acids 1,000 mg Capsule 1,000 mg PO DAILY RF: 0 [id number]-rqaasthyv-ietr Tablet 1 tab PO DAILY RF: 0 oxycodone 5 mg tablet 5 - 10 mg PO Q4 PRN (Reason: pain (scale score 7-10)) RF: 0 Referrals Referrals: Shakira Segovia MD [Primary Care Provider] -
[2021-09-25 16:04] LABS: Appearance Urine Clear (Clear); Bilirubin Urine Negative (Negative); Blood Urine Negative (Negative); Color Urine Dark Yellow; Glucose Urine UA Negative (Negative); Hematocrit (blood only) 32.8 % (42-52); Hemoglobin 10.3 g/dL (14.0-18.0); Ketones Urine Negative (Negative); Leukocyte Esterase Urine Negative (Negative); Mean Corpuscular Hemoglobin 27.7 pg (25-34); Mean Corpuscular Hgb Conc 31.4 g/dL (32-36); Mean Corpuscular Volume 88.2 fL (80-100); Mean Platelet Volume 9.3 fL (7.4-10.4); Nitrite Urine Negative (Negative); Platelet Count 319 K/uL (130-400); Protein Urine Negative (Negative); RDW Coefficient of Variation 16.9 % (11.5-14.5); RDW Standard Deviation 53.7 fL (36.4-46.3); Red Blood Count 3.72 M/uL (4.7-6.1); Specific Gravity Urine 1.017 (1.000-1.030); Urobilinogen Urine Negative (Negative); White Blood Count 16.21 K/uL (4.8-10.8)
[2021-09-25 16:22] LABS: ANC (manual) 13.54 K/uL (1.4-6.5); Lymphocytes % (manual) 4.3 %; Monocytes # (manual) 1.98 K/uL (0.11-0.59); Monocytes % (manual) 12.2 %; Neutrophils # (manual) 13.54 K/uL (1.4-6.5); Neutrophils % (manual) 83.5 %; Polychromasia 1+
[2021-09-25 16:25] LABS: Anion Gap 8 (3-11); Blood Urea Nitrogen 11 mg/dl (6-23); Carbon Dioxide 28 mmol/L (21-32); Chloride 102 mmol/L (98-107); Est GFR (African American) 90.2 ml/min; Potassium 3.5 mmol/L (3.5-5.1); Sodium 138 mmol/L (136-145)
[2021-09-25 16:26] LABS: Alanine Aminotransferase 20 U/L (7-52); Albumin Globulin Ratio 1.1 (0.9-2); Albumin Level 3.7 gm/dl (3.4-5.0); Alkaline Phosphatase 397 U/L (34-104); Aspartate Aminotransferase 24 U/L (13-39); BUN Creatinine Ratio 11.2 (10-20); Bilirubin,Total 0.7 mg/dl (0.2-1.0); Calcium 9.8 mg/dl (8.5-10.1); Est GFR (Non-African American) 77.8 ml/min; Globulin 3.5 gm/dl (2.5-4.0); Glucose 95 mg/dl (70-99(Fasting)); Lipase 16 U/L (11-82); Total Protein 7.2 gm/dl (6.0-8.3)
[2021-09-25] MEDS ORDERED: OPTIRAY 320 100ml IV ONE (17:46)
--- NOTE | 2021-09-25 18:27 | CT Scan Report ---
CT OF THE ABDOMEN AND PELVIS WITH CONTRAST CLINICAL HISTORY: Left lower quadrant abdominal pain. COMPARISON STUDY: CT of the abdomen and pelvis July 20, 2021. TECHNIQUE: Following IV administration of 92 mL of Optiray, axial images of the abdomen and pelvis we re obtained from the lung bases to the proximal femurs. Images were reviewed in the axial, sagittal, and coronal planes. IV contrast was administered without complication. Automated exposure control wa s utilized for the study. A dose lowering technique was utilized adhering to the principles of ALARA . CT DOSE: 333.78 mGy.cm FINDINGS: Multiple ill-defined nodules within the lower lungs are again noted. These could reflect me tastases. Comparison with prior exam is difficult. Trace left pleural effusion is noted. No pneumatos is, free air or portal venous gas is present. There has been mild progression of extensive hepatic me tastatic disease since CT of July 20, 2021. Index right lobe lesion measures 7.6 cm. It previously m easured 6.9 cm. There is no biliary ductal dilatation. Pancreatic ductal dilatation is again noted du e to the pancreatic body/neck mass which measures 5.8 x 5.1 cm. This mass is similar in size to prior exam. This mass results in occlusion versus severe stenosis at the portosplenic confluence. Associat ed collaterals are noted. Mild retroperitoneal lymphadenopathy is similar to prior exam. Retrocrural lymphadenopathy is similar to prior exam. A 2.3 cm left adrenal lesion has developed. This represents a metastasis. No evidence for a bowel obstruction. There is wall thickening with infiltration involv ing the majority of the colon. This has increased in degree since exam of July 20, 2021. There is no abscess. The prostate is enlarged. No hydronephrosis. No suspicious osseous lesions are present. Ind eterminate 1.9 cm lesion within the upper pole the right kidney is again noted. This is unchanged. A few splenic hypodensities measure up to 2.2 cm. IMPRESSION: 1. Findings consistent with proctocolitis which has increased in degree and extent since CT of July 20, 2021. This is likely infectious. 2. No significant change in the pancreatic body/neck mass with vascular encasement, as above. This stephens ggests adenocarcinoma. 3. Slight increase in extensive hepatic metastatic disease. 4. 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 5. Interval development of several small suspected splenic infarcts. ACT 112: Negative or not required by law. Electronically signed by: Naif Pablo M.D. 09/25/2021 6:24 PM
[2021-09-25] MEDS ORDERED: PIPERACILLIN/TAZOBACTAM 4.5 GM/120 ML BAG IV ONE (18:46)
[2021-09-25] MEDS ORDERED: PIPERACILL/TAZOBAC CONSULT ACTIVE PRN (18:46)
[2021-09-25] MEDS ORDERED: oxyCODONE HCL IR 5 MG TAB (IMMEDIATE RELEASE) PO ONE (19:36)
--- NOTE | 2021-09-25 21:29 | History & Physical Report ---
Date of Service September 25, 2021 Assessment & Plan (1) Proctocolitis: Plan: Admit to [facility] Patient presenting from home with reports of left lower quadrant abdominal pain x 1 week. In the ED, CT ABD/pelvis showing signs of proctocolitis. Noted patient with history of C. difficile and reports recent loose/mucousy bowel movements however has not had a bowel movement in 2 days. WBC 16 K, does not appear septic S/p Zosyn in the ED, continue with Stool PCR and C. difficile testing Supportive care with IVF, pain and nausea control (2) Pancreatic cancer: (3) Liver metastases: Plan: Currently on chemotherapy, Gemzar and Abraxane, last treatment on 09/[address] Ramez Vega CT ABD/pelvis shows No significant change in the pancreatic body/neck mass with vascular encasement, This suggests adenocarcinoma. Slight increase in extensive hepatic metastatic disease. 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 Interval development of several small suspected splenic infarcts. 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 (4) Left leg DVT: Plan: Diagnosed 07/2021 On Eliquis (5) Hyperlipidemia: Plan: Continue statin (6) DVT prophylaxis: Plan: On Eliquis History of Present Illness Chief Complaint: LLQ abdominal pain Primary Care Provider: Shakira Segovia MD 70-year-old male with PMH pancreatic cancer with mets to the liver, LLE DVT on Eliquis, dyslipidemia, and other problems listed below who presents the ED for evaluation of left lower quadrant abdominal pain. Patient is currently receiving chemotherapy for metastatic pancreatic cancer. Last treatment with Gemzar and Abraxane on 09/14. Patient reports that about 1 week ago, he developed a left lower quadrant abdominal pain. Pain has been persistent since that time. Last normal bowel movement on 09/19 then stools became loose and mucousy at times however no bowel movement in 2 days. Patient reports nausea and very poor appetite, no vomiting. Denies fevers and chills. No chest pain or shortness of breath. Denies lightheadedness, dizziness, diaphoresis, syncopal events. No urinary symptoms. In the ED, CT ABD/pelvis shows findings consistent with proctocolitis. WBC 16 K. Vital signs stable. Patient was given IV Zosyn, IVF, IV morphine, IV Zofran. Allergies Allergy/AdvReac Type Severity Reaction Status Date / Time erythromycin base AdvReac Mild Gastrointestinal Verified 09/25/21 16:17 Upset Home Medications Medication Instructions Recorded Confirmed Type ascorbic acid (vitamin C) 1,000 mg 1 g PO QAM 01/10/21 09/25/21 History tablet (Vitamin C) cyanocobalamin (vitamin B-12) 500 500 mcg PO QAM 01/10/21 09/25/21 History mcg tablet multivitamin 1 tab PO QAM 01/10/21 09/25/21 History rosuvastatin 20 mg tablet (Crestor) 20 mg PO QAM 01/10/21 09/25/21 History cholecalciferol (vitamin D3) 25 25 mcg PO QAM 05/16/21 09/25/21 History mcg (1,000 unit) tablet (Vitamin D3) coenzyme Q10 100 mg capsule 100 mg PO QAM 05/16/21 09/25/21 History (CoQ-10) amoxicillin 500 mg capsule 2,000 mg PO ONCE PRN 06/13/21 09/25/21 History omeprazole 40 mg capsule,delayed 40 mg PO DAILYBB 06/13/21 09/25/21 History release docusate sodium 100 mg capsule 100 mg PO BID PRN 07/20/21 09/25/21 History (Colace) flaxseed oil 1,000 mg capsule 1,000 mg PO DAILY 07/20/21 09/25/21 History ondansetron HCl 8 mg tablet 8 mg PO Q8 PRN 07/20/21 09/25/21 History prochlorperazine maleate 10 mg 10 mg PO Q6 PRN 07/20/21 09/25/21 History tablet tamsulosin 0.4 mg capsule 0.4 mg PO DAILY 07/20/21 09/25/21 History Lactobacillus acidophilus 10 10,000 mmu cells PO DAILY #30 cap 07/24/21 09/25/21 Rx billion cell capsule (Probiotic) dxeaij-iwefmqrl-ftnoryk 1 cap PO TIDM #90 cap 07/24/21 09/25/21 Rx 36,000-114,000-180,000 unit capsule,delay rel (Creon) apixaban 5 mg tablet (Eliquis) 5 mg PO BID 09/25/21 09/25/21 History aspirin 81 mg tablet,delayed 81 mg PO DAILY 09/25/21 09/25/21 History release mgtorig-ztsjkgoeu-ralg tablet 1 tab PO DAILY 09/25/21 09/25/21 History omega-3 fatty acids 1,000 mg 1,000 mg PO DAILY 09/25/21 09/25/21 History capsule oxycodone 5 mg tablet 5 - 10 mg PO Q4 PRN 09/25/21 09/25/21 History Past Med/Surg History Medical History Arthritis of right knee BPH (benign prostatic hyperplasia) C. difficile colitis CKD (chronic kidney disease), stage III Hyperlipidemia Hypertension Left leg DVT Liver metastases Nausea and vomiting after administration of anesthetic agent Osteoarthritis Pancreatic cancer Umbilical hernia + present (no pain or current issues) Surgical History History of colonoscopy History of tooth extraction History of total right knee replacement (TKR) Hx of inguinal hernia repair Hx of prostate biopsy x2 (benign) Hx of umbilical hernia repair Hx of vasectomy Family History Mother Hypertension Heart disease Other No family history of adverse response to anesthesia Social History Smoking Status: Never smoker Second Hand Exposure: No; Hx Alcohol Use: No Hx Substance Use: No Preferred Language: Nauruan Communication Ability: Effective 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 Beliefs That Will Affect Care: None marital status: Current Living Situation: Spouse Current Living Situation Comment: How many Children do You have: 3 Feels Safe at Home: Yes Assistive Devices: None Review of Systems 2 Review of Systems: ROS per HPI, all other systems reviewed and negative Physical Exam Constitutional: WD/WN, vitals as above + ill appearing; no acute distress Eyes: PERRL, conjunctivae normal, anicteric sclerae ENMT: external ear and nose normal, oropharynx normal Respiratory: normal respiratory effort, lungs clear to auscultation Cardiovascular: Rate/Rhythm: regular rate and regular rhythm Vessels: normal peripheral pulses Extremities: no edema Gastrointestinal (Abdomen): Inspection/Auscultation: normal bowel sounds; abdomen not distended Percussion/Palpation: + abdomen tender (LLQ) and abdomen soft; no hepatosplenomegaly Musculoskeletal: no cyanosis or clubbing, extremities motor strength 5/5 Skin: no rashes, warm and dry Neurologic: PERRL, EOMI, accommodation nl, no face palsy, no dysarthria Psychiatric: A+Ox3, euthymic affect Results & Data Results & Data ([facility]) Vital Signs (Past 12 Hours) Vital Signs Temp Pulse Pulse Resp BP BP Pulse Ox 09/25/21 20:08 89 20 116/79 100 09/25/21 18:11 139/80 100 09/25/21 17:30 91 H 19 125/69 99 09/25/21 17:00 91 H 17 125/68 99 09/25/21 16:30 154 H 130/69 100 09/25/21 14:04 36.0 C L 103 H 20 120/73 100 Laboratory Results Short CBC 09/25/21 Range/Units 15:48 WBC 16.21 H (4.8-10.8) K/uL Hgb 10.3 L (14.0-18.0) g/dL Hct 32.8 L (42-52) % Plt Count 319 (130-400) K/uL BMP 09/25/21 15:48 Sodium 138 Potassium 3.5 Chloride 102 Carbon Dioxide 28 BUN 11 Creatinine 0.98 Glucose 95 Calcium 9.8 Liver Function 09/25/21 Range/Units 15:48 Total Bilirubin 0.7 (0.2-1.0) mg/dl AST 24 (13-39) U/L ALT 20 (7-52) U/L Alkaline Phosphatase 397 H (34-104) U/L Albumin 3.7 (3.4-5.0) gm/dl Urine 09/25/21 Range/Units 15:48 Urine Color Dark Yellow Urine Appearance Clear (Clear) Urine pH 6.0 (4.5-7.5) Ur Specific [place] 1.017 (1.000-1.030) Urine Protein Negative (Negative) Urine Glucose (UA) Negative (Negative) Diagnostic Findings Abdomen/Pelvis CT 09/25/21 15:43 CT OF THE ABDOMEN AND PELVIS WITH CONTRAST CLINICAL HISTORY: Left lower quadrant abdominal pain. COMPARISON STUDY: CT of the abdomen and pelvis July 20, 2021. TECHNIQUE: Following IV administration of 92 mL of Optiray, axial images of the abdomen and pelvis were obtained from the lung bases to the proximal femurs. Images were reviewed in the axial, sagittal, and coronal planes. IV contrast was administered without complication. Automated exposure control was utilized for the study. A dose lowering technique was utilized adhering to the principles of ALARA. CT DOSE: 333.78 mGy.cm FINDINGS: Multiple ill-defined nodules within the lower lungs are again noted. These could reflect metastases. Comparison with prior exam is difficult. Trace left pleural effusion is noted. No pneumatosis, free air or portal venous gas is present. There has been mild progression of extensive hepatic metastatic disease since CT of July 20, 2021. Index right lobe lesion measures 7.6 cm. It previously measured 6.9 cm. There is no biliary ductal dilatation. Pancreatic ductal dilatation is again noted due to the pancreatic body/neck mass which measures 5.8 x 5.1 cm. This mass is similar in size to prior exam. This mass results in occlusion versus severe stenosis at the portosplenic confluence. Associated collaterals are noted. Mild retroperitoneal lymphadenopathy is similar to prior exam. Retrocrural lymphadenopathy is similar to prior exam. A 2.3 cm left adrenal lesion has developed. This represents a metastasis. No evidence for a bowel obstruction. There is wall thickening with infiltration involving the majority of the colon. This has increased in degree since exam of July 20, 2021. There is no abscess. The prostate is enlarged. No hydronephrosis. No suspicious osseous lesions are present. Indeterminate 1.9 cm lesion within the upper pole the right kidney is again noted. This is unchanged. A few splenic hypodensities measure up to 2.2 cm. IMPRESSION: 1. Findings consistent with proctocolitis which has increased in degree and extent since CT of July 20, 2021. This is likely infectious. 2. No significant change in the pancreatic body/neck mass with vascular encasement, as above. This suggests adenocarcinoma. 3. Slight increase in extensive hepatic metastatic disease. 4. 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 5. Interval development of several small suspected splenic infarcts. ACT 112: Negative or not required by law. Electronically signed by: Naif Pablo M.D. 09/25/2021 6:24 PM Code Status & VTE Plan Code Status Patient is a full code as per my discussion with him. VTE Prophylaxis Plan VTE Prophylaxis will be ordered: No Supervising Physician Co-Signing Physician Notes Pt is a 70 y/o M with hx of metastatic pancreatic cancer (currently receiving chemo), recent hx of C.diff s/p tx, HTN, HLD, DVT on Eliquis admitted for LLQ abd pain with proctocolitis. PE: Mild distress, well developed Abd: ND, soft, TTP of the L mid and lower quadrant MSK: mild b/l LE pitting edema Psych: normal affect, AAOx3 A/P: Abd pain with Proctocolitis: - VSS but WBC is elevated -will start pt on zosyn -stool culture sent for c.diff -IVF and prn pain meds - depending on the clinic course will determine GI vs surgery consult Other chronic conditions: plan as above Agree with a/p by OSBALDO Thomas
[2021-09-25] MEDS ORDERED: ONDANSETRON INJ 2 MG/ML 2 ML VIAL IV PRN (22:23)
[2021-09-25] MEDS ORDERED: ACETAMINOPHEN 325 MG TAB PO PRN (22:23)
[2021-09-25] MEDS: APIXABAN 5 MG TABLET PO SCH (23:15)
[2021-09-25] MEDS: SODIUM CHLORIDE 0.9% 1000ML 1,000 ML IV SCH (23:16)
[2021-09-25] MEDS: oxyCODONE HCL IR 5 MG TAB (IMMEDIATE RELEASE) PO PRN (23:38)
[2021-09-25] MEDS: PIPERACILLIN/TAZOBACTAM 3.375 GM in DEXTROSE 5% 100 ML IV SCH (23:49)
[2021-09-26 03:41] LABS: Adenovirus F 40/41 PCR Not Detected (NotDetected); Astrovirus PCR Not Detected (NotDetected); Campylobacter PCR Not Detected (NotDetected); Cryptosporidium PCR Not Detected (NotDetected); Cyclospora cayetanensis PCR Not Detected (NotDetected); Entamoeba histolytica PCR Not Detected (NotDetected); Enteroaggregative E.coli(EAEC) Not Detected (NotDetected); Enteropathogenic E.coli (EPEC) Not Detected (NotDetected); Enterotoxigenic E.coli (ETEC) Not Detected (NotDetected); Giardia lamblia PCR Not Detected (NotDetected); Norovirus GI/GII PCR Not Detected (NotDetected); Plesiomonas shigelloides PCR Not Detected (NotDetected); Rotavirus A PCR Not Detected (NotDetected); Salmonella PCR Not Detected (NotDetected); Sapovirus PCR Not Detected (NotDetected); Shiga-like Toxin E.coli (STEC) Not Detected (NotDetected); Shigella/Enteroinvasive E.coli Not Detected (NotDetected); Vibrio cholerae PCR Not Detected (NotDetected); Vibrio species PCR Not Detected (NotDetected); Yersinia enterocolitica PCR Not Detected (NotDetected)
[2021-09-26] MEDS: oxyCODONE HCL IR 5 MG TAB (IMMEDIATE RELEASE) PO PRN ×5 (04:05→21:53)
[2021-09-26 04:34] LABS: Cdiff Toxin A+B Positive Cdiff Toxin (Negative)
[2021-09-26 04:35] LABS: Cdiff Antigen Positive
[2021-09-26] MEDS: VANCOMYCIN HCL 125 MG/2.5ML SOLN PO SCH ×4 (06:16→23:56)
[2021-09-26] MEDS: RASPBERRY SYRUP 5 ML UDP PO SCH ×4 (06:16→23:56)
[2021-09-26] MEDS: PANTOprazole 40 MG TAB PO SCH (06:16)
[2021-09-26] MEDS: PIPERACILLIN/TAZOBACTAM 3.375 GM in DEXTROSE 5% 100 ML IV SCH (07:56)
[2021-09-26] MEDS: PANCREAZE (LIPASE 10,500U) CAP PO SCH ×3 (07:56→17:03)
[2021-09-26] MEDS: TAMSULOSIN HCL 0.4 MG CAP PO SCH (07:57)
[2021-09-26] MEDS: ROSUVASTATIN CALCIUM 20 MG TAB PO SCH (07:57)
[2021-09-26] MEDS: APIXABAN 5 MG TABLET PO SCH ×2 (07:57→21:53)
[2021-09-26 09:08] LABS: Hematocrit (blood only) 29.5 % (42-52); Hemoglobin 9.1 g/dL (14.0-18.0); Mean Corpuscular Hemoglobin 27.3 pg (25-34); Mean Corpuscular Hgb Conc 30.8 g/dL (32-36); Mean Corpuscular Volume 88.6 fL (80-100); Mean Platelet Volume 9.3 fL (7.4-10.4); Platelet Count 257 K/uL (130-400); RDW Coefficient of Variation 16.9 % (11.5-14.5); RDW Standard Deviation 54.6 fL (36.4-46.3); Red Blood Count 3.33 M/uL (4.7-6.1); White Blood Count 14.88 K/uL (4.8-10.8)
[2021-09-26 09:20] LABS: BUN Creatinine Ratio 8.8 (10-20); Calcium 9.1 mg/dl (8.5-10.1); Creatinine Clr Calc Pharmacy 74.9 ml/min; Est GFR (African American) 85.9 ml/min; Est GFR (Non-African American) 74.1 ml/min; Potassium 3.7 mmol/L (3.5-5.1)
[2021-09-26] MEDS: SODIUM CHLORIDE 0.9% 1000ML 1,000 ML IV SCH ×2 (09:24→19:57)
--- NOTE | 2021-09-26 18:35 | Hospitalist Progress Note ---
Date of Service September 26, 2021 Assessment & Plan (1) Proctocolitis: Plan: d/c zosyn stool positive for C diff. PO vancomycin started. This is his 2nd recurrence (3rd episode). He will likely need long vancomycin course, consider fecal transplant. Will ask for GI consult (2) Pancreatic cancer: (3) Liver metastases: Plan: Currently on chemotherapy, Gemzar and Abraxane, last treatment on 09/[address] Ramez Vega CT ABD/pelvis shows No significant change in the pancreatic body/neck mass with vascular encasement, This suggests adenocarcinoma. Slight increase in extensive hepatic metastatic disease. 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 Interval development of several small suspected splenic infarcts. 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 (4) Left leg DVT: Plan: Diagnosed 07/2021 On Eliquis (5) Hyperlipidemia: Plan: Continue statin (6) DVT prophylaxis: Plan: On Eliquis Admission and Anticipated Discharge Date Admission Date: September 25, 2021 Subjective Ongoing liquid diarrhea, Abdominal pain is improved This is his 3rd episode of C diff (2nd recurrence) this year Physical Exam Physical Exam: No acute distress, non toxic, pleasant and comfortable Respiratory: breathing comfortably on room air, no wheezing/rhonchi/rales Cardiovascular: regular rate and rhythm, no murmurs/rubs Gastrointestinal (Abdomen): +lower abdominal tenderness Musculoskeletal: soft, non tender Neurologic: awake, alert, spontaneously moving extremities Results & Data Results & Data ([facility]) Vital Signs (Past 12 Hours) Vital Signs Temp Pulse Resp BP Pulse Ox 09/26/21 14:02 36.5 C 92 H 17 134/77 100 09/26/21 08:06 36.9 C 80 17 119/74 99 Laboratory Results Short CBC 09/26/21 Range/Units 08:15 WBC 14.88 H (4.8-10.8) K/uL Hgb 9.1 L (14.0-18.0) g/dL Hct 29.5 L (42-52) % Plt Count 257 (130-400) K/uL BMP 09/26/21 08:15 Sodium 138 Potassium 3.7 Chloride 104 Carbon Dioxide 28 BUN 9 Creatinine 1.02 Glucose 94 Calcium 9.1 Medications Administered Current Inpatient Medications Acetaminophen (Acetaminophen 325 Mg Tab) 650 mg PO Q4H PRN PRN Reason: pain/fever Stop: 10/25/21 22:22 Lipase/Protease/Amylase (Pancreaze (Lipase 10,500u) Cap) 1 cap PO TIDM JAYSHREE Stop: 10/26/21 07:59 Last Admin: 09/26/21 17:03 Dose: 1 cap Documented by: Apixaban (Apixaban 5 Mg Tablet) 5 mg PO BID [facility] Stop: 10/25/21 22:22 Last Admin: 09/26/21 07:57 Dose: 5 mg Documented by: Sodium Chloride (Nss 1000ml) 1,000 mls @ 100 mls/hr IV .Q10H JAYSHREE Stop: 10/25/21 22:22 Last Admin: 09/26/21 09:24 Dose: 100 mls/hr Documented by: Ondansetron HCl (Ondansetron Inj 2 Mg/Ml 2 Ml Vial) 4 mg IV Q6H PRN PRN Reason: Nausea Stop: 10/25/21 22:22 Oxycodone HCl (Oxycodone Hcl Ir 5 Mg Tab (Immediate Release)) 5 - 10 mg PO Q4 PRN PRN Reason: pain (scale score 7-10) Stop: 10/09/21 22:22 Last Admin: 09/26/21 17:03 Dose: 10 mg Documented by: Pantoprazole Sodium (Pantoprazole 40 Mg Tab) 40 mg PO DAILYBB [facility] Stop: 10/26/21 06:29 Last Admin: 09/26/21 06:16 Dose: 40 mg Documented by: Raspberry (Raspberry Syrup 5 Ml Udp) 5 ml PO Q6 [facility] Stop: 10/06/21 05:59 Last Admin: 09/26/21 17:03 Dose: 5 ml Documented by: Rosuvastatin Calcium (Rosuvastatin Calcium 20 Mg Tab) 20 mg PO QAM [facility] Stop: 10/26/21 08:59 Last Admin: 09/26/21 07:57 Dose: 20 mg Documented by: Saccharomyces Boulardii (Saccharomyces Boulardii 250 Mg Cap) 250 mg PO BID [facility] Stop: 10/26/21 20:59 Tamsulosin HCl (Tamsulosin Hcl 0.4 Mg Cap) 0.4 mg PO DAILY [facility] Stop: 10/26/21 08:59 Last Admin: 09/26/21 07:57 Dose: 0.4 mg Documented by: Vancomycin HCl (Vancomycin Hcl 125 Mg/2.5ml Soln) 125 mg PO Q6 JAYSHREE Stop: 10/06/21 05:59 Last Admin: 09/26/21 17:03 Dose: 125 mg Documented by:
[2021-09-26] MEDS ORDERED: SACCHAROMYCES BOULARDII 250 MG CAP PO SCH (21:00)
[2021-09-26] MEDS: ADVANCED PROBIOTIC 1250 MG CAPSULE PO SCH (21:53)
[2021-09-27] MEDS: oxyCODONE HCL IR 5 MG TAB (IMMEDIATE RELEASE) PO PRN ×5 (02:33→21:31)
[2021-09-27] MEDS: SODIUM CHLORIDE 0.9% 1000ML 1,000 ML IV SCH ×2 (05:37→17:01)
[2021-09-27] MEDS: PANTOprazole 40 MG TAB PO SCH (06:00)
[2021-09-27] MEDS: VANCOMYCIN HCL 125 MG/2.5ML SOLN PO SCH ×4 (06:00→23:41)
[2021-09-27] MEDS: RASPBERRY SYRUP 5 ML UDP PO SCH ×4 (06:00→23:41)
[2021-09-27] MEDS: TAMSULOSIN HCL 0.4 MG CAP PO SCH (08:12)
[2021-09-27] MEDS: ROSUVASTATIN CALCIUM 20 MG TAB PO SCH (08:13)
[2021-09-27] MEDS: PANCREAZE (LIPASE 10,500U) CAP PO SCH ×3 (08:13→17:15)
[2021-09-27] MEDS: ADVANCED PROBIOTIC 1250 MG CAPSULE PO SCH ×2 (08:13→22:14)
[2021-09-27] MEDS: APIXABAN 5 MG TABLET PO SCH ×2 (08:14→21:26)
[2021-09-27 10:56] LABS: Hematocrit (blood only) 30.4 % (42-52); Hemoglobin 9.5 g/dL (14.0-18.0); Mean Corpuscular Hemoglobin 27.5 pg (25-34); Mean Corpuscular Hgb Conc 31.3 g/dL (32-36); Mean Corpuscular Volume 87.9 fL (80-100); Mean Platelet Volume 9.3 fL (7.4-10.4); Platelet Count 313 K/uL (130-400); RDW Standard Deviation 54.5 fL (36.4-46.3); Red Blood Count 3.46 M/uL (4.7-6.1); White Blood Count 19.66 K/uL (4.8-10.8)
[2021-09-27 11:22] LABS: BUN Creatinine Ratio 9.9 (10-20); Calcium 8.2 mg/dl (8.5-10.1); Est GFR (African American) 98.6 ml/min; Est GFR (Non-African American) 85.1 ml/min; Magnesium 1.6 mg/dl (1.7-2.4); Phosphorus 2.6 mg/dl (2.5-4.9)
--- NOTE | 2021-09-27 14:11 | Gastrointestinal Consultation ---
Date of Consultation September 27, 2021 Assessment & Plan (1) C. difficile colitis: 1. Add Dificid (while here in the hospital, on DC may need to discontinue due to cost). 2. Add Rifaximin (again while here in the hospiatl and on DC may need to discontinue due to cost). 3. Add cholestyramine BID 4. Pt would be a good candidate for fecal transplant but we are unable to provide as there is no safe source of the transplant material since COVID. 5. Recommend that on DC, if unable to get Dificid due to cost, that he do a long Vanco taper, then always take on Vanco 125mg daily while on chemo. 6. At this point no plans for colonoscopy or other IP GI procedure. Supervising Physician Co-Signing Physician Notes Attending attestation I have seen, examined this patient, and agree with the findings and above by our mid-level provider OSBALDO Machado, with the following additions: course of inpt dificid, can add xifaxin as well as cholestyramine if can not afford do pulse tapering dose of vanco, consider suppressive vanco at 125 mg daily while on chemo History of Present Illness Reason for Consultation: C-diff colitis Requesting Physician: Dr. Ferrer Attending Physician: Virginia Ferrer MD History of Present Illness Mr. Ochoa is a 70 yr old male pt of Dr. Segovia w a hx of metastatic pancreatic cancer, undergoing Chemo managed by Dr. Vega: Gemzar and Abraxane, last treatment on 09/14. He presented for LLQ pain. Stool + for C-diff and CT with proctocolitis. He has a hx of 2 prior C-diff infections. He was well after his most recent tx with Dificid in June until last when he developed diarrhea. He presented yesterday for LLQ pain and diarrhea. Since arrival yesterday, he has been tx with Vanco 125mg QID and passed many BMs (about one every 20minutes) through last night but today, BMs have slowed down to one every 2-3 hrs. He has not had blood in his BMs. No black BMs. No N/V. No fevers, though says he always has sweating with the diarrhea. He is awake, alert, oriented and hemodynamically stable. Allergies Allergy/AdvReac Type Severity Reaction Status Date / Time erythromycin base AdvReac Mild Gastrointestinal Verified 09/25/21 16:17 Upset Home Medications Medication Instructions Recorded Confirmed Type ascorbic acid (vitamin C) 1,000 mg 1 g PO QAM 01/10/21 09/25/21 History tablet (Vitamin C) cyanocobalamin (vitamin B-12) 500 500 mcg PO QAM 01/10/21 09/25/21 History mcg tablet multivitamin 1 tab PO QAM 01/10/21 09/25/21 History rosuvastatin 20 mg tablet (Crestor) 20 mg PO QAM 01/10/21 09/25/21 History cholecalciferol (vitamin D3) 25 25 mcg PO QAM 05/16/21 09/25/21 History mcg (1,000 unit) tablet (Vitamin D3) coenzyme Q10 100 mg capsule 100 mg PO QAM 05/16/21 09/25/21 History (CoQ-10) amoxicillin 500 mg capsule 2,000 mg PO ONCE PRN 06/13/21 09/25/21 History omeprazole 40 mg capsule,delayed 40 mg PO DAILYBB 06/13/21 09/25/21 History release docusate sodium 100 mg capsule 100 mg PO BID PRN 07/20/21 09/25/21 History (Colace) flaxseed oil 1,000 mg capsule 1,000 mg PO DAILY 07/20/21 09/25/21 History ondansetron HCl 8 mg tablet 8 mg PO Q8 PRN 07/20/21 09/25/21 History prochlorperazine maleate 10 mg 10 mg PO Q6 PRN 07/20/21 09/25/21 History tablet tamsulosin 0.4 mg capsule 0.4 mg PO DAILY 07/20/21 09/25/21 History Lactobacillus acidophilus 10 10,000 mmu cells PO DAILY #30 cap 07/24/21 09/25/21 Rx billion cell capsule (Probiotic) mlydhb-xdhcegiq-gmbrbbx 1 cap PO TIDM #90 cap 07/24/21 09/25/21 Rx 36,000-114,000-180,000 unit capsule,delay rel (Creon) apixaban 5 mg tablet (Eliquis) 5 mg PO BID 09/25/21 09/25/21 History aspirin 81 mg tablet,delayed 81 mg PO DAILY 09/25/21 09/25/21 History release lkfnqjh-ewrzsnsrx-dfge tablet 1 tab PO DAILY 09/25/21 09/25/21 History omega-3 fatty acids 1,000 mg 1,000 mg PO DAILY 09/25/21 09/25/21 History capsule oxycodone 5 mg tablet 5 - 10 mg PO Q4 PRN 09/25/21 09/25/21 History Patient History Medical History (Updated 09/27/21 @ 14:20 by OSBALDO Moreno) Arthritis of right knee BPH (benign prostatic hyperplasia) C. difficile colitis CKD (chronic kidney disease), stage III Hyperlipidemia Hypertension Left leg DVT Liver metastases Nausea and vomiting after administration of anesthetic agent Osteoarthritis Pancreatic cancer Umbilical hernia + present (no pain or current issues) Surgical History History of colonoscopy History of tooth extraction History of total right knee replacement (TKR) Hx of inguinal hernia repair Hx of prostate biopsy x2 (benign) Hx of umbilical hernia repair Hx of vasectomy Family History Mother Hypertension Heart disease Other No family history of adverse response to anesthesia Social History Smoking Status: Never smoker Second Hand Exposure: No; Do You Dip or Chew Tobacco: No; Tobacco Cessation Education Requested by Patient: No Hx Alcohol Use: Yes Alcohol type: beer Hx Substance Use: No Preferred Language: Cypriot Communication Ability: Effective 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 Beliefs That Will Affect Care: None marital status: Current Living Situation: Spouse Current Living Situation Comment: How many Children do You have: 3 Other Information That Helps Us Care for You: No Feels Safe at Home: Yes Safety Concerns: Feels Safe At This Time Assistive Devices: Cane Review of Systems Review of Systems: ROS: Gen: + sweats, but no weakness, fevers, weight loss Eyes: No eye redness, or pain, no recent vision changes Resp: No SOB, no cough Cardio: No palpitations/irregular beats, no chest pain GI: As per HPI, otherwise (-) : Denies pain on urination Skin: No jaundice, itching or new rashes Physical Exam Constitutional: well developed, + ill appearing, + thin and cooperative Eyes: PERRL, conjunctivae normal, anicteric sclerae ENMT: external ear and nose normal, oropharynx normal Neck: trachea midline, no thyromegaly Respiratory: normal respiratory effort, lungs clear to auscultation Cardiovascular: RRR, no murmur, no edema Gastrointestinal (Abdomen): Inspection/Auscultation: abdomen normal to inspection and normal bowel sounds; abdomen not distended Percussion/Palpation: + abdomen tender (mild, LLQ); no guarding, abdomen not rigid and no hepatosplenomegaly Skin: no rashes, warm and dry normal turgor Neurologic: PERRL, EOMI, accommodation nl, no face palsy, no dysarthria aw dorian; not confused Psychiatric: A+Ox3, euthymic affect Orientation: alert, oriented x 3 and cooperative Lymphatic: no cervical or axillary lymphadenopathy Results & Data ([facility]) Vital Signs (Past 12 Hours) Vital Signs Temp Pulse Resp BP Pulse Ox 09/27/21 07:18 36.8 C 85 19 116/74 99 Laboratory Results WBC 14, Hb9, hct 29, Plts 257, Na 138, K 3.7, BUN9, Cr 1.02, glucose 99 C-DIff (+) Diagnostic Findings CTAP w IV 09/25/21: 1. Findings consistent with proctocolitis which has increased in degree and extent since CT of July 20, 2021. This is likely infectious. 2. No significant change in the pancreatic body/neck mass with vascular encasement, as above. This suggests adenocarcinoma. 3. Slight increase in extensive hepatic metastatic disease. 4. 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 5. Interval development of several small suspected splenic infarcts.
[2021-09-27] MEDS: MAGNESIUM SULFATE / D5W 1 GM/100 ML BAG IV SCH ×2 (15:11→17:06)
[2021-09-27] MEDS: POTASSIUM CHLORIDE CRTAB 20 MEQ TABCR PO SCH ×2 (15:12→21:26)
--- NOTE | 2021-09-27 19:42 | Hospitalist Progress Note ---
Date of Service September 27, 2021 Assessment & Plan (1) Proctocolitis: Plan: d/c zosyn stool positive for C diff. PO vancomycin started 09/26, switched to Dificd today per GI (2) Pancreatic cancer: (3) Liver metastases: Plan: Currently on chemotherapy, Gemzar and Abraxane, last treatment on 09/[address] Ramez Vega CT ABD/pelvis shows No significant change in the pancreatic body/neck mass with vascular encasement, This suggests adenocarcinoma. Slight increase in extensive hepatic metastatic disease. 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 Interval development of several small suspected splenic infarcts. 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 (4) Left leg DVT: Plan: Diagnosed 07/2021 On Eliquis (5) Hyperlipidemia: Plan: Continue statin (6) DVT prophylaxis: Plan: On Eliquis Admission and Anticipated Discharge Date Admission Date: September 25, 2021 Subjective Patient still with diarrhea, frequency seems to be less than yesterday Abdominal pain improved No nausea/vomiting Physical Exam Physical Exam: Appears well, no acute distress, non toxic Respiratory: Breathing comfortably on room air, no wheezing/rhonchi Cardiovascular: Regular rate and rhythm, no murmurs/rubs/gallops Gastrointestinal (Abdomen): Soft, non tender Musculoskeletal: No edema Neurologic: Awake, alert, spontaneously moving extremities Results & Data Results & Data ([facility]) Vital Signs (Past 12 Hours) Vital Signs Temp Pulse Resp BP Pulse Ox 09/27/21 16:01 36.8 C 93 H 18 118/77 91 Laboratory Results Short CBC 09/27/21 Range/Units 10:35 WBC 19.66 H (4.8-10.8) K/uL Hgb 9.5 L (14.0-18.0) g/dL Hct 30.4 L (42-52) % Plt Count 313 (130-400) K/uL BMP 09/27/21 10:35 Sodium 138 Potassium 3.0 L Chloride 108 H Carbon Dioxide 22 BUN 9 Creatinine 0.91 Glucose 107 H Calcium 8.2 L Medications Administered Current Inpatient Medications Acetaminophen (Acetaminophen 325 Mg Tab) 650 mg PO Q4H PRN PRN Reason: pain/fever Stop: 10/25/21 22:22 Lipase/Protease/Amylase (Pancreaze (Lipase 10,500u) Cap) 1 cap PO TIDM [facility] Stop: 10/26/21 07:59 Last Admin: 09/27/21 17:15 Dose: 1 cap Documented by: Apixaban (Apixaban 5 Mg Tablet) 5 mg PO BID [facility] Stop: 10/25/21 22:22 Last Admin: 09/27/21 08:14 Dose: 5 mg Documented by: Cholestyramine Resin (Cholestyramine Light 4 Gm Pkt) 4 gm PO BID@1000,2200 [facility] Stop: 10/27/21 21:59 Fidaxomicin (Fidaxomicin 200 Mg Tab) 200 mg PO BID [facility] Stop: 10/07/21 20:59 Finasteride (Finasteride 5 Mg Tab) 5 mg PO QAM [facility] Stop: 10/28/21 08:59 Sodium Chloride (Nss 1000ml) 1,000 mls @ 100 mls/hr IV .Q10H [facility] Stop: 10/25/21 22:22 Last Admin: 09/27/21 17:01 Dose: 100 mls/hr Documented by: Lactobacillus Acidophilus (Advanced Probiotic 1250 Mg Capsule) 2 cap PO BID [facility] Stop: 10/26/21 20:59 Last Admin: 09/27/21 08:13 Dose: 2 cap Documented by: Ondansetron HCl (Ondansetron Inj 2 Mg/Ml 2 Ml Vial) 4 mg IV Q6H PRN PRN Reason: Nausea Stop: 10/25/21 22:22 Oxycodone HCl (Oxycodone Hcl Ir 5 Mg Tab (Immediate Release)) 5 - 10 mg PO Q4 PRN PRN Reason: pain (scale score 7-10) Stop: 10/09/21 22:22 Last Admin: 09/27/21 16:14 Dose: 10 mg Documented by: Pantoprazole Sodium (Pantoprazole 40 Mg Tab) 40 mg PO DAILYBB [facility] Stop: 10/26/21 06:29 Last Admin: 09/27/21 06:00 Dose: 40 mg Documented by: Potassium Chloride (Potassium Chloride Crtab 20 Meq Tabcr) 20 meq PO TID [facility] Stop: 09/29/21 09:01 Last Admin: 09/27/21 15:12 Dose: 20 meq Documented by: Raspberry (Raspberry Syrup 5 Ml Udp) 5 ml PO Q6 [facility] Stop: 10/06/21 05:59 Last Admin: 09/27/21 17:15 Dose: 5 ml Documented by: Rifaximin (Rifaximin 550 Mg Tablet) 550 mg PO BID [facility] Stop: 10/27/21 20:59 Rosuvastatin Calcium (Rosuvastatin Calcium 20 Mg Tab) 20 mg PO QAM [facility] Stop: 10/26/21 08:59 Last Admin: 09/27/21 08:13 Dose: 20 mg Documented by: Tamsulosin HCl (Tamsulosin Hcl 0.4 Mg Cap) 0.4 mg PO DAILY [facility] Stop: 10/26/21 08:59 Last Admin: 09/27/21 08:12 Dose: 0.4 mg Documented by: Vancomycin HCl (Vancomycin Hcl 125 Mg/2.5ml Soln) 125 mg PO Q6 [facility] Stop: 10/06/21 05:59 Last Admin: 09/27/21 17:17 Dose: 125 mg Documented by:
[2021-09-27] MEDS: rifAXIMin 550 MG TABLET PO SCH (21:26)
[2021-09-27] MEDS: FIDAXOMICIN 200 MG TAB PO SCH (21:31)
[2021-09-27] MEDS: CHOLESTYRAMINE LIGHT 4 GM PKT PO SCH (22:36)
[2021-09-28] MEDS: SODIUM CHLORIDE 0.9% 1000ML 1,000 ML IV SCH ×2 (02:45→11:46)
[2021-09-28] MEDS: oxyCODONE HCL IR 5 MG TAB (IMMEDIATE RELEASE) PO PRN ×5 (02:45→21:37)
[2021-09-28 06:19] LABS: Hematocrit (blood only) 27.3 % (42-52); Hemoglobin 8.5 g/dL (14.0-18.0); Mean Corpuscular Hemoglobin 27.9 pg (25-34); Mean Corpuscular Hgb Conc 31.1 g/dL (32-36); Mean Corpuscular Volume 89.5 fL (80-100); Platelet Count 285 K/uL (130-400); RDW Coefficient of Variation 16.9 % (11.5-14.5); RDW Standard Deviation 55.1 fL (36.4-46.3); Red Blood Count 3.05 M/uL (4.7-6.1); White Blood Count 12.44 K/uL (4.8-10.8)
[2021-09-28] MEDS: PANTOprazole 40 MG TAB PO SCH (06:41)
[2021-09-28] MEDS: VANCOMYCIN HCL 125 MG/2.5ML SOLN PO SCH ×3 (06:41→18:00)
[2021-09-28] MEDS: RASPBERRY SYRUP 5 ML UDP PO SCH ×3 (06:41→18:00)
[2021-09-28 06:46] LABS: BUN Creatinine Ratio 9.9 (10-20); Calcium 8.3 mg/dl (8.5-10.1); Est GFR (African American) 98.6 ml/min; Est GFR (Non-African American) 85.1 ml/min; Magnesium 2.1 mg/dl (1.7-2.4); Phosphorus 2.5 mg/dl (2.5-4.9); Potassium 3.5 mmol/L (3.5-5.1)
[2021-09-28] MEDS: ADVANCED PROBIOTIC 1250 MG CAPSULE PO SCH ×2 (08:58→18:01)
[2021-09-28] MEDS: ROSUVASTATIN CALCIUM 20 MG TAB PO SCH (08:59)
[2021-09-28] MEDS: TAMSULOSIN HCL 0.4 MG CAP PO SCH (08:59)
[2021-09-28] MEDS: APIXABAN 5 MG TABLET PO SCH ×2 (08:59→21:32)
[2021-09-28] MEDS: PANCREAZE (LIPASE 10,500U) CAP PO SCH ×3 (09:00→18:02)
[2021-09-28] MEDS: FINASTERIDE 5 MG TAB PO SCH (09:00)
[2021-09-28] MEDS: rifAXIMin 550 MG TABLET PO SCH ×2 (09:00→21:31)
[2021-09-28] MEDS: POTASSIUM CHLORIDE CRTAB 20 MEQ TABCR PO SCH ×3 (09:04→21:32)
[2021-09-28] MEDS: FIDAXOMICIN 200 MG TAB PO SCH ×2 (09:04→21:36)
[2021-09-28] MEDS: CHOLESTYRAMINE LIGHT 4 GM PKT PO SCH ×2 (10:07→22:37)
--- NOTE | 2021-09-28 12:50 | Gastroenterology Progress Note ---
Date of Service September 28, 2021 Assessment & Plan (1) C. difficile colitis: Plan: 1. Continue Dificid, Rifaximin, cholestyramine, low fiber, low lactose diet. 2. Unable to provide fecal transplant (no availability of material since COVID0. 3. Pt doesn't believe he will be able to afford Dificid or Rifaximin on discharge. Would use during this admission and if condition continues to improve, then would consider discontinuing the dificid and rifaximin a day prior to discharge to select at [place] that will be stable w/o these meds. 5. At this point no plans for colonoscopy or other IP GI procedure. Admission and Anticipated Discharge Date Admission Date: September 25, 2021 Supervising Physician Co-Signing Physician Notes Attending attestation I have seen, examined this patient, and agree with the findings and above by our mid-level provider OSBALDO Machado, with the following additions: Patient improved, less BM's and stool is more solidified. Subjective Patient still with diarrhea, decreasing from yesterday, now a liquid BM with pie simeon of formed BM about every 2 hrs. No LLQ pain, just cramping and urgency prior to defecation and relieved after. Some nausea, no vomiting. Very poor appetite. Review of Systems Review of Systems: ROS: Gen: + sweats, but no weakness, fevers, weight loss Eyes: No eye redness, or pain, no recent vision changes Resp: No SOB, no cough Cardio: No palpitations/irregular beats, no chest pain GI: As per HPI, otherwise (-) : Denies pain on urination Skin: No jaundice, itching or new rashes Physical Exam Constitutional: well developed, + ill appearing, + thin and cooperative Eyes: PERRL, conjunctivae normal, anicteric sclerae ENMT: external ear and nose normal, oropharynx normal Neck: trachea midline, no thyromegaly Respiratory: normal respiratory effort, lungs clear to auscultation Cardiovascular: RRR, no murmur, no edema Gastrointestinal (Abdomen): Inspection/Auscultation: abdomen normal to inspection, normal bowel sounds and + hyperactive bowel sounds; abdomen not distended Percussion/Palpation: abdomen nontender (mild, LLQ), no guarding, abdomen not rigid and no hepatosplenomegaly Skin: no rashes, warm and dry normal turgor Neurologic: PERRL, EOMI, accommodation nl, no face palsy, no dysarthria awake; not confused Psychiatric: A+Ox3, euthymic affect Orientation: alert, oriented x 3 and cooperative Lymphatic: no cervical or axillary lymphadenopathy Results & Data ([facility]) Vital Signs (Past 12 Hours) Vital Signs Temp Pulse Resp BP Pulse Ox 09/28/21 07:10 36.3 C L 81 16 121/76 100 Diagnostic Findings CTAP w IV on 09/27/21: 1. Findings consistent with proctocolitis which has increased in degree and extent since CT of July 20, 2021. This is likely infectious. 2. No significant change in the pancreatic body/neck mass with vascular encasement, as above. This suggests adenocarcinoma. 3. Slight increase in extensive hepatic metastatic disease. 4. 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 5. Interval development of several small suspected splenic infarcts.
--- NOTE | 2021-09-28 14:45 | Hospitalist Progress Note ---
Date of Service September 28, 2021 Assessment & Plan (1) Proctocolitis: Plan: d/c zosyn stool positive for C diff. PO vancomycin started 09/26, switched to Dificid 09/27. Improving diarrhea, leukocytosis. Patient reports he is in "donut hole" and cost of Dificid was about $80 a pill last time. Despite the cost, depending on length of remaining treatment course, he may want to return home to be around his family rather than stay here. We will continue with inpatient treatment pending resolution of symptoms and then readdress. (2) Pancreatic cancer: (3) Liver metastases: Plan: Currently on chemotherapy, Gemzar and Abraxane, last treatment on 09/[address] Ramez Vega CT ABD/pelvis shows No significant change in the pancreatic body/neck mass with vascular encasement, This suggests adenocarcinoma. Slight increase in extensive hepatic metastatic disease. 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 Interval development of several small suspected splenic infarcts. 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 (4) Left leg DVT: Plan: Diagnosed 07/2021 On Eliquis (5) Hyperlipidemia: Plan: Continue statin (6) DVT prophylaxis: Plan: On Eliquis Plan: Disposition: return home when diarrhea resolves Admission and Anticipated Discharge Date Admission Date: September 25, 2021 Subjective Tearful today, feels overall uncomfortable Abdominal pain slightly improved Physical Exam Physical Exam: Tearful, no acute distress Respiratory: breathing comfortably on room air, no wheezing/rhonchi Cardiovascular: regular rate and rhythm, no murmurs/rubs/gallops Gastrointestinal (Abdomen): +hyperactive BS, some tenderness to palpation but no rebound or guarding Musculoskeletal: bilateral hands appear swollen, shiny skin Neurologic: awake, alert, spontaneously moving extremities Results & Data Results & Data ([facility]) Vital Signs (Past 12 Hours) Vital Signs Temp Pulse Resp BP Pulse Ox 09/28/21 14:00 36.8 C 89 16 132/76 96 09/28/21 07:10 36.3 C L 81 16 121/76 100 Laboratory Results Short CBC 09/28/21 Range/Units 05:46 WBC 12.44 H (4.8-10.8) K/uL Hgb 8.5 L (14.0-18.0) g/dL Hct 27.3 L (42-52) % Plt Count 285 (130-400) K/uL [facility] 09/28/21 05:46 Sodium 137 Potassium 3.5 Chloride 108 H Carbon Dioxide 25 BUN 9 Creatinine 0.91 Glucose 88 Calcium 8.3 L Medications Administered Current Inpatient Medications Acetaminophen (Acetaminophen 325 Mg Tab) 650 mg PO Q4H PRN PRN Reason: pain/fever Stop: 10/25/21 22:22 Lipase/Protease/Amylase (Pancreaze (Lipase 10,500u) Cap) 1 cap PO TIDM [facility] Stop: 10/26/21 07:59 Last Admin: 09/28/21 14:03 Dose: 1 cap Documented by: Apixaban (Apixaban 5 Mg Tablet) 5 mg PO BID [facility] Stop: 10/25/21 22:22 Last Admin: 09/28/21 08:59 Dose: 5 mg Documented by: Cholestyramine Resin (Cholestyramine Light 4 Gm Pkt) 4 gm PO BID@1000,2200 [facility] Stop: 10/27/21 21:59 Last Admin: 09/28/21 10:07 Dose: 4 gm Documented by: Fidaxomicin (Fidaxomicin 200 Mg Tab) 200 mg PO BID [facility] Stop: 10/07/21 20:59 Last Admin: 09/28/21 09:04 Dose: 200 mg Documented by: Finasteride (Finasteride 5 Mg Tab) 5 mg PO QAM [facility] Stop: 10/28/21 08:59 Last Admin: 09/28/21 09:00 Dose: 5 mg Documented by: Lactobacillus Acidophilus (Advanced Probiotic 1250 Mg Capsule) 2 cap PO BIDM [facility] Stop: 10/28/21 07:59 Last Admin: 09/28/21 08:58 Dose: 2 cap Documented by: Ondansetron HCl (Ondansetron Inj 2 Mg/Ml 2 Ml Vial) 4 mg IV Q6H PRN PRN Reason: Nausea Stop: 10/25/21 22:22 Oxycodone HCl (Oxycodone Hcl Ir 5 Mg Tab (Immediate Release)) 5 - 10 mg PO Q4 PRN PRN Reason: pain (scale score 7-10) Stop: 10/09/21 22:22 Last Admin: 09/28/21 11:48 Dose: 5 mg Documented by: Pantoprazole Sodium (Pantoprazole 40 Mg Tab) 40 mg PO DAILYBB [facility] Stop: 10/26/21 06:29 Last Admin: 09/28/21 06:41 Dose: 40 mg Documented by: Potassium Chloride (Potassium Chloride Crtab 20 Meq Tabcr) 20 meq PO TID [facility] Stop: 09/29/21 09:01 Last Admin: 09/28/21 09:04 Dose: 20 meq Documented by: Raspberry (Raspberry Syrup 5 Ml Udp) 5 ml PO Q6 [facility] Stop: 10/06/21 05:59 Last Admin: 09/28/21 14:03 Dose: 5 ml Documented by: Rifaximin (Rifaximin 550 Mg Tablet) 550 mg PO BID [facility] Stop: 10/27/21 20:59 Last Admin: 09/28/21 09:00 Dose: 550 mg Documented by: Rosuvastatin Calcium (Rosuvastatin Calcium 20 Mg Tab) 20 mg PO QAM [facility] Stop: 10/26/21 08:59 Last Admin: 09/28/21 08:59 Dose: 20 mg Documented by: Tamsulosin HCl (Tamsulosin Hcl 0.4 Mg Cap) 0.4 mg PO DAILY [facility] Stop: 10/26/21 08:59 Last Admin: 09/28/21 08:59 Dose: 0.4 mg Documented by: Vancomycin HCl (Vancomycin Hcl 125 Mg/2.5ml Soln) 125 mg PO Q6 [facility] Stop: 10/06/21 05:59 Last Admin: 09/28/21 14:03 Dose: 125 mg Documented by:
[2021-09-29] MEDS: RASPBERRY SYRUP 5 ML UDP PO SCH ×4 (01:02→17:28)
[2021-09-29] MEDS: VANCOMYCIN HCL 125 MG/2.5ML SOLN PO SCH ×4 (01:02→17:27)
[2021-09-29] MEDS: oxyCODONE HCL IR 5 MG TAB (IMMEDIATE RELEASE) PO PRN ×4 (03:57→21:11)
[2021-09-29] MEDS: PANTOprazole 40 MG TAB PO SCH (06:42)
[2021-09-29 06:58] LABS: Hematocrit (blood only) 28.8 % (42-52); Mean Corpuscular Hemoglobin 27.3 pg (25-34); Mean Corpuscular Hgb Conc 31.3 g/dL (32-36); Mean Corpuscular Volume 87.3 fL (80-100); Mean Platelet Volume 8.6 fL (7.4-10.4); Platelet Count 302 K/uL (130-400); RDW Coefficient of Variation 16.9 % (11.5-14.5); RDW Standard Deviation 54.2 fL (36.4-46.3); White Blood Count 9.93 K/uL (4.8-10.8)
[2021-09-29 07:53] LABS: Calcium 8.2 mg/dl (8.5-10.1); Magnesium 1.9 mg/dl (1.7-2.4); Potassium 3.6 mmol/L (3.5-5.1)
[2021-09-29 07:59] LABS: Creatinine Clr Calc Pharmacy 92.1 ml/min; Est GFR (African American) 103.3 ml/min; Est GFR (Non-African American) 89.2 ml/min; Phosphorus 2.3 mg/dl (2.5-4.9)
[2021-09-29] MEDS: POTASSIUM CHLORIDE CRTAB 20 MEQ TABCR PO SCH (08:40)
[2021-09-29] MEDS: APIXABAN 5 MG TABLET PO SCH ×2 (08:40→21:10)
[2021-09-29] MEDS: TAMSULOSIN HCL 0.4 MG CAP PO SCH (08:40)
[2021-09-29] MEDS: ROSUVASTATIN CALCIUM 20 MG TAB PO SCH (08:40)
[2021-09-29] MEDS: rifAXIMin 550 MG TABLET PO SCH ×2 (08:40→21:10)
[2021-09-29] MEDS: ADVANCED PROBIOTIC 1250 MG CAPSULE PO SCH ×2 (08:40→17:21)
[2021-09-29] MEDS: FINASTERIDE 5 MG TAB PO SCH (08:41)
[2021-09-29] MEDS: PANCREAZE (LIPASE 10,500U) CAP PO SCH ×3 (08:41→17:27)
[2021-09-29] MEDS: FIDAXOMICIN 200 MG TAB PO SCH ×2 (08:56→21:11)
[2021-09-29] MEDS: POT PHOSPHATE MONOBASIC W/ SOD TAB PO SCH ×4 (10:23→21:11)
[2021-09-29] MEDS: CHOLESTYRAMINE LIGHT 4 GM PKT PO SCH ×2 (10:24→22:30)
--- NOTE | 2021-09-29 13:27 | Hospitalist Progress Note ---
Date of Service September 29, 2021 Assessment & Plan (1) Proctocolitis: Plan: stool positive for C diff. PO vancomycin started 09/26, switched to Dificid 09/27. Improving diarrhea, leukocytosis. Patient reports he is in "donut hole" and cost of Dificid was about $80 a pill last time. Despite the cost, depending on length of remaining treatment course, he may want to return home to be around his family rather than stay here. We will continue with inpatient treatment pe nding resolution of symptoms and then re-address. (2) Pancreatic cancer: (3) Liver metastases: Plan: Currently on chemotherapy, Gemzar and Abraxane, last treatment on 09/[address] Ramez Vega CT ABD/pelvis shows No significant change in the pancreatic body/neck mass with vascular encasement, This suggests adenocarcinoma. Slight increase in extensive hepatic metastatic disease. 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 Interval development of several small suspected splenic infarcts. 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 (4) Left leg DVT: Plan: Diagnosed 07/2021 On Eliquis (5) Hyperlipidemia: Plan: Continue statin (6) DVT prophylaxis: Plan: On Eliquis Plan: Disposition: return home when diarrhea resolves Admission and Anticipated Discharge Date Admission Date: September 25, 2021 Subjective Stools more formed, less frequent diarrhea Hands are less swollen Physical Exam Physical Exam: Pleasant, no acute distress, non toxic Respiratory: Breathing comfortably on room air, no wheezing/rhonchi/rales Cardiovascular: regular rate and rhythm, no murmurs/rubs/gallops Gastrointestinal (Abdomen): +hyperactive, some tenderness to palpation Musculoskeletal: bilateral hand swelling improved, no leg swelling Neurologic: awake, alert, spontaneously moving extremities Results & Data Results & Data ([facility]) Vital Signs (Past 12 Hours) Vital Signs Temp Pulse Resp BP Pulse Ox 09/29/21 07:46 36.4 C L 75 16 148/75 H 100 Laboratory Results Short CBC 09/29/21 Range/Units 06:31 WBC 9.93 (4.8-10.8) K/uL Hgb 9.0 L (14.0-18.0) g/dL Hct 28.8 L (42-52) % Plt Count 302 (130-400) K/uL [facility] 09/29/21 06:31 Sodium 139 Potassium 3.6 Chloride 110 H Carbon Dioxide 23 BUN 5 L Creatinine 0.83 Glucose 94 Calcium 8.2 L Medications Administered Current Inpatient Medications Acetaminophen (Acetaminophen 325 Mg Tab) 650 mg PO Q4H PRN PRN Reason: pain/fever Stop: 10/25/21 22:22 Lipase/Protease/Amylase (Pancreaze (Lipase 10,500u) Cap) 1 cap PO TIDM [facility] Stop: 10/26/21 07:59 Last Admin: 09/29/21 12:41 Dose: 1 cap Documented by: Apixaban (Apixaban 5 Mg Tablet) 5 mg PO BID [facility] Stop: 10/25/21 22:22 Last Admin: 09/29/21 08:40 Dose: 5 mg Documented by: Cholestyramine Resin (Cholestyramine Light 4 Gm Pkt) 4 gm PO BID@1000,2200 [facility] Stop: 10/27/21 21:59 Last Admin: 09/29/21 10:24 Dose: 4 gm Documented by: Fidaxomicin (Fidaxomicin 200 Mg Tab) 200 mg PO BID [facility] Stop: 10/07/21 20:59 Last Admin: 09/29/21 08:56 Dose: 200 mg Documented by: Finasteride (Finasteride 5 Mg Tab) 5 mg PO QAM [facility] Stop: 10/28/21 08:59 Last Admin: 09/29/21 08:41 Dose: 5 mg Documented by: Lactobacillus Acidophilus (Advanced Probiotic 1250 Mg Capsule) 2 cap PO BIDM [facility] Stop: 10/28/21 07:59 Last Admin: 09/29/21 08:40 Dose: 2 cap Documented by: Ondansetron HCl (Ondansetron Inj 2 Mg/Ml 2 Ml Vial) 4 mg IV Q6H PRN PRN Reason: Nausea Stop: 10/25/21 22:22 Oxycodone HCl (Oxycodone Hcl Ir 5 Mg Tab (Immediate Release)) 5 - 10 mg PO Q4 PRN PRN Reason: pain (scale score 7-10) Stop: 10/09/21 22:22 Last Admin: 09/29/21 08:56 Dose: 10 mg Documented by: Pantoprazole Sodium (Pantoprazole 40 Mg Tab) 40 mg PO DAILYBB [facility] Stop: 10/26/21 06:29 Last Admin: 09/29/21 06:42 Dose: 40 mg Documented by: Potassium Phosphate (Pot Phosphate Monobasic W/ Sod Tab) 1 tab PO QID [facility] Stop: 09/30/21 08:59 Last Admin: 09/29/21 12:41 Dose: 1 tab Documented by: Raspberry (Raspberry Syrup 5 Ml Udp) 5 ml PO Q6 [facility] Stop: 10/06/21 05:59 Last Admin: 09/29/21 12:41 Dose: 5 ml Documented by: Rifaximin (Rifaximin 550 Mg Tablet) 550 mg PO BID [facility] Stop: 10/27/21 20:59 Last Admin: 09/29/21 08:40 Dose: 550 mg Documented by: Rosuvastatin Calcium (Rosuvastatin Calcium 20 Mg Tab) 20 mg PO QAM [facility] Stop: 10/26/21 08:59 Last Admin: 09/29/21 08:40 Dose: 20 mg Documented by: Tamsulosin HCl (Tamsulosin Hcl 0.4 Mg Cap) 0.4 mg PO DAILY [facility] Stop: 10/26/21 08:59 Last Admin: 09/29/21 08:40 Dose: 0.4 mg Documented by: Vancomycin HCl (Vancomycin Hcl 125 Mg/2.5ml Soln) 125 mg PO Q6 [facility] Stop: 10/06/21 05:59 Last Admin: 09/29/21 12:41 Dose: 125 mg Documented by:
[2021-09-30] MEDS: VANCOMYCIN HCL 125 MG/2.5ML SOLN PO SCH ×4 (00:30→17:32)
[2021-09-30] MEDS: RASPBERRY SYRUP 5 ML UDP PO SCH ×4 (00:30→17:32)
[2021-09-30] MEDS: oxyCODONE HCL IR 5 MG TAB (IMMEDIATE RELEASE) PO PRN ×5 (00:33→19:44)
[2021-09-30] MEDS: PANTOprazole 40 MG TAB PO SCH (05:33)
[2021-09-30 06:45] LABS: Hematocrit (blood only) 28.8 % (42-52); Mean Corpuscular Hemoglobin 27.3 pg (25-34); Mean Corpuscular Hgb Conc 31.3 g/dL (32-36); Mean Corpuscular Volume 87.3 fL (80-100); Mean Platelet Volume 8.9 fL (7.4-10.4); Platelet Count 339 K/uL (130-400); RDW Coefficient of Variation 16.9 % (11.5-14.5); RDW Standard Deviation 53.7 fL (36.4-46.3); White Blood Count 9.58 K/uL (4.8-10.8)
[2021-09-30 06:56] LABS: BUN Creatinine Ratio 4.5 (10-20); Calcium 8.5 mg/dl (8.5-10.1); Creatinine Clr Calc Pharmacy 86.8 ml/min; Est GFR (African American) 100.9 ml/min; Magnesium 1.8 mg/dl (1.7-2.4); Phosphorus 3.1 mg/dl (2.5-4.9); Potassium 3.8 mmol/L (3.5-5.1)
[2021-09-30] MEDS: FIDAXOMICIN 200 MG TAB PO SCH ×2 (08:52→19:57)
[2021-09-30] MEDS: FINASTERIDE 5 MG TAB PO SCH (08:52)
[2021-09-30] MEDS: APIXABAN 5 MG TABLET PO SCH ×2 (08:52→19:45)
[2021-09-30] MEDS: TAMSULOSIN HCL 0.4 MG CAP PO SCH (08:52)
[2021-09-30] MEDS: rifAXIMin 550 MG TABLET PO SCH ×2 (08:52→19:45)
[2021-09-30] MEDS: PANCREAZE (LIPASE 10,500U) CAP PO SCH ×3 (08:53→17:27)
[2021-09-30] MEDS: ROSUVASTATIN CALCIUM 20 MG TAB PO SCH (08:54)
[2021-09-30] MEDS: ADVANCED PROBIOTIC 1250 MG CAPSULE PO SCH ×2 (08:54→17:27)
[2021-09-30] MEDS: CHOLESTYRAMINE LIGHT 4 GM PKT PO SCH ×2 (11:21→21:38)
--- NOTE | 2021-09-30 16:48 | Hospitalist Progress Note ---
Date of Service September 30, 2021 Assessment & Plan (1) Proctocolitis: Plan: stool positive for C diff. PO vancomycin started 09/26, switched to Dificid 09/27. Improving diarrhea, leukocytosis. Patient reports he is in "donut hole" and cost of Dificid was about $80 a pill last time. Despite the cost, depending on length of remaining treatment course, he may want to return home to be around his family rather than stay here. We will continue with inpatient treatment pe nding resolution of symptoms and then re-address. (2) Pancreatic cancer: (3) Liver metastases: Plan: Currently on chemotherapy, Gemzar and Abraxane, last treatment on 09/[address] Ramez Vega CT ABD/pelvis shows No significant change in the pancreatic body/neck mass with vascular encasement, This suggests adenocarcinoma. Slight increase in extensive hepatic metastatic disease. 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 Interval development of several small suspected splenic infarcts. 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 Likely in next 1-2 weeks Admission and Anticipated Discharge Date Admission Date: September 25, 2021 Subjective Stools are now semi-formed yesterday had about 3-4 BM Physical Exam Physical Exam: Appears well, no acute distress, non toxic Respiratory: breathing comfortably on room air, no wheezing/rhonchi/rales Cardiovascular: regular rate and rhythm, no murmurs/rubs/gallops Gastrointestinal (Abdomen): soft, non tender Musculoskeletal: improved hand swelling, no lower extremity swelling Neurologic: awake, alert, spontaneously moving extremities Results & Data Results & Data ([facility]) Vital Signs (Past 12 Hours) Vital Signs Temp Pulse Resp BP Pulse Ox 09/30/21 14:29 36.8 C 75 16 126/77 100 09/30/21 07:03 36.7 C 65 16 120/75 98 Laboratory Results Short CBC 09/30/21 Range/Units 06:02 WBC 9.58 (4.8-10.8) K/uL Hgb 9.0 L (14.0-18.0) g/dL Hct 28.8 L (42-52) % Plt Count 339 (130-400) K/uL BMP 09/30/21 06:02 Sodium 141 Potassium 3.8 Chloride 110 H Carbon Dioxide 24 BUN 4 L Creatinine 0.88 Glucose 89 Calcium 8.5 Medications Administered Current Inpatient Medications Acetaminophen (Acetaminophen 325 Mg Tab) 650 mg PO Q4H PRN PRN Reason: pain/fever Stop: 10/25/21 22:22 Lipase/Protease/Amylase (Pancreaze (Lipase 10,500u) Cap) 1 cap PO TIDM [facility] Stop: 10/26/21 07:59 Last Admin: 09/30/21 15:04 Dose: Not Given Documented by: Apixaban (Apixaban 5 Mg Tablet) 5 mg PO BID [facility] Stop: 10/25/21 22:22 Last Admin: 09/30/21 08:52 Dose: 5 mg Documented by: Cholestyramine Resin (Cholestyramine Light 4 Gm Pkt) 4 gm PO BID@1000,2200 [facility] Stop: 10/27/21 21:59 Last Admin: 09/30/21 11:21 Dose: 4 gm Documented by: Fidaxomicin (Fidaxomicin 200 Mg Tab) 200 mg PO BID [facility] Stop: 10/07/21 20:59 Last Admin: 09/30/21 08:52 Dose: 200 mg Documented by: Finasteride (Finasteride 5 Mg Tab) 5 mg PO QAM [facility] Stop: 10/28/21 08:59 Last Admin: 09/30/21 08:52 Dose: 5 mg Documented by: Lactobacillus Acidophilus (Advanced Probiotic 1250 Mg Capsule) 2 cap PO BIDM [facility] Stop: 10/28/21 07:59 Last Admin: 09/30/21 08:54 Dose: 2 cap Documented by: Ondansetron HCl (Ondansetron Inj 2 Mg/Ml 2 Ml Vial) 4 mg IV Q6H PRN PRN Reason: Nausea Stop: 10/25/21 22:22 Oxycodone HCl (Oxycodone Hcl Ir 5 Mg Tab (Immediate Release)) 5 - 10 mg PO Q4 PRN PRN Reason: pain (scale score 7-10) Stop: 10/09/21 22:22 Last Admin: 09/30/21 15:21 Dose: 10 mg Documented by: Pantoprazole Sodium (Pantoprazole 40 Mg Tab) 40 mg PO DAILYBB [facility] Stop: 10/26/21 06:29 Last Admin: 09/30/21 05:33 Dose: 40 mg Documented by: Raspberry (Raspberry Syrup 5 Ml Udp) 5 ml PO Q6 [facility] Stop: 10/06/21 05:59 Last Admin: 09/30/21 12:40 Dose: 5 ml Documented by: Rifaximin (Rifaximin 550 Mg Tablet) 550 mg PO BID [facility] Stop: 10/27/21 20:59 Last Admin: 09/30/21 08:52 Dose: 550 mg Documented by: Rosuvastatin Calcium (Rosuvastatin Calcium 20 Mg Tab) 20 mg PO QAM [facility] Stop: 10/26/21 08:59 Last Admin: 09/30/21 08:54 Dose: 20 mg Documented by: Tamsulosin HCl (Tamsulosin Hcl 0.4 Mg Cap) 0.4 mg PO DAILY [facility] Stop: 10/26/21 08:59 Last Admin: 09/30/21 08:52 Dose: 0.4 mg Documented by: Vancomycin HCl (Vancomycin Hcl 125 Mg/2.5ml Soln) 125 mg PO Q6 [facility] Stop: 10/06/21 05:59 Last Admin: 09/30/21 12:39 Dose: 125 mg Documented by:
[2021-10-01] MEDS: VANCOMYCIN HCL 125 MG/2.5ML SOLN PO SCH ×3 (00:22→13:43)
[2021-10-01] MEDS: RASPBERRY SYRUP 5 ML UDP PO SCH ×3 (00:22→13:43)
[2021-10-01] MEDS: oxyCODONE HCL IR 5 MG TAB (IMMEDIATE RELEASE) PO PRN ×6 (00:22→23:03)
[2021-10-01 06:43] LABS: Hematocrit (blood only) 28.7 % (42-52); Hemoglobin 8.9 g/dL (14.0-18.0); Mean Corpuscular Hemoglobin 27.1 pg (25-34); Mean Corpuscular Volume 87.2 fL (80-100); Mean Platelet Volume 8.9 fL (7.4-10.4); Platelet Count 366 K/uL (130-400); RDW Coefficient of Variation 17.1 % (11.5-14.5); RDW Standard Deviation 53.6 fL (36.4-46.3); Red Blood Count 3.29 M/uL (4.7-6.1); White Blood Count 9.39 K/uL (4.8-10.8)
[2021-10-01 06:48] LABS: BUN Creatinine Ratio 3.5 (10-20); Calcium 8.8 mg/dl (8.5-10.1); Creatinine Clr Calc Pharmacy 89.9 ml/min; Est GFR (African American) 102.3 ml/min; Est GFR (Non-African American) 88.3 ml/min; Magnesium 1.5 mg/dl (1.7-2.4); Phosphorus 2.9 mg/dl (2.5-4.9); Potassium 3.6 mmol/L (3.5-5.1)
[2021-10-01] MEDS: PANTOprazole 40 MG TAB PO SCH (07:11)
[2021-10-01] MEDS ORDERED: POTASSIUM CHLORIDE CRTAB 20 MEQ TABCR PO STA (08:16)
[2021-10-01] MEDS: MAGNESIUM SULFATE / D5W 1 GM/100 ML BAG IV SCH ×2 (08:42→10:36)
[2021-10-01] MEDS: APIXABAN 5 MG TABLET PO SCH ×2 (08:44→20:50)
[2021-10-01] MEDS: TAMSULOSIN HCL 0.4 MG CAP PO SCH (08:45)
[2021-10-01] MEDS: ROSUVASTATIN CALCIUM 20 MG TAB PO SCH (08:45)
[2021-10-01] MEDS: FINASTERIDE 5 MG TAB PO SCH (08:45)
[2021-10-01] MEDS: PANCREAZE (LIPASE 10,500U) CAP PO SCH ×3 (08:45→17:18)
[2021-10-01] MEDS: ADVANCED PROBIOTIC 1250 MG CAPSULE PO SCH ×2 (08:45→17:18)
[2021-10-01] MEDS: FIDAXOMICIN 200 MG TAB PO SCH ×2 (08:57→20:45)
[2021-10-01] MEDS: CHOLESTYRAMINE LIGHT 4 GM PKT PO SCH ×2 (10:35→22:31)
[2021-10-01] MEDS: rifAXIMin 550 MG TABLET PO SCH ×2 (10:57→20:52)
[2021-10-01] MEDS: HEPARIN 100 UNIT/ML 5ML FLUSH FLUSH PRN (13:43)
--- NOTE | 2021-10-01 14:51 | Gastroenterology Progress Note ---
Date of Service October 01, 2021 Assessment & Plan (1) C. difficile colitis: Plan: 70 y/o male w/ h/o metastatic pancreatic CA undergoing Chemo mged by Dr. Vega, admitted w/ abd pain, diarrhea, C. diff colitis. H/o 2 prior C. diff infxn. Initially tx with Vanc in the hospital, then switched to Dificid, Rifaximin, cholestyramine, low-fiber, low lactose diet. Today currently seems clinically improved, bowels were slowing yesterday and had no diarrhea today. Tolerating a regular diet and abd soft on exam. 1. Continue Dificid, Rifaximin, cholestyramine, low fiber, low lactose diet. 2. Unable to provide fecal transplant (no availability of material since [facility]) 3. Previous notes indicate pt doesn't believe he will be able to afford Dificid or Rifaximin on discharge. Would use during this admission and if condition continues to improve, then would consider discontinuing the Dificid and rifaximin a day prior to discharge to verify that will be stable w/o these meds. 5. At this point no plans for colonoscopy or other IP GI procedure. 6. GI will sign off, please call with questions Thank you for allowing us to participate in the care of this patient. Please call with any acute changes, questions or concerns. Please see addendum below with additional recommendation from my supervising physician. Admission and Anticipated Discharge Date Admission Date: September 25, 2021 Subjective Patient seen and examined, chart reviewed. Pt doing better today. No BM yet today, last was yesterday and was starting to form up. Diarrhea is resolving. Tolerating a regular diet. No abd pain, melena, hematochezia, hematemesis, fever, chills. Physical Exam Constitutional: WD/WN, vitals as above ENMT: external ear and nose normal, oropharynx normal Respiratory: Normal respiratory effort Cardiovascular: RRR, no murmur, no edema Gastrointestinal (Abdomen): normal bowel sounds, soft, nontender, no hepatosplenomegaly Skin: no rashes, warm and dry Psychiatric: A+Ox3, euthymic affect Results & Data ([facility]) Vital Signs (Past 12 Hours) Vital Signs Temp Pulse Resp BP Pulse Ox 10/01/21 07:33 36.8 C 77 16 128/80 99 Laboratory Results 10/01/21 10/01/21 Range/Units 06:04 06:04 WBC 9.39 (4.8-10.8) K/uL RBC 3.29 L (4.7-6.1) M/uL Hgb 8.9 L (14.0-18.0) g/dL Hct 28.7 L (42-52) % MCV 87.2 (80-100) fL MCH 27.1 (25-34) pg MCHC 31.0 L (32-36) g/dL RDW Std Deviation 53.6 H (36.4-46.3) fL RDW Coeff of [place] 17.1 H (11.5-14.5) % Plt Count 366 (130-400) K/uL MPV 8.9 (7.4-10.4) fL Sodium 139 (136-145) mmol/L Potassium 3.6 (3.5-5.1) mmol/L Chloride 107 (98-107) mmol/L Carbon Dioxide 25 (21-32) mmol/L Anion Gap 7 (3-11) BUN 3 L (6-23) mg/dl Creatinine 0.85 (0.6-1.4) mg/dl Est Cr Clr Drug Dosing 89.9 ml/min Est GFR ( Amer) 102.3 ml/min Est GFR (Non-Af Amer) 88.3 ml/min BUN/Creatinine Ratio 3.5 L (10-20) Glucose 98 (70-99(Fasting)) mg/dl Calcium 8.8 (8.5-10.1) mg/dl Phosphorus 2.9 (2.5-4.9) mg/dl Magnesium 1.5 L (1.7-2.4) mg/dl
--- NOTE | 2021-10-01 16:55 | Hospitalist Progress Note ---
Date of Service October 01, 2021 Assessment & Plan (1) Proctocolitis: Plan: Stool positive for C diff. PO vancomycin started 09/26, switched to Dificid 09/27. Resolved diarrhea Copay for remaining course of Dificid is $430, patient is ok with this (2) Pancreatic cancer: (3) Liver metastases: Plan: Currently on chemotherapy, Gemzar and Abraxane, last treatment on 09/[address] Ramez Vega CT ABD/pelvis shows No significant change in the pancreatic body/neck mass with vascular encasement, This suggests adenocarcinoma. Slight increase in extensive hepatic metastatic disease. 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 Interval development of several small suspected splenic infarcts. 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 (4) Left leg DVT: Plan: Diagnosed 07/2021 On Eliquis (5) Hyperlipidemia: Plan: Continue statin (6) DVT prophylaxis: Plan: On Eliquis Plan: Disposition: Plan to discharge home tomorrow if no recurrence of diarrhea Admission and Anticipated Discharge Date Admission Date: September 25, 2021 Subjective Diarrhea has resolved I spoke with his [facility] pharmacy and copay for Dificid is $434. I discussed with patient and he is ok with this He wants to remain here until tomorrow and is concerned about leaving too soon in case his diarrhea returns Still with mild abdominal discomfort Physical Exam Physical Exam: No acute distress, non toxic Respiratory: Breathing comfortably on room air, no wheezing/rhonchi/rales Cardiovascular: Regular rate and rhythm, no murmurs/rubs/gallops Gastrointestinal (Abdomen): soft, minimal tenderness Musculoskeletal: No edema Neurologic: awake, alert, spontaneously moving extremities Results & Data Results & Data ([facility]) Vital Signs (Past 12 Hours) Vital Signs Temp Pulse Resp BP Pulse Ox 10/01/21 15:53 36.6 C 83 16 130/80 100 10/01/21 07:33 36.8 C 77 16 128/80 99 Laboratory Results Short CBC 10/01/21 Range/Units 06:04 WBC 9.39 (4.8-10.8) K/uL Hgb 8.9 L (14.0-18.0) g/dL Hct 28.7 L (42-52) % Plt Count 366 (130-400) K/uL BMP 10/01/21 06:04 Sodium 139 Potassium 3.6 Chloride 107 Carbon Dioxide 25 BUN 3 L Creatinine 0.85 Glucose 98 Calcium 8.8 Medications Administered Current Inpatient Medications Acetaminophen (Acetaminophen 325 Mg Tab) 650 mg PO Q4H PRN PRN Reason: pain/fever Stop: 10/25/21 22:22 Lipase/Protease/Amylase (Pancreaze (Lipase 10,500u) Cap) 1 cap PO TIDM [facility] Stop: 10/26/21 07:59 Last Admin: 10/01/21 12:38 Dose: 1 cap Documented by: Apixaban (Apixaban 5 Mg Tablet) 5 mg PO BID [facility] Stop: 10/25/21 22:22 Last Admin: 10/01/21 08:44 Dose: 5 mg Documented by: Cholestyramine Resin (Cholestyramine Light 4 Gm Pkt) 4 gm PO BID@1000,2200 [facility] Stop: 10/27/21 21:59 Last Admin: 10/01/21 10:35 Dose: 4 gm Documented by: Fidaxomicin (Fidaxomicin 200 Mg Tab) 200 mg PO BID [facility] Stop: 10/07/21 20:59 Last Admin: 10/01/21 08:57 Dose: 200 mg Documented by: Finasteride (Finasteride 5 Mg Tab) 5 mg PO QAM JAYSRHEE Stop: 10/28/21 08:59 Last Admin: 10/01/21 08:45 Dose: 5 mg Documented by: Heparin Sodium (Porcine) (Heparin 100 Unit/Ml 5ml Flush) 5 ml FLUSH PRN PRN PRN Reason: Flush Stop: 10/31/21 08:56 Last Admin: 10/01/21 13:43 Dose: 5 ml Documented by: Lactobacillus Acidophilus (Advanced Probiotic 1250 Mg Capsule) 2 cap PO BIDM SC H Stop: 10/28/21 07:59 Last Admin: 10/01/21 08:45 Dose: 2 cap Documented by: Ondansetron HCl (Ondansetron Inj 2 Mg/Ml 2 Ml Vial) 4 mg IV Q6H PRN PRN Reason: Nausea Stop: 10/25/21 22:22 Oxycodone HCl (Oxycodone Hcl Ir 5 Mg Tab (Immediate Release)) 5 - 10 mg PO Q4 PRN PRN Reason: pain (scale score 7-10) Stop: 10/09/21 22:22 Last Admin: 10/01/21 14:41 Dose: 10 mg Documented by: Pantoprazole Sodium (Pantoprazole 40 Mg Tab) 40 mg PO DAILYBB [facility] Stop: 10/26/21 06:29 Last Admin: 10/01/21 07:11 Dose: 40 mg Documented by: Rifaximin (Rifaximin 550 Mg Tablet) 550 mg PO BID [facility] Stop: 10/27/21 20:59 Last Admin: 10/01/21 10:57 Dose: Not Given Documented by: Rosuvastatin Calcium (Rosuvastatin Calcium 20 Mg Tab) 20 mg PO QAM [facility] Stop: 10/26/21 08:59 Last Admin: 10/01/21 08:45 Dose: 20 mg Documented by: Tamsulosin HCl (Tamsulosin Hcl 0.4 Mg Cap) 0.4 mg PO DAILY [facility] Stop: 10/26/21 08:59 Last Admin: 10/01/21 08:45 Dose: 0.4 mg Documented by:
[2021-10-02] MEDS: oxyCODONE HCL IR 5 MG TAB (IMMEDIATE RELEASE) PO PRN ×2 (05:03→08:56)
[2021-10-02] MEDS: PANTOprazole 40 MG TAB PO SCH (05:04)
[2021-10-02 06:30] LABS: Hemoglobin 9.5 g/dL (14.0-18.0); Mean Corpuscular Hemoglobin 27.6 pg (25-34); Mean Corpuscular Hgb Conc 31.7 g/dL (32-36); Mean Corpuscular Volume 87.2 fL (80-100); Mean Platelet Volume 8.6 fL (7.4-10.4); Platelet Count 374 K/uL (130-400); RDW Coefficient of Variation 17.3 % (11.5-14.5); RDW Standard Deviation 54.5 fL (36.4-46.3); Red Blood Count 3.44 M/uL (4.7-6.1); White Blood Count 11.25 K/uL (4.8-10.8)
[2021-10-02 06:39] LABS: BUN Creatinine Ratio 4.3 (10-20); Calcium 8.9 mg/dl (8.5-10.1); Creatinine Clr Calc Pharmacy 81.3 ml/min; Est GFR (African American) 94.8 ml/min; Est GFR (Non-African American) 81.8 ml/min; Magnesium 2.1 mg/dl (1.7-2.4)
[2021-10-02] MEDS: APIXABAN 5 MG TABLET PO SCH (08:44)
[2021-10-02] MEDS: rifAXIMin 550 MG TABLET PO SCH (08:45)
[2021-10-02] MEDS: PANCREAZE (LIPASE 10,500U) CAP PO SCH (08:45)
[2021-10-02] MEDS: TAMSULOSIN HCL 0.4 MG CAP PO SCH (08:45)
[2021-10-02] MEDS: FINASTERIDE 5 MG TAB PO SCH (08:46)
[2021-10-02] MEDS: ADVANCED PROBIOTIC 1250 MG CAPSULE PO SCH (08:46)
[2021-10-02] MEDS: ROSUVASTATIN CALCIUM 20 MG TAB PO SCH (08:47)
[2021-10-02] MEDS: FIDAXOMICIN 200 MG TAB PO SCH (08:52)
--- NOTE | 2021-10-02 10:48 | Discharge Summary ---
Date of Service October 02, 2021 Admission HPI Per Admitting Provider 70-year-old male with PMH pancreatic cancer with mets to the liver, LLE DVT on Eliquis, dyslipidemia, and other problems listed below who presents the ED for evaluation of left lower quadrant abdominal pain. Patient is currently receiving chemotherapy for metastatic pancreatic cancer. Last treatment with Gemzar and Abraxane on 09/14. Patient reports that about 1 week ago, he developed a left lower quadrant abdominal pain. Pain has been persistent since that time. Last normal bowel movement on 09/19 then stools became loose and mucousy at times however no bowel movement in 2 days. Patient reports nausea and very poor appetite, no vomiting. Denies fevers and chills. No chest pain or shortness of breath. Denies lightheadedness, dizziness, diaphoresis, syncopal events. No urinary symptoms. In the ED, CT ABD/pelvis shows findings consistent with proctocolitis. WBC 16 K. Vital signs stable. Patient was given IV Zosyn, IVF, IV morphine, IV Zofran. Principal Diagnosis C diff Colitis (3rd occurrence) Hypokalemia Hypophosphatemia Hypomagnesemia Acute on chronic urinary retention, resolved Discharge Exam Patient feels well. Had 3 BM today, all were formed. No abdominal pain or distention Has tolerated a diet All discharge instructions and medication changes were reviewed with him prior to discharge On exam- appears well, abdomen is soft, non tender. No lower extremity edema. Breathing on room air Discharge Data Allergies Allergy/AdvReac Type Severity Reaction Status Date / Time erythromycin base AdvReac Mild Gastrointestinal Verified 09/25/21 16:17 Upset Consultations 09/25/21 18:47 ED Decision to Admit Stat 09/26/21 18:31 Consult Gastroenterology Routine Ordered Studies 09/25/21 15:43 CT abd pelvis IV con only Stat Hospital Course (1) Proctocolitis: (2) Pancreatic cancer: (3) Liver metastases: (4) Left leg DVT: (5) Hyperlipidemia: (6) DVT prophylaxis: Mr Babar Ochoa is a 70 year old man with history of two prior c diff infections, metastatic pancreatic cancer currently undergoing chemotherapy with Dr Ramez Vega (last treatment 09/14/21) presented to the ER on 09/25 with abdominal pain and diarrhea. He had a CT A/P here which showed proctocolitis (in addition to increased liver metastasis, new adrenal metastasis and possibly small splenic infarcts--> findings all consistent with his known pancreatic cancer). His stool sample was sent and was positive for c diff toxin. He was initially placed on zosyn which was then discontinued and he was started on PO vancomycin 09/26. He was seen by GI and then started on Dificid, Rifaximin, and cholestyramine 09/27. With treatment, his stools solidified and his diarrhea resolved. With resolution of his diarrhea, his electrolytes normalized. Initially he expressed concern about the cost of Dificid. However, prior to discharge, the prescription was sent over to his pharmacy and copay was about $430 and it was verified with him that he can afford his Dificid copay. He was discharged on another 4 days of Dificid to finish a 10 day course. He will need to follow up with GI after discharge for his recurrent C diff infections. He will follow up with his oncologist for treatment of his progressive metastatic pancreatic cancer. Of note, while here, he complained of urinary retention despite being on Flomax. Finasteride was also added to his BPH regimen with resolution of his symptoms and he will follow up with his PCP/Urologist for this. Total Time Total Time Spent Total Time Spent (In Minutes): 40 Discharge Plan Discharge Items Patient Disposition: Home - Self-Care Reason For Visit: AB PAIN Discharge Diagnosis: C diff Colitis (3rd occurrence) Hypokalemia Hypophosphatemia Hypomagnesemia Acute on chronic urinary retention, resolved Condition on Discharge: Good Activity: Resume your previous activity Non-emergency contact: Primary Care Provider, Design Assistant and Oncologist Call non-emergency contact if: you have any medication questions, your symptoms worsen and you have a fever Follow-up/Referrals: Shakira Segovia MD [Primary Care Provider] - Diet: Regular Addtl Attending Provider Instructions: For your C Diff infection and Diarrhea You have an additional 4 days of treatment with Dificid 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 You were also started on Cholestyramine. A 14 day supply was given, please follow up with them to discuss whether they want you to be on this chcf. For your Pancreatic Cancer and pancreatic insufficiency Please follow up with your Oncologist for your pancreatic cancer You had questions regarding your Creon dose. Please follow up with GI for this If you have recurrence of diarrhea, abdominal pain and/or fever. Please call your doctor or go to ER For your urinary retention You were continued on your home flomax and also started on Finasteride which helped your symptoms. A 30 day supply was given. Please follow up with your primary care physician for management of your prostate issues Pending Studies at Discharge: No Stand-Alone Forms: [facility] [employer], Smoking Cessation Medications and DC Order Prescriptions: New Dificid 200 mg tablet 200 mg PO Q12H Qty: 9 RF: 0 finasteride [Proscar] 5 mg Tablet 5 mg PO QAM 30 Days Qty: 30 RF: 0 cholestyramine-aspartame [Cholestyramine Light] 4 gram Powder In Packet 4 g PO BID@1000,2200 14 Days Qty: 60 RF: 0 Continued coenzyme Q10 [CoQ-10] 100 mg Capsule 100 mg PO QAM RF: 0 cholecalciferol (vitamin D3) [Vitamin D3] 25 mcg (1,000 unit) Tablet 25 mcg PO QAM RF: 0 omeprazole 40 mg capsule,delayed release(DR/EC) 40 mg PO DAILYBB RF: 0 ondansetron HCl 8 mg tablet 8 mg PO Q8 PRN (Reason: Nausea) RF: 0 prochlorperazine maleate 10 mg tablet 10 mg PO Q6 PRN (Reason: nausea) RF: 0 tamsulosin 0.4 mg capsule 0.4 mg PO DAILY RF: 0 flaxseed oil 1,000 mg Capsule 1,000 mg PO DAILY RF: 0 docusate sodium [Colace] 100 mg Capsule 100 mg PO BID PRN (Reason: Constipation) RF: 0 Creon 36,000-114,000- 180,000 unit Capsule,Delayed Release(Dr/Ec) 1 cap PO TIDM Qty: 90 RF: 0 Probiotic 10 billion cell Capsule 10,000 mmu cells PO DAILY Qty: 30 RF: 0 multivitamin Tablet 1 tab PO QAM RF: 0 ascorbic acid (vitamin C) [Vitamin C] 1,000 mg Tablet 1 g PO QAM RF: 0 cyanocobalamin (vitamin B-12) 500 mcg Tablet 500 mcg PO QAM RF: 0 rosuvastatin [Crestor] 20 mg Tablet 20 mg PO QAM RF: 0 aspirin 81 mg Tablet,Delayed Release (Dr/Ec) 81 mg PO DAILY RF: 0 Eliquis 5 mg tablet 5 mg PO BID RF: 0 omega-3 fatty acids 1,000 mg Capsule 1,000 mg PO DAILY RF: 0 [id number] Tablet 1 tab PO DAILY RF: 0 oxycodone 5 mg tablet 5 - 10 mg PO Q4 PRN (Reason: pain (scale score 7-10)) RF: 0 Discontinued amoxicillin 500 mg capsule 2,000 mg PO ONCE PRN (Reason: 1 hour prior to dental appt) RF: 0 Discharge Orders: Discharge Order (Routine); Ordered 10/02/21 Ordered By: Virginia Ferrer Admission Data Admit Date/Time: 09/25/21 19:18 Attending Provider: Virginia Ferrer Admit Provider: Richard Lynn Primary Care Provider: Shakira Segovia Other Providers: Richard Lynn ; Kevin Naranjo Other Interventions: Discharge Summary Assessment (RN) Last Done: 10/02/21 11:01
[2021-10-02] MEDS: CHOLESTYRAMINE LIGHT 4 GM PKT PO SCH (10:51)
[2021-10-02] MEDS: HEPARIN 100 UNIT/ML 5ML FLUSH FLUSH PRN (10:55)
== END 2021-10-02 11:36 | disposition home or self-care (01) | DRG 372 ==
LOC: ED 13:44 → EDINP 19:18 → SUATTDRO 19:18 → 3E 22:20

== ENCOUNTER 2021-10-25 17:50 | Inpatient (IN) ==
[2021-10-25] MEDS ORDERED: SODIUM CHLORIDE 0.9% 1000ML 1,000 ML IV STA (18:25)
[2021-10-25] MEDS ORDERED: ONDANSETRON INJ 2 MG/ML 2 ML VIAL IV STA (18:25)
--- NOTE | 2021-10-25 18:32 | Emergency Department Note ---
Impression & Plan Weakness, Pancreatic cancer, GI bleed, Anemia, Diarrhea ED Provider Note NAME: ZORA QUEVEDO AGE: 70 SEX: M : 1950 ARRIVES VIA: Walk-In INFORMANT: [Patient][] ED PROVIDER(S): [Edgar Holder MD] CHIEF COMPLAINT: GI bleeding HISTORY OF PRESENT ILLNESS: The patient is a 70-year-old male who has had no appetite for about a week and some loose, bloody stool for about 5 days. He feels washed out, weak and tired. No vomiting, no fever. No shortness of breath. No urinary complaints. The patient did have his stool tested twice this week for C. difficile, both times were negative. He felt he might have C. difficile as he has had this in the past. The patient has pancreatic cancer that is no longer treatable. It has metastasized and his cancer physicians feel there is nothing more they can do. No recent sick contacts, no bad food eaten, no recent antibiotic course that would have prompted C. difficile. Of note, the patient is on Eliquis for anticoagulation. REVIEW OF SYSTEMS: See HPI for pertinent positives and negatives. A total of ten systems were reviewed and were otherwise negative. PMHx/PSHx: See Below SOCIAL HISTORY: See Below. PHYSICAL EXAM: GENERAL: Patient is in no acute distress. HEENT: No acute trauma, normocephalic atraumatic, mucous membranes moist, no nasal congestion, no scleral icterus. NECK: No stridor, no adenopathy, no meningismus, trachea is midline. LUNGS: Clear to auscultation bilaterally, no wheeze, no rhonchi, breath sounds equal. HEART: Without murmurs gallops or rubs, regular rate and rhythm. ABDOMEN: Soft, nontender, bowel sounds positive, no peritonitis. EXTREMITIES: No cyanosis, mild bilateral pedal edema, full range of motion of all the joints without pain or difficulty, no signs for acute trauma. NEUROLOGIC: Oriented x 3, no acute motor or sensory deficits, no focal weakness. SKIN: No rash, no jaundice, no diaphoresis. Pale. Rectal: Very dark to dark red stool, heme positive DIFFERENTIAL DIAGNOSIS: Diverticulosis, AVM, coagulopathy, colitis, inflammatory bowel disease, malignancy, Hanna-Boland tear, esophagitis, peptic ulcer disease, variceal bleed, gastritis, epistaxis, fissure, hemorrhoids, as well as other pathologies. EMERGENCY DEPARTMENT COURSE/PROCEDURES: ECG: Indication was GI bleeding and weakness. The ECG shows a normal sinus rhythm with a rate of 80. There is no ST elevation, no PVCs. Some baseline artifact was seen. QTC is 424 Continuous Cardiac Monitoring: An order was placed for continuous cardiac monitoring. The monitor shows a rate of 99 with normal sinus rhythm. MEDICAL DECISION MAKING: There is a slight leukocytosis, this could be consistent with infection or the stress of his situation. The patient is anemic with a hemoglobin of 7.5. This is below his typical baseline. There is a normal platelet count. INR is 1.2, slightly elevated, likely from his Eliquis use. No significant electrolyte abnormality, no renal failure. There were elevated liver enzymes which have been documented before. ECG shows a normal sinus rhythm, no obvious ischemia. Cardiac enzyme testing x1 was slightly elevated. This elevation could be from mismatch or cardiac injury/strain. No evidence for pancreatitis. COVID test returned negative. Chest x-ray did not show pneumonia or CHF. Abdominal and pelvis CT did not show any bowel obstruction. There was no diverticulitis or colitis. Findings of his pancreatic cancer were seen. On my exam, stool was quite dark, almost dark red, and liquidy and heme positive. Patient received IV morphine for pain, IV Zofran for nausea. He was given IV Protonix, he received 1 L of IV saline. The patient did sign consent for a blood transfusion. Blood was not ordered here in the ED. If his hemoglobin drops further during this hospital stay, a transfusion would be indicated. I suspect the patient's fatigue and weakness is from his anemia and GI bleed. He is going to need a hospital stay. I spoke with the patient and case management. The on-call hospitalist was consulted. Past Med/Surg History Medical History Arthritis of right knee BPH (benign prostatic hyperplasia) C. difficile colitis CKD (chronic kidney disease), stage III Hyperlipidemia Hypertension Left leg DVT Liver metastases Nausea and vomiting after administration of anesthetic agent Osteoarthritis Pancreatic cancer Umbilical hernia + present (no pain or current issues) Surgical History History of colonoscopy History of tooth extraction History of total right knee replacement (TKR) Hx of inguinal hernia repair Hx of prostate biopsy x2 (benign) Hx of umbilical hernia repair Hx of vasectomy Family History Mother Hypertension Heart disease Other No family history of adverse response to anesthesia Social History Smoking Status: Never smoker Second Hand Exposure: No; Hx Alcohol Use: Yes Alcohol type: beer Hx Substance Use: No Preferred Language: Hebrew Communication Ability: Effective 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: No Beliefs That Will Affect Care: None marital status: Current Living Situation: Spouse Current Living Situation Comment: How many Children do You have: 3 Feels Safe at Home: Yes Assistive Devices: Cane Allergies Allergies Allergy/AdvReac Type Severity Reaction Status Date / Time erythromycin base AdvReac Mild Gastrointestinal Verified 10/25/21 19:25 Upset celecoxib [From Celebrex] AdvReac irritates Verified 10/25/21 19:26 stomach Home Meds Home Medications Medication Instructions Recorded Confirmed ascorbic acid (vitamin C) 1,000 mg 1 g PO QAM 01/10/21 10/25/21 tablet (Vitamin C) cyanocobalamin (vitamin B-12) 500 500 mcg PO QAM 01/10/21 10/25/21 mcg tablet multivitamin 1 tab PO QAM 01/10/21 10/25/21 rosuvastatin 20 mg tablet (Crestor) 20 mg PO QAM 01/10/21 10/25/21 cholecalciferol (vitamin D3) 25 25 mcg PO QAM 05/16/21 10/25/21 mcg (1,000 unit) tablet (Vitamin D3) omeprazole 40 mg capsule,delayed 40 mg PO DAILYBB 06/13/21 10/25/21 release flaxseed oil 1,000 mg capsule 1,000 mg PO DAILY 07/20/21 10/25/21 ondansetron HCl 8 mg tablet 8 mg PO Q8 PRN 07/20/21 10/25/21 prochlorperazine maleate 10 mg 10 mg PO Q6 PRN 07/20/21 10/25/21 tablet tamsulosin 0.4 mg capsule 0.4 mg PO DAILY 07/20/21 10/25/21 apixaban 5 mg tablet (Eliquis) 5 mg PO BID 09/25/21 10/25/21 gwrtrir-wqtlwiyrs-jxiy tablet 1 tab PO DAILY 09/25/21 10/25/21 Lactobacillus acidophilus 10 0 mmu cells PO DAILY 10/25/21 10/25/21 billion cell capsule (Probiotic) ibuprofen 200 mg tablet (Advil) 400 mg PO Q6H PRN 10/25/21 10/25/21 lorazepam 0.5 mg tablet 0.5 mg PO HS PRN 10/25/21 10/25/21 oxycodone 10 mg tablet 10 mg PO Q4 10/25/21 10/25/21 sennosides 8.6 mg tablet (senna) 8.6 mg PO DAILY PRN 10/25/21 10/25/21 Previous Rx's Medication Instructions Recorded miqlml-aepxvvgt-dvbeuwf 1 cap PO TIDM #90 cap 07/24/21 36,000-114,000-180,000 unit capsule,delay rel (Creon) finasteride 5 mg tablet (Proscar) 5 mg PO QAM 30 Days #30 tab 10/02/21 Results & Data (ED) Vital Signs Vital Signs - 24 hr 10/25/21 17:58 10/25/21 18:26 Temperature 36.4 C L Temperature Source Temporal Artery Scan Pulse Rate 108 H Respiratory Rate 20 Respiratory Effort / Characteristics Non-Labored Blood Pressure 105/61 Blood Pressure Mean 75 Pulse Oximetry 99 97 Oxygen Delivery Method Room Air Sepsis Recent Fever Within 48 Hours No Sepsis New/Unexplained Change in Mental Status N/A Sepsis Action Taken by Nursing No Action Required Home Medications Current Medication List: was personally reviewed by me Laboratory Data Attestation: I reviewed the patient's lab results. Result diagrams: 10/25/21 18:45 10/25/21 18:45 Lab Results 10/25/21 10/25/21 10/25/21 Range/Units 18:45 18:45 18:45 WBC (4.8-10.8) K/uL RBC (4.7-6.1) M/uL Hgb (14.0-18.0) g/dL Hct (42-52) % MCV (80-100) fL MCH (25-34) pg MCHC (32-36) g/dL RDW Std Deviation (36.4-46.3) fL RDW Coeff of Franklin (11.5-14.5) % Plt Count (130-400) K/uL MPV (7.4-10.4) fL Immature Gran % (Auto) % Neut % (Auto) % Lymph % (Auto) % Upton % (Auto) % Eos % (Auto) % Baso % (Auto) % Neut # (Auto) (1.4-6.5) K/uL Lymph # (Auto) (1.2-3.4) K/uL Upton # (Auto) (0.11-0.59) K/uL Eos # (Auto) (0-0.5) K/uL Baso # (Auto) (0-0.2) K/uL Immature Gran # (Auto) (0.00-0.02) K/uL Hypochromasia Poikilocytosis PT 13.0 H (9.0-12.0) Seconds INR 1.2 H (0.9-1.1) APTT 35.1 H (21.0-31.0) Seconds PTT Ratio 1.3 Sodium 136 (136-145) mmol/L Potassium 4.5 (3.5-5.1) mmol/L Chloride 99 (98-107) mmol/L Carbon Dioxide 30 (21-32) mmol/L Anion Gap 7 (3-11) BUN 14 (6-23) mg/dl Creatinine 1.24 (0.6-1.4) mg/dl Est Cr Clr Drug Dosing 57.3 ml/min Est GFR ( Amer) 67.8 ml/min Est GFR (Non-Af Amer) 58.5 ml/min BUN/Creatinine Ratio 11.3 (10-20) Glucose 97 (70-99(Fasting)) mg/dl Calcium 9.6 (8.5-10.1) mg/dl Magnesium 2.1 (1.7-2.4) mg/dl Total Bilirubin 1.1 H (0.2-1.0) mg/dl AST 62 H (13-39) U/L ALT 35 (7-52) U/L Alkaline Phosphatase 1095 H (34-104) U/L Troponin I High Sens 22.9 H (0-20) pg/ml Total Protein 6.5 (6.0-8.3) gm/dl Albumin 3.2 L (3.4-5.0) gm/dl Globulin 3.3 (2.5-4.0) gm/dl Albumin/Globulin Ratio 1.0 (0.9-2) Lipase 26 (11-82) U/L SARS-CoV-2, RNA, NAAT (NEGATIVE) Blood Type AB Positive Antibody Screen NEGATIVE Crossmatch See Detail 10/25/21 10/25/21 Range/Units 18:45 18:52 WBC 11.58 H (4.8-10.8) K/uL RBC 2.77 L (4.7-6.1) M/uL Hgb 7.5 L (14.0-18.0) g/dL Hct 24.5 L (42-52) % MCV 88.4 (80-100) fL MCH 27.1 (25-34) pg MCHC 30.6 L (32-36) g/dL RDW Std Deviation 57.4 H (36.4-46.3) fL RDW Coeff of Franklin 17.7 H (11.5-14.5) % Plt Count 286 (130-400) K/uL MPV 8.5 (7.4-10.4) fL Immature Gran % (Auto) 0.5 % Neut % (Auto) 80.9 % Lymph % (Auto) 6.6 % Upton % (Auto) 9.2 % Eos % (Auto) 2.5 % Baso % (Auto) 0.3 % Neut # (Auto) 9.37 H (1.4-6.5) K/uL Lymph # (Auto) 0.77 L (1.2-3.4) K/uL Upton # (Auto) 1.06 H (0.11-0.59) K/uL Eos # (Auto) 0.29 (0-0.5) K/uL Baso # (Auto) 0.03 (0-0.2) K/uL Immature Gran # (Auto) 0.06 H (0.00-0.02) K/uL Hypochromasia Present Poikilocytosis Present PT (9.0-12.0) Seconds INR (0.9-1.1) APTT (21.0-31.0) Seconds PTT Ratio Sodium (136-145) mmol/L Potassium (3.5-5.1) mmol/L Chloride (98-107) mmol/L Carbon Dioxide (21-32) mmol/L Anion Gap (3-11) BUN (6-23) mg/dl Creatinine (0.6-1.4) mg/dl Est Cr Clr Drug Dosing ml/min Est GFR ( Amer) ml/min Est GFR (Non-Af Amer) ml/min BUN/Creatinine Ratio (10-20) Glucose (70-99(Fasting)) mg/dl Calcium (8.5-10.1) mg/dl Magnesium (1.7-2.4) mg/dl Total Bilirubin (0.2-1.0) mg/dl AST (13-39) U/L ALT (7-52) U/L Alkaline Phosphatase (34-104) U/L Troponin I High Sens (0-20) pg/ml Total Protein (6.0-8.3) gm/dl Albumin (3.4-5.0) gm/dl Globulin (2.5-4.0) gm/dl Albumin/Globulin Ratio (0.9-2) Lipase (11-82) U/L SARS-CoV-2, RNA, NAAT NEGATIVE (NEGATIVE) Blood Type Antibody Screen Crossmatch Administered Medications Discontinued Medications Sodium Chloride (Nss 1000ml) 1,000 mls @ 999 mls/hr IV .Q1H1M STA Stop: 10/25/21 19:25 Last Infusion: 10/25/21 20:17 Dose: 0 mls/hr Documented by: [id number] Admin: 10/25/21 19:15 Dose: 999 mls/hr Documented by: [id number] Pantoprazole Sodium 80 mg/ (Dextrose) 100 mls @ 400 mls/hr IV ONE STA Stop: 10/25/21 18:49 Last Infusion: 10/25/21 19:29 Dose: 0 mls/hr Documented by: [id number] Admin: 10/25/21 19:14 Dose: 400 mls/hr Documented by: [id number] Morphine Sulfate (Morphine Sulfate 4 Mg/Ml 1 Ml Carp\Vial) 4 mg IV NOW STA Stop: 10/25/21 20:36 Last Admin: 10/25/21 20:58 Dose: 4 mg Documented by: [id number] Ondansetron HCl (Ondansetron Inj 2 Mg/Ml 2 Ml Vial) 4 mg IV NOW STA Stop: 10/25/21 18:26 Last Admin: 10/25/21 19:19 Dose: 4 mg Documented by: [id number] Imaging Data Radiologist's Impression: Abdomen/Pelvis CT 10/25/21 18:25 CT abd pelvis wo con CLINICAL HISTORY: poss colitis or divertic TECHNIQUE: Helical axial images of the abdomen and pelvis were obtained. Automated dose lowering techniques and/or adjustment according to patient size were utilized for this exam. This exam was performed without intravenous contrast. CT DOSE: 541.94 mGy.cm COMPARISON: Comparison is made to CT abdomen pelvis 09/25/2021 FINDINGS: Lower chest: Multiple pulmonary nodules are seen, increased in size and number from exam in May. Liver: Innumerable large hypodensities in the liver are again seen. The index lesion measures 90 mm in diameter, increased from 76 mm in the prior exam. Gallbladder and biliary tree: No calcified gallstones. Normal caliber wall. No intra- or extrahepatic biliary ductal dilation. Pancreas: Ill-defined pancreatic body mass is seen measuring approximately 56 x 37 mm. Distal pancreatic ductal dilation is seen. Spleen: Unremarkable. Adrenals: Prominent thickening of the left adrenal gland is seen, increased from exam of May 2015. The right adrenal gland is normal. Kidneys and ureters: Partial visualization of a right superior pole mass measuring approximately 18 mm, now due to noncontrast technique. Hypodensity in the left kidney interpolar cortex which is nonspecific but may represent proteinaceous/hemorrhagic cyst. Bladder: Limited evaluation due to underdistention. Bladder wall thickening is seen. Reproductive organs: Prostatomegaly is seen. Bowel: Liquid contents are seen in the rectum. The appendix measures 8 mm in diameter without inflammatory changes. Lymph nodes Retroperitoneal: Numerous enlarged retroperitoneal lymph nodes are seen measuring up to 10 mm in short axis. These have increased from exam of May. Mesenteric: Subcentimeter lymph nodes are noted. Pelvic: Unremarkable. Peritoneum: There is mild diffuse fat stranding most prominent about the mesenteric root, somewhat increased from prior exams. Vessels: Atherosclerotic calcifications are seen. Although evaluation is limited by noncontrast technique, the splenic vein and superior mesenteric/portal vein appear to contact or be encased by the pancreatic mass. Abdominal wall: A fat-containing umbilical hernia is seen. Bones: Unremarkable. IMPRESSION: 1. Liquid contents are seen in the rectum compatible with diarrhea. No bowel wall thickening is seen to suggest diverticulitis or other infectious/inflammatory colitis. There is mild mesenteric fat stranding which is nonspecific. 2. Redemonstration of the pancreatic head mass with multifocal metastatic lesions. This mass is enlarged from May. The hepatic lesions and papa meta stases have likewise increase over time May. In addition, there is marked thickening of the left adrenal gland which has significantly progressed from May and likely represents a metastatic focus. 3. Multiple ill-defined nodules in the lower lungs are again seen, metastasis cannot be excluded. 4. Prostatomegaly and bladder wall thickening likely due to chronic outlet obstruction. 5. Partial visualization of bilateral renal lesions which are not well evaluated due to noncontrast technique. ACT 112: Negative or not required by law. Electronically signed by: Cornelio Salomon M.D. 10/25/2021 8:42 PM Chest X-Ray 10/25/21 18:26 XR chest 1V portable CLINICAL HISTORY: abd pain TECHNIQUE: Single frontal radiograph of the chest was obtained. Comparison: Comparison is made to chest radiograph 05/22/2020 FINDINGS: Interval placement of left portacatheter. The cardiomediastinal silhouette is normal. The lungs are clear. No evidence of pleural effusion or pneumothorax. IMPRESSION: No acute chest disease. ACT 112: Negative or not required by law. Electronically signed by: Cornelio Salomon M.D. 10/25/2021 7:37 PM Discharge Plan Visit Data Chief Complaint: GI Bleed Stated Complaint: WEAKNESS, BLOODY DIARRHEA ED Provider: Edgar Holder Discharge Problem: Weakness, Pancreatic cancer, GI bleed, Anemia, Diarrhea Patient Disposition: Admitted As Inpatient Condition: Fair Forms Stand Alone Forms: [facility] Prescriptions Prescriptions: No Action cholecalciferol (vitamin D3) [Vitamin D3] 25 mcg (1,000 unit) Tablet 25 mcg PO QAM RF: 0 omeprazole 40 mg capsule,delayed release(DR/EC) 40 mg PO DAILYBB RF: 0 ondansetron HCl 8 mg tablet 8 mg PO Q8 PRN (Reason: Nausea) RF: 0 prochlorperazine maleate 10 mg tablet 10 mg PO Q6 PRN (Reason: nausea) RF: 0 tamsulosin 0.4 mg capsule 0.4 mg PO DAILY RF: 0 flaxseed oil 1,000 mg Capsule 1,000 mg PO DAILY RF: 0 Creon 36,000-114,000- 180,000 unit Capsule,Delayed Release(Dr/Ec) 1 cap PO TIDM Qty: 90 RF: 0 sennosides [senna] 8.6 mg Tablet 8.6 mg PO DAILY PRN (Reason: Constipation) RF: 0 lorazepam 0.5 mg tablet 0.5 mg PO HS PRN (Reason: Anxiety) RF: 0 ibuprofen [Advil] 200 mg Tablet 400 mg PO Q6H PRN (Reason: Pain) RF: 0 oxycodone 10 mg tablet 10 mg PO Q4 RF: 0 Probiotic 10 billion cell capsule 0 mmu cells PO DAILY RF: 0 multivitamin Tablet 1 tab PO QAM RF: 0 ascorbic acid (vitamin C) [Vitamin C] 1,000 mg Tablet 1 g PO QAM RF: 0 cyanocobalamin (vitamin B-12) 500 mcg Tablet 500 mcg PO QAM RF: 0 rosuvastatin [Crestor] 20 mg Tablet 20 mg PO QAM RF: 0 Eliquis 5 mg tablet 5 mg PO BID RF: 0 fihoqjb-rkonnjsfi-bhkx Tablet 1 tab PO DAILY RF: 0 finasteride [Proscar] 5 mg Tablet 5 mg PO QAM 30 Days Qty: 30 RF: 0 Referrals Referrals: Shakira Segovia MD [Primary Care Provider] -
[2021-10-25] MEDS ORDERED: PANTOprazole 80 MG in DEXTROSE 5% 100 ML IV STA (18:35)
[2021-10-25 18:54] LABS: Basophils # (auto) 0.03 K/uL (0-0.2); Basophils % (auto) 0.3 %; Eosinophils # (auto) 0.29 K/uL (0-0.5); Eosinophils % (auto) 2.5 %; Hematocrit (blood only) 24.5 % (42-52); Hemoglobin 7.5 g/dL (14.0-18.0); Immature Granulocytes # (auto) 0.06 K/uL (0.00-0.02); Immature Granulocytes % (auto) 0.5 %; Lymphocytes # (auto) 0.77 K/uL (1.2-3.4); Lymphocytes % (auto) 6.6 %; Mean Corpuscular Hemoglobin 27.1 pg (25-34); Mean Corpuscular Hgb Conc 30.6 g/dL (32-36); Mean Corpuscular Volume 88.4 fL (80-100); Mean Platelet Volume 8.5 fL (7.4-10.4); Monocytes # (auto) 1.06 K/uL (0.11-0.59); Monocytes % (auto) 9.2 %; Neutrophils # (auto) 9.37 K/uL (1.4-6.5); Neutrophils % (auto) 80.9 %; Platelet Count 286 K/uL (130-400); RDW Coefficient of Variation 17.7 % (11.5-14.5); RDW Standard Deviation 57.4 fL (36.4-46.3); Red Blood Count 2.77 M/uL (4.7-6.1); White Blood Count 11.58 K/uL (4.8-10.8)
[2021-10-25 19:15] LABS: Hypochromasia Present; Poikilocytosis Present
[2021-10-25 19:18] LABS: Albumin Level 3.2 gm/dl (3.4-5.0); BUN Creatinine Ratio 11.3 (10-20); Bilirubin,Total 1.1 mg/dl (0.2-1.0); Calcium 9.6 mg/dl (8.5-10.1); Creatinine Clr Calc Pharmacy 57.3 ml/min; Est GFR (African American) 67.8 ml/min; Est GFR (Non-African American) 58.5 ml/min; Globulin 3.3 gm/dl (2.5-4.0); Magnesium 2.1 mg/dl (1.7-2.4); Potassium 4.5 mmol/L (3.5-5.1); Total Protein 6.5 gm/dl (6.0-8.3)
[2021-10-25 19:19] LABS: INR 1.2 (0.9-1.1); Partial Thromboplastin Ratio 1.3; Partial Thromboplastin Time 35.1 Seconds (21.0-31.0); Troponin I High Sensitivity 22.9 pg/ml (0-20)
--- NOTE | 2021-10-25 19:38 | XRay Report ---
XR chest 1V portable CLINICAL HISTORY: abd pain TECHNIQUE: Single frontal radiograph of the chest was obtained. Comparison: Comparison is made to chest radiograph 05/22/2020 FINDINGS: Interval placement of left portacatheter. The cardiomediastinal silhouette is normal. The lungs are c lear. No evidence of pleural effusion or pneumothorax. IMPRESSION: No acute chest disease. ACT 112: Negative or not required by law. Electronically signed by: Cornelio Salomon M.D. 10/25/2021 7:37 PM
[2021-10-25] MEDS ORDERED: MoRPHine SULFATE 4 MG/ML 1 ML CARP\\VIAL IV STA (20:35)
[2021-10-25] MEDS ORDERED: MoRPHine SULFATE 4 MG/ML 1 ML CARP\\VIAL IV PRN (20:35)
--- NOTE | 2021-10-25 20:44 | CT Scan Report ---
CT abd pelvis wo con CLINICAL HISTORY: poss colitis or divertic TECHNIQUE: Helical axial images of the abdomen and pelvis were obtained. Automated dose lowering tech niques and/or adjustment according to patient size were utilized for this exam. This exam was perfor med without intravenous contrast. CT DOSE: 541.94 mGy.cm COMPARISON: Comparison is made to CT abdomen pelvis 09/25/2021 FINDINGS: Lower chest: Multiple pulmonary nodules are seen, increased in size and number from exam in May . Liver: Innumerable large hypodensities in the liver are again seen. The index lesion measures 90 mm i n diameter, increased from 76 mm in the prior exam. Gallbladder and biliary tree: No calcified gallstones. Normal caliber wall. No intra- or extrahepatic biliary ductal dilation. Pancreas: Ill-defined pancreatic body mass is seen measuring approximately 56 x 37 mm. Distal pancrea tic ductal dilation is seen. Spleen: Unremarkable. Adrenals: Prominent thickening of the left adrenal gland is seen, increased from exam of May 6. The right adrenal gland is normal. Kidneys and ureters: Partial visualization of a right superior pole mass measuring approximately 18 m m, now due to noncontrast technique. Hypodensity in the left kidney interpolar cortex which is nonspe cific but may represent proteinaceous/hemorrhagic cyst. Bladder: Limited evaluation due to underdistention. Bladder wall thickening is seen. Reproductive organs: Prostatomegaly is seen. Bowel: Liquid contents are seen in the rectum. The appendix measures 8 mm in diameter without inflamm atory changes. Lymph nodes Retroperitoneal: Numerous enlarged retroperitoneal lymph nodes are seen measuring up to 10 mm in shor t axis. These have increased from exam of May. Mesenteric: Subcentimeter lymph nodes are noted. Pelvic: Unremarkable. Peritoneum: There is mild diffuse fat stranding most prominent about the mesenteric root, somewhat in creased from prior exams. Vessels: Atherosclerotic calcifications are seen. Although evaluation is limited by noncontrast techn ique, the splenic vein and superior mesenteric/portal vein appear to contact or be encased by the heaton creatic mass. Abdominal wall: A fat-containing umbilical hernia is seen. Bones: Unremarkable. IMPRESSION: 1. Liquid contents are seen in the rectum compatible with diarrhea. No bowel wall thickening is seen to suggest diverticulitis or other infectious/inflammatory colitis. There is mild mesenteric fat str anding which is nonspecific. 2. Redemonstration of the pancreatic head mass with multifocal metastatic lesions. This mass is enla rged from May. The hepatic lesions and papa metastases have likewise increase over time Februar y. In addition, there is marked thickening of the left adrenal gland which has significantly progress ed from May and likely represents a metastatic focus. 3. Multiple ill-defined nodules in the lower lungs are again seen, metastasis cannot be excluded. 4. Prostatomegaly and bladder wall thickening likely due to chronic outlet obstruction. 5. Partial visualization of bilateral renal lesions which are not well evaluated due to noncontrast technique. ACT 112: Negative or not required by law. Electronically signed by: Cornelio Salomon M.D. 10/25/2021 8:42 PM
[2021-10-25] MEDS ORDERED: SODIUM CHLORIDE 0.9% 250 ML IV PRN (20:53)
--- NOTE | 2021-10-25 21:52 | History & Physical Report ---
Date of Service October 25, 2021 Assessment & Plan (1) Symptomatic anemia: Plan: Secondary to LGI bleed Recent laxative Rx for narcotic induced constipation Hemoglobin drop from baseline hx LLE DVT Eliquis hx metastatic pancreatic cancer sp chemotherapy, progressive disease hypertension, BP stable Mild hyponatremia secondary to home diuretic Rx hyperlipidemia on statin Rx Hyperglycemia likely prediabetes, hemoglobin A1c of 5.02 January 2021 Medical telemetry Transfuse 1 unit PRBC given symptomatic anemia Appropriate to hold Eliquis and laxative Rx for now GI consult RE L GIB DVT prophylaxis. SCDs Re: GI bleed DNR Text document was generated using [employer] voice recognition software. It may contain grammatical or spelling errors. Kindly contact undersigned for clarification of any documentation item in question. History of Present Illness Chief Complaint: Bloody diarrhea Primary Care Provider: Shakira Segovia MD History obtained from patient and records. Medical history significant for metastatic pancreatic cancer ongoing chemotherapy, chronic pain on narcotics, hypertension, hyperlipidemia, recurrent Cdifficile status post vancomycin Rx, BPH, chronic anemia (baseline hemoglobin of 11), LLE DVT on Eliquis. Monthly admissions since May, Recent confinement 3 weeks ago for recurrent C. difficile. Patient discharged on Dificid. Last week, patient did on laxative regimen for narcotic induced constipation by palliative care physician. 5 days history of bloody diarrhea without abdominal pain. Patient feeling washed out weak and tired. No fever, no chills, no chest pain, no shortness of breath. Outpatient stool C. difficile test today was negative. Patient brought to ER by family for further evaluation. 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 Allergies Allergy/AdvReac Type Severity Reaction Status Date / Time erythromycin base AdvReac Mild Gastrointestinal Verified 10/25/21 19:25 Upset celecoxib [From Celebrex] AdvReac irritates Verified 10/25/21 19:26 stomach Home Medications Medication Instructions Recorded Confirmed Type ascorbic acid (vitamin C) 1,000 mg 1 g PO QAM 01/10/21 10/25/21 History tablet (Vitamin C) cyanocobalamin (vitamin B-12) 500 500 mcg PO QAM 01/10/21 10/25/21 History mcg tablet multivitamin 1 tab PO QAM 01/10/21 10/25/21 History rosuvastatin 20 mg tablet (Crestor) 20 mg PO QAM 01/10/21 10/25/21 History cholecalciferol (vitamin D3) 25 25 mcg PO QAM 05/16/21 10/25/21 History mcg (1,000 unit) tablet (Vitamin D3) omeprazole 40 mg capsule,delayed 40 mg PO DAILYBB 06/13/21 10/25/21 History release flaxseed oil 1,000 mg capsule 1,000 mg PO DAILY 07/20/21 10/25/21 History ondansetron HCl 8 mg tablet 8 mg PO Q8 PRN 07/20/21 10/25/21 History prochlorperazine maleate 10 mg 10 mg PO Q6 PRN 07/20/21 10/25/21 History tablet tamsulosin 0.4 mg capsule 0.4 mg PO DAILY 07/20/21 10/25/21 History nwffxt-jhtptako-dxrubkf 1 cap PO TIDM #90 cap 07/24/21 10/25/21 Rx 36,000-114,000-180,000 unit capsule,delay rel (Creon) apixaban 5 mg tablet (Eliquis) 5 mg PO BID 09/25/21 10/25/21 History dwjxldm-ppjqusqvr-dlxf tablet 1 tab PO DAILY 09/25/21 10/25/21 History finasteride 5 mg tablet (Proscar) 5 mg PO QAM 30 Days #30 tab 10/02/21 10/25/21 Rx Lactobacillus acidophilus 10 0 mmu cells PO DAILY 10/25/21 10/25/21 History billion cell capsule (Probiotic) ibuprofen 200 mg tablet (Advil) 400 mg PO Q6H PRN 10/25/21 10/25/21 History lorazepam 0.5 mg tablet 0.5 mg PO HS PRN 10/25/21 10/25/21 History oxycodone 10 mg tablet 10 mg PO Q4 10/25/21 10/25/21 History sennosides 8.6 mg tablet (senna) 8.6 mg PO DAILY PRN 10/25/21 10/25/21 History Past Med/Surg History Medical History Arthritis of right knee BPH (benign prostatic hyperplasia) C. difficile colitis CKD (chronic kidney disease), stage III Hyperlipidemia Hypertension Left leg DVT Liver metastases Nausea and vomiting after administration of anesthetic agent Osteoarthritis Pancreatic cancer Umbilical hernia + present (no pain or current issues) Surgical History History of colonoscopy History of tooth extraction History of total right knee replacement (TKR) Hx of inguinal hernia repair Hx of prostate biopsy x2 (benign) Hx of umbilical hernia repair Hx of vasectomy Family History Mother Hypertension Heart disease Other No family history of adverse response to anesthesia Social History Smoking Status: Former smoker Second Hand Exposure: No; Hx Alcohol Use: No Hx Substance Use: No Preferred Language: B[place]udian Communication Ability: Effective Woodworker Required: No Beliefs That Will Affect Care: None marital status: Current Living Situation: Spouse Current Living Situation Comment: How many Children do You have: 3 Feels Safe at Home: Yes Assistive Devices: Cane and Walker Review of Systems Review of Systems: As per HPI, all other systems reviewed and negative Physical Exam Physical Exam: GENERAL: Comfortable, no respiratory distress SKIN: Pallor, warm HEENT: Partial alopecia, bespectacled, pale palpebral conjunctivae, no ptosis, dry buccal mucosa NECK : Supple, no tenderness CHEST : CTA, no tenderness HEART : RRR, no obvious murmurs ABDOMEN: Some distention,no tenderness EXTREMITIES : Minimal LE swelling, no LE tenderness, no other conspicuous deformities noted NEUROLOGIC : Coherent, no facial asymmetry, no other gross focality Results & Data Results & Data ([facility]) Vital Signs (Past 12 Hours) Vital Signs Temp Pulse Resp BP Pulse Ox 10/25/21 21:39 37 C 80 17 119/61 99 10/25/21 21:37 36.8 C 81 17 119/66 100 10/25/21 21:20 37.1 C 82 17 142/75 H 95 10/25/21 18:26 97 10/25/21 17:58 36.4 C L 108 H 20 105/61 99 Laboratory Results Laboratory Results WBC 11.58 K/uL (4.8-10.8) H 10/25/21 18:45 RBC 2.77 M/uL (4.7-6.1) L 10/25/21 18:45 Hgb 7.5 g/dL (14.0-18.0) L 10/25/21 18:45 Hct 24.5 % (42-52) L 10/25/21 18:45 MCV 88.4 fL (80-100) 10/25/21 18:45 MCH 27.1 pg (25-34) 10/25/21 18:45 MCHC 30.6 g/dL (32-36) L 10/25/21 18:45 RDW Std Deviation 57.4 fL (36.4-46.3) H 10/25/21 18:45 RDW Coeff of [place] 17.7 % (11.5-14.5) H 10/25/21 18:45 Plt Count 286 K/uL (130-400) 10/25/21 18:45 MPV 8.5 fL (7.4-10.4) 10/25/21 18:45 Immature Gran % (Auto) 0.5 % 10/25/21 18:45 Neut % (Auto) 80.9 % 10/25/21 18:45 Lymph % (Auto) 6.6 % 10/25/21 18:45 [place] % (Auto) 9.2 % 10/25/21 18:45 Eos % (Auto) 2.5 % 10/25/21 18:45 Baso % (Auto) 0.3 % 10/25/21 18:45 Neut # (Auto) 9.37 K/uL (1.4-6.5) H 10/25/21 18:45 Lymph # (Auto) 0.77 K/uL (1.2-3.4) L 10/25/21 18:45 [place] # (Auto) 1.06 K/uL (0.11-0.59) H 10/25/21 18:45 Eos # (Auto) 0.29 K/uL (0-0.5) 10/25/21 18:45 Baso # (Auto) 0.03 K/uL (0-0.2) 10/25/21 18:45 Immature Gran # (Auto) 0.06 K/uL (0.00-0.02) H 10/25/21 18:45 Hypochromasia Present 10/25/21 18:45 Poikilocytosis Present 10/25/21 18:45 PT 13.0 Seconds (9.0-12.0) H 10/25/21 18:45 INR 1.2 (0.9-1.1) H 10/25/21 18:45 APTT 35.1 Seconds (21.0-31.0) H 10/25/21 18:45 PTT Ratio 1.3 10/25/21 18:45 Sodium 136 mmol/L (136-145) 10/25/21 18:45 Potassium 4.5 mmol/L (3.5-5.1) 10/25/21 18:45 Chloride 99 mmol/L (98-107) 10/25/21 18:45 Carbon Dioxide 30 mmol/L (21-32) 10/25/21 18:45 Anion Gap 7 (3-11) 10/25/21 18:45 BUN 14 mg/dl (6-23) 10/25/21 18:45 Creatinine 1.24 mg/dl (0.6-1.4) 10/25/21 18:45 Est Cr Clr Drug Dosing 57.3 ml/min 10/25/21 18:45 Est GFR ( Amer) 67.8 ml/min 10/25/21 18:45 Est GFR (Non-Af Amer) 58.5 ml/min 10/25/21 18:45 BUN/Creatinine Ratio 11.3 (10-20) 10/25/21 18:45 Glucose 97 mg/dl (70-99(Fasting)) 10/25/21 18:45 Calcium 9.6 mg/dl (8.5-10.1) 10/25/21 18:45 Magnesium 2.1 mg/dl (1.7-2.4) 10/25/21 18:45 Total Bilirubin 1.1 mg/dl (0.2-1.0) H 10/25/21 18:45 AST 62 U/L (13-39) H 10/25/21 18:45 ALT 35 U/L (7-52) 10/25/21 18:45 Alkaline Phosphatase 1095 U/L (34-104) H 10/25/21 18:45 Troponin I High Sens 22.9 pg/ml (0-20) H 10/25/21 18:45 Total Protein 6.5 gm/dl (6.0-8.3) 10/25/21 18:45 Albumin 3.2 gm/dl (3.4-5.0) L 10/25/21 18:45 Globulin 3.3 gm/dl (2.5-4.0) 10/25/21 18:45 Albumin/Globulin Ratio 1.0 (0.9-2) 10/25/21 18:45 Lipase 26 U/L (11-82) 10/25/21 18:45 SARS-CoV-2, RNA, NAAT NEGATIVE (NEGATIVE) 10/25/21 18:52 Blood Type AB Positive 10/25/21 18:45 Antibody Screen NEGATIVE 10/25/21 18:45 Crossmatch See Detail 10/25/21 18:45 Impressions Abdomen/Pelvis CT 10/25/21 18:25 CT abd pelvis wo con CLINICAL HISTORY: poss colitis or divertic TECHNIQUE: Helical axial images of the abdomen and pelvis were obtained. Automated dose lowering techniques and/or adjustment according to patient size were utilized for this exam. This exam was performed without intravenous contrast. CT DOSE: 541.94 mGy.cm COMPARISON: Comparison is made to CT abdomen pelvis 09/25/2021 FINDINGS: Lower chest: Multiple pulmonary nodules are seen, increased in size and number from exam in May. Liver: Innumerable large hypodensities in the liver are again seen. The index lesion measures 90 mm in diameter, increased from 76 mm in the prior exam. Gallbladder and biliary tree: No calcified gallstones. Normal caliber wall. No intra- or extrahepatic biliary ductal dilation. Pancreas: Ill-defined pancreatic body mass is seen measuring approximately 56 x 37 mm. Distal pancreatic ductal dilation is seen. Spleen: Unremarkable. Adrenals: Prominent thickening of the left adrenal gland is seen, increased from exam of May 2015. The right adrenal gland is normal. Kidneys and ureters: Partial visualization of a right superior pole mass measuring approximately 18 mm, now due to noncontrast technique. Hypodensity in the left kidney interpolar cortex which is nonspecific but may represent proteinaceous/hemorrhagic cyst. Bladder: Limited evaluation due to underdistention. Bladder wall thickening is seen. Reproductive organs: Prostatomegaly is seen. Bowel: Liquid contents are seen in the rectum. The appendix measures 8 mm in diameter without inflammatory changes. Lymph nodes Retroperitoneal: Numerous enlarged retroperitoneal lymph nodes are seen measuring up to 10 mm in short axis. These have increased from exam of May. Mesenteric: Subcentimeter lymph nodes are noted. Pelvic: Unremarkable. Peritoneum: There is mild diffuse fat stranding most prominent about the mesenteric root, somewhat increased from prior exams. Vessels: Atherosclerotic calcifications are seen. Although evaluation is limited by noncontrast technique, the splenic vein and superior mesenteric/portal vein appear to contact or be encased by the pancreatic mass. Abdominal wall: A fat-containing umbilical hernia is seen. Bones: Unremarkable. IMPRESSION: 1. Liquid contents are seen in the rectum compatible with diarrhea. No bowel wall thickening is seen to suggest diverticulitis or other infectious/inflammatory colitis. There is mild mesenteric fat stranding which is nonspecific. 2. Redemonstration of the pancreatic head mass with multifocal metastatic lesions. This mass is enlarged from May. The hepatic lesions and papa metastases have likewise increase over time May. In addition, there is marked thickening of the left adrenal gland which has significantly progressed from May and likely represents a metastatic focus. 3. Multiple ill-defined nodules in the lower lungs are again seen, metastasis cannot be excluded. 4. Prostatomegaly and bladder wall thickening likely due to chronic outlet obstruction. 5. Partial visualization of bilateral renal lesions which are not well evaluated due to noncontrast technique. ACT 112: Negative or not required by law. Electronically signed by: Cornelio Salomon M.D. 10/25/2021 8:42 PM Chest X-Ray 10/25/21 18:26 XR chest 1V portable CLINICAL HISTORY: abd pain TECHNIQUE: Single frontal radiograph of the chest was obtained. Comparison: Comparison is made to chest radiograph 05/22/2020 FINDINGS: Interval placement of left portacatheter. The cardiomediastinal silhouette is normal. The lungs are clear. No evidence of pleural effusion or pneumothorax. IMPRESSION: No acute chest disease. ACT 112: Negative or not required by law. Electronically signed by: Cornelio Salomon M.D. 10/25/2021 7:37 PM Diagnostic Findings EKG as per my interpretation : Rate 80, NSR, normal axis, no ischemia Code Status & VTE Plan VTE Prophylaxis Plan VTE Prophylaxis will be ordered: Yes
[2021-10-25] MEDS ORDERED: ACETAMINOPHEN 325 MG TAB PO PRN (22:04)
[2021-10-25] MEDS ORDERED: SODIUM CHLORIDE 0.9% 1000ML 1,000 ML IV ONE (22:04)
[2021-10-25 23:06] LABS: Adenovirus F 40/41 PCR Not Detected (NotDetected); Astrovirus PCR Not Detected (NotDetected); Campylobacter PCR Not Detected (NotDetected); Clostridium diff Toxin A/B PCR Not Detected (NotDetected); Cryptosporidium PCR Not Detected (NotDetected); Cyclospora cayetanensis PCR Not Detected (NotDetected); Entamoeba histolytica PCR Not Detected (NotDetected); Enteroaggregative E.coli(EAEC) Not Detected (NotDetected); Enteropathogenic E.coli (EPEC) Not Detected (NotDetected); Enterotoxigenic E.coli (ETEC) Not Detected (NotDetected); Giardia lamblia PCR Not Detected (NotDetected); Norovirus GI/GII PCR Not Detected (NotDetected); Plesiomonas shigelloides PCR Not Detected (NotDetected); Rotavirus A PCR Not Detected (NotDetected); Salmonella PCR Not Detected (NotDetected); Sapovirus PCR Not Detected (NotDetected); Shiga-like Toxin E.coli (STEC) Not Detected (NotDetected); Shigella/Enteroinvasive E.coli Not Detected (NotDetected); Vibrio cholerae PCR Not Detected (NotDetected); Vibrio species PCR Not Detected (NotDetected); Yersinia enterocolitica PCR Not Detected (NotDetected)
[2021-10-26] MEDS: oxyCODONE HCL IR 5 MG TAB (IMMEDIATE RELEASE) PO PRN ×5 (00:21→21:01)
[2021-10-26 00:46] LABS: Appearance Urine Clear (Clear); Bacteria Urine Automated Negative (Negative); Bilirubin Urine Negative (Negative); Blood Urine Negative (Negative); Cast Urine Automated 0 /lpf (0-5); Color Urine Yellow; Epithelial Cell Urine Auto 0-5 /lpf (0-5); Glucose Urine UA Negative (Negative); Ketones Urine Negative (Negative); Leukocyte Esterase Urine Trace (Negative); Nitrite Urine Negative (Negative); Protein Urine Negative (Negative); RBC Urine Automated 0-4 /hpf (0-4); Specific Gravity Urine 1.006 (1.000-1.030); Urobilinogen Urine Negative (Negative); pH Urine 5.5 (4.5-7.5)
[2021-10-26] MEDS: PANTOprazole 40 MG TAB PO SCH (04:21)
[2021-10-26 07:26] LABS: Basophils # (auto) 0.05 K/uL (0-0.2); Basophils % (auto) 0.4 %; Eosinophils # (auto) 0.29 K/uL (0-0.5); Eosinophils % (auto) 2.2 %; Hematocrit (blood only) 26.7 % (42-52); Hemoglobin 8.6 g/dL (14.0-18.0); Immature Granulocytes % (auto) 0.8 %; Lymphocytes # (auto) 0.86 K/uL (1.2-3.4); Lymphocytes % (auto) 6.6 %; Mean Corpuscular Hemoglobin 28.8 pg (25-34); Mean Corpuscular Hgb Conc 32.2 g/dL (32-36); Mean Corpuscular Volume 89.3 fL (80-100); Mean Platelet Volume 8.7 fL (7.4-10.4); Monocytes # (auto) 1.02 K/uL (0.11-0.59); Monocytes % (auto) 7.8 %; Neutrophils # (auto) 10.78 K/uL (1.4-6.5); Neutrophils % (auto) 82.2 %; Platelet Count 302 K/uL (130-400); RDW Coefficient of Variation 17.3 % (11.5-14.5); RDW Standard Deviation 56.7 fL (36.4-46.3); Red Blood Count 2.99 M/uL (4.7-6.1)
[2021-10-26 07:38] LABS: BUN Creatinine Ratio 10.1 (10-20); Calcium 9.1 mg/dl (8.5-10.1); Creatinine Clr Calc Pharmacy 66.5 ml/min; Est GFR (African American) 79.3 ml/min; Est GFR (Non-African American) 68.4 ml/min; Potassium 3.8 mmol/L (3.5-5.1)
[2021-10-26] MEDS ORDERED: HYDROmorphone INJ 0.5 MG/0.5 ML SYR IV STA (07:53)
--- NOTE | 2021-10-26 08:38 | Gastrointestinal Consultation ---
Date of Consultation October 26, 2021 Assessment & Plan (1) GI bleed: (2) Pancreatic cancer: (3) Diarrhea: 70 y/o male with history of metastatic pancreatic cancer with current focus of comfort care, with recent diarrhea/bloody stools, infectious w/u negative so far, and we are consulted for ? GIB. HGB slightly lower than baseline; got 1 unit PRBC yesterday. On exam abd is soft, nontender. CT suggestive of liquid stool; no inflammatory changes though was noncontrast CT. Currently HD stable, soft abd. Normal BUN suggests against UGIB. Diff dx to consider would be hemorrhoidal, diverticular, ischemic, less likely ? CMV vs other - Continue PPI - Trend H&H, transfuse PRN - Monitor and document GI output - For now given stable labs, lack of significant overt GIB, will plan to defer endoscopy and monitor GI symptoms, H/H. - Diet as per primary team - If he develops worsening symptoms including significant GIB or drop in H/H please call for re-consideration of endoscopic evaluation over the weekend Thank you for allowing us to participate in the care of this patient. Please call with any acute changes, questions or concerns. Please see addendum below with additional recommendation from my supervising physician. Supervising Physician Co-Signing Physician Notes I performed a history and physical examination of the patient today, including specifically on physical exam - soft abdomen. I have discussed the patient's management with the advanced practitioner. Please refer to the nurse practitioner's note for the documented findings and plan of care. Patient with stage 4 pancreas cancer and Hx of C.diff, has chronic intermittent diarrhea, now concern for ? hematochezia. Recent EGD normal. Recommend: Monitor H/H PPI If bleeding worsens or continues then we can consider a colonoscopy over the weekend, the oncall panel edge painter will follow. History of Present Illness Reason for Consultation: LGIB Requesting Physician: Dr. Webb Attending Physician: Cyndi Gomez DO History of Present Illness This is a 70 y/o male with history of metastatic pancreatic cancer, DVT on Eliquis, chronic pain on narcotics, hypertension, hyperlipidemia, recently admitted w/ C diff colitis, tx with Dificid. Several days ago developed loose bloody stools; was having a few day. Was worried about recurrent C diff though several OP C dif tests negative. He reported to the ER for weakness. Baseline HGB 8-10. On arrival had slight leukocytosis, HGB 7.5, today is 8.4 after 1 unit pRBC,, BUN, plt normal, INR 1.2. Eliquis being held. Lytes and renal fxn largely WNL. Has chronic elevated LFTs. CXR nonacute, CTAP w/ liquid contents in the rectum c/w diarrhea, no inflammatory/infectious colitis changes, mild nonspecific mesenteric fat stran ding is noted. C diff testing and stool cx here in the hospital are neg. On rectal exam had dark "almost red" stool, heme +. Patient received IV analgesia, antiemetics, and IVF, IV PPI. No stool this AM; this afternoon small dark red blood BR reported. States stool was brown mixed with small amt of blood. Reports last week was having narcotic induced constipation and put on a laxative regimen; had been taking Miralax - this is now held with this admission. Has ongoing back/abd pain. Tolerated clears today. No nausea, vomiting, hematemesis, melena, fever, chills, CP, SOB. As for his pancreatic cancer, recent CTAP and CT chest show significant disease progression; he is weak and has continued weight loss with functional decline; Gemzar and Abraxane have been declined; chemo not an option; focus has been moved to comfort/palliative care. EGD 04/2021 for abd pain: - Normal esophagus. - Z-line regular. - Normal stomach. Biopsied. - Normal duodenal bulb and second portion of the duodenum. Biopsied. A. Duodenum (biopsy): - Mild diffuse atrophy of the villous architecture is seen. - A significant inflammatory infiltrate, crypt hyperplasia, and increased intraepithelial lymphocytes are all not seen militating against gluten sensitive enteropathy. - The clinical history of epigastric pain is noted. B. Stomach (biopsy): - Minimally and focally inflamed benign gastric mucosa is seen. - Atrophy and intestinal metaplasia are not seen. - Helicobacter pylori organisms are not seen on an immunohistochemical stain. - No tumor seen. Colonoscopy 2015 in [place] - normal Allergies Allergy/AdvReac Type Severity Reaction Status Date / Time erythromycin base AdvReac Mild Gastrointestinal Verified 10/25/21 19:25 Upset celecoxib [From Celebrex] AdvReac irritates Verified 10/25/21 19:26 stomach Home Medications Medication Instructions Recorded Confirmed Type ascorbic acid (vitamin C) 1,000 mg 1 g PO QAM 01/10/21 10/25/21 History tablet (Vitamin C) cyanocobalamin (vitamin B-12) 500 500 mcg PO QAM 01/10/21 10/25/21 History mcg tablet multivitamin 1 tab PO QAM 01/10/21 10/25/21 History rosuvastatin 20 mg tablet (Crestor) 20 mg PO QAM 01/10/21 10/25/21 History cholecalciferol (vitamin D3) 25 25 mcg PO QAM 05/16/21 10/25/21 History mcg (1,000 unit) tablet (Vitamin D3) omeprazole 40 mg capsule,delayed 40 mg PO DAILYBB 06/13/21 10/25/21 History release flaxseed oil 1,000 mg capsule 1,000 mg PO DAILY 07/20/21 10/25/21 History ondansetron HCl 8 mg tablet 8 mg PO Q8 PRN 07/20/21 10/25/21 History prochlorperazine maleate 10 mg 10 mg PO Q6 PRN 07/20/21 10/25/21 History tablet tamsulosin 0.4 mg capsule 0.4 mg PO DAILY 07/20/21 10/25/21 History ddlfxi-qvgkkbxe-skttrsd 1 cap PO TIDM #90 cap 07/24/21 10/25/21 Rx 36,000-114,000-180,000 unit capsule,delay rel (Creon) apixaban 5 mg tablet (Eliquis) 5 mg PO BID 09/25/21 10/25/21 History ddzfxnc-rdfkvqmay-xqwc tablet 1 tab PO DAILY 09/25/21 10/25/21 History finasteride 5 mg tablet (Proscar) 5 mg PO QAM 30 Days #30 tab 10/02/21 10/25/21 Rx Lactobacillus acidophilus 10 0 mmu cells PO DAILY 10/25/21 10/25/21 History billion cell capsule (Probiotic) ibuprofen 200 mg tablet (Advil) 400 mg PO Q6H PRN 10/25/21 10/25/21 History lorazepam 0.5 mg tablet 0.5 mg PO HS PRN 10/25/21 10/25/21 History oxycodone 10 mg tablet 10 mg PO Q4 10/25/21 10/25/21 History sennosides 8.6 mg tablet (senna) 8.6 mg PO DAILY PRN 10/25/21 10/25/21 History Patient History Medical History Arthritis of right knee BPH (benign prostatic hyperplasia) C. difficile colitis CKD (chronic kidney disease), stage III Hyperlipidemia Hypertension Left leg DVT Liver metastases Nausea and vomiting after administration of anesthetic agent Osteoarthritis Pancreatic cancer Umbilical hernia + present (no pain or current issues) Surgical History History of colonoscopy History of tooth extraction History of total right knee replacement (TKR) Hx of inguinal hernia repair Hx of prostate biopsy x2 (benign) Hx of umbilical hernia repair Hx of vasectomy Family History Mother Hypertension Heart disease Other No family history of adverse response to anesthesia Social History Smoking Status: Former smoker Second Hand Exposure: No; Hx Alcohol Use: No Hx Substance Use: No Preferred Language: Armenian Communication Ability: Effective Hull Sorter Required: No Beliefs That Will Affect Care: None marital status: Current Living Situation: Spouse Current Living Situation Comment: How many Children do You have: 3 Feels Safe at Home: Yes Assistive Devices: Cane Review of Systems Review of Systems: All systems reviewed & are unremarkable except as noted in HPI & below Physical Exam Constitutional: WD/WN, vitals as above (chronically ill) Eyes: PERRL, conjunctivae normal, anicteric sclerae ENMT: external ear and nose normal, oropharynx normal Respiratory: normal respiratory effort, lungs clear to auscultation Cardiovascular: RRR, no murmur, no edema Gastrointestinal (Abdomen): normal bowel sounds, soft, nontender, no hepatosp lenomegaly Skin: no rashes, warm and dry Psychiatric: A+Ox3, euthymic affect Results & Data ([facility]) Vital Signs (Past 12 Hours) Vital Signs Temp Pulse Pulse Resp BP BP Pulse Ox 10/26/21 08:13 36.8 C 80 18 120/82 100 10/26/21 07:30 88 10/26/21 03:40 36.6 C 84 18 135/79 99 10/25/21 23:59 36.7 C 79 18 135/83 98 10/25/21 23:07 36.6 C 80 18 133/80 10/25/21 22:04 36.5 C 86 16 143/80 H 97 10/25/21 21:50 36.5 C 86 16 143/80 H 10/25/21 21:39 37 C 80 17 119/61 99 10/25/21 21:37 36.8 C 81 17 119/66 100 10/25/21 21:20 37.1 C 82 17 142/75 H 95 Laboratory Results 10/26/21 10/26/21 10/26/21 Range/Units 11:37 06:44 06:44 WBC 13.10 H (4.8-10.8) K/uL RBC 2.99 L (4.7-6.1) M/uL Hgb 8.4 L 8.6 L (14.0-18.0) g/dL Hct 26.5 L 26.7 L (42-52) % MCV 89.3 (80-100) fL MCH 28.8 (25-34) pg MCHC 32.2 (32-36) g/dL RDW Std Deviation 56.7 H (36.4-46.3) fL RDW Coeff of [place] 17.3 H (11.5-14.5) % Plt Count 302 (130-400) K/uL MPV 8.7 (7.4-10.4) fL Immature Gran % (Auto) 0.8 % Neut % (Auto) 82.2 % Lymph % (Auto) 6.6 % Swain % (Auto) 7.8 % Eos % (Auto) 2.2 % Baso % (Auto) 0.4 % Neut # (Auto) 10.78 H (1.4-6.5) K/uL Lymph # (Auto) 0.86 L (1.2-3.4) K/uL Swain # (Auto) 1.02 H (0.11-0.59) K/uL Eos # (Auto) 0.29 (0-0.5) K/uL Baso # (Auto) 0.05 (0-0.2) K/uL Immature Gran # (Auto) 0.10 H (0.00-0.02) K/uL Hypochromasia Poikilocytosis PT (9.0-12.0) Seconds INR (0.9-1.1) APTT (21.0-31.0) Seconds PTT Ratio Sodium 136 (136-145) mmol/L Potassium 3.8 (3.5-5.1) mmol/L Chloride 99 (98-107) mmol/L Carbon Dioxide 28 (21-32) mmol/L Anion Gap 9 (3-11) BUN 11 (6-23) mg/dl Creatinine 1.09 (0.6-1.4) mg/dl Est Cr Clr Drug Dosing 66.5 ml/min Est GFR ( Amer) 79.3 ml/min Est GFR (Non-Af Amer) 68.4 ml/min BUN/Creatinine Ratio 10.1 (10-20) Glucose 95 (70-99(Fasting)) mg/dl Calcium 9.1 (8.5-10.1) mg/dl Magnesium (1.7-2.4) mg/dl Total Bilirubin (0.2-1.0) mg/dl AST (13-39) U/L ALT (7-52) U/L Alkaline Phosphatase (34-104) U/L Troponin I High Sens (0-20) pg/ml Total Protein (6.0-8.3) gm/dl Albumin (3.4-5.0) gm/dl Globulin (2.5-4.0) gm/dl Albumin/Globulin Ratio (0.9-2) Lipase (11-82) U/L Urine Color Urine Appearance (Clear) Urine pH (4.5-7.5) Ur Specific [place] (1.000-1.030) Urine Protein (Negative) Urine Glucose (UA) (Negative) Urine Ketones (Negative) Urine Blood (Negative) Urine Nitrite (Negative) Urine Bilirubin (Negative) Urine Urobilinogen (Negative) Ur Leukocyte Esterase (Negative) Urine WBC (Auto) (0-5) /hpf Urine RBC (Auto) (0-4) /hpf U Hyaline Cast (Auto) (0-5) /lpf U Epithel Cells (Auto) (0-5) /lpf Urine Bacteria (Auto) (Negative) Stl C. cayetanensis PCR (NotDetected) Stool Rotavirus A PCR (NotDetected) Stl Adenov F 40/41 PCR (NotDetected) Stool Astrovirus (PCR) (NotDetected) Stool Campylobacter PCR (NotDetected) Stl C. diff Tox A/B PCR (NotDetected) Stool Cryptosporidium PCR (NotDetected) Stl E.coli Shiga Tox PCR (NotDetected) Stl Enterotoxigenic E PCR (NotDetected) Stool EPEC (PCR) (NotDetected) Stool EAEC (PCR) (NotDetected) Stl E. histolytica PCR (NotDetected) Stool Giardia Lamblia PCR (NotDetected) Stool Salmonella PCR (NotDetected) Stool Sapovirus (PCR) (NotDetected) Stl P. shigelloides PCR (NotDetected) Stl Shigella/EIEC PCR (NotDetected) St Y.enterocolitica PCR (NotDetected) Stool Vibrio (PCR) (NotDetected) Stl Vibrio cholerae PCR (NotDetected) Stl Norovirus GI/GII PCR (NotDetected) SARS-CoV-2, RNA, NAAT (NEGATIVE) Blood Type Antibody Screen Crossmatch 10/26/21 10/25/21 10/25/21 Range/Units 00:23 21:00 18:52 WBC (4.8-10.8) K/uL RBC (4.7-6.1) M/uL Hgb (14.0-18.0) g/dL Hct (42-52) % MCV (80-100) fL MCH (25-34) pg MCHC (32-36) g/dL RDW Std Deviation (36.4-46.3) fL RDW Coeff of [place] (11.5-14.5) % Plt Count (130-400) K/uL MPV (7.4-10.4) fL Immature Gran % (Auto) % Neut % (Auto) % Lymph % (Auto) % Swain % (Auto) % Eos % (Auto) % Baso % (Auto) % Neut # (Auto) (1.4-6.5) K/uL Lymph # (Auto) (1.2-3.4) K/uL Swain # (Auto) (0.11-0.59) K/uL Eos # (Auto) (0-0.5) K/uL Baso # (Auto) (0-0.2) K/uL Immature Gran # (Auto) (0.00-0.02) K/uL Hypochromasia Poikilocytosis PT (9.0-12.0) Seconds INR (0.9-1.1) APTT (21.0-31.0) Seconds PTT Ratio Sodium (136-145) mmol/L Potassium (3.5-5.1) mmol/L Chloride (98-107) mmol/L Carbon Dioxide (21-32) mmol/L Anion Gap (3-11) BUN (6-23) mg/dl Creatinine (0.6-1.4) mg/dl Est Cr Clr Drug Dosing ml/min Est GFR ( Amer) ml/min Est GFR (Non-Af Amer) ml/min BUN/Creatinine Ratio (10-20) Glucose (70-99(Fasting)) mg/dl Calcium (8.5-10.1) mg/dl Magnesium (1.7-2.4) mg/dl Total Bilirubin (0.2-1.0) mg/dl AST (13-39) U/L ALT (7-52) U/L Alkaline Phosphatase (34-104) U/L Troponin I High Sens (0-20) pg/ml Total Protein (6.0-8.3) gm/dl Albumin (3.4-5.0) gm/dl Globulin (2.5-4.0) gm/dl Albumin/Globulin Ratio (0.9-2) Lipase (11-82) U/L Urine Color Yellow Urine Appearance Clear (Clear) Urine pH 5.5 (4.5-7.5) Ur Specific [place] 1.006 (1.000-1.030) Urine Protein Negative (Negative) Urine Glucose (UA) Negative (Negative) Urine Ketones Negative (Negative) Urine Blood Negative (Negative) Urine Nitrite Negative (Negative) Urine Bilirubin Negative (Negative) Urine Urobilinogen Negative (Negative) Ur Leukocyte Esterase Trace H (Negative) Urine WBC (Auto) 1-5 (0-5) /hpf Urine RBC (Auto) 0-4 (0-4) /hpf U Hyaline Cast (Auto) 0 (0-5) /lpf U Epithel Cells (Auto) 0-5 (0-5) /lpf Urine Bacteria (Auto) Negative (Negative) Stl C. cayetanensis PCR Not Detected (NotDetected) Stool Rotavirus A PCR Not Detected (NotDetected) Stl Adenov F 40/41 PCR Not Detected (NotDetected) Stool Astrovirus (PCR) Not Detected (NotDetected) Stool Campylobacter PCR Not Detected (NotDetected) Stl C. diff Tox A/B PCR Not Detected (NotDetected) Stool Cryptosporidium PCR Not Detected (NotDetected) Stl E.coli Shiga Tox PCR Not Detected (NotDetected) Stl Enterotoxigenic E PCR Not Detected (NotDetected) Stool EPEC (PCR) Not Detected (NotDetected) Stool EAEC (PCR) Not Detected (NotDetected) Stl E. histolytica PCR Not Detected (NotDetected) Stool Giardia Lamblia PCR Not Detected (NotDetected) Stool Salmonella PCR Not Detected (NotDetected) Stool Sapovirus (PCR) Not Detected (NotDetected) Stl P. shigelloides PCR Not Detected (NotDetected) Stl Shigella/EIEC PCR Not Detected (NotDetected) St Y.enterocolitica PCR Not Detected (NotDetected) Stool Vibrio (PCR) Not Detected (NotDetected) Stl Vibrio cholerae PCR Not Detected (NotDetected) Stl Norovirus GI/GII PCR Not Detected (NotDetected) SARS-CoV-2, RNA, NAAT NEGATIVE (NEGATIVE) Blood Type Antibody Screen Crossmatch 10/25/21 10/25/21 10/25/21 Range/Units 18:45 18:45 18:45 WBC 11.58 H (4.8-10.8) K/uL RBC 2.77 L (4.7-6.1) M/uL Hgb 7.5 L (14.0-18.0) g/dL Hct 24.5 L (42-52) % MCV 88.4 (80-100) fL MCH 27.1 (25-34) pg MCHC 30.6 L (32-36) g/dL RDW Std Deviation 57.4 H (36.4-46.3) fL RDW Coeff of Franklin 17.7 H (11.5-14.5) % Plt Count 286 (130-400) K/uL MPV 8.5 (7.4-10.4) fL Immature Gran % (Auto) 0.5 % Neut % (Auto) 80.9 % Lymph % (Auto) 6.6 % Swain % (Auto) 9.2 % Eos % (Auto) 2.5 % Baso % (Auto) 0.3 % Neut # (Auto) 9.37 H (1.4-6.5) K/uL Lymph # (Auto) 0.77 L (1.2-3.4) K/uL Swain # (Auto) 1.06 H (0.11-0.59) K/uL Eos # (Auto) 0.29 (0-0.5) K/uL Baso # (Auto) 0.03 (0-0.2) K/uL Immature Gran # (Auto) 0.06 H (0.00-0.02) K/uL Hypochromasia Present Poikilocytosis Present PT 13.0 H (9.0-12.0) Seconds INR 1.2 H (0.9-1.1) APTT 35.1 H (21.0-31.0) Seconds PTT Ratio 1.3 Sodium 136 (136-145) mmol/L Potassium 4.5 (3.5-5.1) mmol/L Chloride 99 (98-107) mmol/L Carbon Dioxide 30 (21-32) mmol/L Anion Gap 7 (3-11) BUN 14 (6-23) mg/dl Creatinine 1.24 (0.6-1.4) mg/dl Est Cr Clr Drug Dosing 57.3 ml/min Est GFR ( Amer) 67.8 ml/min Est GFR (Non-Af Amer) 58.5 ml/min BUN/Creatinine Ratio 11.3 (10-20) Glucose 97 (70-99(Fasting)) mg/dl Calcium 9.6 (8.5-10.1) mg/dl Magnesium 2.1 (1.7-2.4) mg/dl Total Bilirubin 1.1 H (0.2-1.0) mg/dl AST 62 H (13-39) U/L ALT 35 (7-52) U/L Alkaline Phosphatase 1095 H (34-104) U/L Troponin I High Sens 22.9 H (0-20) pg/ml Total Protein 6.5 (6.0-8.3) gm/dl Albumin 3.2 L (3.4-5.0) gm/dl Globulin 3.3 (2.5-4.0) gm/dl Albumin/Globulin Ratio 1.0 (0.9-2) Lipase 26 (11-82) U/L Urine Color Urine Appearance (Clear) Urine pH (4.5-7.5) Ur Specific [place] (1.000-1.030) Urine Protein (Negative) Urine Glucose (UA) (Negative) Urine Ketones (Negative) Urine Blood (Negative) Urine Nitrite (Negative) Urine Bilirubin (Negative) Urine Urobilinogen (Negative) Ur Leukocyte Esterase (Negative) Urine WBC (Auto) (0-5) /hpf Urine RBC (Auto) (0-4) /hpf U Hyaline Cast (Auto) (0-5) /lpf U Epithel Cells (Auto) (0-5) /lpf Urine Bacteria (Auto) (Negative) Stl C. cayetanensis PCR (NotDetected) Stool Rotavirus A PCR (NotDetected) Stl Adenov F 40/41 PCR (NotDetected) Stool Astrovirus (PCR) (NotDetected) Stool Campylobacter PCR (NotDetected) Stl C. diff Tox A/B PCR (NotDetected) Stool Cryptosporidium PCR (NotDetected) Stl E.coli Shiga Tox PCR (NotDetected) Stl Enterotoxigenic E PCR (NotDetected) Stool EPEC (PCR) (NotDetected) Stool EAEC (PCR) (NotDetected) Stl E. histolytica PCR (NotDetected) Stool Giardia Lamblia PCR (NotDetected) Stool Salmonella PCR (NotDetected) Stool Sapovirus (PCR) (NotDetected) Stl P. shigelloides PCR (NotDetected) Stl Shigella/EIEC PCR (NotDetected) St Y.enterocolitica PCR (NotDetected) Stool Vibrio (PCR) (NotDetected) Stl Vibrio cholerae PCR (NotDetected) Stl Norovirus GI/GII PCR (NotDetected) SARS-CoV-2, RNA, NAAT (NEGATIVE) Blood Type Antibody Screen Crossmatch 10/25/21 Range/Units 18:45 WBC (4.8-10.8) K/uL RBC (4.7-6.1) M/uL Hgb (14.0-18.0) g/dL Hct (42-52) % MCV (80-100) fL MCH (25-34) pg MCHC (32-36) g/dL RDW Std Deviation (36.4-46.3) fL RDW Coeff of Franklin (11.5-14.5) % Plt Count (130-400) K/uL MPV (7.4-10.4) fL Immature Gran % (Auto) % Neut % (Auto) % Lymph % (Auto) % Swain % (Auto) % Eos % (Auto) % Baso % (Auto) % Neut # (Auto) (1.4-6.5) K/uL Lymph # (Auto) (1.2-3.4) K/uL Swain # (Auto) (0.11-0.59) K/uL Eos # (Auto) (0-0.5) K/uL Baso # (Auto) (0-0.2) K/uL Immature Gran # (Auto) (0.00-0.02) K/uL Hypochromasia Poikilocytosis PT (9.0-12.0) Seconds INR (0.9-1.1) APTT (21.0-31.0) Seconds PTT Ratio Sodium (136-145) mmol/L Potassium (3.5-5.1) mmol/L Chloride (98-107) mmol/L Carbon Dioxide (21-32) mmol/L Anion Gap (3-11) BUN (6-23) mg/dl Creatinine (0.6-1.4) mg/dl Est Cr Clr Drug Dosing ml/min Est GFR ( Amer) ml/min Est GFR (Non-Af Amer) ml/min BUN/Creatinine Ratio (10-20) Glucose (70-99(Fasting)) mg/dl Calcium (8.5-10.1) mg/dl Magnesium (1.7-2.4) mg/dl Total Bilirubin (0.2-1.0) mg/dl AST (13-39) U/L ALT (7-52) U/L Alkaline Phosphatase (34-104) U/L Troponin I High Sens (0-20) pg/ml Total Protein (6.0-8.3) gm/dl Albumin (3.4-5.0) gm/dl Globulin (2.5-4.0) gm/dl Albumin/Globulin Ratio (0.9-2) Lipase (11-82) U/L Urine Color Urine Appearance (Clear) Urine pH (4.5-7.5) Ur Specific [place] (1.000-1.030) Urine Protein (Negative) Urine Glucose (UA) (Negative) Urine Ketones (Negative) Urine Blood (Negative) Urine Nitrite (Negative) Urine Bilirubin (Negative) Urine Urobilinogen (Negative) Ur Leukocyte Esterase (Negative) Urine WBC (Auto) (0-5) /hpf Urine RBC (Auto) (0-4) /hpf U Hyaline Cast (Auto) (0-5) /lpf U Epithel Cells (Auto) (0-5) /lpf Urine Bacteria (Auto) (Negative) Stl C. cayetanensis PCR (NotDetected) Stool Rotavirus A PCR (NotDetected) Stl Adenov F 40/41 PCR (NotDetected) Stool Astrovirus (PCR) (NotDetected) Stool Campylobacter PCR (NotDetected) Stl C. diff Tox A/B PCR (NotDetected) Stool Cryptosporidium PCR (NotDetected) Stl E.coli Shiga Tox PCR (NotDetected) Stl Enterotoxigenic E PCR (NotDetected) Stool EPEC (PCR) (NotDetected) Stool EAEC (PCR) (NotDetected) Stl E. histolytica PCR (NotDetected) Stool Giardia Lamblia PCR (NotDetected) Stool Salmonella PCR (NotDetected) Stool Sapovirus (PCR) (NotDetected) Stl P. shigelloides PCR (NotDetected) Stl Shigella/EIEC PCR (NotDetected) St Y.enterocolitica PCR (NotDetected) Stool Vibrio (PCR) (NotDetected) Stl Vibrio cholerae PCR (NotDetected) Stl Norovirus GI/GII PCR (NotDetected) SARS-CoV-2, RNA, NAAT (NEGATIVE) Blood Type AB Positive Antibody Screen NEGATIVE Crossmatch See Detail Diagnostic Findings CTAP: Lower chest: Multiple pulmonary nodules are seen, increased in size and number from exam in May. Liver: Innumerable large hypodensities in the liver are again seen. The index lesion measures 90 mm in diameter, increased from 76 mm in the prior exam. Gallbladder and biliary tree: No calcified gallstones. Normal caliber wall. No intra- or extrahepatic biliary ductal dilation. Pancreas: Ill-defined pancreatic body mass is seen measuring approximately 56 x 37 mm. Distal pancreatic ductal dilation is seen. Spleen: Unremarkable. Adrenals: Prominent thickening of the left adrenal gland is seen, increased from exam of May 2015. The right adrenal gland is normal. Kidneys and ureters: Partial visualization of a right superior pole mass measuring approximately 18 mm, now due to noncontrast technique. Hypodensity in the left kidney interpolar cortex which is nonspecific but may represent proteinaceous/hemorrhagic cyst. Bladder: Limited evaluation due to underdistention. Bladder wall thickening is seen. Reproductive organs: Prostatomegaly is seen. Bowel: Liquid contents are seen in the rectum. The appendix measures 8 mm in diameter without inflammatory changes. Lymph nodes Retroperitoneal: Numerous enlarged retroperitoneal lymph nodes are seen measuring up to 10 mm in short axis. These have increased from exam of May. Mesenteric: Subcentimeter lymph nodes are noted. Pelvic: Unremarkable. Peritoneum: There is mild diffuse fat stranding most prominent about the mesenteric root, somewhat increased from prior exams. Vessels: Atherosclerotic calcifications are seen. Although evaluation is limited by noncontrast technique, the splenic vein and superior mesenteric/portal vein appear to contact or be encased by the pancreatic mass. Abdominal wall: A fat-containing umbilical hernia is seen. Bones: Unremarkable. IMPRESSION: 1. Liquid contents are seen in the rectum compatible with diarrhea. No bowel wall thickening is seen to suggest diverticulitis or other infectious/inflammatory colitis. There is mild mesenteric fat stranding which is nonspecific. 2. Redemonstration of the pancreatic head mass with multifocal metastatic lesions. This mass is enlarged from May. The hepatic lesions and papa metastases have likewise increase over time May. In addition, there is marked thickening of the left adrenal gland which has significantly progressed from May and likely represents a metastatic focus. 3. Multiple ill-defined nodules in the lower lungs are again seen, metastasis cannot be excluded. 4. Prostatomegaly and bladder wall thickening likely due to chronic outlet obstruction. 5. Partial visualization of bilateral renal lesions which are not well evaluated due to noncontrast technique. CXR: No acute chest disease. (1) Pancreatic cancer Pancreatic malignancy location: unspecified Qualified Code(s): C25.9 - Malignant neoplasm of pancreas, unspecified (2) GI bleed GI bleed type/associated pathology: unspecified gastrointestinal hemorrhage type Qualified Code(s): K92.2 - Gastrointestinal hemorrhage, unspecified (3) Diarrhea Diarrhea type: unspecified type Qualified Code(s): R19.7 - Diarrhea, unspecified
[2021-10-26] MEDS: MULTIVITAMIN TAB PO SCH (08:49)
[2021-10-26] MEDS: ADVANCED PROBIOTIC 1250 MG CAPSULE PO SCH (08:49)
[2021-10-26] MEDS: ROSUVASTATIN CALCIUM 20 MG TAB PO SCH (08:49)
[2021-10-26] MEDS: CYANOCOBALAMIN (B-12) 500 MCG TABLET PO SCH (08:49)
[2021-10-26] MEDS: FINASTERIDE 5 MG TAB PO SCH (08:50)
[2021-10-26] MEDS: PANCREAZE (LIPASE 10,500U) CAP PO SCH ×3 (08:50→16:39)
[2021-10-26] MEDS: TAMSULOSIN HCL 0.4 MG CAP PO SCH (08:50)
--- NOTE | 2021-10-26 10:21 | Electrocardiogram Report ---
Test Reason : Blood Pressure : / mmHG Vent. Rate : 080 BPM Atrial Rate : 080 BPM P-R Int : 164 ms QRS Dur : 086 ms QT Int : 368 ms P-R-T Axes : 072 014 026 degrees QTc Int : 424 ms Normal sinus rhythm Normal ECG When compared with ECG of 14-JUN-2021 13:11, Minimal criteria for Anterior infarct are no longer Present Borderline Criteria for Inferior infarct no longer present Confirmed by Darrell Mosley ([id number]) on 10/26/2021 10:21:14 AM Referred By: REFERRED SELF Confirmed By:Darrell Mosley
[2021-10-26 11:47] LABS: Hematocrit (blood only) 26.5 % (42-52); Hemoglobin 8.4 g/dL (14.0-18.0)
[2021-10-26] MEDS: HYDROmorphone INJ 0.5 MG/0.5 ML SYR IV PRN ×2 (12:03→15:58)
[2021-10-26] MEDS ORDERED: diazePAM 2 MG TABLET PO STA (15:18)
--- NOTE | 2021-10-26 15:38 | Hospitalist Progress Note ---
Date of Service October 26, 2021 Assessment & Plan (1) Symptomatic anemia: Plan: Secondary to LGI bleed Recent laxative Rx for narcotic induced constipation Hemoglobin drop from baseline hx LLE DVT Eliquis--held Eliquis and laxative. Received 1 unit of blood overnight. 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 If bony mets, plan for consulting rad Onc (3) Pancreatic cancer: Plan: with metastatic disease. Per oncology. MRI spine to rule out new mets to the back. (4) Left leg DVT: Plan: diagnosed in June 2021. Hold anticoagulation at this time. (5) CKD (chronic kidney disease), stage III: Plan: chronic, stable. Cont to monitor BMP (6) Hypertension: Plan: chronic, controlled. Cont to control his pain (7) H/O Clostridium difficile infection: Plan: treated with difficid and has resolved. (8) DVT prophylaxis: Plan: SCDs/ ambulation chemoprophylaxis contraindicated at this time. DNR/DNI Dispo-to home when feeling better, bleeding resolved and pain controlled. Cyndi Gomez DO [facility] Hospitalist Admission and Anticipated Discharge Date Admission Date: October 25, 2021 Subjective 70 yo M reports worsening lower back pain for the past week. No loss of bowel function or bladder function Feet feel numb on the tops bilaterally hyporeflexic at the knees bilaterally. Generalized weakness in setting of acute blood loss anemia from GI bleeding- ongoing for the past 6 days No abdominal pain, fevers, chills No nausea but reports low appetite. Back pain is very severe. Declines CAB STARTER option Apixaban for DVT in June was held. Review of Systems Review of Systems: All systems were reviewed and negative except as indicated above. Physical Exam Physical Exam: CONSTITUTIONAL: think, frail, vitals as above, ill-appearing and in pain, hanging his head down because of pain EYES: normal conjunctivae ENT: external ear and nose normal, MMM NECK: trachea midline, RESPIRATORY: clear to auscultation bilaterally, no crackles, rales or wheezes, normal respiratory effort CARDIOVASCULAR: regular rate and rhythm, S1 and 2 heard without murmurs, gallops or rubs, no JVD, no peripheral edema, CHEST: inspection of chest was normal GASTROINTESTINAL: soft, nontender, ND, no guarding MUSCULOSKELETAL: strength 5/5 throughout, ambulating independently, head is normocephalic and atraumatic, SKIN: warm and dry, NEUROLOGIC: patellar DTRs 1+ bilat. No dysarthria. Touch, pain and proprioce ption normal. +numbness on tops of feet bilaterally. Normal cognition, normal speech, no tremor PSYCHIATRIC: alert cooperative and oriented to person, place and time. Results & Data Results & Data ([facility]) Vital Signs (Past 12 Hours) Vital Signs Temp Pulse Pulse Resp BP Pulse Ox 10/26/21 15:23 84 10/26/21 11:18 36.7 C 90 18 137/82 98 10/26/21 08:13 36.8 C 80 18 120/82 100 10/26/21 07:30 88 10/26/21 03:40 36.6 C 84 18 135/79 99 Laboratory Results Short CBC 10/25/21 10/26/21 10/26/21 Range/Units 18:45 06:44 11:37 WBC 11.58 H 13.10 H (4.8-10.8) K/uL Hgb 7.5 L 8.6 L 8.4 L (14.0-18.0) g/dL Hct 24.5 L 26.7 L 26.5 L (42-52) % Plt Count 286 302 (130-400) K/uL BMP 10/25/21 10/26/21 18:45 06:44 Sodium 136 136 Potassium 4.5 3.8 Chloride 99 99 Carbon Dioxide 30 28 BUN 14 11 Creatinine 1.24 1.09 Glucose 97 95 Calcium 9.6 9.1 Liver Function 10/25/21 Range/Units 18:45 Total Bilirubin 1.1 H (0.2-1.0) mg/dl AST 62 H (13-39) U/L ALT 35 (7-52) U/L Alkaline Phosphatase 1095 H (34-104) U/L Albumin 3.2 L (3.4-5.0) gm/dl Urine 10/26/21 Range/Units 00:23 Urine Color Yellow Urine Appearance Clear (Clear) Urine pH 5.5 (4.5-7.5) Ur Specific [place] 1.006 (1.000-1.030) Urine Protein Negative (Negative) Urine Glucose (UA) Negative (Negative) Medications Administered Current Inpatient Medications Acetaminophen (Acetaminophen 325 Mg Tab) 650 mg PO Q4H PRN PRN Reason: Pain or Fever Stop: 11/24/21 22:03 Lipase/Protease/Amylase (Pancreaze (Lipase 10,500u) Cap) 1 cap PO TIDM [facility] Stop: 11/25/21 07:59 Last Admin: 10/26/21 12:04 Dose: Not Given Documented by: Cyanocobalamin (Cyanocobalamin (B-12) 500 Mcg Tablet) 500 mcg PO [facility] Stop: 11/25/21 08:59 Last Admin: 10/26/21 08:49 Dose: 500 mcg Documented by: Finasteride (Finasteride 5 Mg Tab) [facility] Stop: 11/25/21 08:59 Last Admin: 10/26/21 08:50 Dose: 5 mg Documented by: Hydromorphone HCl (Hydromorphone Inj 0.5 Mg/0.5 Ml Syr) 0.5 mg IV Q4H PRN PRN Reason: Severe Pain Stop: 11/09/21 07:52 Last Admin: 10/26/21 12:03 Dose: 0.5 mg Documented by: Lactobacillus Acidophilus (Advanced Probiotic 1250 Mg Capsule) 2 cap PO DAILY [facility] Stop: 11/25/21 08:59 Last Admin: 10/26/21 08:49 Dose: 2 cap Documented by: Lidocaine (Lidocaine 5% 1 Patch) 1 patch TD [facility] Stop: 11/25/21 15:29 Lorazepam (Lorazepam 0.5 Mg Tab) 0.5 mg PO HS PRN PRN Reason: Anxiety Stop: 11/24/21 22:03 Miscellaneous (Remove Lidoderm Patch) 1 ea N/A DAILY@2100 [facility] Stop: 11/25/21 20:59 Multivitamins (Multivitamin Tab) 1 [facility] Stop: 11/25/21 08:59 Last Admin: 10/26/21 08:49 Dose: 1 tab Documented by: Oxycodone HCl (Oxycodone Hcl Ir 5 Mg Tab (Immediate Release)) 10 mg PO Q4 PRN PRN Reason: pain not relieved by tylenol Stop: 11/08/21 22:03 Last Admin: 10/26/21 14:48 Dose: 10 mg Documented by: Pantoprazole Sodium (Pantoprazole 40 Mg Tab) 40 mg PO DAILYBB [facility] Stop: 11/25/21 06:29 Last Admin: 10/26/21 04:21 Dose: 40 mg Documented by: Rosuvastatin Calcium (Rosuvastatin Calcium 20 Mg Tab) [facility] Stop: 11/25/21 08:59 Last Admin: 10/26/21 08:49 Dose: 20 mg Documented by: Tamsulosin HCl (Tamsulosin Hcl 0.4 Mg Cap) 0.4 mg PO DAILY [facility] Stop: 11/25/21 08:59 Last Admin: 10/26/21 08:50 Dose: 0.4 mg Documented by: (1) Pancreatic cancer Pancreatic malignancy location: unspecified Qualified Code(s): C25.9 - Malignant neoplasm of pancreas, unspecified (2) Hypertension Hypertension type: unspecified Qualified Code(s): I10 - Essential (primary) hypertension
[2021-10-26] MEDS: dexAMETHasone 4 MG TAB PO SCH (16:25)
[2021-10-26] MEDS: LIDOCAINE 5% 1 PATCH TD SCH (16:26)
[2021-10-26] MEDS: LORazepam 0.5 MG TAB PO PRN (21:45)
[2021-10-27] MEDS: HYDROmorphone INJ 0.5 MG/0.5 ML SYR IV PRN ×3 (02:09→13:27)
[2021-10-27] MEDS: oxyCODONE HCL IR 5 MG TAB (IMMEDIATE RELEASE) PO PRN ×3 (03:19→17:36)
[2021-10-27] MEDS: PANTOprazole 40 MG TAB PO SCH (06:03)
[2021-10-27 08:24] LABS: Hematocrit (blood only) 28.5 % (42-52); Hemoglobin 9.2 g/dL (14.0-18.0); Mean Corpuscular Hemoglobin 28.5 pg (25-34); Mean Corpuscular Hgb Conc 32.3 g/dL (32-36); Mean Corpuscular Volume 88.2 fL (80-100); Mean Platelet Volume 8.7 fL (7.4-10.4); Platelet Count 325 K/uL (130-400); RDW Coefficient of Variation 17.9 % (11.5-14.5); RDW Standard Deviation 57.5 fL (36.4-46.3); Red Blood Count 3.23 M/uL (4.7-6.1); White Blood Count 15.43 K/uL (4.8-10.8)
[2021-10-27 08:41] LABS: BUN Creatinine Ratio 15.1 (10-20); Calcium 9.4 mg/dl (8.5-10.1); Creatinine Clr Calc Pharmacy 80.5 ml/min; Est GFR (African American) 96.1 ml/min; Est GFR (Non-African American) 82.9 ml/min; Potassium 4.4 mmol/L (3.5-5.1)
[2021-10-27] MEDS: LIDOCAINE 5% 1 PATCH TD SCH (09:02)
[2021-10-27] MEDS: CYANOCOBALAMIN (B-12) 500 MCG TABLET PO SCH (09:05)
[2021-10-27] MEDS: PANCREAZE (LIPASE 10,500U) CAP PO SCH ×3 (09:05→17:29)
[2021-10-27] MEDS: ADVANCED PROBIOTIC 1250 MG CAPSULE PO SCH (09:06)
[2021-10-27] MEDS: dexAMETHasone 4 MG TAB PO SCH (09:06)
[2021-10-27] MEDS: ROSUVASTATIN CALCIUM 20 MG TAB PO SCH (09:06)
[2021-10-27] MEDS: FINASTERIDE 5 MG TAB PO SCH (09:06)
[2021-10-27] MEDS: MULTIVITAMIN TAB PO SCH (09:06)
[2021-10-27] MEDS: TAMSULOSIN HCL 0.4 MG CAP PO SCH (09:07)
[2021-10-27] MEDS ORDERED: KETOROLAC TROMETHAMINE 15 MG/ML VIAL IV STA (09:54)
--- NOTE | 2021-10-27 11:17 | Gastroenterology Progress Note ---
Date of Service October 27, 2021 Assessment & Plan (1) Rectal bleeding: Plan: Doing well and Hb and VSS No role for endoscopy at this time given stability, overall clinical dx and state Ok for hemorrhoidal therapy if necessary, but would follow symptoms prior call with questions Admission and Anticipated Discharge Date Admission Date: October 25, 2021 Subjective feels ok, no complaints, small bm with scant blood on stool. No abdominal pain Hb stable VSS Physical Exam Physical Exam: CONSTITUTIONAL: think, frail, vitals as above, ill-appearing and in pain, hanging his head down because of pain RESPIRATORY: clear to auscultation bilaterally, no crackles, rales or wheezes, normal respiratory effort CARDIOVASCULAR: regular rate and rhythm, S1 and 2 heard without murmurs, gallops or rubs, no JVD, no peripheral edema, CHEST: inspection of chest was normal GASTROINTESTINAL: soft, nontender, ND, no guarding PSYCHIATRIC: alert cooperative and oriented to person, place and time, depressed affect Results & Data ([facility]) Vital Signs (Past 12 Hours) Vital Signs Temp Pulse Pulse Resp BP Pulse Ox 10/27/21 07:49 36.6 C 84 18 149/87 H 99 10/27/21 07:15 87 10/27/21 03:17 36.6 C 86 18 146/88 H 99
[2021-10-27] MEDS ORDERED: ACETAMINOPHEN 1000 MG/100 ML IV IV SCH (14:00)
--- NOTE | 2021-10-27 14:06 | Hospitalist Progress Note ---
Date of Service October 27, 2021 Assessment & Plan (1) Symptomatic anemia: Plan: Secondary to LGI bleed Recent laxative Rx for narcotic induced constipation Hemoglobin drop from baseline hx LLE DVT Eliquis--held Eliquis and laxative. Received 1 unit of blood this admission. H/H this am continues to improve. No significant bleeding overnight. (2) Intractable back pain: Plan: severe, started short course decadron on 10/26-some improvement today NSAIDs contraindicated in acute bleed-try toradol because pain is still severe and bleeding is less significant. Add lidocaine patch-this is helping per patient. uncertain if valium helped him much but would like to avoid to avoid polypharmacy effects with ongoing narcotic use. 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 There are no overt signs of spinal cord compression at this time. If bony mets, plan for consulting rad Onc after the hol weekend No Pain coverage until either. (3) Pancreatic cancer: Plan: with metastatic disease. Per oncology. MRI spine to rule out new mets to the back. (4) Left leg DVT: Plan: diagnosed in June 2021. Hold anticoagulation at this time. (5) CKD (chronic kidney disease), stage III: Plan: chronic, stable. Cont to monitor BMP (6) Hypertension: Plan: chronic, controlled. Cont to control his pain (7) H/O Clostridium difficile infection: Plan: treated with difficid and has resolved. (8) DVT prophylaxis: Plan: SCDs/ ambulation chemoprophylaxis contraindicated at this time. DNR/DNI Dispo-to home when feeling better, bleeding resolved and pain controlled. Cyndi Gomez DO [facility] Hospitalist Admission and Anticipated Discharge Date Admission Date: October 25, 2021 Subjective 70 yo M reports worsening lower back pain for the past week. Pain is slightly improved this am but he is still unable to tolerate the MRI Gabapentin offered but he reported side effects to this in the past. 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 Review of Systems Review of Systems: All systems were reviewed and negative except as indicated above. Physical Exam Physical Exam: CONSTITUTIONAL: think, frail, vitals as above, ill-appearing and in pain, hanging his head down because of pain-does look a bit better today generally EYES: normal conjunctivae ENT: external ear and nose normal, MMM NECK: trachea midline, RESPIRATORY: clear to auscultation bilaterally, no crackles, rales or wheezes, normal respiratory effort CARDIOVASCULAR: regular rate and rhythm, S1 and 2 heard without murmurs, gallops or rubs, no JVD, no peripheral edema, CHEST: inspection of chest was normal GASTROINTESTINAL: soft, nontender, ND, no guarding MUSCULOSKELETAL: strength 5/5 throughout, ambulating independently, head is normocephalic and atraumatic, SKIN: warm and dry, NEUROLOGIC: CN 2-12 grossly normal. Normal cognition, normal speech, no tremor PSYCHIATRIC: alert cooperative and oriented to person, place and time. Results & Data Results & Data ([facility]) Vital Signs (Past 12 Hours) Vital Signs Temp Pulse Pulse Resp BP Pulse Ox 10/27/21 11:58 36.6 C 81 18 151/90 H 99 10/27/21 07:49 36.6 C 84 18 149/87 H 99 10/27/21 07:15 87 10/27/21 03:17 36.6 C 86 18 146/88 H 99 Laboratory Results Short CBC 10/27/21 Range/Units 07:58 WBC 15.43 H (4.8-10.8) K/uL Hgb 9.2 L (14.0-18.0) g/dL Hct 28.5 L (42-52) % Plt Count 325 (130-400) K/uL BMP 10/27/21 07:58 Sodium 134 L Potassium 4.4 Chloride 99 Carbon Dioxide 26 BUN 14 Creatinine 0.93 Glucose 118 H Calcium 9.4 Medications Administered Current Inpatient Medications Lipase/Protease/Amylase (Pancreaze (Lipase 10,500u) Cap) 1 cap PO TIDM [facility] Stop: 11/25/21 07:59 Last Admin: 10/27/21 13:01 Dose: Not Given Documented by: Cyanocobalamin (Cyanocobalamin (B-12) 500 Mcg Tablet) 500 mcg PO QAM [facility] Stop: 11/25/21 08:59 Last Admin: 10/27/21 09:05 Dose: 500 mcg Documented by: Dexamethasone (Dexamethasone 4 Mg Tab) 8 mg PO DAILY [facility] Stop: 10/31/21 15:44 Last Admin: 10/27/21 09:06 Dose: 8 mg Documented by: Finasteride (Finasteride 5 Mg Tab) 5 mg PO QAM [facility] Stop: 11/25/21 08:59 Last Admin: 10/27/21 09:06 Dose: 5 mg Documented by: Hydromorphone HCl (Hydromorphone Inj 0.5 Mg/0.5 Ml Syr) 0.5 mg IV Q4H PRN PRN Reason: Severe Pain Stop: 11/09/21 07:52 Last Admin: 10/27/21 13:27 Dose: 0.5 mg Documented by: Acetaminophen (Ofirmev) 1,000 mg in 100 mls @ 400 mls/hr IV Q8H [facility]; Protocol Stop: 10/30/21 13:59 Ketorolac Tromethamine (Ketorolac Tromethamine 15 Mg/Ml Vial) 15 mg IV Q6H PRN PRN Reason: severe pain(7-10) Stop: 11/01/21 14:04 Lactobacillus Acidophilus (Advanced Probiotic 1250 Mg Capsule) 2 cap PO DAILY [facility] Stop: 11/25/21 08:59 Last Admin: 10/27/21 09:06 Dose: 2 cap Documented by: Lidocaine (Lidocaine 5% 1 Patch) 1 patch TD [facility] Stop: 11/25/21 15:29 Last Admin: 10/27/21 09:02 Dose: 1 patch Documented by: Lorazepam (Lorazepam 0.5 Mg Tab) 0.5 mg PO HS PRN PRN Reason: Anxiety Stop: 11/24/21 22:03 Last Admin: 10/26/21 21:45 Dose: 0.5 mg Documented by: Miscellaneous (Remove Lidoderm Patch) 1 ea N/A DAILY@2100 [facility] Stop: 11/25/21 20:59 Last Admin: 10/26/21 20:44 Dose: 1 ea Documented by: Multivitamins (Multivitamin Tab) [facility] Stop: 11/25/21 08:59 Last Admin: 10/27/21 09:06 Dose: 1 tab Documented by: Oxycodone HCl (Oxycodone Hcl Ir 5 Mg Tab (Immediate Release)) 10 mg PO Q4 PRN PRN Reason: pain not relieved by tylenol Stop: 11/08/21 22:03 Last Admin: 10/27/21 09:00 Dose: 10 mg Documented by: Pantoprazole Sodium (Pantoprazole 40 Mg Tab) 40 mg PO DAILYBB [facility] Stop: 11/25/21 06:29 Last Admin: 10/27/21 06:03 Dose: 40 mg Documented by: Rosuvastatin Calcium (Rosuvastatin Calcium 20 Mg Tab) [facility] Stop: 11/25/21 08:59 Last Admin: 10/27/21 09:06 Dose: 20 mg Documented by: Tamsulosin HCl (Tamsulosin Hcl 0.4 Mg Cap) 0.4 mg PO DAILY [facility] Stop: 11/25/21 08:59 Last Admin: 10/27/21 09:07 Dose: 0.4 mg Documented by: (1) Pancreatic cancer Pancreatic malignancy location: unspecified Qualified Code(s): C25.9 - Malignant neoplasm of pancreas, unspecified (2) Hypertension Hypertension type: unspecified Qualified Code(s): I10 - Essential (primary) hypertension
[2021-10-27] MEDS: ACETAMINOPHEN 1,000 MG/100 ML VIAL IV SCH ×2 (14:12→21:00)
[2021-10-27] MEDS: KETOROLAC TROMETHAMINE 15 MG/ML VIAL IV PRN (23:51)
[2021-10-28] MEDS: oxyCODONE HCL IR 5 MG TAB (IMMEDIATE RELEASE) PO PRN ×2 (02:59→22:13)
[2021-10-28] MEDS: ACETAMINOPHEN 1,000 MG/100 ML VIAL IV SCH ×2 (05:09→13:45)
[2021-10-28] MEDS: PANTOprazole 40 MG TAB PO SCH (05:27)
[2021-10-28] MEDS: KETOROLAC TROMETHAMINE 15 MG/ML VIAL IV PRN ×2 (07:36→14:48)
[2021-10-28] MEDS: LIDOCAINE 5% 1 PATCH TD SCH (07:41)
[2021-10-28] MEDS: PANCREAZE (LIPASE 10,500U) CAP PO SCH ×3 (07:48→16:56)
[2021-10-28] MEDS: CYANOCOBALAMIN (B-12) 500 MCG TABLET PO SCH (07:49)
[2021-10-28] MEDS: MULTIVITAMIN TAB PO SCH (07:50)
[2021-10-28] MEDS: TAMSULOSIN HCL 0.4 MG CAP PO SCH (07:50)
[2021-10-28] MEDS: ROSUVASTATIN CALCIUM 20 MG TAB PO SCH (07:50)
[2021-10-28] MEDS: dexAMETHasone 4 MG TAB PO SCH (07:50)
[2021-10-28] MEDS: FINASTERIDE 5 MG TAB PO SCH (07:50)
[2021-10-28] MEDS: ADVANCED PROBIOTIC 1250 MG CAPSULE PO SCH (07:50)
[2021-10-28] MEDS ORDERED: FUROSEMIDE INJ 20 MG/2 ML VIAL IV ONE (09:07)
[2021-10-28] MEDS: HYDROmorphone INJ 0.5 MG/0.5 ML SYR IV PRN ×2 (09:18→18:53)
[2021-10-28 10:38] LABS: Hematocrit (blood only) 27.3 % (42-52); Hemoglobin 8.6 g/dL (14.0-18.0); Mean Corpuscular Hgb Conc 31.5 g/dL (32-36); Mean Corpuscular Volume 88.9 fL (80-100); Platelet Count 267 K/uL (130-400); RDW Coefficient of Variation 18.5 % (11.5-14.5); RDW Standard Deviation 58.5 fL (36.4-46.3); Red Blood Count 3.07 M/uL (4.7-6.1); White Blood Count 19.79 K/uL (4.8-10.8)
--- NOTE | 2021-10-28 14:23 | Hospitalist Progress Note ---
Date of Service October 28, 2021 Assessment & Plan (1) Symptomatic anemia: Plan: Secondary to LGI bleed Recent laxative Rx for narcotic induced constipation Hemoglobin drop from baseline hx LLE DVT Eliquis--held Eliquis and laxative. Received 1 unit of blood this admission. H/H this am continues to improve. No significant bleeding overnight. Continue to use NSAIDs cautiously (2) Intractable back pain: Plan: severe, started short course decadron on 10/26-some improvement today NSAIDs contraindicated in acute bleed-try toradol because pain is still severe and bleeding is less significant. Continued toradol because this works-convert to PRN Motrin, watch for bleeding. Family and patient advised on side effects and bleeding risks. Add lidocaine patch-this is helping per patient. 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 There are no overt signs of spinal cord compression at this time. If bony mets, plan for consulting rad Onc after the weekend No Pain coverage until either. Consult in place Added fentanyl patch on 10/28 (3) Pancreatic cancer: Plan: with metastatic disease. Per oncology. MRI spine to rule out new mets to the back when he is able to tolerate. (4) Left leg DVT: Plan: diagnosed in June 2021. Hold anticoagulation at this time. will repeat LE doppler at this time. If DVT present will continue AC as tolerated. If not will cont Lovenox for DVT prophylaxis. Patient is at elevated risk for additional/worsening DVT. (5) CKD (chronic kidney disease), stage III: Plan: chronic, stable. Cont to monitor BMP (6) Hypertension: Plan: chronic, controlled. Cont to control his pain (7) H/O Clostridium difficile infection: Plan: treated with difficid and has resolved. (8) DVT prophylaxis: Plan: SCDs/ ambulation/Lovenox DNR/DNI Dispo-to home when feeling better, bleeding resolved and pain controlled. Cyndi Gomez DO [facility] Hospitalist Admission and Anticipated Discharge Date Admission Date: October 25, 2021 Subjective 70 yo M reports worsening lower back pain for the past week. Pain is again improved this am but he is still unable to tolerate the MRI Gabapentin offered but he reported side effects to this in the past. No loss of bowel function or bladder function Still feels numb feet on the tops bilaterally-ambulating with a walker and weakness is improved. Continues to decline SPINAL SURGEON option, declined advance od diet from clears No blood per rectum No abdominal pain or nausea. Toradol is helping. I came back again and spent another 15-20 minutes with the patient and his family updating them. Together we decided on switching Tylenol and Motrin to oral versions so they may last longer. We also are adding a fentanyl patch, cautious given the history of issues with long acting narcotics. We are also advancing the diet. Review of Systems Review of Systems: All systems were reviewed and negative except as indicated above. Physical Exam Physical Exam: CONSTITUTIONAL: think, frail, vitals as above, ill-appearing and in pain, looks improved but tearful later in the day. EYES: normal conjunctivae ENT: external ear and nose normal, MMM NECK: trachea midline, RESPIRATORY: clear to auscultation bilaterally, no crackles, rales or wheezes, normal respiratory effort CARDIOVASCULAR: regular rate and rhythm, S1 and 2 heard without murmurs, gallops or rubs, no JVD, no peripheral edema, CHEST: inspection of chest was normal GASTROINTESTINAL: soft, nontender, ND, no guarding MUSCULOSKELETAL: strength 5/5 throughout, ambulating independently, head is normocephalic and atraumatic, SKIN: warm and dry, NEUROLOGIC: CN 2-12 grossly normal. Normal cognition, normal speech, no tremor PSYCHIATRIC: alert cooperative and oriented to person, place and time. Results & Data Results & Data ([facility]) Vital Signs (Past 12 Hours) Vital Signs Temp Pulse Pulse Resp BP Pulse Ox 10/28/21 11:56 36.9 C 69 19 145/83 H 99 10/28/21 09:00 73 10/28/21 07:29 36.8 C 81 18 154/78 H 94 10/28/21 02:30 36.5 C 70 18 131/78 98 Laboratory Results Short CBC 10/28/21 Range/Units 09:41 WBC 19.79 H (4.8-10.8) K/uL Hgb 8.6 L (14.0-18.0) g/dL Hct 27.3 L (42-52) % Plt Count 267 (130-400) K/uL Medications Administered Current Inpatient Medications Lipase/Protease/Amylase (Pancreaze (Lipase 10,500u) Cap) 1 cap PO TIDM [facility] Stop: 11/25/21 07:59 Last Admin: 10/28/21 11:59 Dose: 1 cap Documented by: Cyanocobalamin (Cyanocobalamin (B-12) 500 Mcg Tablet) 500 mcg PO QAM [facility] Stop: 11/25/21 08:59 Last Admin: 10/28/21 07:49 Dose: 500 mcg Documented by: Dexamethasone (Dexamethasone 4 Mg Tab) 8 mg PO DAILY [facility] Stop: 10/31/21 15:44 Last Admin: 10/28/21 07:50 Dose: 8 mg Documented by: Finasteride (Finasteride 5 Mg Tab) [facility] Stop: 11/25/21 08:59 Last Admin: 10/28/21 07:50 Dose: 5 mg Documented by: Hydromorphone HCl (Hydromorphone Inj 0.5 Mg/0.5 Ml Syr) 0.5 mg IV Q4H PRN PRN Reason: Severe Pain Stop: 11/09/21 07:52 Last Admin: 10/28/21 09:18 Dose: 0.5 mg Documented by: Acetaminophen (Ofirmev) 1,000 mg in 100 mls @ 400 mls/hr IV Q8H [facility]; Protocol Stop: 10/30/21 13:59 Last Infusion: 10/28/21 13:48 Dose: 0 mls/hr Documented by: Ketorolac Tromethamine (Ketorolac Tromethamine 15 Mg/Ml Vial) 15 mg IV Q6H PRN PRN Reason: severe pain(7-10) Stop: 11/01/21 14:04 Last Admin: 10/28/21 07:36 Dose: 15 mg Documented by: Lactobacillus Acidophilus (Advanced Probiotic 1250 Mg Capsule) 2 cap PO DAILY [facility] Stop: 11/25/21 08:59 Last Admin: 10/28/21 07:50 Dose: 2 cap Documented by: Lidocaine (Lidocaine 5% 1 Patch) 1 patch [facility] Stop: 11/25/21 15:29 Last Admin: 10/28/21 07:41 Dose: 1 patch Documented by: Lorazepam (Lorazepam 0.5 Mg Tab) 0.5 mg PO HS PRN PRN Reason: Anxiety Stop: 11/24/21 22:03 Last Admin: 10/26/21 21:45 Dose: 0.5 mg Documented by: Miscellaneous (Remove Lidoderm Patch) 1 ea N/A DAILY@2100 [facility] Stop: 11/25/21 20:59 Last Admin: 10/27/21 21:02 Dose: 1 ea Documented by: Multivitamins (Multivitamin Tab) 1 tab PO QAM [facility] Stop: 11/25/21 08:59 Last Admin: 10/28/21 07:50 Dose: 1 tab Documented by: Oxycodone HCl (Oxycodone Hcl Ir 5 Mg Tab (Immediate Release)) 10 mg PO Q4 PRN PRN Reason: pain not relieved by tylenol Stop: 11/08/21 22:03 Last Admin: 10/28/21 02:59 Dose: 10 mg Documented by: Pantoprazole Sodium (Pantoprazole 40 Mg Tab) 40 mg PO DAILYBB [facility] Stop: 11/25/21 06:29 Last Admin: 10/28/21 05:27 Dose: 40 mg Documented by: Rosuvastatin Calcium (Rosuvastatin Calcium 20 Mg Tab) 20 mg PO QAM [facility] Stop: 11/25/21 08:59 Last Admin: 10/28/21 07:50 Dose: 20 mg Documented by: Tamsulosin HCl (Tamsulosin Hcl 0.4 Mg Cap) 0.4 mg PO DAILY [facility] Stop: 11/25/21 08:59 Last Admin: 10/28/21 07:50 Dose: 0.4 mg Documented by: (1) Pancreatic cancer Pancreatic malignancy location: unspecified Qualified Code(s): C25.9 - Malignant neoplasm of pancreas, unspecified (2) Hypertension Hypertension type: unspecified Qualified Code(s): I10 - Essential (primary) hypertension
[2021-10-28] MEDS: HEPARIN 100 UNIT/ML 5ML FLUSH FLUSH PRN ×2 (14:48→18:54)
[2021-10-28] MEDS ORDERED: IBUPROFEN 600 MG TAB PO PRN (16:32)
[2021-10-28] MEDS ORDERED: fentaNYL 12 MCG/HR TDSY TD SCH (17:00)
[2021-10-28] MEDS: ACETAMINOPHEN 500 MG TAB PO SCH (21:02)
[2021-10-28] MEDS: CHECK fentaNYL PATCH PLACEMENT SCH (21:02)
[2021-10-29] MEDS: LORazepam 0.5 MG TAB PO PRN (01:48)
[2021-10-29] MEDS: HYDROmorphone INJ 0.5 MG/0.5 ML SYR IV PRN (04:34)
[2021-10-29] MEDS: PANTOprazole 40 MG TAB PO SCH (05:30)
[2021-10-29] MEDS: ACETAMINOPHEN 500 MG TAB PO SCH ×3 (05:30→21:35)
[2021-10-29] MEDS: oxyCODONE HCL IR 5 MG TAB (IMMEDIATE RELEASE) PO PRN ×4 (06:40→23:05)
--- NOTE | 2021-10-29 07:11 | Ultrasound Report ---
BILATERAL LOWER EXTREMITY VENOUS DOPPLER CLINICAL HISTORY: re-evaluate for DVT, L DVT Dx on 08/01/21 COMPARISON STUDY: No previous studies for comparison. TECHNIQUE: Sonography of the deep venous system of the bilateral lower extremities was performed. Co mpression and augmentation were evaluated. FINDINGS: Note is made of a small amount of nonocclusive thrombus within the right superficial femor al vein which slightly extends into the common femoral vein. This thrombus is mobile. There is also n onocclusive thrombus within the right peroneal vein. There is moderate thrombus within the left common femoral, superficial femoral and popliteal veins. T his thrombus is mobile. This thrombus is mobile. There is also nonocclusive thrombus within the left posterior tibial and peroneal veins. IMPRESSION: Moderate deep venous thrombus within the left lower extremity and a small amount of venou s thrombus within the right lower extremity, as detailed above. No priors available for comparison at time of interpretation. This thrombus is age indeterminate but given sonographic appearance may be b e at risk for embolization to the lungs. ACT 112: Negative or not required by law. Electronically signed by: Naif Pablo M.D. 10/29/2021 7:10 AM
[2021-10-29] MEDS: HEPARIN 100 UNIT/ML 5ML FLUSH FLUSH PRN (07:12)
[2021-10-29] MEDS: CHECK fentaNYL PATCH PLACEMENT SCH ×2 (07:32→15:36)
[2021-10-29 08:01] LABS: Hematocrit (blood only) 26.6 % (42-52); Hemoglobin 8.5 g/dL (14.0-18.0); Mean Corpuscular Hemoglobin 28.4 pg (25-34); Mean Platelet Volume 8.8 fL (7.4-10.4); Platelet Count 255 K/uL (130-400); RDW Coefficient of Variation 18.7 % (11.5-14.5); RDW Standard Deviation 59.9 fL (36.4-46.3); Red Blood Count 2.99 M/uL (4.7-6.1); White Blood Count 16.93 K/uL (4.8-10.8)
[2021-10-29 08:34] LABS: BUN Creatinine Ratio 25.7 (10-20); Calcium 8.7 mg/dl (8.5-10.1); Est GFR (African American) 86.9 ml/min; Potassium 3.8 mmol/L (3.5-5.1)
[2021-10-29] MEDS: PANCREAZE (LIPASE 10,500U) CAP PO SCH ×3 (08:39→17:30)
[2021-10-29] MEDS: FINASTERIDE 5 MG TAB PO SCH (08:58)
[2021-10-29] MEDS: CYANOCOBALAMIN (B-12) 500 MCG TABLET PO SCH (08:58)
[2021-10-29] MEDS: dexAMETHasone 4 MG TAB PO SCH (08:58)
[2021-10-29] MEDS: LIDOCAINE 5% 1 PATCH TD SCH (08:58)
[2021-10-29] MEDS: ADVANCED PROBIOTIC 1250 MG CAPSULE PO SCH (08:58)
[2021-10-29] MEDS: TAMSULOSIN HCL 0.4 MG CAP PO SCH (08:59)
[2021-10-29] MEDS: MULTIVITAMIN TAB PO SCH (08:59)
[2021-10-29] MEDS: ROSUVASTATIN CALCIUM 20 MG TAB PO SCH (08:59)
[2021-10-29] MEDS ORDERED: ENOXAPARIN INJ 40 MG/0.4 ML SYR SQ SCH (09:00)
[2021-10-29] MEDS ORDERED: fentaNYL 25 MCG/HR TDSY TD SCH (11:00)
[2021-10-29] MEDS: ENOXAPARIN 80 MG/0.8 ML SYR SQ SCH ×2 (11:58→20:34)
[2021-10-29] MEDS: DICLOFENAC SOD 1% GEL 100 GM TUBE EXT SCH ×2 (12:00→20:33)
--- NOTE | 2021-10-29 13:48 | Hospitalist Progress Note ---
Date of Service October 29, 2021 Assessment & Plan (1) Symptomatic anemia: Plan: Secondary to LGI bleed Recent laxative Rx for narcotic induced constipation Hemoglobin drop from baseline hx LLE DVT Eliquis--held Eliquis and laxative. Received 1 unit of blood this admission. H/H this am continues to improve. No significant bleeding overnight. NSAID's have been discontinued and will try diclofenac gel for local pain (2) Intractable back pain: Plan: severe, started short course decadron on 10/26-some improvement today NSAIDs contraindicated in acute bleed-try toradol because pain is still severe and bleeding is less significant. Continued toradol because this works-convert to PRN Motrin, watch for bleeding. Family and patient advised on side effects and bleeding risks. Add lidocaine patch-this is helping per patient. 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 There are no overt signs of spinal cord compression at this time. Has been on fentanyl patch 12 mcg since 10/28 and will change to 25 mcg from 10/29 Ibuprofen has been discontinued and given diclofenac sodium locally to improve pain Advised to go for MRI to rule out any metastatic disease or any nerve entrapment but the patient declining as he cannot lie flat Pain therapy has been consulted (3) Pancreatic cancer: Plan: With metastatic disease. Per oncology. MRI spine to rule out new mets to the back when he is able to tolerate. Likely has bony metastasis which is causing pain Will be better to get an imaging study to evaluate it (4) Left leg DVT: Plan: Diagnosed in June 2021. Hold anticoagulation at this time. Repeat ultrasound of the left leg did not show new thrombus involving the left common femoral and left posterior tibial vessel Lovenox has been changed to therapeutic dose Explained this to the patient and will need to continue with Eliquis on discharge (5) CKD (chronic kidney disease), stage III: Plan: chronic, stable. Cont to monitor BMP (6) Hypertension: Plan: chronic, controlled. Cont to control his pain (7) H/O Clostridium difficile infection: Plan: treated with difficid and has resolved. (8) DVT prophylaxis: Plan: SCDs/ ambulation/Lovenox DNR/DNI Dispo-to home when feeling better, bleeding resolved and pain controlled. Admission and Anticipated Discharge Date Admission Date: October 25, 2021 Subjective 10/29/2021 The patient was seen and examined in medical telemetry unit He complains to have lower back pain which has been very difficult to control since admission He cannot lie flat for an MRI Denies any radiation of pain but bending forward helps the pain Review of Systems Review of Systems: Sitting on the bed with acute pain in the lower back Physical Exam Physical Exam: Sitting on the bed in pain Constitutional: well developed, well nourished and + ill appearing Eyes: PERRL, conjunctivae normal, anicteric sclerae ENMT: external ear and nose normal, oropharynx normal Neck: trachea midline, no thyromegaly Respiratory: no respiratory distress Auscultation: lungs clear to auscultation bilaterally Cardiovascular: Rate/Rhythm: regular rate and regular rhythm; not tachycardic Heart Sounds: normal S1 and normal S2; no murmur Extremities: no edema Gastrointestinal (Abdomen): Inspection/Auscultation: normal bowel sounds; abdomen not distended Percussion/Palpation: abdomen soft; abdomen nontender Musculoskeletal: Spine: thoracic spine normal to inspection, lumbar spine normal to inspection and + sacral tenderness Neurologic: Alert, awake and oriented x3. No focal sensory or no motor deficit appreciated Psychiatric: A+Ox3, euthymic affect Mood: + depressed mood Lymphatic: no cervical or axillary lymphadenopathy Results & Data Results & Data ([facility]) Vital Signs (Past 12 Hours) Vital Signs Temp Pulse Pulse Resp BP Pulse Ox 10/29/21 08:00 66 10/29/21 06:36 36.6 C 71 18 142/80 H 99 Laboratory Results Short CBC 10/29/21 Range/Units 07:10 WBC 16.93 H (4.8-10.8) K/uL Hgb 8.5 L (14.0-18.0) g/dL Hct 26.6 L (42-52) % Plt Count 255 (130-400) K/uL BMP 10/29/21 07:10 Sodium 133 L Potassium 3.8 Chloride 100 Carbon Dioxide 26 BUN 26 H Creatinine 1.01 Glucose 95 Calcium 8.7 Medications Administered Current Inpatient Medications Acetaminophen (Acetaminophen 500 Mg Tab) 1,000 mg PO Q8H JAYSHREE Stop: 11/27/21 21:59 Last Admin: 10/29/21 05:30 Dose: 1,000 mg Documented by: Lipase/Protease/Amylase (Pancreaze (Lipase 10,500u) Cap) 1 cap PO TIDM [facility] Stop: 11/25/21 07:59 Last Admin: 10/29/21 12:00 Dose: 1 cap Documented by: Cyanocobalamin (Cyanocobalamin (B-12) 500 Mcg Tablet) 500 mcg PO QAM [facility] Stop: 11/25/21 08:59 Last Admin: 10/29/21 08:58 Dose: 500 mcg Documented by: Dexamethasone (Dexamethasone 4 Mg Tab) 8 mg PO DAILY [facility] Stop: 10/31/21 15:44 Last Admin: 10/29/21 08:58 Dose: 8 mg Documented by: Diclofenac Sodium (Diclofenac Sod 1% Gel 100 Gm Tube) 4 gm EXT BID [facility]; Protocol Stop: 11/28/21 10:59 Last Admin: 10/29/21 12:00 Dose: 4 gm Documented by: Enoxaparin Sodium (Enoxaparin 80 Mg/0.8 Ml Syr) 80 mg SQ Q12 [facility] Stop: 11/28/21 10:59 Last Admin: 10/29/21 11:58 Dose: 80 mg Documented by: Fentanyl (Fentanyl 25 Mcg/Hr Tdsy) 25 mcg TD Q3D@1100 [facility] Stop: 11/12/21 10:59 Last Admin: 10/29/21 12:00 Dose: 25 mcg Documented by: Finasteride (Finasteride 5 Mg Tab) 5 mg PO QAM [facility] Stop: 11/25/21 08:59 Last Admin: 10/29/21 08:58 Dose: 5 mg Documented by: Heparin Sodium (Porcine) (Heparin 100 Unit/Ml 5ml Flush) 5 ml FLUSH PRN PRN PRN Reason: Flush Stop: 11/27/21 14:29 Last Admin: 10/29/21 07:12 Dose: 5 ml Documented by: Hydromorphone HCl (Hydromorphone Inj 0.5 Mg/0.5 Ml Syr) 0.5 mg IV Q4H PRN PRN Reason: Severe Pain Stop: 11/09/21 07:52 Last Admin: 10/29/21 04:34 Dose: 0.5 mg Documented by: Lactobacillus Acidophilus (Advanced Probiotic 1250 Mg Capsule) 2 cap PO DAILY [facility] Stop: 11/25/21 08:59 Last Admin: 10/29/21 08:58 Dose: 2 cap Documented by: Lidocaine (Lidocaine 5% 1 Patch) [facility] [place] Stop: 11/25/21 15:29 Last Admin: 10/29/21 08:58 Dose: 1 patch Documented by: Lorazepam (Lorazepam 0.5 Mg Tab) 0.5 mg PO HS PRN PRN Reason: Anxiety Stop: 11/24/21 22:03 Last Admin: 10/29/21 01:48 Dose: 0.5 mg Documented by: Miscellaneous (Remove Lidoderm Patch) 1 ea N/A DAILY@2100 [facility] Stop: 11/25/21 20:59 Last Admin: 10/28/21 21:02 Dose: 1 ea Documented by: Nazario (Check Fentanyl Patch Placement) 1 ea N/A QS [facility] Stop: 11/28/21 00:00 Last Admin: 10/29/21 07:32 Dose: 1 ea Documented by: Nazario (Fentanyl Patch Remove & Waste) 1 ea N/A Q3D@1059 [facility] Stop: 11/28/21 10:58 Last Admin: 10/29/21 11:58 Dose: 1 ea Documented by: Multivitamins (Multivitamin Tab) 1 tab PO [facility] Stop: 11/25/21 08:59 Last Admin: 10/29/21 08:59 Dose: 1 tab Documented by: Oxycodone HCl (Oxycodone Hcl Ir 5 Mg Tab (Immediate Release)) 10 mg PO Q4 PRN PRN Reason: pain not relieved by tylenol Stop: 11/08/21 22:03 Last Admin: 10/29/21 06:40 Dose: 10 mg Documented by: Pantoprazole Sodium (Pantoprazole 40 Mg Tab) 40 mg PO DAILYBB [facility] Stop: 11/25/21 06:29 Last Admin: 10/29/21 05:30 Dose: 40 mg Documented by: Rosuvastatin Calcium (Rosuvastatin Calcium 20 Mg Tab) [facility] [place] [facility] Stop: 11/25/21 08:59 Last Admin: 10/29/21 08:59 Dose: 20 mg Documented by: Tamsulosin HCl (Tamsulosin Hcl 0.4 Mg Cap) 0.4 mg PO DAILY [facility] Stop: 11/25/21 08:59 Last Admin: 10/29/21 08:59 Dose: 0.4 mg Documented by: (1) Pancreatic cancer Pancreatic malignancy location: unspecified Qualified Code(s): C25.9 - Malignant neoplasm of pancreas, unspecified (2) Hypertension Hypertension type: unspecified Qualified Code(s): I10 - Essential (primary) hypertension
[2021-10-30] MEDS: CHECK fentaNYL PATCH PLACEMENT SCH ×3 (00:29→16:55)
[2021-10-30] MEDS: HYDROmorphone INJ 0.5 MG/0.5 ML SYR IV PRN ×2 (01:06→06:32)
[2021-10-30] MEDS: oxyCODONE HCL IR 5 MG TAB (IMMEDIATE RELEASE) PO PRN ×4 (03:28→22:27)
[2021-10-30] MEDS: PANTOprazole 40 MG TAB PO SCH (05:46)
[2021-10-30] MEDS: ACETAMINOPHEN 500 MG TAB PO SCH ×3 (05:46→21:05)
[2021-10-30] MEDS: LIDOCAINE 5% 1 PATCH TD SCH (08:25)
[2021-10-30] MEDS: CYANOCOBALAMIN (B-12) 500 MCG TABLET PO SCH (08:26)
[2021-10-30] MEDS: PANCREAZE (LIPASE 10,500U) CAP PO SCH ×3 (08:26→16:55)
[2021-10-30] MEDS: TAMSULOSIN HCL 0.4 MG CAP PO SCH (08:26)
[2021-10-30] MEDS: MULTIVITAMIN TAB PO SCH (08:26)
[2021-10-30] MEDS: ROSUVASTATIN CALCIUM 20 MG TAB PO SCH (08:27)
[2021-10-30] MEDS: ADVANCED PROBIOTIC 1250 MG CAPSULE PO SCH (08:27)
[2021-10-30] MEDS: dexAMETHasone 4 MG TAB PO SCH (08:27)
[2021-10-30] MEDS: FINASTERIDE 5 MG TAB PO SCH (08:28)
[2021-10-30] MEDS: DICLOFENAC SOD 1% GEL 100 GM TUBE EXT SCH ×3 (08:28→21:05)
[2021-10-30] MEDS: ENOXAPARIN 80 MG/0.8 ML SYR SQ SCH ×2 (08:46→21:05)
--- NOTE | 2021-10-30 08:47 | Pain Management Consultation ---
Date of Consultation October 30, 2021 Assessment & Plan (1) Intractable back pain: (2) Pancreatic cancer: 1. Fentanyl Patch was increased from 25 to 37 mcg/hr. 2. I have added Baclofen 10mg twice daily and Cymbalta 30mg daily for adjunctive therapies. 3. Patient states that he is not able to lay supine long enough for MRI. Consider CT? 4. Continue Oxycodone 10mg x 4 hours PRN and IV Dilaudid 0.5mg PRN. 5. I will follow up on patient tomorrow to check on progress. History of Present Illness Attending Physician: Loulou Salvador MD History of Present Illness Mr. Ochoa is a 70-year-old male that has been admitted to the [facility] pain service for GI bleed. He does have a significant history of metastatic pancreatic cancer and no longer undergoing treatments but rather palliative goals. He has been experiencing significant pain in the thoracolumbar region without radiation of pain. He has not been able to lay supine for long enough to have an MRI performed as there is suspected metastasis of spine. Prior to admission he was receiving Oxycodone 10mg x 4 hours PRN which was providing moderate relief. On hospitalization he was initiated on Fentanyl patch which is currently at 25mcg/hr. He is reporting some pain relief with the dose increase made yesterday but still continues to report 7/10 pain in the thoracolumbar region and this morning he developed pain in the neck. The Oxycodone 10mg has been typically used four times daily and the IV Dilaudid 0.5mg was used once yesterday. There is mild diffuse weakness, nonfocal to legs. No bowel/bladder incontinence, saddle anesthesia, foot drop. Pain Assessment Full Body Front + Back: 1. 2. Allergies Allergy/AdvReac Type Severity Reaction Status Date / Time erythromycin base AdvReac Mild Gastrointestinal Verified 10/25/21 19:25 Upset celecoxib [From Celebrex] AdvReac irritates Verified 10/25/21 19:26 stomach Home Medications Medication Instructions Recorded Confirmed Type ascorbic acid (vitamin C) 1,000 mg 1 g PO QAM 01/10/21 10/25/21 History tablet (Vitamin C) cyanocobalamin (vitamin B-12) 500 500 mcg PO QAM 01/10/21 10/25/21 History mcg tablet multivitamin 1 tab PO QAM 01/10/21 10/25/21 History rosuvastatin 20 mg tablet (Crestor) 20 mg PO QAM 01/10/21 10/25/21 History cholecalciferol (vitamin D3) 25 25 mcg PO QAM 05/16/21 10/25/21 History mcg (1,000 unit) tablet (Vitamin D3) omeprazole 40 mg capsule,delayed 40 mg PO DAILYBB 06/13/21 10/25/21 History release flaxseed oil 1,000 mg capsule 1,000 mg PO DAILY 07/20/21 10/25/21 History ondansetron HCl 8 mg tablet 8 mg PO Q8 PRN 07/20/21 10/25/21 History prochlorperazine maleate 10 mg 10 mg PO Q6 PRN 07/20/21 10/25/21 History tablet tamsulosin 0.4 mg capsule 0.4 mg PO DAILY 07/20/21 10/25/21 History tbiwjs-diqxcxix-pcdaxmr 1 cap PO TIDM #90 cap 07/24/21 10/25/21 Rx 36,000-114,000-180,000 unit capsule,delay rel (Creon) apixaban 5 mg tablet (Eliquis) 5 mg PO BID 09/25/21 10/25/21 History gfasrdb-xsudpeusl-tnik tablet 1 tab PO DAILY 09/25/21 10/25/21 History finasteride 5 mg tablet (Proscar) 5 mg PO QAM 30 Days #30 tab 10/02/21 10/25/21 Rx Lactobacillus acidophilus 10 0 mmu cells PO DAILY 10/25/21 10/25/21 History billion cell capsule (Probiotic) ibuprofen 200 mg tablet (Advil) 400 mg PO Q6H PRN 10/25/21 10/25/21 History lorazepam 0.5 mg tablet 0.5 mg PO HS PRN 10/25/21 10/25/21 History oxycodone 10 mg tablet 10 mg PO Q4 10/25/21 10/25/21 History sennosides 8.6 mg tablet (senna) 8.6 mg PO DAILY PRN 10/25/21 10/25/21 History Patient History Medical History Arthritis of right knee BPH (benign prostatic hyperplasia) C. difficile colitis CKD (chronic kidney disease), stage III Hyperlipidemia Hypertension Left leg DVT Liver metastases Nausea and vomiting after administration of anesthetic agent Osteoarthritis Pancreatic cancer Umbilical hernia + present (no pain or current issues) Surgical History History of colonoscopy History of tooth extraction History of total right knee replacement (TKR) Hx of inguinal hernia repair Hx of prostate biopsy x2 (benign) Hx of umbilical hernia repair Hx of vasectomy Family History Mother Hypertension Heart disease Other No family history of adverse response to anesthesia Social History Smoking Status: Former smoker Second Hand Exposure: No; Hx Alcohol Use: No Hx Substance Use: No Preferred Language: Syriac Communication Ability: Effective Spring Encaser Required: No Beliefs That Will Affect Care: None marital status: Current Living Situation: Spouse Current Living Situation Comment: How many Children do You have: 3 Feels Safe at Home: Yes Assistive Devices: Cane Physical Exam Physical Exam: GENERAL: This is a 70 year old male. He is intermittently tearful during our discussion. Does not appear in acute pain. HEAD/FACE: Normocephalic and atraumatic. EYES: No drainage or conjunctival injection. ENT: Nose without bleeding or discharge. Oral mucosa moist. NECK: Full ROM. Mild tenderness along the C5 midline. RESPIRATORY: Patient with unlabored breathing. No signs of respiratory distress. CHEST/AXILLA: Chest movement symmetrical. No deformities noted. ABDOMEN/GI: No distension BACK: Moves without difficulty. Increased thoracic kyphosis and loss of lumbar lordosis. There is mild tenderness along the T10-L1 region. No focal muscle spasm. SKIN: [place], warm and dry. No rash noted. MS/EXTREMITY: No swelling, no deformities. Moving extremities appropriately. NEURO: Alert and appears oriented. Speech is fluent. Cranial Nerves are grossly intact. PSYCH: Alert, pleasant, affect is calm Results (Pain Clinic) Diagnostic Review CT Findings: CT abd pelvis wo con CLINICAL HISTORY: poss colitis or divertic TECHNIQUE: Helical axial images of the abdomen and pelvis were obtained. Automated dose lowering techniques and/or adjustment according to patient size were utilized for this exam. This exam was performed without intravenous contrast. CT DOSE: 541.94 mGy.cm COMPARISON: Comparison is made to CT abdomen pelvis 09/25/2021 FINDINGS: Lower chest: Multiple pulmonary nodules are seen, increased in size and number from exam in May. Liver: Innumerable large hypodensities in the liver are again seen. The index lesion measures 90 mm in diameter, increased from 76 mm in the prior exam. Gallbladder and biliary tree: No calcified gallstones. Normal caliber wall. No intra- or extrahepatic biliary ductal dilation. Pancreas: Ill-defined pancreatic body mass is seen measuring approximately 56 x 37 mm. Distal pancreatic ductal dilation is seen. Spleen: Unremarkable. Adrenals: Prominent thickening of the left adrenal gland is seen, increased from exam of May 2015. The right adrenal gland is normal. Kidneys and ureters: Partial visualization of a right superior pole mass measuring approximately 18 mm, now due to noncontrast technique. Hypodensity in the left kidney interpolar cortex which is nonspecific but may represent proteinaceous/hemorrhagic cyst. Bladder: Limited evaluation due to underdistention. Bladder wall thickening is seen. Reproductive organs: Prostatomegaly is seen. Bowel: Liquid contents are seen in the rectum. The appendix measures 8 mm in diameter without inflammatory changes. Lymph nodes Retroperitoneal: Numerous enlarged retroperitoneal lymph nodes are seen measuring up to 10 mm in short axis. These have increased from exam of May. Mesenteric: Subcentimeter lymph nodes are noted. Pelvic: Unremarkable. Peritoneum: There is mild diffuse fat stranding most prominent about the mesenteric root, somewhat increased from prior exams. Vessels: Atherosclerotic calcifications are seen. Although evaluation is limited by noncontrast technique, the splenic vein and superior mesenteric/portal vein appear to contact or be encased by the pancreatic mass. Abdominal wall: A fat-containing umbilical hernia is seen. Bones: Unremarkable. IMPRESSION: 1. Liquid contents are seen in the rectum compatible with diarrhea. No bowel wall thickening is seen to suggest diverticulitis or other infectious/inflammatory colitis. There is mild mesenteric fat stranding which is nonspecific. 2. Redemonstration of the pancreatic head mass with multifocal metastatic lesions. This mass is enlarged from May. The hepatic lesions and papa metastases have likewise increase over time May. In addition, there is marked thickening of the left adrenal gland which has significantly progressed from May and likely represents a metastatic focus. 3. Multiple ill-defined nodules in the lower lungs are again seen, metastasis cannot be excluded. 4. Prostatomegaly and bladder wall thickening likely due to chronic outlet obstruction. 5. Partial visualization of bilateral renal lesions which are not well evaluated due to noncontrast technique. ACT 112: Negative or not required by law. Electronically signed by: Cornelio Salomon M.D. 10/25/2021 8:42 PM
[2021-10-30] MEDS: DULoxetine HCL 30 MG CAP PO SCH (09:22)
[2021-10-30] MEDS: BACLOFEN 10 MG TAB PO SCH ×2 (09:22→21:04)
[2021-10-30] MEDS: fentaNYL 25 MCG/HR TDSY TD SCH (09:23)
[2021-10-30] MEDS: fentaNYL 12 MCG/HR TDSY TD SCH (09:28)
--- NOTE | 2021-10-30 14:32 | CT Scan Report ---
CT pelvis wo con CLINICAL HISTORY: R/O Sacral Fracture/Mets TECHNIQUE: Helical axial images of the pelvis were obtained and displayed at 5 and 1 mm intervals. Au tomated dose lowering techniques and/or adjustment according to patient size were utilized for this e xam. This exam was performed with intravenous contrast. COMPARISON: Comparison is made to CT abdomen pelvis 10/25/2021 FINDINGS: Bladder: Bladder is under distended with wall thickening which may be secondary to chronic obstructio n. Reproductive organs: Prominent prostatomegaly is again seen. Bowel: The appendix is normal. Diverticulosis is seen without evidence of diverticulitis. Lymph nodes Pelvic: Unremarkable. Peritoneum: A trace amount of free fluid is seen. Vessels: Atherosclerotic calcifications are seen. Abdominal wall: There is a left inguinal hernia containing a soft tissue density, unchanged from prio r exam, this is nonspecific. A calcification is noted in the right gluteal soft tissues. Bones: Degenerative changes are seen. No evidence of acute fracture is seen. Evaluation is minimally limited by patient motion. IMPRESSION: 1. No evidence of acute fracture. No bony metastatic disease is definitely seen. 2. Prostatomegaly with chronic bladder outlet obstruction. 3. Left inguinal hernia containing a soft tissue mass, metastatic deposit cannot be entirely exclude d. ACT 112: Negative or not required by law. Electronically signed by: Cornelio Salomon M.D. 10/30/2021 2:30 PM
--- NOTE | 2021-10-30 16:55 | Hospitalist Progress Note ---
Date of Service October 30, 2021 Assessment & Plan (1) Symptomatic anemia: Plan: Secondary to LGI bleed Recent laxative Rx for narcotic induced constipation Hemoglobin drop from baseline hx LLE DVT Eliquis--held Eliquis and laxative. Received 1 unit of blood this admission. H/H this am continues to improve. No significant bleeding overnight. NSAID's have been discontinued and will try diclofenac gel for local pain Hemoglobin remains stable and no more evidence of GI bleed (2) Intractable back pain: Plan: severe, started short course decadron on 10/26-some improvement today NSAIDs contraindicated in acute bleed-try toradol because pain is still severe and bleeding is less significant. Continued toradol because this works-convert to PRN Motrin, watch for bleeding. Family and patient advised on side effects and bleeding risks. Add lidocaine patch-this is helping per patient. Pt declines [employer]--remains on oxycodone IR q4h MRI spine with contrast ordered but currently he cannot tolerate. There are no overt signs of spinal cord compression at this time. Has been on fentanyl patch 12 mcg since 10/28 and will change to 25 mcg from 10/29 Ibuprofen has been discontinued and given diclofenac sodium locally to improve pain Advised to go for MRI to rule out any metastatic disease or any nerve entrapment but the patient declining as he cannot lie flat Pain therapy has been consulted-appreciate input and recommendation CT scan of the pelvis did not show any bony metastasis-it did show prostatomegaly with bladder outlet obstruction and right inguinal hernia with a mass , metastasis could not be ruled out We will get a bone scan (3) Pancreatic cancer: Plan: With metastatic disease. Per oncology. MRI spine to rule out new mets to the back when he is able to tolerate. Likely has bony metastasis which is causing pain Will be better to get an imaging study to evaluate it CT of the pelvis as above We will try to get a bone scan (4) Left leg DVT: Plan: Diagnosed in June 2021. Hold anticoagulation at this time. Repeat ultrasound of the left leg did not show new thrombus involving the left common femoral and left posterior tibial vessel Lovenox has been changed to therapeutic dose Explained this to the patient and will need to continue with Eliquis on discharge (5) CKD (chronic kidney disease), stage III: Plan: chronic, stable. Cont to monitor BMP (6) Hypertension: Plan: chronic, controlled. Cont to control his pain (7) H/O Clostridium difficile infection: Plan: treated with difficid and has resolved. (8) DVT prophylaxis: Plan: SCDs/ ambulation/Lovenox DNR/DNI Dispo-to home when feeling better, bleeding resolved and pain controlled. Admission and Anticipated Discharge Date Admission Date: October 25, 2021 Subjective 10/29/2021 The patient was seen and examined in medical telemetry unit He complains to have lower back pain which has been very difficult to control since admission He cannot lie flat for an MRI Denies any radiation of pain but bending forward helps the pain 10/30/2021 The patient was seen and examined in medical telemetry unit He still complains to have lower back pain which is worse with activity and standing Cannot lie flat for an MRI-he was convinced to get a CT scan Review of Systems Review of Systems: Sitting on the bed with acute pain in the lower back Physical Exam Physical Exam: Sitting on the bed in pain Constitutional: well developed, well nourished and + ill appearing Eyes: PERRL, conjunctivae normal, anicteric sclerae ENMT: external ear and nose normal, oropharynx normal Neck: trachea midline, no thyromegaly Respiratory: no respiratory distress Auscultation: lungs clear to auscultation bilaterally Cardiovascular: Rate/Rhythm: regular rate and regular rhythm; not tachycardic Heart Sounds: normal S1 and normal S2; no murmur Extremities: no edema Gastrointestinal (Abdomen): Inspection/Auscultation: normal bowel sounds; abdomen not distended Percussion/Palpation: abdomen soft; abdomen nontender Musculoskeletal: Spine: thoracic spine normal to inspection, lumbar spine normal to inspection and + sacral tenderness Neurologic: Alert, awake and oriented x3. No sensory and/or motor deficit in the lower extremities. Straight leg raising is not painful. Psychiatric: A+Ox3, euthymic affect Mood: + depressed mood Lymphatic: no cervical or axillary lymphadenopathy Results & Data Results & Data ([facility]) Vital Signs (Past 12 Hours) Vital Signs Temp Pulse Resp BP Pulse Ox 10/30/21 15:25 36.6 C 73 16 131/81 98 10/30/21 11:22 36.9 C 72 16 138/84 98 10/30/21 06:30 36.7 C 68 18 151/69 H 95 Medications Administered Current Inpatient Medications Acetaminophen (Acetaminophen 500 Mg Tab) 1,000 mg PO Q8H [facility] Stop: 11/27/21 21:59 Last Admin: 10/30/21 13:44 Dose: 1,000 mg Documented by: Lipase/Protease/Amylase (Pancreaze (Lipase 10,500u) Cap) 1 cap PO TIDM [facility] Stop: 11/25/21 07:59 Last Admin: 10/30/21 11:52 Dose: 1 cap Documented by: Baclofen (Baclofen 10 Mg Tab) 10 mg PO BID [facility] Stop: 11/29/21 08:59 Last Admin: 10/30/21 09:22 Dose: 10 mg Documented by: Cyanocobalamin (Cyanocobalamin (B-12) 500 Mcg Tablet) [facility] [place]: 11/25/21 08:59 Last Admin: 10/30/21 08:26 Dose: 500 mcg Documented by: Dexamethasone (Dexamethasone 4 Mg Tab) 8 mg PO DAILY [facility] Stop: 10/31/21 15:44 Last Admin: 10/30/21 08:27 Dose: 8 mg Documented by: Diclofenac Sodium (Diclofenac Sod 1% Gel 100 Gm Tube) 4 gm EXT QID [facility]; Protocol Stop: 11/29/21 16:59 Duloxetine HCl (Duloxetine Hcl 30 Mg Cap) [facility] [place] Stop: 11/29/21 08:59 Last Admin: 10/30/21 09:22 Dose: 30 mg Documented by: Enoxaparin Sodium (Enoxaparin 80 Mg/0.8 Ml Syr) 80 mg SQ Q12 [facility] Stop: 11/28/21 10:59 Last Admin: 10/30/21 08:46 Dose: 80 mg Documented by: Fentanyl (Fentanyl 25 Mcg/Hr Tdsy) 25 mcg TD Q3D [facility] Stop: 11/13/21 08:59 Last Admin: 10/30/21 09:23 Dose: 25 mcg Documented by: Fentanyl (Fentanyl 12 Mcg/Hr Tdsy) 12 mcg TD Q3D [facility] Stop: 11/13/21 08:59 Last Admin: 10/30/21 09:28 Dose: 12 mcg Documented by: Finasteride (Finasteride 5 Mg Tab) 5 mg PO QAM [facility] Stop: 11/25/21 08:59 Last Admin: 10/30/21 08:28 Dose: 5 mg Documented by: Heparin Sodium (Porcine) (Heparin 100 Unit/Ml 5ml Flush) 5 ml FLUSH PRN PRN PRN Reason: Flush Stop: 11/27/21 14:29 Last Admin: 10/29/21 07:12 Dose: 5 ml Documented by: Hydromorphone HCl (Hydromorphone Inj 0.5 Mg/0.5 Ml Syr) 0.5 mg IV Q4H PRN PRN Reason: Severe Pain Stop: 11/09/21 07:52 Last Admin: 10/30/21 06:32 Dose: 0.5 mg Documented by: Lactobacillus Acidophilus (Advanced Probiotic 1250 Mg Capsule) 2 cap PO DAILY [facility] Stop: 11/25/21 08:59 Last Admin: 10/30/21 08:27 Dose: 2 cap Documented by: Lidocaine (Lidocaine 5% 1 Patch) [facility] [place] Stop: 11/25/21 15:29 Last Admin: 10/30/21 08:25 Dose: 1 patch Documented by: Lorazepam (Lorazepam 0.5 Mg Tab) 0.5 mg PO HS PRN PRN Reason: Anxiety Stop: 11/24/21 22:03 Last Admin: 10/29/21 01:48 Dose: 0.5 mg Documented by: Miscellaneous (Remove Lidoderm Patch) 1 ea N/A DAILY@2100 [facility] Stop: 11/25/21 20:59 Last Admin: 10/29/21 20:35 Dose: 1 ea Documented by: Miscellaneous (Fentanyl Patch Remove & Waste) 1 ea N/A Q3D [facility] Stop: 11/29/21 08:58 Last Admin: 10/30/21 09:31 Dose: 1 ea Documented by: Miscellaneous (Check Fentanyl Patch Placement) 1 ea N/A QS [facility] Stop: 11/29/21 15:59 Multivitamins (Multivitamin Tab) 1 tab PO QAM [facility] Stop: 11/25/21 08:59 Last Admin: 10/30/21 08:26 Dose: 1 tab Documented by: Oxycodone HCl (Oxycodone Hcl Ir 5 Mg Tab (Immediate Release)) 10 mg PO Q4 PRN PRN Reason: pain not relieved by tylenol Stop: 11/08/21 22:03 Last Admin: 10/30/21 15:34 Dose: 10 mg Documented by: Pantoprazole Sodium (Pantoprazole 40 Mg Tab) [facility]: 11/25/21 06:29 Last Admin: 10/30/21 05:46 Dose: 40 mg Documented by: Rosuvastatin Calcium (Rosuvastatin Calcium 20 Mg Tab) 20 mg PO QAM [facility] Stop: 11/25/21 08:59 Last Admin: 10/30/21 08:27 Dose: 20 mg Documented by: Tamsulosin HCl (Tamsulosin Hcl 0.4 Mg Cap) 0.4 mg PO DAILY [facility] Stop: 11/25/21 08:59 Last Admin: 10/30/21 08:26 Dose: 0.4 mg Documented by: (1) Pancreatic cancer Pancreatic malignancy location: unspecified Qualified Code(s): C25.9 - Malignant neoplasm of pancreas, unspecified (2) Hypertension Hypertension type: unspecified Qualified Code(s): I10 - Essential (primary) hypertension
[2021-10-31] MEDS: CHECK fentaNYL PATCH PLACEMENT SCH ×3 (00:24→15:57)
[2021-10-31] MEDS: HYDROmorphone INJ 0.5 MG/0.5 ML SYR IV PRN ×5 (01:49→21:48)
[2021-10-31] MEDS: ACETAMINOPHEN 500 MG TAB PO SCH ×3 (05:54→22:20)
[2021-10-31] MEDS: PANTOprazole 40 MG TAB PO SCH (05:55)
--- NOTE | 2021-10-31 08:34 | Pain Management Progress Note ---
Date of Service October 31, 2021 Assessment & Plan (1) Intractable back pain: (2) Pancreatic cancer: Plan: 1. Fentanyl Patch will remain at 37 mcg/hr. 2. Continue Baclofen 10mg twice daily and Cymbalta 30mg daily for adjunctive therapies. 3. I will switch the Oxycodone to PO Dilaudid 2mg x 4 hours PRN pain. 4. Continue IV Dilaudid 0.5mg PRN breakthrough pain. 5. His anxiety and depression of his current status may be an attributing factor towards his pain complaints. I will follow up on patient tomorrow to check on progress. Admission and Anticipated Discharge Date Admission Date: October 25, 2021 Subjective Mr. Ochoa is a 70 year old male with metastatic prostate cancer and no long proceeding with any further treatments. He is admitted for GI bleed and intractable back pain. In regards to back and new neck pain he is giving conflicting reports. He states that the pain was better last night but also that his pain was not improved. Patient states that the medication changes yesterday made him feel "goofy" and that the medications may be too much for him. Baclofen and Cymbalta was added yesterday and Fentanyl was increased. Oxycodone and IV Dilaudid remained the same. Physical Exam Physical Exam: GENERAL: This is a 70 year old male. He is intermittently tearful during our discussion. Does not appear in acute pain. HEAD/FACE: Normocephalic and atraumatic. EYES: No drainage or conjunctival injection. ENT: Nose without bleeding or discharge. Oral mucosa moist. NECK: Full ROM. Mild tenderness along the C5 midline. RESPIRATORY: Patient with unlabored breathing. No signs of respiratory distress. CHEST/AXILLA: Chest movement symmetrical. No deformities noted. ABDOMEN/GI: No distension BACK: Moves without difficulty. Increased thoracic kyphosis and loss of lumbar lordosis. There is mild tenderness along the L3 region. No focal muscle spasm. SKIN: [place], warm and dry. No rash noted. MS/EXTREMITY: No swelling, no deformities. Moving extremities appropriately. NEURO: Alert and appears oriented. Speech is fluent. Cranial Nerves are grossly intact. PSYCH: Alert, pleasant, anxious.
[2021-10-31] MEDS: FINASTERIDE 5 MG TAB PO SCH (09:28)
[2021-10-31] MEDS: DULoxetine HCL 30 MG CAP PO SCH (09:28)
[2021-10-31] MEDS: HYDROmorphone HCL 2 MG TAB PO PRN ×3 (09:28→18:13)
[2021-10-31] MEDS: ROSUVASTATIN CALCIUM 20 MG TAB PO SCH (09:28)
[2021-10-31] MEDS: PANCREAZE (LIPASE 10,500U) CAP PO SCH ×3 (09:28→16:33)
[2021-10-31] MEDS: ADVANCED PROBIOTIC 1250 MG CAPSULE PO SCH (09:28)
[2021-10-31] MEDS: BACLOFEN 10 MG TAB PO SCH ×2 (09:29→22:21)
[2021-10-31] MEDS: dexAMETHasone 4 MG TAB PO SCH (09:29)
[2021-10-31] MEDS: LIDOCAINE 5% 1 PATCH TD SCH (09:29)
[2021-10-31] MEDS: CYANOCOBALAMIN (B-12) 500 MCG TABLET PO SCH (09:29)
[2021-10-31] MEDS: MULTIVITAMIN TAB PO SCH (09:29)
[2021-10-31] MEDS: TAMSULOSIN HCL 0.4 MG CAP PO SCH (09:29)
[2021-10-31] MEDS: ENOXAPARIN 80 MG/0.8 ML SYR SQ SCH ×2 (09:30→22:22)
[2021-10-31] MEDS: DICLOFENAC SOD 1% GEL 100 GM TUBE EXT SCH ×4 (09:31→22:24)
[2021-10-31] MEDS: HEPARIN 100 UNIT/ML 5ML FLUSH FLUSH PRN ×3 (10:08→21:48)
[2021-10-31] MEDS ORDERED: HYDROmorphone INJ 1 MG/ML SYRINGE IV ONE (11:49)
[2021-10-31] MEDS ORDERED: LORazepam 0.25 MG in SYRINGE 0.125 ML IV ONE (11:51)
--- NOTE | 2021-10-31 16:13 | Hospitalist Progress Note ---
Date of Service October 31, 2021 Assessment & Plan (1) Symptomatic anemia: Plan: Secondary to LGI bleed Recent laxative Rx for narcotic induced constipation Hemoglobin drop from baseline hx LLE DVT Eliquis--held Eliquis and laxative. Received 1 unit of blood this admission. H/H this am continues to improve. No significant bleeding overnight. NSAID's have been discontinued and will try diclofenac gel for local pain Hemoglobin remains stable and no more evidence of GI bleed We will check CBC tomorrow (2) Intractable back pain: Plan: severe, started short course decadron on 10/26-some improvement today NSAIDs contraindicated in acute bleed-try toradol because pain is still severe and bleeding is less significant. Continued toradol because this works-convert to PRN Motrin, watch for bleeding. Family and patient advised on side effects and bleeding risks. Add lidocaine patch-this is helping per patient. Pt declines [employer]--remains on oxycodone IR q4h MRI spine with contrast ordered but currently he cannot tolerate. There are no overt signs of spinal cord compression at this time. Has been on fentanyl patch 12 mcg since 10/28 and will change to 25 mcg from 10/29 Ibuprofen has been discontinued and given diclofenac sodium locally to improve pain Advised to go for MRI to rule out any metastatic disease or any nerve entrapment but the patient declining as he cannot lie flat Pain therapy has been consulted-appreciate input and recommendation CT scan of the pelvis did not show any bony metastasis-it did show prostatomegaly with bladder outlet obstruction and right inguinal hernia with a mass , metastasis could not be ruled out The patient convinced to have an MRI-ordered and preprocedure pain medications will be given (3) Pancreatic cancer: Plan: With metastatic disease. Per oncology. MRI spine to rule out new mets to the back when he is able to tolerate. Likely has bony metastasis which is causing pain Will be better to get an imaging study to evaluate it CT of the pelvis as above We will try to get MRI of the lumbar spine (4) Left leg DVT: Plan: Diagnosed in June 2021. Hold anticoagulation at this time. Repeat ultrasound of the left leg did not show new thrombus involving the left common femoral and left posterior tibial vessel Lovenox has been changed to therapeutic dose Explained this to the patient and will need to continue with Eliquis on discharge Will check CBC to make sure hemoglobin is not dropping (5) CKD (chronic kidney disease), stage III: Plan: chronic, stable. Cont to monitor BMP (6) Hypertension: Plan: chronic, controlled. Cont to control his pain (7) H/O Clostridium difficile infection: Plan: treated with difficid and has resolved. (8) DVT prophylaxis: Plan: SCDs/ ambulation/Lovenox DNR/DNI Dispo-to home when feeling better, bleeding resolved and pain controlled. Admission and Anticipated Discharge Date Admission Date: October 25, 2021 Subjective 10/29/2021 The patient was seen and examined in medical telemetry unit He complains to have lower back pain which has been very difficult to control since admission He cannot lie flat for an MRI Denies any radiation of pain but bending forward helps the pain 10/30/2021 The patient was seen and examined in medical telemetry unit He still complains to have lower back pain which is worse with activity and standing Cannot lie flat for an MRI-he was convinced to get a CT scan 10/31/2021 The patient was seen and examined in medical telemetry unit in presence of the daughter and the He complains to have pain in the lower spinal area as before Denies any radiation of pain or any problem with urine and or bowel habit Denies any other symptom Review of Systems Review of Systems: Sitting on the bed with acute pain in the lower back Musculoskeletal: Low back pain Physical Exam Physical Exam: Sitting on the bed in pain Constitutional: well developed, well nourished and + ill appearing Eyes: PERRL, conjunctivae normal, anicteric sclerae ENMT: external ear and nose normal, oropharynx normal Neck: trachea midline, no thyromegaly Respiratory: no respiratory distress Auscultation: lungs clear to auscultation bilaterally Cardiovascular: Rate/Rhythm: regular rate and regular rhythm; not tachycardic Heart Sounds: normal S1 and normal S2; no murmur Extremities: no edema Gastrointestinal (Abdomen): Inspection/Auscultation: normal bowel sounds; abdomen not distended Percussion/Palpation: abdomen soft; abdomen nontender Musculoskeletal: Spine: thoracic spine normal to inspection, lumbar spine normal to inspection and + sacral tenderness Neurologic: Alert, awake and oriented x3. No focal sensory or no motor deficit appreciated Psychiatric: A+Ox3, euthymic affect Mood: + depressed mood Lymphatic: no cervical or axillary lymphadenopathy Results & Data Results & Data ([facility]) Vital Signs (Past 12 Hours) Vital Signs Temp Pulse Pulse Resp BP Pulse Ox 10/31/21 15:17 36.6 C 63 20 147/81 H 98 10/31/21 13:00 36.6 C 70 12 148/78 H 98 10/31/21 11:00 36.7 C 69 12 147/80 H 98 10/31/21 07:45 36.5 C 65 16 131/80 98 10/31/21 06:34 36.6 C 69 18 132/84 99 Diagnostic Findings Current Inpatient Medications Acetaminophen (Acetaminophen 500 Mg Tab) 1,000 mg PO Q8H [facility] Stop: 11/27/21 21:59 Last Admin: 10/31/21 14:08 Dose: 1,000 mg Documented by: Lipase/Protease/Amylase (Pancreaze (Lipase 10,500u) Cap) 1 cap PO TIDM [facility] Stop: 11/25/21 07:59 Last Admin: 10/31/21 12:19 Dose: 1 cap Documented by: Baclofen (Baclofen 10 Mg Tab) 10 mg PO BID [facility] Stop: 11/29/21 08:59 Last Admin: 10/31/21 09:29 Dose: 10 mg Documented by: Cyanocobalamin (Cyanocobalamin (B-12) 500 Mcg Tablet) 500 mcg PO QAM [facility] Stop: 11/25/21 08:59 Last Admin: 10/31/21 09:29 Dose: 500 mcg Documented by: Diclofenac Sodium (Diclofenac Sod 1% Gel 100 Gm Tube) 4 gm EXT QID [facility]; Protocol Stop: 11/29/21 16:59 Last Admin: 10/31/21 12:19 Dose: 4 gm Documented by: Duloxetine HCl (Duloxetine Hcl 30 Mg Cap) 30 mg PO QAM [facility] Stop: 11/29/21 08:59 Last Admin: 10/31/21 09:28 Dose: 30 mg Documented by: Enoxaparin Sodium (Enoxaparin 80 Mg/0.8 Ml Syr) 80 mg SQ Q12 [facility] Stop: 11/28/21 10:59 Last Admin: 10/31/21 09:30 Dose: 80 mg Documented by: Fentanyl (Fentanyl 25 Mcg/Hr Tdsy) 25 mcg TD Q3D [facility] Stop: 11/13/21 08:59 Last Admin: 10/30/21 09:23 Dose: 25 mcg Documented by: Fentanyl (Fentanyl 12 Mcg/Hr Tdsy) 12 mcg TD Q3D [facility] Stop: 11/13/21 08:59 Last Admin: 10/30/21 09:28 Dose: 12 mcg Documented by: Finasteride (Finasteride 5 Mg Tab) 5 mg PO QAM [facility] Stop: 11/25/21 08:59 Last Admin: 10/31/21 09:28 Dose: 5 mg Documented by: Heparin Sodium (Porcine) (Heparin 100 Unit/Ml 5ml Flush) 5 ml FLUSH PRN PRN PRN Reason: Flush Stop: 11/27/21 14:29 Last Admin: 10/31/21 10:08 Dose: 5 ml Documented by: Hydromorphone HCl (Hydromorphone Inj 0.5 Mg/0.5 Ml Syr) 0.5 mg IV Q4H PRN PRN Reason: Severe Pain Stop: 11/09/21 07:52 Last Admin: 10/31/21 12:33 Dose: 0.5 mg Documented by: Hydromorphone HCl (Hydromorphone Hcl 2 Mg Tab) 2 mg PO Q4 PRN PRN Reason: Pain Stop: 11/14/21 08:21 Last Admin: 10/31/21 14:08 Dose: 2 mg Documented by: Lactobacillus Acidophilus (Advanced Probiotic 1250 Mg Capsule) 2 cap PO DAILY [facility] Stop: 11/25/21 08:59 Last Admin: 10/31/21 09:28 Dose: 2 cap Documented by: Lidocaine (Lidocaine 5% 1 Patch) 1 patch TD QAM [facility] Stop: 11/25/21 15:29 Last Admin: 10/31/21 09:29 Dose: 1 patch Documented by: Lorazepam (Lorazepam 0.5 Mg Tab) 0.5 mg PO HS PRN PRN Reason: Anxiety Stop: 11/24/21 22:03 Last Admin: 10/29/21 01:48 Dose: 0.5 mg Documented by: Miscellaneous (Remove Lidoderm Patch) 1 ea N/A DAILY@2100 [facility] Stop: 11/25/21 20:59 Last Admin: 10/30/21 21:06 Dose: 1 ea Documented by: Miscellaneous (Fentanyl Patch Remove & Waste) 1 ea N/A Q3D [facility] Stop: 11/29/21 08:58 Last Admin: 10/30/21 09:31 Dose: 1 ea Documented by: Miscellaneous (Check Fentanyl Patch Placement) 1 ea N/A QS [facility] Stop: 11/29/21 15:59 Last Admin: 10/31/21 15:57 Dose: 1 ea Documented by: Multivitamins (Multivitamin Tab) 1 tab PO QAM [facility] Stop: 11/25/21 08:59 Last Admin: 10/31/21 09:29 Dose: 1 tab Documented by: Pantoprazole Sodium (Pantoprazole 40 Mg Tab) 40 mg PO DAILYBB [facility] Stop: 11/25/21 06:29 Last Admin: 10/31/21 05:55 Dose: 40 mg Documented by: Rosuvastatin Calcium (Rosuvastatin Calcium 20 Mg Tab) 20 mg PO QAM [facility] Stop: 11/25/21 08:59 Last Admin: 10/31/21 09:28 Dose: 20 mg Documented by: Tamsulosin HCl (Tamsulosin Hcl 0.4 Mg Cap) 0.4 mg PO DAILY [facility] Stop: 11/25/21 08:59 Last Admin: 10/31/21 09:29 Dose: 0.4 mg Documented by: (1) Pancreatic cancer Pancreatic malignancy location: unspecified Qualified Code(s): C25.9 - Malignant neoplasm of pancreas, unspecified (2) Hypertension Hypertension type: unspecified Qualified Code(s): I10 - Essential (primary) hypertension
[2021-10-31] MEDS ORDERED: HYDROmorphone INJ 1 MG/ML SYRINGE ONE (20:51)
[2021-11-01] MEDS: CHECK fentaNYL PATCH PLACEMENT SCH ×3 (01:49→16:09)
[2021-11-01] MEDS: ACETAMINOPHEN 500 MG TAB PO SCH ×3 (05:58→21:44)
[2021-11-01] MEDS: PANTOprazole 40 MG TAB PO SCH (05:58)
[2021-11-01 08:01] LABS: Hematocrit (blood only) 26.8 % (40.1-51.0); Hemoglobin 8.6 g/dl (14.0-18.0); Mean Corpuscular Hgb Conc 32.1 g/dL (32.0-36.0); Mean Corpuscular Volume 87.3 fL (80.0-100.0); Mean Platelet Volume 9.9 fL (9.4-12.4); Platelet Count 212 K/uL (130-400); RDW Standard Deviation 60.5 fL (36.4-46.3); Red Blood Count 3.07 M/uL (4.63-6.08); White Blood Count 16.01 K/ul (4.8-10.8)
[2021-11-01 08:18] LABS: BUN Creatinine Ratio 31.9 (10-20); Calcium 8.7 mg/dl (8.5-10.1); Creatinine Clr Calc Pharmacy 111.3 ml/min; Est GFR (African American) 111.5 ml/min; Est GFR (Non-African American) 96.2 ml/min; Potassium 4.1 mmol/L (3.5-5.1)
--- NOTE | 2021-11-01 08:54 | Pain Management Progress Note ---
Date of Service November 01, 2021 Assessment & Plan (1) Intractable back pain: (2) Pancreatic cancer: Plan: 1. Fentanyl Patch will remain at 37 mcg/hr. 2. Continue Baclofen 10mg twice daily and Cymbalta 30mg daily for adjunctive therapies. 3. Continue PO Dilaudid 2mg x 4 hours PRN pain. 4. Continue IV Dilaudid 0.5mg PRN breakthrough pain. 5. Pelvis CT scan negative for metastasis. There is no suspicion of lumbar cord compression. He denies any radicular symptoms into the legs, bowel/bladder incontinence, leg weakness, or foot drop. Would not recommend holding on discharge to home for a lumbar MRI as he refuses to lay supine for more than 4 minutes currently and this is not likely to improve despite multiple medication changes. 6. I suspect that his neck pain is mostly related to posture. He has his neck fully flexed in a depressive state each time I have spoken to him. Will sign off on the patient. Please contact with any questions or concerns. Admission and Anticipated Discharge Date Admission Date: October 25, 2021 Subjective Mr. Ochoa is a 70 year old male with metastatic prostate cancer and no long proceeding with any further treatments. He is admitted for GI bleed and intractable back pain. In regards to back and new neck pain he is reporting some improvement. He states that the pain that the PO Dilaudid is providing better pain relief than the Oxycodone was. Baclofen 10mg BID, Cymbalta 30mg daily, and Fentanyl patch 37mcg/hr remains. Patient has been able to ambulate in his room with a walker. He reports mild drowsiness. No confusion, constipation. Physical Exam Physical Exam: GENERAL: This is a 70 year old male. He is intermittently tearful during our discussion. Does not appear in acute pain. HEAD/FACE: Normocephalic and atraumatic. EYES: No drainage or conjunctival injection. ENT: Nose without bleeding or discharge. Oral mucosa moist. NECK: Full ROM. Mild tenderness along the C5 midline. RESPIRATORY: Patient with unlabored breathing. No signs of respiratory distress. CHEST/AXILLA: Chest movement symmetrical. No deformities noted. ABDOMEN/GI: No distension BACK: Moves without difficulty. Increased thoracic kyphosis and loss of lumbar lordosis. There is mild tenderness along the L3 region. No focal muscle spasm. SKIN: [place], warm and dry. No rash noted. MS/EXTREMITY: No swelling, no deformities. Moving extremities appropriately. NEURO: Alert and appears oriented. Speech is fluent. Cranial Nerves are grossly intact. PSYCH: Alert, pleasant, anxious.
[2021-11-01] MEDS: LIDOCAINE 5% 1 PATCH TD SCH (08:56)
[2021-11-01] MEDS: DICLOFENAC SOD 1% GEL 100 GM TUBE EXT SCH ×4 (08:57→20:17)
[2021-11-01 09:04] LABS: Basophils # (auto) 0.02 K/uL (0-0.2); Basophils % (auto) 0.1 %; Immature Granulocytes # (auto) 0.13 K/uL (0.00-0.02); Immature Granulocytes % (auto) 0.8 %; Lymphocytes # (auto) 0.45 K/uL (1.2-3.4); Lymphocytes % (auto) 2.8 %; Monocytes % (auto) 6.2 %; Neutrophils # (auto) 14.41 K/uL (1.4-6.5); Neutrophils % (auto) 90.1 %
[2021-11-01] MEDS: BACLOFEN 10 MG TAB PO SCH ×2 (09:06→20:16)
[2021-11-01] MEDS: CYANOCOBALAMIN (B-12) 500 MCG TABLET PO SCH (09:06)
[2021-11-01] MEDS: PANCREAZE (LIPASE 10,500U) CAP PO SCH ×3 (09:06→16:53)
[2021-11-01] MEDS: FINASTERIDE 5 MG TAB PO SCH (09:06)
[2021-11-01] MEDS: DULoxetine HCL 30 MG CAP PO SCH (09:06)
[2021-11-01] MEDS: ROSUVASTATIN CALCIUM 20 MG TAB PO SCH (09:06)
[2021-11-01] MEDS: TAMSULOSIN HCL 0.4 MG CAP PO SCH (09:06)
[2021-11-01] MEDS: ADVANCED PROBIOTIC 1250 MG CAPSULE PO SCH (09:06)
[2021-11-01] MEDS: MULTIVITAMIN TAB PO SCH (09:06)
[2021-11-01] MEDS: HEPARIN 100 UNIT/ML 5ML FLUSH FLUSH PRN ×2 (09:16→17:44)
[2021-11-01] MEDS: HYDROmorphone INJ 0.5 MG/0.5 ML SYR IV PRN ×4 (09:16→21:44)
[2021-11-01] MEDS: ENOXAPARIN 80 MG/0.8 ML SYR SQ SCH ×2 (09:16→20:13)
[2021-11-01] MEDS: HYDROmorphone HCL 2 MG TAB PO PRN ×3 (12:09→20:13)
--- NOTE | 2021-11-01 16:48 | Hospitalist Progress Note ---
Date of Service November 01, 2021 Assessment & Plan (1) Symptomatic anemia: Plan: Secondary to LGI bleed Recent laxative Rx for narcotic induced constipation Hemoglobin drop from baseline hx LLE DVT Eliquis--held Eliquis and laxative. Received 1 unit of blood this admission. H/H this am continues to improve. No significant bleeding overnight. NSAID's have been discontinued and will try diclofenac gel for local pain Hemoglobin remains stable and no more evidence of GI bleed We will check CBC tomorrow (2) Intractable back pain: Plan: severe, started short course decadron on 10/26-some improvement today NSAIDs contraindicated in acute bleed-try toradol because pain is still severe and bleeding is less significant. Continued toradol because this works-convert to PRN Motrin, watch for bleeding. Family and patient advised on side effects and bleeding risks. Add lidocaine patch-this is helping per patient. Pt declines [employer]--remains on oxycodone IR q4h MRI spine with contrast ordered but currently he cannot tolerate. There are no overt signs of spinal cord compression at this time. Has been on fentanyl patch 12 mcg since 10/28 and will change to 25 mcg from 10/29 Ibuprofen has been discontinued and given diclofenac sodium locally to improve pain Advised to go for MRI to rule out any metastatic disease or any nerve entrapment but the patient declining as he cannot lie flat Pain therapy has been consulted-appreciate input and recommendation CT scan of the pelvis did not show any bony metastasis-it did show prostatomegaly with bladder outlet obstruction and right inguinal hernia with a mass , metastasis could not be ruled out The patient convinced to have an MRI-ordered and preprocedure pain medications will be given Discussed with the anesthesiologist and will get MRI with sedation tomorrow morning N.p.o. after midnight (3) Pancreatic cancer: Plan: With metastatic disease. Per oncology. MRI spine to rule out new mets to the back when he is able to tolerate. Likely has bony metastasis which is causing pain Will be better to get an imaging study to evaluate it CT of the pelvis as above We will try to get MRI of the lumbar spine We will get MRI of the lumbar and thoracic spine with and without contrast (4) Left leg DVT: Plan: Diagnosed in June 2021. Hold anticoagulation at this time. Repeat ultrasound of the left leg did not show new thrombus involving the left common femoral and left posterior tibial vessel Lovenox has been changed to therapeutic dose Explained this to the patient and will need to continue with Eliquis on discharge Will check CBC to make sure hemoglobin is not dropping Globin remained stable (5) CKD (chronic kidney disease), stage III: Plan: chronic, stable. Cont to monitor BMP (6) Hypertension: Plan: chronic, controlled. Cont to control his pain (7) H/O Clostridium difficile infection: Plan: treated with difficid and has resolved. (8) DVT prophylaxis: Plan: SCDs/ ambulation/Lovenox DNR/DNI Dispo-to home when feeling better, bleeding resolved and pain controlled. Admission and Anticipated Discharge Date Admission Date: October 25, 2021 Subjective 10/29/2021 The patient was seen and examined in medical telemetry unit He complains to have lower back pain which has been very difficult to control since admission He cannot lie flat for an MRI Denies any radiation of pain but bending forward helps the pain 10/30/2021 The patient was seen and examined in medical telemetry unit He still complains to have lower back pain which is worse with activity and standing Cannot lie flat for an MRI-he was convinced to get a CT scan 10/31/2021 The patient was seen and examined in medical telemetry unit in presence of the daughter and the He complains to have pain in the lower spinal area as before Denies any radiation of pain or any problem with urine and or bowel habit Denies any other symptom 11/01/2021 Patient was seen and examined in presence of the family members He could not tolerate MRI as he could not lie down for a few minutes He will have MRI with sedation tomorrow morning Review of Systems Review of Systems: Sitting on the bed with acute pain in the lower back Musculoskeletal: Low back pain Physical Exam Physical Exam: Sitting on the bed in pain Constitutional: well developed, well nourished and + ill appearing Eyes: PERRL, conjunctivae normal, anicteric sclerae ENMT: external ear and nose normal, oropharynx normal Neck: trachea midline, no thyromegaly Respiratory: no respiratory distress Auscultation: lungs clear to auscultation bilaterally Cardiovascular: Rate/Rhythm: regular rate and regular rhythm; not tachycardic Heart Sounds: normal S1 and normal S2; no murmur Extremities: no edema Gastrointestinal (Abdomen): Inspection/Auscultation: normal bowel sounds; abdomen not distended Percussion/Palpation: abdomen soft; abdomen nontender Musculoskeletal: Spine: thoracic spine normal to inspection, lumbar spine normal to inspection and + sacral tenderness Psychiatric: A+Ox3, euthymic affect Mood: + depressed mood Lymphatic: no cervical or axillary lymphadenopathy Results & Data Results & Data ([facility]) Vital Signs (Past 12 Hours) Vital Signs Temp Pulse Resp BP Pulse Ox 11/01/21 14:41 36.5 C 80 18 127/74 98 11/01/21 07:41 36.6 C 66 16 135/82 97 Laboratory Results Short CBC 11/01/21 Range/Units 07:42 WBC 16.01 H (4.8-10.8) K/ul Hgb 8.6 L (14.0-18.0) g/dl Hct 26.8 L (40.1-51.0) % Plt Count 212 (130-400) K/uL BMP 11/01/21 07:42 Sodium 133 L Potassium 4.1 Chloride 99 Carbon Dioxide 27 BUN 22 Creatinine 0.69 Glucose 114 H Calcium 8.7 Medications Administered Current Inpatient Medications Acetaminophen (Acetaminophen 500 Mg Tab) 1,000 mg PO Q8H [facility] Stop: 11/27/21 21:59 Last Admin: 11/01/21 13:24 Dose: 1,000 mg Documented by: Lipase/Protease/Amylase (Pancreaze (Lipase 10,500u) Cap) 1 cap PO TIDM JAYSHREE Stop: 11/25/21 07:59 Last Admin: 11/01/21 12:25 Dose: 1 cap Documented by: Baclofen (Baclofen 10 Mg Tab) 10 mg PO BID JAYSHREE Stop: 11/29/21 08:59 Last Admin: 11/01/21 09:06 Dose: 10 mg Documented by: Cyanocobalamin (Cyanocobalamin (B-12) 500 Mcg Tablet) 500 mcg PO QAM [facility] Stop: 11/25/21 08:59 Last Admin: 11/01/21 09:06 Dose: 500 mcg Documented by: Diclofenac Sodium (Diclofenac Sod 1% Gel 100 Gm Tube) 4 gm EXT QID [facility]; Protocol Stop: 11/29/21 16:59 Last Admin: 11/01/21 12:12 Dose: 4 gm Documented by: Duloxetine HCl (Duloxetine Hcl 30 Mg Cap) 30 mg PO QAM [facility] Stop: 11/29/21 08:59 Last Admin: 11/01/21 09:06 Dose: 30 mg Documented by: Enoxaparin Sodium (Enoxaparin 80 Mg/0.8 Ml Syr) 80 mg SQ Q12 [facility] Stop: 11/28/21 10:59 Last Admin: 11/01/21 09:16 Dose: 80 mg Documented by: Fentanyl (Fentanyl 25 Mcg/Hr Tdsy) 25 mcg TD Q3D [facility] Stop: 11/13/21 08:59 Last Admin: 10/30/21 09:23 Dose: 25 mcg Documented by: Fentanyl (Fentanyl 12 Mcg/Hr Tdsy) 12 mcg TD Q3D [facility] Stop: 11/13/21 08:59 Last Admin: 10/30/21 09:28 Dose: 12 mcg Documented by: Finasteride (Finasteride 5 Mg Tab) 5 mg PO QAM [facility] Stop: 11/25/21 08:59 Last Admin: 11/01/21 09:06 Dose: 5 mg Documented by: Heparin Sodium (Porcine) (Heparin 100 Unit/Ml 5ml Flush) 5 ml FLUSH PRN PRN PRN Reason: Flush Stop: 11/27/21 14:29 Last Admin: 11/01/21 09:16 Dose: 5 ml Documented by: Hydromorphone HCl (Hydromorphone Inj 0.5 Mg/0.5 Ml Syr) 0.5 mg IV Q4H PRN PRN Reason: Severe Pain Stop: 11/09/21 07:52 Last Admin: 11/01/21 13:25 Dose: 0.5 mg Documented by: Hydromorphone HCl (Hydromorphone Hcl 2 Mg Tab) 2 mg PO Q4 PRN PRN Reason: Pain Stop: 11/14/21 08:21 Last Admin: 11/01/21 16:09 Dose: 2 mg Documented by: Lactobacillus Acidophilus (Advanced Probiotic 1250 Mg Capsule) 2 cap PO DAILY [facility] Stop: 11/25/21 08:59 Last Admin: 11/01/21 09:06 Dose: 2 cap Documented by: Lidocaine (Lidocaine 5% 1 Patch) 1 patch TD [facility] Stop: 11/25/21 15:29 Last Admin: 11/01/21 08:56 Dose: 1 patch Documented by: Lorazepam (Lorazepam 0.5 Mg Tab) 0.5 mg PO HS PRN PRN Reason: Anxiety Stop: 11/24/21 22:03 Last Admin: 10/29/21 01:48 Dose: 0.5 mg Documented by: Miscellaneous (Remove Lidoderm Patch) 1 ea N/A DAILY@2100 [facility] Stop: 11/25/21 20:59 Last Admin: 10/31/21 22:22 Dose: 1 ea Documented by: Miscellaneous (Fentanyl Patch Remove & Waste) 1 ea N/A Q3D [facility] Stop: 11/29/21 08:58 Last Admin: 10/30/21 09:31 Dose: 1 ea Documented by: Dollycellaneous (Check Fentanyl Patch Placement) 1 ea N/A QS [facility] Stop: 11/29/21 15:59 Last Admin: 11/01/21 16:09 Dose: 1 ea Documented by: Multivitamins (Multivitamin Tab) 1 tab PO QAM [facility] Stop: 11/25/21 08:59 Last Admin: 11/01/21 09:06 Dose: 1 tab Documented by: Pantoprazole Sodium (Pantoprazole 40 Mg Tab) 40 mg PO DAILYBB [facility] Stop: 11/25/21 06:29 Last Admin: 11/01/21 05:58 Dose: 40 mg Documented by: Rosuvastatin Calcium (Rosuvastatin Calcium 20 Mg Tab) 20 mg PO QAM [facility] Stop: 11/25/21 08:59 Last Admin: 11/01/21 09:06 Dose: 20 mg Documented by: Tamsulosin HCl (Tamsulosin Hcl 0.4 Mg Cap) 0.4 mg PO DAILY [facility] Stop: 11/25/21 08:59 Last Admin: 11/01/21 09:06 Dose: 0.4 mg Documented by: (1) Pancreatic cancer Pancreatic malignancy location: unspecified Qualified Code(s): C25.9 - Malignant neoplasm of pancreas, unspecified (2) Hypertension Hypertension type: unspecified Qualified Code(s): I10 - Essential (primary) hypertension
[2021-11-02] MEDS: CHECK fentaNYL PATCH PLACEMENT SCH ×3 (00:05→16:17)
[2021-11-02] MEDS: HYDROmorphone HCL 2 MG TAB PO PRN ×3 (02:15→14:53)
[2021-11-02] MEDS: LORazepam 0.5 MG TAB PO PRN (02:15)
[2021-11-02] MEDS: HYDROmorphone INJ 0.5 MG/0.5 ML SYR IV PRN ×3 (03:36→20:13)
[2021-11-02] MEDS: PANTOprazole 40 MG TAB PO SCH (05:27)
[2021-11-02] MEDS: ACETAMINOPHEN 500 MG TAB PO SCH ×4 (05:27→22:10)
[2021-11-02] MEDS ORDERED: HYDROmorphone INJ 1 MG/ML SYRINGE IV STA (05:29)
[2021-11-02] MEDS: fentaNYL 25 MCG/HR TDSY TD SCH (07:48)
[2021-11-02] MEDS: fentaNYL 12 MCG/HR TDSY TD SCH (07:48)
[2021-11-02] MEDS: CYANOCOBALAMIN (B-12) 500 MCG TABLET PO SCH (07:49)
[2021-11-02] MEDS: DICLOFENAC SOD 1% GEL 100 GM TUBE EXT SCH ×4 (07:49→22:09)
[2021-11-02] MEDS: PANCREAZE (LIPASE 10,500U) CAP PO SCH ×3 (07:49→16:17)
[2021-11-02] MEDS: BACLOFEN 10 MG TAB PO SCH ×3 (07:49→22:10)
[2021-11-02] MEDS: ENOXAPARIN 80 MG/0.8 ML SYR SQ SCH (07:50)
[2021-11-02] MEDS: FINASTERIDE 5 MG TAB PO SCH (07:50)
[2021-11-02] MEDS: ADVANCED PROBIOTIC 1250 MG CAPSULE PO SCH (07:50)
[2021-11-02] MEDS: LIDOCAINE 5% 1 PATCH TD SCH (07:50)
[2021-11-02] MEDS: DULoxetine HCL 30 MG CAP PO SCH (07:50)
[2021-11-02] MEDS: MULTIVITAMIN TAB PO SCH (07:51)
[2021-11-02] MEDS: TAMSULOSIN HCL 0.4 MG CAP PO SCH (07:51)
[2021-11-02] MEDS: ROSUVASTATIN CALCIUM 20 MG TAB PO SCH (07:51)
--- NOTE | 2021-11-02 08:52 | Anesthesiology Consultation ---
Date of Service November 02, 2021 Assessment & Plan Chart Review Chart Review: Acceptable Risk for Surgery and Patient NOT seen in Pre Admission Testing Consults Requested none ASA ASA4 Proposed Anesthesia Anesthesia Type: MAC History Surgery Operation Date: 11/02/21 09:20 Proposed Procedures p MRI with Anesthesia Sedation Lumbar Spine - Loulou Salvador MD Height/Weight Height: 6 ft 2 in Weight: 79 kg Allergies Allergy/AdvReac Type Severity Reaction Status Date / Time erythromycin base AdvReac Mild Gastrointestinal Verified 10/25/21 19:25 Upset celecoxib [From Celebrex] AdvReac irritates Verified 10/25/21 19:26 stomach Medications Home Medications Medication Instructions Recorded Confirmed Last Taken ascorbic acid (vitamin C) 1,000 mg 1 g PO QAM 01/10/21 10/25/21 10/25/21 09:30 tablet (Vitamin C) cyanocobalamin (vitamin B-12) 500 500 mcg PO QAM 01/10/21 10/25/21 10/25/21 09:30 mcg tablet multivitamin 1 tab PO QAM 01/10/21 10/25/21 10/25/21 09:30 rosuvastatin 20 mg tablet (Crestor) 20 mg PO QAM 01/10/21 10/25/21 05/23/21 06 :00 cholecalciferol (vitamin D3) 25 25 mcg PO QAM 05/16/21 10/25/21 05/22/21 mcg (1,000 unit) tablet (Vitamin D3) omeprazole 40 mg capsule,delayed 40 mg PO DAILYBB 06/13/21 10/25/21 10/25/21 09:30 release flaxseed oil 1,000 mg capsule 1,000 mg PO DAILY 07/20/21 10/25/21 Unknown ondansetron HCl 8 mg tablet 8 mg PO Q8 PRN 07/20/21 10/25/21 Unknown prochlorperazine maleate 10 mg 10 mg PO Q6 PRN 07/20/21 10/25/21 Unknown tablet tamsulosin 0.4 mg capsule 0.4 mg PO DAILY 07/20/21 10/25/21 10/25/21 09:30 lxljwf-jumyumjx-czpwgis 1 cap PO TIDM #90 cap 07/24/21 10/25/21 10/25/21 12:00 36,000-114,000-180,000 unit capsule,delay rel (Creon) apixaban 5 mg tablet (Eliquis) 5 mg PO BID 09/25/21 10/25/21 10/25/21 09:30 [id number]-[id number]-lamr tablet 1 tab PO DAILY 09/25/21 10/25/21 10/25/21 09:30 finasteride 5 mg tablet (Proscar) 5 mg PO QAM 30 Days #30 tab 10/02/21 10/25/21 10/25/21 09:00 Lactobacillus acidophilus 10 0 mmu cells PO DAILY 10/25/21 10/25/21 10/25/21 09:30 billion cell capsule (Probiotic) ibuprofen 200 mg tablet (Advil) 400 mg PO Q6H PRN 10/25/21 10/25/21 Unknown lorazepam 0.5 mg tablet 0.5 mg PO HS PRN 10/25/21 10/25/21 10/25/21 03:15 oxycodone 10 mg tablet 10 mg PO Q4 10/25/21 10/25/21 Unknown sennosides 8.6 mg tablet (senna) 8.6 mg PO DAILY PRN 10/25/21 10/25/21 Unknown Active Medications Generic Name Dose Route Start Last Admin Trade Name Freq PRN Reason Stop Dose Admin Acetaminophen 1,000 mg 10/28/21 22:00 11/02/21 05:27 Acetaminophen 500 Mg Tab PO 11/27/21 21:59 1,000 mg Q8H JAYSHREE Administration Lipase/Protease/Amylase 1 cap 10/26/21 08:00 11/02/21 07:49 Pancreaze (Lipase 10,500u) Cap PO 11/25/21 07:59 1 cap TIDM JAYSHREE Administration Baclofen 10 mg 10/30/21 09:00 11/02/21 07:49 Baclofen 10 Mg Tab PO 11/29/21 08:59 10 mg BID JAYSHREE Administration Cyanocobalamin 500 mcg 10/26/21 09:00 11/02/21 07:49 Cyanocobalamin (B-12) 500 Mcg Tablet PO 11/25/21 08:59 500 mcg QAM JAYSHREE Administration Diclofenac Sodium 4 gm 10/30/21 17:00 11/02/21 07:49 Diclofenac Sod 1% Gel 100 Gm Tube EXT 11/29/21 16:59 4 gm QID JAYSHREE Administration Protocol Duloxetine HCl 30 mg 10/30/21 09:00 11/02/21 07:50 Duloxetine Hcl 30 Mg Cap PO 11/29/21 08:59 30 mg QAM JAYSHREE Administration Enoxaparin Sodium 80 mg 10/29/21 11:00 11/02/21 07:50 Enoxaparin 80 Mg/0.8 Ml Syr SQ 11/28/21 10:59 80 mg Q12 JAYSHREE Administration Fentanyl 25 mcg 10/30/21 09:00 11/02/21 07:48 Fentanyl 25 Mcg/Hr Tdsy TD 11/13/21 08:59 25 mcg Q3D JAYSHREE Administration Fentanyl 12 mcg 10/30/21 09:00 11/02/21 07:48 Fentanyl 12 Mcg/Hr Tdsy TD 11/13/21 08:59 12 mcg Q3D JAYSHREE Administration Finasteride 5 mg 10/26/21 09:00 11/02/21 07:50 Finasteride 5 Mg Tab PO 11/25/21 08:59 5 mg QAM JAYSHREE Administration Heparin Sodium (Porcine) 5 ml 10/28/21 14:30 11/01/21 17:44 Heparin 100 Unit/Ml 5ml Flush FLUSH 11/27/21 14:29 5 ml PRN PRN Administration Flush Hydromorphone HCl 0.5 mg 10/26/21 07:53 11/02/21 03:36 Hydromorphone Inj 0.5 Mg/0.5 Ml Syr IV 11/09/21 07:52 0.5 mg Q4H PRN Administration Severe Pain Hydromorphone HCl 2 mg 10/31/21 08:22 11/02/21 07:59 Hydromorphone Hcl 2 Mg Tab PO 11/14/21 08:21 2 mg Q4 PRN Administration Pain Lactobacillus Acidophilus 2 cap 10/26/21 09:00 11/02/21 07:50 Advanced Probiotic 1250 Mg Capsule PO 11/25/21 08:59 2 cap DAILY JAYSHREE Administration Lidocaine 1 patch 10/26/21 15:30 11/02/21 07:50 Lidocaine 5% 1 Patch TD 11/25/21 15:29 1 patch QAM JAYSHREE Administration Lorazepam 0.5 mg 10/25/21 22:04 11/02/21 02:15 Lorazepam 0.5 Mg Tab PO 11/24/21 22:03 0.5 mg HS PRN Administration Anxiety Miscellaneous 1 ea 10/26/21 21:00 11/01/21 20:18 Remove Lidoderm Patch N/A 11/25/21 20:59 1 ea DAILY@2100 JAYSHREE Administration Miscellaneous 1 ea 10/30/21 08:59 11/02/21 07:45 Fentanyl Patch Remove & Waste N/A 11/29/21 08:58 1 ea Q3D JAYSHREE Administration Miscellaneous 1 ea 10/30/21 16:00 11/02/21 07:45 Check Fentanyl Patch Placement N/A 11/29/21 15:59 1 ea QS JAYSHREE Administration Multivitamins 1 tab 10/26/21 09:00 11/02/21 07:51 Multivitamin Tab PO 11/25/21 08:59 1 tab QAM JAYSHREE Administration Pantoprazole Sodium 40 mg 10/26/21 06:30 11/02/21 05:27 Pantoprazole 40 Mg Tab PO 11/25/21 06:29 40 mg DAILYBB JAYSHREE Administration Rosuvastatin Calcium 20 mg 10/26/21 09:00 11/02/21 07:51 Rosuvastatin Calcium 20 Mg Tab PO 11/25/21 08:59 20 mg QAM JAYSHREE Administration Tamsulosin HCl 0.4 mg 10/26/21 09:00 11/02/21 07:51 Tamsulosin Hcl 0.4 Mg Cap PO 11/25/21 08:59 0.4 mg DAILY JAYSHREE Administration Past Medical History Medical History Abdominal pain Arthritis of right knee BPH (benign prostatic hyperplasia) C. difficile colitis CKD (chronic kidney disease), stage III Hyperlipidemia Hypertension Left leg DVT Liver metastases Nausea and vomiting after administration of anesthetic agent Osteoarthritis Pancreatic cancer Umbilical hernia + present (no pain or current issues) Exercise / Class Metabolic Activity III < 4 Walking/Shop/Light housework Past Family History Family History Mother Hypertension Heart disease Other No family history of adverse response to anesthesia Past Surgical History Surgical History History of colonoscopy History of tooth extraction History of total right knee replacement (TKR) Hx of inguinal hernia repair Hx of prostate biopsy x2 (benign) Hx of umbilical hernia repair Hx of vasectomy Past Anesthesia History No Hx of Anesthesia Complications and No Family Hx of Anesthesia Complications History of PONV No Hx of PONV and No Hx of Motion Sickness Social History Smoking Status: Former smoker Hx Alcohol Use: No Alcohol type: beer alcohol intake frequency: holidays/special occasions only Hx Substance Use: No substance use type: does not use Physical Exam Vital Signs Last Vital Signs Temp 36.6 C 11/02/21 07:40 Pulse 108 H 11/02/21 07:40 Resp 22 11/02/21 07:40 BP 125/63 11/02/21 07:40 Pulse Ox 99 11/02/21 07:40 Testing Laboratory Results 11/01/21 07:42 11/01/21 07:42 PT 13.0 Seconds (9.0-12.0) H 10/25/21 18:45 INR 1.2 (0.9-1.1) H 10/25/21 18:45 APTT 35.1 Seconds (21.0-31.0) H 10/25/21 18:45 Urine Color Yellow 10/26/21 00:23 Urine Appearance Clear (Clear) 10/26/21 00:23 Urine pH 5.5 (4.5-7.5) 10/26/21 00:23 Ur Specific Harvest 1.006 (1.000-1.030) 10/26/21 00:23 Urine Protein Negative (Negative) 10/26/21 00:23 Urine Glucose (UA) Negative (Negative) 10/26/21 00:23 Urine Ketones Negative (Negative) 10/26/21 00:23 Urine Nitrite Negative (Negative) 10/26/21 00:23 Ur Leukocyte Esterase Trace (Negative) H 10/26/21 00:23 Urine WBC (Auto) 1-5 /hpf (0-5) 10/26/21 00:23 Urine RBC (Auto) 0-4 /hpf (0-4) 10/26/21 00:23 U Hyaline Cast (Auto) 0 /lpf (0-5) 10/26/21 00:23 U Epithel Cells (Auto) 0-5 /lpf (0-5) 10/26/21 00:23 Urine Bacteria (Auto) Negative (Negative) 10/26/21 00:23 Blood Type AB Positive 10/25/21 18:45 Antibody Screen NEGATIVE 10/25/21 18:45 Electrocardiogram Date: 10/25/21 Findings: + NSR @ (at 80) Chest X-Ray Date: 10/25/21 Findings: + NAD Echocardiogram Date: 06/14/21 EF: 65% LV Function: normal RWMA: + none Other Findings: + diastolic dysfunction (grade 1) Valvular Disease: + no significant valvular disease
[2021-11-02] MEDS ORDERED: PROPOFOL IV EMULSION 10 MG/ML 20 ML VIAL IV ONE ×2 (09:04→10:58)
[2021-11-02] MEDS ORDERED: LIDOCAINE 2% 2 ML VIAL/AMP(20MG/ML) INFIL ONE (09:04)
[2021-11-02] MEDS ORDERED: MIDAZOLAM HCL 1 MG/ML 2ML VIAL ONE (09:05)
[2021-11-02] MEDS ORDERED: KETAMINE 50 MG/5 ML SYRINGE ONE (09:05)
[2021-11-02] MEDS ORDERED: fentaNYL citrate 100 MCG/2 ML VIAL ONE (09:05)
[2021-11-02] MEDS ORDERED: ATROPINE SULFATE 0.1 MG/ML 10ML SYR IV PRN ×2 (09:13→11:06)
[2021-11-02] MEDS ORDERED: ePHEDrine sulfate 50 MG/ML AMP IV PRN ×2 (09:13→11:06)
[2021-11-02] MEDS ORDERED: GADOBUTROL 65ML VIAL IV ONE (10:11)
--- NOTE | 2021-11-02 10:59 | Magnetic Resonance Report ---
MR thoracic spine wo/w con CLINICAL HISTORY: Severe back pain,Ca pancreas. COMPARISON: None. TECHNIQUE: Multiplanar multisequence images of the Thoracic Spine were performed with and without IV contrast. Contrast Volume: 7.80 ml of Gadavist FINDINGS: Bones: There is no evidence for vertebral body fracture. The heights of the vertebral bodies are main tained. The vertebral bodies are in anatomic alignment. There is localized marrow edema/marrow replacement present of the T2, T4, T7, T9, T11 and T12 vertebr al bodies representing the presence of metastatic disease. Heterogeneous enhancement is present at th heriberto sites following contrast administration. Homogeneous marrow signal seen throughout the remaining imaged bones of the thoracic spine. Disc spaces: There are no focal disc protrusions or herniations identified. There is no significant s kimberly canal stenosis or neural foraminal narrowing present. Soft tissues: The thoracic spinal cord appears normal. There are no paraspinal fluid collections or s oft tissue masses identified. No abnormal enhancement is identified. IMPRESSION: 1. MR demonstrates metastatic disease throughout the thoracic spine as delineated above. 2. No evidence for cord compression. Electronically signed by: Jadon Milner M.D. 11/02/2021 10:57 AM
[2021-11-02] MEDS ORDERED: ONDANSETRON INJ 2 MG/ML 2 ML VIAL IV PRN ×2 (11:06→15:55)
[2021-11-02] MEDS ORDERED: LABETALOL HCL IV 5 MG/ML 20ML IV PRN (11:06)
[2021-11-02] MEDS ORDERED: fentaNYL citrate 100 MCG/2 ML VIAL IV PRN (11:06)
[2021-11-02] MEDS ORDERED: PROMETHAZINE HCL 12.5 MG in SODIUM CHLORIDE 0.9% 50 ML IV PRN (11:06)
[2021-11-02] MEDS ORDERED: NALOXONE HCL 0.4 MG/1 ML VIAL/CARP IV PRN (11:06)
[2021-11-02] MEDS ORDERED: FLUMAZENIL 0.1 MG/1 ML 10 ML VIAL IV PRN (11:06)
[2021-11-02] MEDS ORDERED: HYDROmorphone INJ 1 MG/ML SYRINGE ONE (11:09)
[2021-11-02] MEDS ORDERED: ONDANSETRON INJ 2 MG/ML 2 ML VIAL ONE (11:10)
[2021-11-02] MEDS: HYDROmorphone INJ 1 MG/ML SYRINGE IV PRN ×8 (11:12→11:54)
--- NOTE | 2021-11-02 12:14 | Anesthesiology Progress Note ---
Date of Service November 02, 2021 Anesthesia Post Procedure Vital Signs Vital Signs: Temp Pulse Pulse Resp BP BP Pulse Ox 11/02/21 11:55 120 H 16 101/61 99 11/02/21 11:45 117 H 14 101/70 99 11/02/21 11:35 116 H 15 101/61 100 11/02/21 11:25 119 H 17 107/71 100 11/02/21 11:15 120 H 18 95/69 L 100 11/02/21 11:05 122 H 20 96/70 L 100 11/02/21 10:55 120 H 20 98/77 L 100 11/02/21 10:49 36.4 C L 122 H 14 92/74 L 100 11/02/21 07:40 36.6 C 108 H 22 125/63 99 11/02/21 04:47 83 124/77 100 11/01/21 21:44 36.3 C L 73 20 129/76 100 11/01/21 14:41 36.5 C 80 18 127/74 98 Pain Intensity Back: Pain Intensity: 5 Transfer of Care Handoff Completed per policy Notes Mental Status: alert / awake / arousable Patient Amnestic to Procedure: Yes Nausea / Vomiting: adequately controlled Pain: adequately controlled Airway Patency, RR, SpO2: stable & adequate BP & HR: stable & adequate Hydration State: stable & adequate Anesthetic Complications: no major complications apparent
--- NOTE | 2021-11-02 14:00 | Magnetic Resonance Report ---
MRI OF THE LUMBAR SPINE COMBO CLINICAL HISTORY: Low back pain. Pancreatic cancer. Metastatic survey. COMPARISON STUDY: Abdominal CT dated 10/25/2021. TECHNIQUE: MRI of the lumbar spine is performed utilizing various T1 and T2-weighted sequences in the axial and sagittal planes. Contrast-enhanced sequences were acquired following the IV administration of 7.8 cc of Gadavist. FINDINGS: Lumbar spine: Vertebral body height is maintained of the lumbar spine. There is minimal retrolisthesi s at L3-L4 and L4-L5. Alignment is otherwise preserved. There is straightening of the lumbar lordosis . There is no MRI evidence of acute fracture. The transverse and spinous processes appear intact. The re is evidence of multifocal osseous metastatic disease. Large lesions are seen within the bodies of T11, T12, L1, L3, L4, and L5. A lesion is also seen in the sacrum as well as within the right iliac w ing. There is no evidence of spondylolysis. Vertebral discs: Degenerative disc desiccation and loss of height is seen throughout the lumbar spine . Loss of height is moderate to severe at L4-L5. Spinal cord and central canal: The visualized spinal cord is normal in morphology and signal intensit y. The conus medullaris terminates at the level of L1. The nerve roots of the cauda equina are normal in morphology. There is no evidence of enhancing tumor encroaching upon the central canal. No enhanc ing intrathecal lesion is identified. L1-L2: Unremarkable. L2-L3: There is mild posterior disc bulge. This abuts the transiting nerve roots. There is no signifi cant acquired compromise of the central canal. Facet arthropathy is of no consequence. The neural for tyrel are patent. L3-L4: A posterior disc bulge abuts the transiting nerve roots. No significant acquired compromise of the central canal is identified. Lateral disc bulge is seen bilaterally, left greater than right and contributes to subarticular stenosis. In conjunction with facet arthropathy there is minimal left-si ded neural foraminal narrowing. The right neural foramen is patent. L4-L5: There is a small posterior disc osteophyte complex which abuts the transiting nerve roots. The re is no significant acquired compromise of the central canal. Lateral disc bulge contributes to bila teral subarticular stenosis. In conjunction with facet arthropathy there is mild bilateral neural for aminal narrowing. L5-S1: There is a small posterior disc bulge which abuts the transiting nerve roots. No significant a cquired compromise of the central canal is identified. Lateral disc bulge contributes to mild bilater al subarticular stenosis. There is facet arthropathy. No significant neural foraminal narrowing is se en. Sacrum: As noted above there is evidence of sacral metastatic disease. No significant marrow edema is identified. Soft tissues: There is mild fatty atrophy of the paraspinous musculature. Simple and complex renal cy sts measure up to 2.0 cm. Retroperitoneal lymphadenopathy is consistent with metastatic disease. Hepa tic metastatic disease is partially visualized. IMPRESSION: 1. There is evidence of multifocal osseous metastatic disease throughout the imaged thoracolumbar spi ne and bony pelvis. 2. No pathologic fracture is identified. 3. Spondylotic change as above with no significant acquired compromise of the central canal. See disc ussion for detailed level by level analysis. 4. No enhancing intrathecal lesion is identified and there is no evidence of metastatic disease encro aching upon the central canal. 5. Metastatic retroperitoneal lymphadenopathy and hepatic metastatic disease is partially imaged. Dictated: 11/02/2021 10:32 AM Transcribed: 11/02/2021 1:53 PM [place] [id number] NAYANA_Marcelino Electronically signed by: Edgar Hilton M.D. 11/02/2021 1:59 PM
--- NOTE | 2021-11-02 14:32 | Radiation OncologyConsultation ---
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 Unfortunately he has had progression of disease which is now metastatic involving the lung, massive involvement of the liver and bone with possible left adrenal metastasis. Patient is experiencing lower back pain which is at times severe. Treatment Options: 1. Increased pain medication as recommended by palliative care. 2. Referral to hospice. 3. Possible palliative radiation if the patient pain can be stabilized enough to lie flat and the source of his pain can be clearly identified. Recommendations: I have recommended to the patient's and son that they strongly consider getting the patient on hospice and having his pain further evaluated by palliative care. I did not think that palliative radiation at this point was an option given the uncertainty of the cause of his pain and his inability to lie flat. Plan: 1. Increase pain control if possible. 2. Involvement of palliative care. 3. Initiation of hospice. 4. Follow-up as necessary by radiation oncology if patient's status changes. Rationale/Explanation of Treatment: The patient has obviously lower back pain which is difficult to define the source of. The patient has metastatic disease involving the thoracic and lumbar spine. He also has massive liver involvement, left adrenal involvement and a large pancreatic head mass. All of these could be the source of his pain either individually or in conjunction. The patient's pain is not controlled to the point where he can lie flat and therefore any consideration of palliative radiation is not possible. Should the patient's pain control improved to the point where he can lie flat and we can identify the likely source of his persistent pain we could consider at that time initiating a short course of palliative radiation. The the patient's and son had multiple questions which were answered to their full satisfaction. Thank you for allowing us to participate in the care of this patient. This chart was completed in part utilizing [employer] Speech Voice Recognition software. Grammatical errors, random word insertions, pronoun errors and incomplete sentences are occasional consequence of this system due to software limitations, ambient noise and hardware issues. Any formal questions or concerns about the content, text or information contained within the body of this dictation should be directly addressed to the provider for clarification. Bright Arrington MD Department of Radiation Oncology [facility] History of Present Illness Reason for Consultation: Complaint of severe back pain. Attending Physician: Loulou Salvador MD History of Present Illness Mr. Ochoa is a 70-year-old male who was ultimately found to have pancreatic cancer. Despite initiation of systemic therapy he is showing evidence of rapid progression of disease with the onset of intractable back pain. 05/23/2021. Patient seen by Dr. Cuadra with complaint of abdominal pain. EGD is performed with normal-appearing esophagus and stomach. Biopsies were taken for helical back to pylori testing. The duodenal bulb and second portion of duodenum appeared normal. Biopsies were taken for the evaluation of celiac disease. 06/13/2021. Patient presents to the emergency department with complaint of abdominal pain. This has been present for 4 days in the left lower quadrant. Patient had had a recent admission at the [facility] for the patient was noted to have C. difficile and was on a liquid diet. At that time the leslie ent was also found to have a pancreatic mass with likely liver metastasis. He did have a liver biopsy which was pending at that time. Repeat CT of the abdomen and pelvis were performed. This again demonstrated a pancreatic body mass measuring 3.6 cm with distal pancreatic ductal dilatation of concern for a primary malignancy. Hypodense liver lesions are noted favoring metastatic lesions. Numerous subcentimeter nodes are seen in the retroperitoneum and amrita hepatis. In the pelvis subcentimeter lymph nodes are noted. 07/20/2021. Patient undergoes repeat CT of the abdomen and pelvis. This shows interval increase in the size of the pancreatic mass with progressive hepatic disease and progressive surrounding lymphadenopathy. There was progressive vascular encasement with occlusion of the splenic vein. There were progressive mild to moderate bowel wall thickening consistent with nonspecific colitis. An indeterminant 1.9 cm lesion was noted within the upper pole of the right kidney. The large necrotic mass in the pancreatic body measured 6.2 x 5.7 cm. 09/25/2021. Patient undergoes repeat CT of the abdomen and pelvis. This shows finding consistent with proctocolitis increased in degree compared to the prior study. No significant change in the pancreatic body/neck mass with vascular encasement suggesting adenocarcinoma. Slight increase in extensive hepatic metastatic disease. Interval development of a 2.3 cm left adrenal metastasis and interval development of several small suspected splenic infarcts. 09/25/2021. Patient is admitted and was on chemotherapy with Gemzar and Abraxane. His final treatment was delivered on 09/14/2021. CT of the abdomen pelvis showed no significant change with interval development of a 2.3 cm left adrenal metastasis. Splenic infarcts were noted likely due to underlying malignancy. 10/02/2021. Patient discharged following admission for left lower quadrant abdominal pain. Patient's chemotherapy is completed on 09/14/2021 with Gemzar and Abraxane. 10/25/2021. Patient presented to the emergency department who noted a 1 week of no appetite and loose bloody stools for the past 5 days. His stools were tested twice for C. difficile and both were negative. Patient has a history of pancreatic cancer which is no longer treatable per Dr. Vega with evidence of metastatic disease. 10/25/2021. Repeat CT scan of the abdomen and pelvis. Liquid contents are seen in the rectum come patible with diarrhea. Again noted pancreatic head mass with multifocal metastatic lesions. The mass is enlarged from May. The hepatic lesions and papa metastasis have likewise increased over time since May. There is marked thickening of the left adrenal gland which is significantly progressed from May likely represents a metastatic focus. Multiple ill- defined nodules in the lower lungs are again seen past the cyst could not be excluded. 10/30/2021. CT scan of the pelvis showed no acute fractures and no obvious metastatic bony disease is seen. Prostatomegaly with chronic bladder outlet obstruction is appreciated. Left inguinal hernia containing soft tissue mass, metastatic deposit could not be entirely excluded. 11/02/2021. MRI of the thoracic spine showed no evidence of vertebral body fracture. There was localized marrow edema and marrow replacement at T2, T4, T7, T9, T11 and T12 vertebral bodies representing the presence of metastatic disease. There is no significant spinal cord stenosis or neuroforaminal narrowing present. This thoracic spinal cord appears normal with no paraspinal fluid or soft tissue noted. MRI of the lumbar spine showed evidence of multifocal bony metastatic disease throughout the imaged thoracolumbar spine and bony pelvis. No pathologic fractures are noted. There is evidence of metastatic disease in L1, L3, L4, L5 and S1. Hepatic metastatic disease is also partially visualized. 11/02/2021. Patient complaining of severe back pain. He required significant sedation to allow MRI of the back. This showed as noted above diffuse metastatic disease involving both the lumbar and thoracic vertebral bodies as well as persistent lung mets and progressive liver mets. Patient is presently being treated with Duragesic patch 37 mcg/h and a lidocaine patch on the lower back. He has been treated with Dilaudid in the past. Patient was seen in referral by radiation oncology for evaluation and discussion of the potential roles of palliative radiation. Allergies Allergy/AdvReac Type Severity Reaction Status Date / Time erythromycin base AdvReac Mild Gastrointestinal Verified 10/25/21 19:25 Upset celecoxib [From Celebrex] AdvReac irritates Verified 10/25/21 19:26 stomach Home Medications Medication Instructions Recorded Confirmed Type ascorbic acid (vitamin C) 1,000 mg 1 g PO QAM 01/10/21 10/25/21 History tablet (Vitamin C) cyanocobalamin (vitamin B-12) 500 500 mcg PO QAM 01/10/21 10/25/21 History mcg tablet multivitamin 1 tab PO QAM 01/10/21 10/25/21 History rosuvastatin 20 mg tablet (Crestor) 20 mg PO QAM 01/10/21 10/25/21 History cholecalciferol (vitamin D3) 25 25 mcg PO QAM 05/16/21 10/25/21 History mcg (1,000 unit) tablet (Vitamin D3) omeprazole 40 mg capsule,delayed 40 mg PO DAILYBB 06/13/21 10/25/21 History release flaxseed oil 1,000 mg capsule 1,000 mg PO DAILY 07/20/21 10/25/21 History ondansetron HCl 8 mg tablet 8 mg PO Q8 PRN 07/20/21 10/25/21 History prochlorperazine maleate 10 mg 10 mg PO Q6 PRN 07/20/21 10/25/21 History tablet tamsulosin 0.4 mg capsule 0.4 mg PO DAILY 07/20/21 10/25/21 History zkhzum-caxauaql-jpxpzyh 1 cap PO TIDM #90 cap 07/24/21 10/25/21 Rx 36,000-114,000-180,000 unit capsule,delay rel (Creon) apixaban 5 mg tablet (Eliquis) 5 mg PO BID 09/25/21 10/25/21 History cgczacf-iugpewugw-eeny tablet 1 tab PO DAILY 09/25/21 10/25/21 History finasteride 5 mg tablet (Proscar) 5 mg PO QAM 30 Days #30 tab 10/02/21 10/25/21 Rx Lactobacillus acidophilus 10 0 mmu cells PO DAILY 10/25/21 10/25/21 History billion cell capsule (Probiotic) ibuprofen 200 mg tablet (Advil) 400 mg PO Q6H PRN 10/25/21 10/25/21 History lorazepam 0.5 mg tablet 0.5 mg PO HS PRN 10/25/21 10/25/21 History oxycodone 10 mg tablet 10 mg PO Q4 10/25/21 10/25/21 History sennosides 8.6 mg tablet (senna) 8.6 mg PO DAILY PRN 10/25/21 10/25/21 History Patient History Medical History Abdominal pain Arthritis of right knee BPH (benign prostatic hyperplasia) C. difficile colitis CKD (chronic kidney disease), stage III Hyperlipidemia Hypertension Left leg DVT Liver metastases Nausea and vomiting after administration of anesthetic agent Osteoarthritis Pancreatic cancer Umbilical hernia + present (no pain or current issues) Surgical History History of colonoscopy History of tooth extraction History of total right knee replacement (TKR) Hx of inguinal hernia repair Hx of prostate biopsy x2 (benign) Hx of umbilical hernia repair Hx of vasectomy Family History Mother Hypertension Heart disease Other No family history of adverse response to anesthesia Social History Smoking Status: Former smoker Second Hand Exposure: No; Hx Alcohol Use: No Hx Substance Use: No Preferred Language: Mexican Communication Ability: Effective Air Conditioning Service Technician Required: No Beliefs That Will Affect Care: None marital status: Current Living Situation: Spouse Current Living Situation Comment: How many Children do You have: 3 Feels Safe at Home: Yes Assistive Devices: Cane Results (Rad Onc) Laboratory Results: were reviewed and pertinent findings noted in HPI Pathology Results: were reviewed and pertinent findings noted in HPI Imaging Studies: were reviewed and pertinent findings noted in HPI Time Spent Attending This documentation has been prepared in full by Dr. Arrington. I have personally reviewed the services described and have reviewed the documentation to ensure its accuracy. I spent 30 minutes with direct face to face interaction with the patient which included obtaining clinical information, recommending a plan of action and answering questions. I spent 20 minutes reviewing his chart and x-rays with radiology and in preparation of this document. WILBER
--- NOTE | 2021-11-02 15:15 | Hospitalist Progress Note ---
Date of Service November 02, 2021 Assessment & Plan (1) Symptomatic anemia: Plan: Secondary to LGI bleed Recent laxative Rx for narcotic induced constipation Hemoglobin drop from baseline hx LLE DVT Eliquis--held Eliquis and laxative. Received 1 unit of blood this admission. H/H this am continues to improve. No significant bleeding overnight. NSAID's have been discontinued and will try diclofenac gel for local pain Hemoglobin remains stable and no more evidence of GI bleed We will check CBC tomorrow (2) Intractable back pain: Plan: severe, started short course decadron on 10/26-some improvement today NSAIDs contraindicated in acute bleed-try toradol because pain is still severe and bleeding is less significant. Continued toradol because this works-convert to PRN Motrin, watch for bleeding. Family and patient advised on side effects and bleeding risks. Add lidocaine patch-this is helping per patient. 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 There are no overt signs of spinal cord compression at this time. Has been on fentanyl patch 12 mcg since 10/28 and will change to 25 mcg from 10/29 Ibuprofen has been discontinued and given diclofenac sodium locally to improve pain Advised to go for MRI to rule out any metastatic disease or any nerve entrapment but the patient declining as he cannot lie flat Pain therapy has been consulted-appreciate input and recommendation CT scan of the pelvis did not show any bony metastasis-it did show prostatomegaly with bladder outlet obstruction and right inguinal hernia with a mass , metastasis could not be ruled out The patient convinced to have an MRI-ordered and preprocedure pain medications will be given Discussed with the anesthesiologist and will get MRI with sedation tomorrow morning Status post MRI scan of the thoracolumbar spine with sedation He has significant metastatic disease involving throughout the spine and other parts of the abdomen and lymph nodes His prognosis remains very poor Discussed with the family members and will ask for radiation oncology and palliative therapy consult Will likely discharge with hospice care at home or in the facility (3) Pancreatic cancer: Plan: With metastatic disease. Per oncology. MRI spine to rule out new mets to the back when he is able to tolerate. Likely has bony metastasis which is causing pain Will be better to get an imaging study to evaluate it CT of the pelvis as above We will try to get MRI of the lumbar spine We will get MRI of the lumbar and thoracic spine with and without contrast With widespread metastatic disease and pain secondary to metastasis (4) Left leg DVT: Plan: Diagnosed in June 2021. Hold anticoagulation at this time. Repeat ultrasound of the left leg did not show new thrombus involving the left common femoral and left posterior tibial vessel Lovenox has been changed to therapeutic dose Explained this to the patient and will need to continue with Eliquis on discharge Will check CBC to make sure hemoglobin is not dropping We will continue Lovenox for now (5) CKD (chronic kidney disease), stage III: Plan: chronic, stable. Cont to monitor BMP (6) Hypertension: Plan: chronic, controlled. Cont to control his pain (7) H/O Clostridium difficile infection: Plan: treated with difficid and has resolved. (8) DVT prophylaxis: Plan: SCDs/ ambulation/Lovenox DNR/DNI Dispo-to home when feeling better, bleeding resolved and pain controlled. Admission and Anticipated Discharge Date Admission Date: October 25, 2021 Subjective 10/29/2021 The patient was seen and examined in medical telemetry unit He complains to have lower back pain which has been very difficult to control since admission He cannot lie flat for an MRI Denies any radiation of pain but bending forward helps the pain 10/30/2021 The patient was seen and examined in medical telemetry unit He still complains to have lower back pain which is worse with activity and standing Cannot lie flat for an MRI-he was convinced to get a CT scan 10/31/2021 The patient was seen and examined in medical telemetry unit in presence of the daughter and the He complains to have pain in the lower spinal area as before Denies any radiation of pain or any problem with urine and or bowel habit Denies any other symptom 11/01/2021 Patient was seen and examined in presence of the family members He could not tolerate MRI as he could not lie down for a few minutes He will have MRI with sedation tomorrow morning 11/02/2021 The patient was seen and examined in medical floor in presence of the family members He is a status post MRI of the thoracolumbar spine with sedation Continues to have significant pain and cannot lie flat at all Review of Systems Review of Systems: Sitting on the bed with acute pain in the lower back Musculoskeletal: Low back pain Physical Exam Physical Exam: Sitting on the bed in pain Constitutional: well developed, well nourished and + ill appearing Eyes: PERRL, conjunctivae normal, anicteric sclerae ENMT: external ear and nose normal, oropharynx normal Neck: trachea midline, no thyromegaly Respiratory: no respiratory distress Auscultation: lungs clear to auscultation bilaterally Cardiovascular: Rate/Rhythm: regular rate and regular rhythm; not tachycardic Heart Sounds: normal S1 and normal S2; no murmur Extremities: no edema Gastrointestinal (Abdomen): Inspection/Auscultation: normal bowel sounds; abdomen not distended Percussion/Palpation: abdomen soft; abdomen nontender Musculoskeletal: Spine: thoracic spine normal to inspection, lumbar spine normal to inspection and + sacral tenderness Neurologic: Alert and awake. Still drowsy from the effect of medications Psychiatric: A+Ox3, euthymic affect Mood: + depressed mood Lymphatic: no cervical or axillary lymphadenopathy Results & Data Results & Data ([facility]) Vital Signs (Past 12 Hours) Vital Signs Temp Pulse Pulse Resp BP BP Pulse Ox 11/02/21 14:30 35.9 C L 120 H 16 86/62 L 98 11/02/21 12:36 36.6 C 72 18 95/65 L 98 11/02/21 11:55 120 H 16 101/61 99 11/02/21 11:45 117 H 14 101/70 99 11/02/21 11:35 116 H 15 101/61 100 11/02/21 11:25 119 H 17 107/71 100 11/02/21 11:15 120 H 18 95/69 L 100 11/02/21 11:05 122 H 20 96/70 L 100 11/02/21 10:55 120 H 20 98/77 L 100 11/02/21 10:49 36.4 C L 122 H 14 92/74 L 100 11/02/21 07:40 36.6 C 108 H 22 125/63 99 11/02/21 04:47 83 124/77 100 (1) Pancreatic cancer Pancreatic malignancy location: unspecified Qualified Code(s): C25.9 - Malignant neoplasm of pancreas, unspecified (2) Hypertension Hypertension type: unspecified Qualified Code(s): I10 - Essential (primary) hypertension
--- NOTE | 2021-11-02 15:17 | Palliative Care Consultation ---
Date of Consultation November 02, 2021 Assessment & Plan (1) Intractable back pain: With extensive bony metastases in thoracolumbar vertebrae. Will add steroid for bone pain. Contacted pain management who defer med management as family has opted for comfort directed care. Continue prn parenteral hydromorphone with steroid and adjuvants. Will monitor 24 hour use to establish baseline opioid need. I think he would benefit from opioid infusion after 24 hour monitoring. Will need to discontinue fentanyl at that time and convert to equivalent dosing. Discussed with Dr. Salvador. (2) Palliative care encounter: I met with Mrs. Ochoa and their family to discuss goals of care for Babar. She told me that they had discussed hospice care but did not feel ready at that time. She recognizes that he is getting weaker and with the new information of additional vertebral mets today, she is more comfortable with the idea of hospice. She did meet with Dr. Arrington to discuss possible palliative radiation, though that is not possible with his current level of discomfort. She asked about whether it was time to think about hospice and we discussed hospice being able to provide support for her at home and manage, pain medications, including opioid infusion if needed. At this time it is felt that Mr. Ochoa would benefit most from focus on comfort and shift of care from disease management to symptom management. She tells me that she and Babar has been discussing living davila at home and that he would not want resuscitation, artificial nutrition or aggressive care at this time. We also discussed prognosis which may be days to a week or more. Plan would be to return home with hospice if symptoms are managed and he is stable for transfer. (3) Pancreatic cancer: Pancreatic malignancy location: unspecified Qualified Code(s): C25.9 - Malignant neoplasm of pancreas, unspecified History of Present Illness Reason for Consultation: goals of care Requesting Physician: Dr. Salvador Attending Physician: Loulou Salvador MD History of Present Illness 70 yo gentleman with metastatic pancreatic cancer, BPH and recurrent C diff. He has had multiple hospitalizations since his diagnosis and is followed by Dr. Vega in [facility] for his cancer care. He has also seen Dr. Perez for outpatient palliative care. At his last visit with Dr. Vega, it was felt that he would not benefit from further cancer treatment. Family had discussed hospice care with Dr. Perez but did not feel ready at that time. He has been having severe back pain since admission and was found to have extensive thoracic and lumbar vertebral mets in addition to known, lymphatic, hepatic, adrenal and pulmonary mets. He is very restless and frequently asking to be repositioned. He is asking to void but has not been able to. He did have lumbar MRI with sedation this morning as he was unable to tolerate MRI due to pain. He has 70 OME in prn hydromorphone today in addition to 37mcg fentanyl patch and adjuvant lidoderm, diclofenac and duloxetine. Allergies Allergy/AdvReac Type Severity Reaction Status Date / Time erythromycin base AdvReac Mild Gastrointestinal Verified 10/25/21 19:25 Upset celecoxib [From Celebrex] AdvReac irritates Verified 10/25/21 19:26 stomach Home Medications Medication Instructions Recorded Confirmed Type ascorbic acid (vitamin C) 1,000 mg 1 g PO QAM 01/10/21 10/25/21 History tablet (Vitamin C) cyanocobalamin (vitamin B-12) 500 500 mcg PO QAM 01/10/21 10/25/21 History mcg tablet multivitamin 1 tab PO QAM 01/10/21 10/25/21 History rosuvastatin 20 mg tablet (Crestor) 20 mg PO QAM 01/10/21 10/25/21 History cholecalciferol (vitamin D3) 25 25 mcg PO QAM 05/16/21 10/25/21 History mcg (1,000 unit) tablet (Vitamin D3) omeprazole 40 mg capsule,delayed 40 mg PO DAILYBB 06/13/21 10/25/21 History release flaxseed oil 1,000 mg capsule 1,000 mg PO DAILY 07/20/21 10/25/21 History ondansetron HCl 8 mg tablet 8 mg PO Q8 PRN 07/20/21 10/25/21 History prochlorperazine maleate 10 mg 10 mg PO Q6 PRN 07/20/21 10/25/21 History tablet tamsulosin 0.4 mg capsule 0.4 mg PO DAILY 07/20/21 10/25/21 History pmmzqr-kupwdbat-vctdzms 1 cap PO TIDM #90 cap 07/24/21 10/25/21 Rx 36,000-114,000-180,000 unit capsule,delay rel (Creon) apixaban 5 mg tablet (Eliquis) 5 mg PO BID 09/25/21 10/25/21 History bzffvxg-vmglcvlos-fidm tablet 1 tab PO DAILY 09/25/21 10/25/21 History finasteride 5 mg tablet (Proscar) 5 mg PO QAM 30 Days #30 tab 10/02/21 10/25/21 Rx Lactobacillus acidophilus 10 0 mmu cells PO DAILY 10/25/21 10/25/21 History billion cell capsule (Probiotic) ibuprofen 200 mg tablet (Advil) 400 mg PO Q6H PRN 10/25/21 10/25/21 History lorazepam 0.5 mg tablet 0.5 mg PO HS PRN 10/25/21 10/25/21 History oxycodone 10 mg tablet 10 mg PO Q4 10/25/21 10/25/21 History sennosides 8.6 mg tablet (senna) 8.6 mg PO DAILY PRN 10/25/21 10/25/21 History Patient History Medical History Abdominal pain Arthritis of right knee BPH (benign prostatic hyperplasia) C. difficile colitis CKD (chronic kidney disease), stage III Hyperlipidemia Hypertension Left leg DVT Liver metastases Nausea and vomiting after administration of anesthetic agent Osteoarthritis Pancreatic cancer Umbilical hernia + present (no pain or current issues) Surgical History History of colonoscopy History of tooth extraction History of total right knee replacement (TKR) Hx of inguinal hernia repair Hx of prostate biopsy x2 (benign) Hx of umbilical hernia repair Hx of vasectomy Family History Mother Hypertension Heart disease Other No family history of adverse response to anesthesia Social History Smoking Status: Former smoker Second Hand Exposure: No; Hx Alcohol Use: No Hx Substance Use: No Preferred Language: Greek Communication Ability: Effective Technical Assoc Required: No Beliefs That Will Affect Care: None marital status: Current Living Situation: Spouse Current Living Situation Comment: How many Children do You have: 3 Feels Safe at Home: Yes Assistive Devices: Cane Review of Systems Review of Systems: ESAS Pain 3/3 Dyspnea 0/3 Anxiety 2/3 Fatigue 2/3 Nausea 0/3 Anorexia 2/3 Drowsiness 1/3 PPS 30% Physical Exam Constitutional: + ill appearing; + uncomfortable ENMT: Mouth: + dry oral mucous membranes Respiratory: normal respiratory effort; no labored breathing Cardiovascular: Extremities: + edema Gastrointestinal (Abdomen): nontender, LBM 7/8 Skin: cool Neurologic: mild confusion, restlessness Results & Data ([facility]) Vital Signs (Past 12 Hours) Vital Signs Temp Pulse Pulse Resp BP BP Pulse Ox 11/02/21 14:30 96.6 F L 120 H 16 86/62 L 98 11/02/21 12:36 97.9 F 72 18 95/65 L 98 11/02/21 11:55 120 H 16 101/61 99 11/02/21 11:45 117 H 14 101/70 99 11/02/21 11:35 116 H 15 101/61 100 11/02/21 11:25 119 H 17 107/71 100 11/02/21 11:15 120 H 18 95/69 L 100 11/02/21 11:05 122 H 20 96/70 L 100 11/02/21 10:55 120 H 20 98/77 L 100 11/02/21 10:49 97.5 F L 122 H 14 92/74 L 100 11/02/21 07:40 97.9 F 108 H 22 125/63 99 11/02/21 04:47 83 124/77 100 PG Care Time/CCT Total # of Minutes Spent Total Time Spent: 90 Total Time Spent with Patient: Total time spent is greater than 50% in coordination of care (as documented) at patient's floor/unit and/or counseling patient:goals of care, symptom management, prognosis, hospice, coordination of care, patient and family education and support. Coding Level of Care Code 50689 Initial Inpt Care Lvl 3 Diagnoses Intractable back pain M54.9 Pancreatic cancer C25.9 Pancreatic malignancy location: unspecified Palliative care encounter Z51.5
[2021-11-02] MEDS ORDERED: LORazepam 0.5 MG in SYRINGE 0.25 ML IV PRN (15:55)
[2021-11-02] MEDS ORDERED: ONDANSETRON 4 MG OD TAB SL PRN (15:55)
[2021-11-02] MEDS ORDERED: GLYCOPYRROLATE 0.2 MG/ML VIAL IV PRN (15:55)
[2021-11-02] MEDS: LORazepam 0.5 MG TAB SL PRN ×2 (16:21→20:17)
[2021-11-02] MEDS: HEPARIN 100 UNIT/ML 5ML FLUSH FLUSH PRN ×2 (17:00→20:14)
[2021-11-02] MEDS: dexAMETHasone 4 MG in SYRINGE 0 ML IV SCH (18:04)
[2021-11-03] MEDS: CHECK fentaNYL PATCH PLACEMENT SCH ×2 (00:34→08:09)
[2021-11-03] MEDS: dexAMETHasone 4 MG in SYRINGE 0 ML IV SCH (05:42)
[2021-11-03] MEDS: HEPARIN 100 UNIT/ML 5ML FLUSH FLUSH PRN (05:42)
[2021-11-03] MEDS: ACETAMINOPHEN 500 MG TAB PO SCH (06:33)
[2021-11-03] MEDS: PANCREAZE (LIPASE 10,500U) CAP PO SCH (08:09)
[2021-11-03] MEDS: ADVANCED PROBIOTIC 1250 MG CAPSULE PO SCH (08:10)
[2021-11-03] MEDS: BACLOFEN 10 MG TAB PO SCH (08:10)
[2021-11-03] MEDS: DULoxetine HCL 30 MG CAP PO SCH (08:10)
[2021-11-03] MEDS: DICLOFENAC SOD 1% GEL 100 GM TUBE EXT SCH (08:10)
[2021-11-03] MEDS: LIDOCAINE 5% 1 PATCH TD SCH (08:10)
[2021-11-03] MEDS: HYDROmorphone INJ 0.5 MG/0.5 ML SYR IV PRN (08:54)
--- NOTE | 2021-11-03 10:42 | Communication Note ---
Date of Service: November 03, 2021 Asked to pronounce: On examination; Totally unconscious without any pulse or breathing. Pupils are widely dilated and fixed No audible heart sound and or lung sound He was pronounced at 9:30 AM on 11/03/2021. The cause of is pancreatic cancer. Notified family members. Dr Thaddeus Salvador
--- NOTE | 2021-11-04 07:51 | Discharge Summary ---
Date of Service November 03, 2021 Admission HPI Per Admitting Provider History obtained from patient and records. Medical history significant for metastatic pancreatic cancer ongoing chemotherapy, chronic pain on narcotics, hypertension, hyperlipidemia, recurrent Cdifficile status post vancomycin Rx, BPH, chronic anemia (baseline hemoglobin of 11), LLE DVT on Eliquis. Monthly admissions since May, Recent confinement 3 weeks ago for recurrent C. difficile. Patient discharged on Dificid. Last week, patient did on laxative regimen for narcotic induced constipation by palliative care physician. 5 days history of bloody diarrhea without abdominal pain. Patient feeling wash ed out weak and tired. No fever, no chills, no chest pain, no shortness of breath. Outpatient stool C. difficile test today was negative. Patient brought to ER by family for further evaluation. 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 Admission Exam Per Admitting Provider Physical Exam: GENERAL: Comfortable, no respiratory distress SKIN: Pallor, warm HEENT: Partial alopecia, bespectacled, pale palpebral conjunctivae, no ptosis, dry buccal mucosa NECK : Supple, no tenderness CHEST : CTA, no tenderness HEART : RRR, no obvious murmurs ABDOMEN: Some distention,no tenderness EXTREMITIES : Minimal LE swelling, no LE tenderness, no other conspicuous deformities noted NEUROLOGIC : Coherent, no facial asymmetry, no other gross focality Principal Diagnosis : Carcinoma of the Pancreas Discharge Exam The patient Discharge Data Allergies Allergy/AdvReac Type Severity Reaction Status Date / Time erythromycin base AdvReac Mild Gastrointestinal Verified 10/25/21 19:25 Upset celecoxib [From Celebrex] AdvReac irritates Verified 10/25/21 19:26 stomach Consultations 10/25/21 19:25 ED Decision to Admit Stat 10/26/21 02:24 Consult Gastroenterology Routine 10/30/21 07:00 Consult Pain Management Routine 11/02/21 12:11 Consult Radiation Oncology Routine 11/02/21 12:31 Consult Palliative Care Routine 11/02/21 15:55 Consult Palliative Care Routine Procedures Performed Operation Date: 11/02/21 09:20 <No data on this case meets the specified criteria> Ordered Studies 10/25/21 18:25 CT abd pelvis wo con Stat 10/28/21 16:31 US venous doppler LE BI Routine 10/30/21 11:31 CT pelvis wo con Routine 11/02/21 01:00 MR thoracic spine wo/w con Routine 11/02/21 09:00 MR lumbar spine wo/w con Routine Hospital Course (1) Symptomatic anemia: Secondary to LGI bleed Recent laxative Rx for narcotic induced constipation Hemoglobin drop from baseline hx LLE DVT Eliquis--held Eliquis and laxative. Received 1 unit of blood this admission. H/H this am continues to improve. No significant bleeding overnight. NSAID's have been discontinued and will try diclofenac gel for local pain Hemoglobin remains stable and no more evidence of GI bleed We will check CBC tomorrow (2) Intractable back pain: severe, started short course decadron on 10/26-some improvement today NSAIDs contraindicated in acute bleed-try toradol because pain is still severe and bleeding is less significant. Continued toradol because this works-convert to PRN Motrin, watch for bleeding. Family and patient advised on side effects and bleeding risks. Add lidocaine patch-this is helping per patient. Pt declines [employer]--remains on oxycodone IR q4h MRI spine with contrast ordered but currently he cannot tolerate. There are no overt signs of spinal cord compression at this time. Has been on fentanyl patch 12 mcg since 10/28 and will change to 25 mcg from 10/29 Ibuprofen has been discontinued and given diclofenac sodium locally to improve pain Advised to go for MRI to rule out any metastatic disease or any nerve entrapment but the patient declining as he cannot lie flat Pain therapy has been consulted-appreciate input and recommendation CT scan of the pelvis did not show any bony metastasis-it did show prostatomegaly with bladder outlet obstruction and right inguinal hernia with a mass , metastasis could not be ruled out The patient convinced to have an MRI-ordered and preprocedure pain medications will be given Discussed with the anesthesiologist and will get MRI with sedation tomorrow morning Status post MRI scan of the thoracolumbar spine with sedation He has significant metastatic disease involving throughout the spine and other parts of the abdomen and lymph nodes His prognosis remains very poor Discussed with the family members and will ask for radiation oncology and palliative therapy consult Will likely discharge with hospice care at home or in the facility (3) Pancreatic cancer: With metastatic disease. Per oncology. MRI spine to rule out new mets to the back when he is able to tolerate. Likely has bony metastasis which is causing pain Will be better to get an imaging study to evaluate it CT of the pelvis as above We will try to get MRI of the lumbar spine We will get MRI of the lumbar and thoracic spine with and without contrast With widespread metastatic disease and pain secondary to metastasis (4) Left leg DVT: Diagnosed in June 2021. Hold anticoagulation at this time. Repeat ultrasound of the left leg did not show new thrombus involving the left common femoral and left posterior tibial vessel Lovenox has been changed to therapeutic dose Explained this to the patient and will need to continue with Eliquis on discharge Will check CBC to make sure hemoglobin is not dropping We will continue Lovenox for now (5) CKD (chronic kidney disease), stage III: chronic, stable. Cont to monitor BMP (6) Hypertension: chronic, controlled. Cont to control his pain (7) H/O Clostridium difficile infection: treated with difficid and has resolved. (8) DVT prophylaxis: SCDs/ ambulation/Lovenox DNR/DNI Dispo-to home when feeling better, bleeding resolved and pain controlled. Total Time Total Time Spent Total Time Spent (In Minutes): 20 minutes Discharge Plan Discharge Items Patient Disposition: Discharge Diagnosis: Carcinoma of the Pancreas Other Date/Time: 11/03/21 09:30
== END 2021-11-03 12:24 | disposition expired | DRG 378 ==
LOC: ED 17:50 → 2W 21:00 → SUATTDRO 21:00 → 2W 21:39 → 3W 10-31 22:42